=== PATIENT | female | born 1975 | race Caucasian/White ===

== ENCOUNTER 2016-10-09 13:16 | Inpatient (IN) | payer OTHER, MEDICAID ==
--- NOTE | 2016-10-09 13:42 | EDPHY ---
HPI/HX/ROS/PE/MDM Narrative: CHIEF COMPLAINT: Altered mental status HISTORY OF PRESENT ILLNESS: The patient is a 41 year old female, with history of Astroglioma brain tumor and cognitive disorder NOS who presents with decreased mental status. The patient has a lactose allergy. Yesterday she went to get ice cream with her family. She spat some of it up, but otherwise appeared at baseline. Last night, the patient began making a grunting noise. She slept normally throughout the night. This morning she was found to be diaphoretic. She continued to make the grunting noise and started coughing while eating food this morning. 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 The patient is usually nonverbal and able to follow commands. Today she became less responsive. No vomiting or diarrhea. No recent medication changes. REVIEW OF SYSTEMS: Unable to be obtained from the patient. PAST MEDICAL HISTORY: Astroglioma brain tumor, Cognitive disorder NOS, Depression, Generalized seizure disorder, Hypothyroid, Lactose intolerance, Legally blind, incontinence, PTSD, Yon in L. lower leg, two shunts. SOCIAL HISTORY: Resides at [facility]. Hydrology Teacher at bedside. VITAL SIGNS: Reviewed by me. Tachycardic and hypoxic. GENERAL: Chronically ill appearing, microcephaly. HEENT: Atraumatic. Eyes: No icterus, no injection. Pupils are equal and reactive. Mouth: Slightly dry. mucous membranes. No erythema or lesions. Neck: supple with no adenopathy. LUNGS: Wet crackles half way up bilaterally.. CARDIAC: Tachycardia and regular, no rubs, murmurs or gallops. ABDOMEN: Soft, nondistended. No appreciable tenderness. BACK: No CVA tenderness. EXTREMITIES: Trace edema. Lower extremities are cool to the touch. NEURO: Alert, does not follow simple commands, nonverbal. SKIN: Warm and dry, no rash. PSYCHIATRIC: No agitation. Portions of this note were transcribed by a medical photographer. I personally performed a history, physical exam, medical decision making, and confirmed accuracy of information the transcribed note. ED Course: The patient presents with decreased responsiveness. The patient has a history significant for Astroglioma brain tumor and cognitive disorder NOS. Today the patient stopped following simple commands. On exam she has wet sounding lungs. Patient is ill appearing. She has abnormal vitals, patient is tachycardic and hypoxic. IV was established, patient was started on IV fluids and received 100mg soluCORTEF IV as patient normally takes a daily dose of Hydrocort for an unclear reason. Plan for full sepsis workup. Labs, UA, and chest x-ray were ordered. The differential diagnosis for the patient's altered mental status includes but is not limited to sepsis, pneumonia, pulmonary embolism, or aspiration. X-ray of the chest was obtained. I viewed the images myself on the PACS system. Bibasilar pneumonia is seen. See the full radiology report in the imaging section. Severe sepsis protocol initiated. 3:05 p.m.: Patient has lactic acid of 2.4. WBC is elevated. Nursing staff asked to have a PICC line placed for better peripheral access. Plan for PICC line. I spoke to the hospitalist, Dr. Govea, who accepts the patient for admission. The patient received 30 cc/kilogram IV fluids and 1gm Invanz, as she is allergic to levofloxacin, penicillins, and vancomycin. MDM: Severe Sepsis/Septic Shock Care Note The patient presents to the ED with pneumonia identified as an acute infection. The patient did have evidence of end-organ dysfunction and met criteria for severe sepsis. This condition was identified by myself at 2:30 p.m.. The patients vital signs are 107/74, 99, 84% on room air, 16, 37 degree C. The patient has a venous lactic acid performed within 3 hours of the identification of severe sepsis which was found to be 2.4. The patient has blood cultures drawn and received ertapenem IV, per the severe sepsis treatment protocol. The patient had already received antibiotic within the past 24 hours. The initial lactate was elevated and rechecked within 6 hours of the identification time of severe sepsis and found to be: 0.8. After the history was obtained and physical exam performed, the following differential for the patient's altered mental status and respiratory distress was considered included but was not limited to hypoglycemia, electrolyte disturbances, sepsis, pneumonia, aspiration, cardiac causes, congestive heart failure. - Data Points Imaging Results: Imaging Impressions Chest X-Ray 10/09/16 13:44 Impression: Bilateral lower lobe atelectasis/infiltrate, new. PICC Line Insertion 10/09/16 15:10 Impression: Difficult placement of 6-Chinese triple-lumen peripherally inserted central catheter, now ready to use. (PQRS measures: Current medications were listed in the medical record, including all known prescriptions, [id number] medications, herbal medications, and nutritional supplements. Prophylactic Antibiotic: Unnecessary. VTE Prophylaxis: Unnecessary.) Laboratory Results: Laboratory Results 10/09/16 13:45 10/09/16 13:45 10/09/16 10/09/16 10/09/16 13:45 13:45 13:45 WBC 12.58 10^3/uL H 10^3/uL (3.80-9.50) RBC 5.56 10^6/uL H 10^6/uL (4.18-5.33) Hgb 16.9 g/dL H g/dL (12.6-16.3) Hct 52.4 % H % (38.0-47.0) MCV 94.2 fL fL (81.5-99.8) MCH 30.4 pg pg (27.9-34.1) MCHC 32.3 g/dL L g/dL (32.4-36.7) RDW 14.3 % % (11.5-15.2) Plt Count 236 10^3/uL 10^3/uL (150-400) MPV 10.0 fL fL (8.7-11.7) Neut % (Auto) 84.5 % H % (39.3-74.2) Lymph % (Auto) 6.7 % L % (15.0-45.0) [place] % (Auto) 7.4 % % (4.5-13.0) Eos % (Auto) 0.2 % L % (0.6-7.6) Baso % (Auto) 0.5 % % (0.3-1.7) Nucleat RBC Rel Count 0.0 % % (0.0-0.2) Absolute Neuts (auto) 10.64 10^3/uL H 10^3/uL (1.70-6.50) Absolute Lymphs (auto) 0.84 10^3/uL L 10^3/uL (1.00-3.00) Absolute Monos (auto) 0.93 10^3/uL H 10^3/uL (0.30-0.80) Absolute Eos (auto) 0.02 10^3/uL L 10^3/uL (0.03-0.40) Absolute Basos (auto) 0.06 10^3/uL 10^3/uL (0.02-0.10) Absolute Nucleated RBC 0.00 10^3/uL 10^3/uL (0-0.01) Immature Gran % 0.7 % % (0.0-1.1) Immature Gran # 0.09 10^3/uL 10^3/uL (0.00-0.10) PT 12.6 SEC SEC (12.0-15.0) INR 0.95 (0.83-1.16) APTT 24.8 SEC SEC (23.0-38.0) VBG Lactic Acid Sodium 144 mEq/L mEq/L (134-144) Potassium 4.5 mEq/L mEq/L (3.5-5.2) Chloride 105 mEq/L mEq/L (97-110) Carbon Dioxide 30 mEq/l mEq/l (22-31) Anion Gap 9 mEq/L mEq/L (8-16) BUN 18 mg/dL mg/dL (7-23) Creatinine 0.8 mg/dL mg/dL (0.6-1.0) Estimated GFR > 60 Glucose 99 mg/dL mg/dL (70-100) Calcium 9.9 mg/dL mg/dL (8.5-10.4) Total Bilirubin 0.9 mg/dL mg/dL (0.1-1.4) 10/09/16 13:45 WBC RBC Hgb Hct MCV MCH MCHC RDW Plt Count MPV Neut % (Auto) Lymph % (Auto) [place] % (Auto) Eos % (Auto) Baso % (Auto) Nucleat RBC Rel Count Absolute Neuts (auto) Absolute Lymphs (auto) Absolute Monos (auto) Absolute Eos (auto) Absolute Basos (auto) Absolute Nucleated RBC Immature Gran % Immature Gran # PT INR APTT VBG Lactic Acid 2.4 mmol/L H mmol/L (0.7-2.1) Sodium Potassium Chloride Carbon Dioxide Anion Gap BUN Creatinine Estimated GFR Glucose Calcium Total Bilirubin Medications Given: Discontinued Medications Hydrocortisone (Solucortef) 100 mg IVP EDNOW ONE Stop: 10/09/16 13:46 Last Admin: 10/09/16 14:06 Dose: 100 mg Sodium Chloride (Ns) 1,000 mls @ 0 mls/hr IV ONCE ONE PRN Reason: Wide Open Stop: 10/09/16 13:45 Last Admin: 10/09/16 14:08 Dose: 1,000 mls Ertapenem 1 gm/ Sodium (Chloride) 100 mls @ 200 mls/hr IV EDNOW ONE PRN Reason: Protocol Stop: 10/09/16 14:57 Last Admin: 10/09/16 15:11 Dose: 100 mls Sodium Chloride (Ns) 1,900 mls @ 3,800 mls/hr 30 ml/kg infuse over 30 min ( 1900 ml) IV EDNOW ONE Stop: 10/09/16 14:57 Last Admin: 10/09/16 15:00 Dose: 1,900 mls General Time Seen by Provider: 10/09/16 13:33 Initial Vital Signs: Initial Vital Signs Temperature (C) 37 C 10/09/16 13:18 Heart Rate 119 H 10/09/16 13:18 Respiratory Rate 24 H 10/09/16 13:18 Blood Pressure 121/88 H 10/09/16 13:18 O2 Sat (%) 91 L 10/09/16 13:18 O2 Delivery Mode Nasal Cannula O2 (L/minute) 2 Allergies/Adverse Reactions: codeine [Codeine] Allergy (Intermediate, Verified 10/09/16 13:17) levofloxacin [From Levaquin] Allergy (Verified 10/09/16 13:17) milk [Milk] Allergy (Verified 10/09/16 13:17) morphine Allergy (Verified 10/09/16 13:17) Penicillins Allergy (Verified 10/09/16 13:17) vancomycin Allergy (Verified 10/09/16 13:17) Home Medications: Medication Instructions Recorded Chlorhexidine Gluconate [Peridex] 15 ml PO BID@0900,2100 08/12/12 Clotrimazole 1% [Clotrimazole 1% 1 pratima TP DAILY 08/12/12 (RX)] Docusate Sodium [Colace 100 MG 100 mg PO BID 08/12/12 (OTC)] Hydrocortisone [Cortef] 20 mg PO BID 08/12/12 Levothyroxine [Synthroid 112 mcg 112 mcg PO DAILY06 08/12/12 (RX)] Propylene Glycol/Peg 400 [SYSTANE 1 drop EACHEYE 5XD 08/12/12 0.3-0.4% EYE DROPS] Cholecalciferol Vit D3 [Vitamin D3 2,000 units PO DAILY 10/09/16 (*)] Herbals/Supplements -Info Only 1 ea PO DAILY 10/09/16 Lacosamide [Vimpat 50 mg (*)] 300 mg PO DAILY 10/09/16 Mineral Oil/Petrolatum,White 1 pratima OP BID 10/09/16 [Systane Nighttime Eye Oint] [place]-3 Fatty Acids [Fish Oil 1000 2,000 mg PO DAILY 10/09/16 mg (*)] Polyethylene Glycol 3350 [Miralax 17 gm PO DAILY 10/09/16 17 gm (*)] Vitamin B Complex [B Complex] 1 each PO DAILY 10/09/16 Departure - Departure Disposition: [facility] Inpatient Acute Clinical Impression: Pneumonia Qualifiers: Pneumonia type: due to unspecified organism Laterality: bilateral Lung location : lower lobe of lung Qualified Code(s): J18.9 - Pneumonia, unspecified organism Sepsis Qualifiers: Sepsis type: sepsis due to unspecified organism Qualified Code(s): A41.9 - Sepsis, unspecified organism Condition: Serious Report Scribed for: Sue Payne Report Scribed by: Franchesca Potts Date of Report: 10/09/16 Time of Report: 13:49
[2016-10-09] MEDS ORDERED: NS 1,000 ML IV ONE ×2 (13:44→15:04)
[2016-10-09] MEDS ORDERED: HYDROCORTISONE 100 MG/2 ML VIAL IVP ONE (13:45)
[2016-10-09 13:57] LABS: % IMMATURE GRANULYOCYTES 0.7 % (0.0-1.1); ABSOLUTE IMMATURE GRANULOCYTES 0.09 10^3/uL (0.00-0.10); ADD DIFF? NO; ADD MORPH? NO; ADD SCAN? NO; ATYPICAL LYMPHOCYTE FLAG 20 (0-99); FRAGMENT RBC FLAG 0 (0-99); HEMATOCRIT 52.4 % (38.0-47.0); HEMOGLOBIN 16.9 g/dL (12.6-16.3); LEFT SHIFT FLG 0 (0-99); LIPEMIA HEMOLYSIS FLAG 80 (0-99); MEAN CELL HEMOGLOBIN 30.4 pg (27.9-34.1); MEAN CELL HEMOGLOBIN CONCENTR. 32.3 g/dL (32.4-36.7); MEAN CELL VOLUME 94.2 fL (81.5-99.8); PLATELET CLUMPS FLAG 40 (0-99); PLATELET COUNT 236 10^3/uL (150-400); RED BLOOD CELL COUNT 5.56 10^6/uL (4.18-5.33); RED CELL DISTRIBUTION WIDTH 14.3 % (11.5-15.2)
[2016-10-09 14:14] LABS: INR 0.95 (0.83-1.16); PROTIME(PATIENT) 12.6 SEC (12.0-15.0)
[2016-10-09 14:15] LABS: ANION GAP 9 mEq/L (8-16); APTT 24.8 SEC (23.0-38.0); BILIRUBIN,TOTAL 0.9 mg/dL (0.1-1.4); CALCIUM 9.9 mg/dL (8.5-10.4); CARBON DIOXIDE 30 mEq/l (22-31); CHLORIDE 105 mEq/L (97-110); CREATININE 0.8 mg/dL (0.6-1.0); GLOMERULAR FILTRATION RATE > 60; GLUCOSE 99 mg/dL (70-100); POTASSIUM 4.5 mEq/L (3.5-5.2); SODIUM 144 mEq/L (134-144)
[2016-10-09] MEDS ORDERED: NS 1,900 ML IV ONE (14:28)
[2016-10-09] MEDS ORDERED: ERTAPENEM 1 GM in NS 100 ML IV ONE (14:28)
[2016-10-09 14:53] LABS: LACGHOST ORDER
[2016-10-09] MEDS ORDERED: ONDANSETRON DISINTEGRATING 4 MG TAB PO PRN (15:04)
[2016-10-09] MEDS ORDERED: ONDANSETRON 4 MG/2 ML VIAL IVP PRN (15:04)
[2016-10-09] MEDS ORDERED: ALBUTEROL 3 ML DEYVIAL IH PRN (15:04)
[2016-10-09] MEDS ORDERED: ALTEPLASE 2 MG VIAL IVP PRN (15:10)
--- NOTE | 2016-10-09 16:51 | GHP ---
[f rep st] HISTORY AND PHYSICAL DATE OF ADMISSION: 10/09/2016 CHIEF COMPLAINT: Grunting and pallor. HISTORY OF PRESENT ILLNESS: A 41-year-old female with a history of astrocytoma who is cared for at [facility] [place] who was noted by her care providers today to be acting off her normal baseline. She h as a baseline cognitive disorder related to her astrocytoma. The patient noted that she was making unusual grunting noises today and was noted to be diaphoretic. Because of the combination of these 2 things, was brought to the emergency department for evaluation. In the emergency department, the patient is saying no to chest pain, abdominal pain, headache, myalgias, arthralgias, or nausea. Car e providers are noting that she had a normal night's sleep the evening preceding and began making un usual grunting noises and coughing while she was eating her food this morning. Care provider measur ed temperature in the home and noted that she was 99.8. She was still able to follow some commands but seemed off her nonverbal baseline. PAST MEDICAL HISTORY: 1. 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 2. Cognitive disorder NOS. 3. Adrenal insufficiency. 4. Generalized seizure disorder. 5. Hypothyroidism. 6. Depression. 7. Legal blindness. 8. Chronic incontinence. 9. Lactose intolerance. 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 She does not drink alcohol, smoke cigarettes, or use illicit drugs. FAMILY HISTORY: The patient has very limited involvement with her family. There is preceding histo ry of restraining orders against family members. REVIEW OF SYSTEMS: A 10-point review of systems is negative with the exception of that reported in the HPI. PHYSICAL EXAMINATION: VITAL SIGNS: Blood pressure is 108/76, heart rate 119, respiratory rate 24, saturating 91% on room air. GENERAL: This is a comorbidly young-appearing female who appears diaph oretic on my exam. HEENT: Notable for dry mucous membranes. Eye exam is negative for any icterus. CARDIAC: Patient is tachycardic but regular. PULMONARY: She has limited respiratory effort, is intermittently grunting during my examination as well. I hear rhonchi on anterior auscultation bila terally. No wheezing is appreciated. Her movement is limited. GASTROINTESTINAL: Positive bowel s ounds. Patient is obese and grunting to deep palpation in all 4 quadrants. MUSCULOSKELETAL: Notab le for 2+ symmetric lower extremity edema. SKIN: Negative for any rashes. NEUROLOGIC: The patien t is answering yes and no questions with "yeah" and "nah." PSYCHIATRIC: Appears depressed and with drawn. DATA: White count 12.58, hematocrit 52.4. Baselines are in the 40s. Platelet count of 236. Sodiu m 144, creatinine 0.8. Lactic acid 2.4. Chest x-ray, which I personally reviewed and interpreted, shows patchy consolidation in the bilateral lung bases with poor inspiration. ASSESSMENT AND PLAN: This is a 41-year-old female who presents with cough and diaphoresis. 1. Sepsis. The patient is presenting with leukocytosis, tachycardia, presumed source pulmonary. W ill receive aggressive fluid resuscitation in the emergency department. Blood cultures have been dr ragsdale. We will empirically treat with broad-spectrum antibiotics. Due to her allergies to common ant ibiotics, will choose ertapenem as our initial antibiotic of choice. Sending influenza. I doubt sh e will be able to produce a sputum sample in coordination with Respiratory Therapy. 2. Community-acquired pneumonia. Patient has bilateral infiltrates, grunting, cough, leukocytosis, all consistent. Will treat as above with empiric antibiotics as well as inhaled DuoNebs and albute rol as needed. Await microbiologic data for pathogen. Additionally have ordered Speech Therapy for an evaluation to rule out any aspiration. Patient did have a video swallow performed in 2012 that showed no aspiration at that time. 3. Acute leukocytosis. Patient likely has an elevation in her white count secondary to pneumonia. Will additionally send her urine for evaluation as she is unable to clearly give symptoms related t o urinary tract infection. 4. Underlying seizure disorder. Will continue her home medications without alteration. 5. Adrenal insufficiency. Patient is on chronic hydrocortisone. Will bolus dose her with steroids overnight in the setting of acute sepsis. Can transition her back to home dosing tomorrow if her v ital signs remain stable. 6. History of astrocytoma status post surgical excision and COMMUNITY HEALTH PLANNING DIRECTOR shunting. Patient receives 24-hour care at [facility] [place]. This can resume when she is stabilized and safe for transition back. Prophy laxis with Lovenox. Diet after Speech Therapy evaluates safety of swallowing. DISPOSITION: I expect greater than 2 midnights as patient is presenting septic, presumed secondary to pneumonia, requiring IV antibiotics, supportive care, and close monitoring. I have discussed the case with the emergency room physician. Patient will be triaged to the medical-surgical floor for care and monitoring. /[id number]/MODL
[2016-10-09] MEDS ORDERED: IPRATROPIUM/ALBUTEROL 3 ML DEYVIAL ONE (17:18)
[2016-10-09] MEDS: IPRATROPIUM/ALBUTEROL 3 ML DEYVIAL IH SCH ×2 (17:52→20:59)
[2016-10-09] MEDS: NS 1,000 ML IV SCH (20:28)
[2016-10-09] MEDS: methylPREDNISolone SOD SUCC 40 MG/ML VIAL IVP SCH (22:54)
[2016-10-10] MEDS: IPRATROPIUM/ALBUTEROL 3 ML DEYVIAL IH SCH ×4 (05:12→21:21)
[2016-10-10 05:21] LABS: % IMMATURE GRANULYOCYTES 0.5 % (0.0-1.1); ABSOLUTE IMMATURE GRANULOCYTES 0.04 10^3/uL (0.00-0.10); ADD DIFF? NO; ADD MORPH? NO; ADD SCAN? NO; ATYPICAL LYMPHOCYTE FLAG 10 (0-99); FRAGMENT RBC FLAG 0 (0-99); HEMATOCRIT 38.3 % (38.0-47.0); HEMOGLOBIN 12.3 g/dL (12.6-16.3); LEFT SHIFT FLG 0 (0-99); LIPEMIA HEMOLYSIS FLAG 80 (0-99); MEAN CELL HEMOGLOBIN 30.2 pg (27.9-34.1); MEAN CELL HEMOGLOBIN CONCENTR. 32.1 g/dL (32.4-36.7); MEAN CELL VOLUME 94.1 fL (81.5-99.8); MEAN PLATELET VOLUME 9.7 fL (8.7-11.7); PLATELET CLUMPS FLAG 20 (0-99); PLATELET COUNT 165 10^3/uL (150-400); RED BLOOD CELL COUNT 4.07 10^6/uL (4.18-5.33); RED CELL DISTRIBUTION WIDTH 14.2 % (11.5-15.2)
[2016-10-10] MEDS: methylPREDNISolone SOD SUCC 40 MG/ML VIAL IVP SCH (05:29)
[2016-10-10 05:30] LABS: ANION GAP 4 mEq/L (8-16); CALCIUM 7.7 mg/dL (8.5-10.4); CARBON DIOXIDE 23 mEq/l (22-31); CHLORIDE 117 mEq/L (97-110); CREATININE 0.4 mg/dL (0.6-1.0); GLOMERULAR FILTRATION RATE > 60; GLUCOSE 102 mg/dL (70-100); POTASSIUM 3.7 mEq/L (3.5-5.2); SODIUM 144 mEq/L (134-144)
[2016-10-10] MEDS: NS 1,000 ML IV SCH (06:30)
[2016-10-10] MEDS ORDERED: Herbals/Supplements -Info Only PO SCH (09:00)
[2016-10-10] MEDS ORDERED: HYDROCORTISONE 20 MG PO SCH (09:00)
[2016-10-10] MEDS ORDERED: DOCUSATE SODIUM 100 MG CAP PO SCH (09:00)
[2016-10-10] MEDS: LACOSAMIDE 50 MG TAB PO SCH (11:11)
[2016-10-10] MEDS: HYDROCORTISONE 10 MG TAB PO SCH ×2 (11:11→21:53)
[2016-10-10] MEDS: ENOXAPARIN 40 MG/0.4 ML SYR SC SCH (11:11)
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
[2016-10-10] MEDS: POLYETHYLENE GLYCOL 3350 17 GM PKT PO SCH (12:01)
[2016-10-10] MEDS: CHOLECALCIFEROL VIT D3 1,000 UNITS TAB PO SCH (12:04)
[2016-10-10] MEDS: VITAMIN B COMPLEX 1 EA CAP/TAB PO SCH (12:04)
[2016-10-10] MEDS: CHLORHEXIDINE GLUCONATE 15 ML UDL PO SCH ×2 (12:08→20:44)
[2016-10-10] MEDS: CLOTRIMAZOLE 1% 15 GM CRTUBE TP SCH (12:09)
[2016-10-10] MEDS: PROPYLENE GLYCOL EACHEYE SCH ×4 (12:09→21:53)
[2016-10-10] MEDS: OMEGA-3 FATTY ACIDS 1,000 MG CAP PO SCH (12:09)
[2016-10-10] MEDS: PEG EACHEYE SCH ×4 (12:09→21:53)
[2016-10-10] MEDS: SYSTANE NIGHTTIME EYE OP SCH ×2 (12:09→20:45)
[2016-10-10] MEDS: ERTAPENEM 1 GM in NS 100 ML IV SCH (13:05)
[2016-10-10 17:24] LABS: COLOR AMBER; LEUKOCYTE ESTERASE,URINE NEGATIVE (NEGATIVE); NITRITE,URINE NEGATIVE (NEGATIVE)
[2016-10-10 17:28] LABS: MUCUS 1+ /lpf (NONE-1+)
[2016-10-10] MEDS ORDERED: HYDROCORTISONE 10 MG TAB PO SCH (21:00)
[2016-10-11] MEDS: LEVOTHYROXINE 112 MCG TAB PO SCH (05:08)
[2016-10-11] MEDS: PROPYLENE GLYCOL EACHEYE SCH ×5 (05:08→21:05)
[2016-10-11] MEDS: PEG EACHEYE SCH ×5 (05:08→21:05)
[2016-10-11] MEDS: IPRATROPIUM/ALBUTEROL 3 ML DEYVIAL IH SCH ×4 (05:43→21:35)
[2016-10-11] MEDS: ENOXAPARIN 40 MG/0.4 ML SYR SC SCH (10:08)
[2016-10-11] MEDS: POLYETHYLENE GLYCOL 3350 17 GM PKT PO SCH (10:08)
[2016-10-11] MEDS: CHLORHEXIDINE GLUCONATE 15 ML UDL PO SCH ×2 (10:08→21:05)
[2016-10-11] MEDS: HYDROCORTISONE 10 MG TAB PO SCH ×2 (10:08→20:56)
[2016-10-11] MEDS: OMEGA-3 FATTY ACIDS 1,000 MG CAP PO SCH (10:09)
[2016-10-11] MEDS: CHOLECALCIFEROL VIT D3 1,000 UNITS TAB PO SCH (10:09)
[2016-10-11] MEDS: ACETAMINOPHEN 325 MG TAB PO PRN (10:18)
[2016-10-11] MEDS: VITAMIN B COMPLEX 1 EA CAP/TAB PO SCH (10:19)
[2016-10-11] MEDS: CLOTRIMAZOLE 1% 15 GM CRTUBE TP SCH (10:20)
[2016-10-11] MEDS: SYSTANE NIGHTTIME EYE OP SCH ×2 (10:40→21:11)
[2016-10-11] MEDS: ERTAPENEM 1 GM in NS 100 ML IV SCH (10:44)
[2016-10-11] MEDS: LACOSAMIDE 50 MG TAB PO SCH (10:44)
--- NOTE | 2016-10-11 12:18 | HOSPPROG ---
Hospitalist Progress Note Assessment/Plan: 41 yo F with hx of astrocytoma w/resultant cognitive disorder pw sepsis in setting of cap # sepsis: presenting with severe sepsis and elevated lactate, tachycardia, leukocytosis in setting of cap as next. Lactate cleared, hr trending down, wbc normalized. Patient mildly hypotensive but this is likely near her baseline. cultures with ngtd. # CAP: cxr personally reviewed and notable for bilateral opacities c/w infiltrate, aspiration vs cap. Continued on ertapenem for now. AIRCRAFT PNEUDRAULICS REPAIRER to evaluate. Follow cultures. # adrenal insufficiency: back on home dose of hydrocortisone, has had stress dose steroids initially, BP on the low end still but essentially likely baseline. Will continue to monitor on current meds. # sz d/o: continue op meds # h/o astrocytoma: s/p excision and REHAB SPECIALIST shunting, has resultant cognitive d/o as next # cognitive d/o: is dependent in all her needs at baseline, unclear if she is off her baseline currently # dispo: IP stay, will need > 48 hours for eval/mgmt of above Patient new to my care. Old records reviewed and summarized as above. Subjective: no significant overnight events, patient minimally responsive Objective: Vital Signs Temp Pulse Resp BP Pulse Ox 36.6 C 104 H 18 102/87 H 99 10/11/16 11:31 10/11/16 11:31 10/11/16 11:31 10/11/16 11:31 10/11/16 11:31 Laboratory Results 10/10/16 05:00 10/10/16 05:00 10/10/16 10/11/16 10/12/16 05:59 05:59 05:59 Intake Total 4200 200 Output Total 600 200 Balance 3600 0 PT 12.6 SEC (12.0-15.0) 10/09/16 13:45 INR 0.95 (0.83-1.16) 10/09/16 13:45 alert but minimally responsive anicteric op clear rrr coarse bs soft nt nd no cce warm dry well perfused moves all 4, scrunched up in bed ICD10 Worksheet Patient Problems: Problems Problem Status Onset Pneumonia Acute Sepsis Acute
[2016-10-11] MEDS: NS 1,000 ML IV SCH (15:37)
[2016-10-12] MEDS: NS 1,000 ML IV SCH (01:54)
[2016-10-12 05:18] LABS: % IMMATURE GRANULYOCYTES 0.9 % (0.0-1.1); ABSOLUTE IMMATURE GRANULOCYTES 0.06 10^3/uL (0.00-0.10); ADD DIFF? NO; ADD MORPH? NO; ADD SCAN? NO; ATYPICAL LYMPHOCYTE FLAG 20 (0-99); FRAGMENT RBC FLAG 0 (0-99); HEMATOCRIT 39.2 % (38.0-47.0); HEMOGLOBIN 12.7 g/dL (12.6-16.3); LEFT SHIFT FLG 0 (0-99); LIPEMIA HEMOLYSIS FLAG 80 (0-99); MEAN CELL HEMOGLOBIN 30.5 pg (27.9-34.1); MEAN CELL HEMOGLOBIN CONCENTR. 32.4 g/dL (32.4-36.7); MEAN PLATELET VOLUME 9.7 fL (8.7-11.7); PLATELET CLUMPS FLAG 0 (0-99); PLATELET COUNT 183 10^3/uL (150-400); RED BLOOD CELL COUNT 4.17 10^6/uL (4.18-5.33); RED CELL DISTRIBUTION WIDTH 14.4 % (11.5-15.2)
[2016-10-12 05:22] LABS: ANION GAP 2 mEq/L (8-16); CALCIUM 8.6 mg/dL (8.5-10.4); CARBON DIOXIDE 29 mEq/l (22-31); CHLORIDE 113 mEq/L (97-110); CREATININE 0.5 mg/dL (0.6-1.0); GLOMERULAR FILTRATION RATE > 60; GLUCOSE 83 mg/dL (70-100); POTASSIUM 4.2 mEq/L (3.5-5.2); SODIUM 144 mEq/L (134-144)
[2016-10-12] MEDS: IPRATROPIUM/ALBUTEROL 3 ML DEYVIAL IH SCH ×4 (05:35→20:10)
[2016-10-12] MEDS: PEG EACHEYE SCH ×5 (05:48→22:10)
[2016-10-12] MEDS: LEVOTHYROXINE 112 MCG TAB PO SCH (05:48)
[2016-10-12] MEDS: PROPYLENE GLYCOL EACHEYE SCH ×5 (05:48→22:10)
[2016-10-12] MEDS: ERTAPENEM 1 GM in NS 100 ML IV SCH (08:45)
[2016-10-12] MEDS: POLYETHYLENE GLYCOL 3350 17 GM PKT PO SCH (08:45)
[2016-10-12] MEDS: OMEGA-3 FATTY ACIDS 1,000 MG CAP PO SCH (08:46)
[2016-10-12] MEDS: HYDROCORTISONE 10 MG TAB PO SCH ×2 (08:46→22:13)
[2016-10-12] MEDS: ENOXAPARIN 40 MG/0.4 ML SYR SC SCH (08:46)
[2016-10-12] MEDS: CHOLECALCIFEROL VIT D3 1,000 UNITS TAB PO SCH (08:47)
[2016-10-12] MEDS: VITAMIN B COMPLEX 1 EA CAP/TAB PO SCH (08:47)
[2016-10-12] MEDS: CLOTRIMAZOLE 1% 15 GM CRTUBE TP SCH (08:48)
[2016-10-12] MEDS: LACOSAMIDE 50 MG TAB PO SCH (09:44)
[2016-10-12] MEDS: SYSTANE NIGHTTIME EYE OP SCH ×2 (09:44→22:10)
--- NOTE | 2016-10-12 10:40 | HOSPPROG ---
Hospitalist Progress Note Assessment/Plan: 41 yo F with hx of astrocytoma w/resultant cognitive disorder pw sepsis in setting of cap # sepsis: presenting with severe sepsis and elevated lactate, tachycardia, leukocytosis in setting of cap as next. Lactate cleared, hr trending down, wbc normalized. Patient mildly hypotensive but this is likely near her baseline. cultures with ngtd. # acute on chronic encephalopathy: patient at baseline is interactive and able to verbally communicate somewhat-on arrival only grunting, very somnolent, not interactive. Today she is voicing request "I want socks" and able to smile and interact more, suspect she is now close to baseline. She does have severe cognitive deficits at baseline that requires 24 hour care. # CAP: cxr personally reviewed and notable for bilateral opacities c/w infiltrate, aspiration vs cap. Ertapenem for now, will transition to azithro and cefuroxime after today's ertapenem (allergies to pcn/and fluoroquinolones) # adrenal insufficiency: back on home dose of hydrocortisone, has had stress dose steroids initially, BP on the low end still but essentially likely baseline. Will continue to monitor on current meds. 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 shunting, has resultant cognitive d/o as above # dispo: IP stay, will need > 48 hours for eval/mgmt of above Subjective: no significant overnight events, patient today is more alert and interactive, smiling, interacting with staff Objective: Vital Signs Temp Pulse Resp BP Pulse Ox 36.4 C 75 18 106/71 92 10/11/16 23:35 10/12/16 04:00 10/12/16 04:00 10/12/16 04:00 10/12/16 04:00 Laboratory Results 10/12/16 05:02 10/12/16 05:02 10/11/16 10/12/16 10/13/16 05:59 05:59 05:59 Intake Total 200 389 Output Total 200 Balance 0 389 PT 12.6 SEC (12.0-15.0) 10/09/16 13:45 INR 0.95 (0.83-1.16) 10/09/16 13:45 awake alert anicteric op clear rrr no mrg bilateral lower lobe rhonchi, L>R soft nt nd no cce warm dry well perfused smiling, moving all 4 spontaneously but curled up in a ball and diffusely weak, able to state " i want socks" ICD10 Worksheet Patient Problems: Problems Problem Status Onset Pneumonia Acute Sepsis Acute
[2016-10-12] MEDS: CHLORHEXIDINE GLUCONATE 15 ML UDL PO SCH ×2 (11:44→22:14)
[2016-10-12] MEDS ORDERED: CEFUROXIME AXETIL 250 MG TAB PO SCH (21:00)
[2016-10-12] MEDS: CEFUROXIME AXETIL 250 MG/5 ML BTL PO SCH (22:19)
[2016-10-13] MEDS: LEVOTHYROXINE 112 MCG TAB PO SCH (04:39)
[2016-10-13] MEDS: ACETAMINOPHEN 325 MG TAB PO PRN (04:39)
[2016-10-13] MEDS: PROPYLENE GLYCOL EACHEYE SCH ×5 (04:41→20:59)
[2016-10-13] MEDS: PEG EACHEYE SCH ×5 (04:41→20:59)
[2016-10-13] MEDS: IPRATROPIUM/ALBUTEROL 3 ML DEYVIAL IH SCH ×4 (05:15→21:11)
[2016-10-13] MEDS: CHOLECALCIFEROL VIT D3 1,000 UNITS TAB PO SCH (09:41)
[2016-10-13] MEDS: VITAMIN B COMPLEX 1 EA CAP/TAB PO SCH (09:41)
[2016-10-13] MEDS: HYDROCORTISONE 10 MG TAB PO SCH ×2 (09:42→20:31)
[2016-10-13] MEDS: AZITHROMYCIN 250 MG TAB PO SCH (09:42)
[2016-10-13] MEDS: LACOSAMIDE 50 MG TAB PO SCH (09:42)
[2016-10-13] MEDS: OMEGA-3 FATTY ACIDS 1,000 MG CAP PO SCH (09:43)
[2016-10-13] MEDS: CEFUROXIME AXETIL 250 MG/5 ML BTL PO SCH ×2 (09:43→20:37)
[2016-10-13] MEDS: CLOTRIMAZOLE 1% 15 GM CRTUBE TP SCH (09:44)
[2016-10-13] MEDS: CHLORHEXIDINE GLUCONATE 15 ML UDL PO SCH ×3 (09:45→20:49)
[2016-10-13] MEDS: ENOXAPARIN 40 MG/0.4 ML SYR SC SCH (09:45)
[2016-10-13] MEDS: SYSTANE NIGHTTIME EYE OP SCH ×2 (09:46→20:53)
[2016-10-13] MEDS: POLYETHYLENE GLYCOL 3350 17 GM PKT PO SCH (09:47)
--- NOTE | 2016-10-13 16:50 | HOSPPROG ---
Hospitalist Progress Note Assessment/Plan: 41 yo F with hx of astrocytoma w/resultant cognitive disorder pw sepsis in setting of cap # sepsis: presenting with severe sepsis and elevated lactate, tachycardia, leukocytosis in setting of cap as next. Resolving, wbc normal # acute on chronic encephalopathy: improved, back to baseline which is with significant cognitive dysfunction # CAP: cxr personally reviewed and notable for bilateral opacities c/w infiltrate, aspiration vs cap. Started on azithro and cefuroxime(allergies to pcn/and fluoroquinolones). Repeat cxr showing continued bilateral infiltrates. # adrenal insufficiency: back on home dose of hydrocortisone, has had stress dose steroids initially, BP on the low end still but essentially likely baseline. Will continue to monitor on current meds. # sz d/o: continue op meds # h/o astrocytoma: s/p excision and CREDIT CARD ASSOCIATE shunting, has resultant cognitive d/o as above # dispo: IP stay, will need > 48 hours for eval/mgmt of above Subjective: no significant overnight events, patient is awake and alert, eating with help of nursing Objective: Vital Signs Temp Pulse Resp BP Pulse Ox 37.2 C 80 18 96/57 L 95 10/13/16 15:49 10/13/16 15:49 10/13/16 15:49 10/13/16 15:49 10/13/16 15:49 Microbiology 10/10/16 17:11 Urine Culture - Final Urine,Catheterized Laboratory Results 10/12/16 05:02 10/12/16 05:02 10/12/16 10/13/16 10/14/16 05:59 05:59 05:59 Intake Total 389 Balance 389 PT 12.6 SEC (12.0-15.0) 10/09/16 13:45 INR 0.95 (0.83-1.16) 10/09/16 13:45 awake alert anicteric op clear rrr no mrg bilateral lower lobe rhonchi, L>R soft nt nd no cce warm dry well perfused smiling, moving all 4 spontaneously eating with help of nursing ICD10 Worksheet Patient Problems: Problems Problem Status Onset Pneumonia Acute Sepsis Acute
[2016-10-14] MEDS: LEVOTHYROXINE 112 MCG TAB PO SCH (05:26)
[2016-10-14] MEDS: PEG EACHEYE SCH ×4 (05:30→18:05)
[2016-10-14] MEDS: PROPYLENE GLYCOL EACHEYE SCH ×4 (05:30→18:05)
[2016-10-14] MEDS: NS 1,000 ML IV SCH (05:41)
[2016-10-14] MEDS: IPRATROPIUM/ALBUTEROL 3 ML DEYVIAL IH SCH ×3 (06:08→17:22)
--- NOTE | 2016-10-14 09:23 | PDDCSUM ---
Discharge Summary Discharge Summary: Dates of service 10/09-10/14/2016 Procedures/consultations: none Hospital course by problem: # sepsis: presenting with severe sepsis and elevated lactate, tachycardia, leukocytosis in setting of cap as next. Resolved # acute on chronic encephalopathy: improved, back to baseline which is with significant cognitive dysfunction # CAP: cxr personally reviewed and notable for bilateral opacities c/w infiltrate, aspiration vs cap. dc on azithro and cefuroxime(allergies to pcn/ and fluoroquinolones) to complete 10 day course of abx # acute hypoxic respiratory failure: with continued slightly low oxygen due to above as well as atelectasis, clinically improving quickly and suspect that she will not require supplemental o2 for long. # adrenal insufficiency: back on home dose of hydrocortisone, has had stress dose steroids initially, BP on the low end still but essentially likely baseline. Will continue to monitor on current meds. # sz d/o: continue op meds # h/o astrocytoma: s/p excision and DRUM FILLER shunting, has resultant cognitive d/o as above # dispo: dc [facility] Meds: see EHR F/u with PCP >35 minutes spent in discharge more than half in coordination of care
--- NOTE | 2016-10-14 09:23 | PDIAF ---
- Diagnosis Code Status: Full Code - Medication Management Discharge Medications: Medications to Continue on Transfer Chlorhexidine Gluconate [Peridex oral soln (*)] 15 ml PO BID@0900,2100 08/12/12 [Last Taken 10/09/16 10:00] Clotrimazole 1% 1 pratima TP DAILY 08/12/12 [Last Taken 10/09/16 10:00] Docusate Sodium [Colace 100 MG (*)] 100 mg PO BID 08/12/12 [Last Taken 10/09/16 10:00] Hydrocortisone [Cortef] 20 mg PO BID 08/12/12 [Last Taken 10/09/16 10:00] Levothyroxine [Synthroid 112 mcg (*)] 112 mcg PO DAILY06 08/12/12 [Last Taken 10:00] Propylene Glycol/Peg 400 [SYSTANE 0.3-0.4% EYE DROPS] 1 drop EACHEYE 5XD [Last Taken 10/09/16 10:00] Cholecalciferol Vit D3 [Vitamin D3 (*)] 2,000 units PO DAILY 10/09/16 [Last Taken 10/09/16 10:00] Herbals/Supplements -Info Only 1 ea PO DAILY 10/09/16 [Last Taken 10/09/16 10:00 ] Lacosamide [Vimpat 50 mg (*)] 300 mg PO DAILY 10/09/16 [Last Taken 10/09/16 10: 00] Mineral Oil/Petrolatum,White [Systane Nighttime Eye Oint] 1 pratima OP BID 10/09/16 [Last Taken 10/09/16 10:00] [place]-3 Fatty Acids [Fish Oil 1000 mg (*)] 2,000 mg PO DAILY 10/09/16 [Last Taken 10/09/16 10:00] Polyethylene Glycol 3350 [Miralax 17 gm (*)] 17 gm PO DAILY 10/09/16 [Last Taken 10/09/16 10:00] Vitamin B Complex [B Complex] 1 each PO DAILY 10/09/16 [Last Taken 10/09/16 10: 00] Acetaminophen [Tylenol 325mg (*)] 650 mg PO Q4HRS PRN #0 tab 10/14/16 [Last Taken Unknown] Albuterol [Proventil Neb] 3 ml IH Q2HRS PRN #0 deyvial 10/14/16 [Last Taken Unknown] Azithromycin [Zithromax] 500 mg PO DAILY 3 Days 10/14/16 [Last Taken Unknown] Cefuroxime Axetil [Ceftin Oral Liquid (*)] 250 mg PO BID 6 Days 10/14/16 [Last Taken Unknown] Discharge Medications: Refer to the Discharge Home Medication list for PRN reason. - Orders Services needed: Registered Nurse, Certified Golf Ball Trimmer, Physical Therapy, Occupational Therapy, Speech Language Pathologist Diet Texture: Dysphagia 1 - Pureed, Honey Thick Liquids, Meds Whole in Puree - Labs/Radiology BMP Date: 10/17/16 CBC Date: 10/17/16 Imaging Orders: Repeat chest Xray in 3 weeks - Follow Up Care Current Providers and Referrals: UNK,UNK [Other] - As per Instructions
[2016-10-14] MEDS: HYDROCORTISONE 10 MG TAB PO SCH (10:11)
[2016-10-14] MEDS: CHOLECALCIFEROL VIT D3 1,000 UNITS TAB PO SCH (10:11)
[2016-10-14] MEDS: AZITHROMYCIN 250 MG TAB PO SCH (10:12)
[2016-10-14] MEDS: LACOSAMIDE 50 MG TAB PO SCH (10:12)
[2016-10-14] MEDS: VITAMIN B COMPLEX 1 EA CAP/TAB PO SCH (10:12)
[2016-10-14] MEDS: CHLORHEXIDINE GLUCONATE 15 ML UDL PO SCH (10:12)
[2016-10-14] MEDS: SYSTANE NIGHTTIME EYE OP SCH (10:13)
[2016-10-14] MEDS: ENOXAPARIN 40 MG/0.4 ML SYR SC SCH (10:13)
[2016-10-14] MEDS: CEFUROXIME AXETIL 250 MG/5 ML BTL PO SCH (10:13)
[2016-10-14] MEDS: CLOTRIMAZOLE 1% 15 GM CRTUBE TP SCH (10:14)
[2016-10-14] MEDS: POLYETHYLENE GLYCOL 3350 17 GM PKT PO SCH (11:53)
[2016-10-14 12:41] VITALS: TEMP 97.2
[2016-10-14 16:28] VITALS: BP 89/49
[2016-10-14 17:40] VITALS: PULSE 70; RESP 18; O2SAT 93
== END 2016-10-14 18:50 | DRG 871 ==
LOC: F2W 17:05 → F3E 10-10 18:07
PROVIDERS: ADMIT Hospitalist; ATTEND Hospitalist
PROC: 02HV33Z Insertion of Infusion Device into Superior Vena Cava, Percutaneous Approach (ICD-10-PCS; principal; 2016-10-09)
DX: A41.9 Sepsis, unspecified organism (principal); R65.20 Severe sepsis without septic shock; J18.0 Bronchopneumonia, unspecified organism; G93.41 Metabolic encephalopathy; J96.01 Acute respiratory failure with hypoxia; R41.841 Cognitive communication deficit; Z85.841 Personal history of malignant neoplasm of brain; Z98.2 Presence of cerebrospinal fluid drainage device; G40.909 Epilepsy, unspecified, not intractable, without status epilepticus; E27.40 Unspecified adrenocortical insufficiency; E03.9 Hypothyroidism, unspecified; H54.8 Legal blindness, as defined in USA
CPT/HCPCS: 92526-GN; 92610-GN; 96374; C1751; C1769; G8996-GN-CJ; G8997-GN-CJ; J1335; J1650

== ENCOUNTER → 2016-10-22 | Outpatient (CLI) | payer OTHER, MEDICAID | LOC: FLAB 13:04 | PROVIDERS: ATTEND Registered Nurse | DX: Z13.83 Encounter for screening for respiratory disorder NEC (principal) ==

== ENCOUNTER → 2016-11-12 | Outpatient (CLI) | payer OTHER, MEDICAID | LOC: FIMAGING 12:41 | PROVIDERS: ATTEND Registered Nurse | DX: Z13.83 Encounter for screening for respiratory disorder NEC (principal) ==

== ENCOUNTER 2017-01-11 12:27 | Inpatient (IN) | payer OTHER, MEDICAID ==
[2017-01-11] MEDS ORDERED: NS 1,000 ML IV ONE (12:52)
[2017-01-11 13:07] LABS: % IMMATURE GRANULYOCYTES 0.6 % (0.0-1.1); ABSOLUTE IMMATURE GRANULOCYTES 0.08 10^3/uL (0.00-0.10); ADD DIFF? NO; ADD MORPH? NO; ADD SCAN? NO; ATYPICAL LYMPHOCYTE FLAG 0 (0-99); FRAGMENT RBC FLAG 0 (0-99); HEMATOCRIT 48.9 % (38.0-47.0); HEMOGLOBIN 16.1 g/dL (12.6-16.3); LEFT SHIFT FLG 0 (0-99); LIPEMIA HEMOLYSIS FLAG 80 (0-99); MEAN CELL HEMOGLOBIN CONCENTR. 32.9 g/dL (32.4-36.7); MEAN CELL VOLUME 91.1 fL (81.5-99.8); PLATELET CLUMPS FLAG 80 (0-99); PLATELET COUNT 256 10^3/uL (150-400); RED BLOOD CELL COUNT 5.37 10^6/uL (4.18-5.33); RED CELL DISTRIBUTION WIDTH 13.6 % (11.5-15.2)
[2017-01-11 13:16] LABS: ANION GAP 11 mEq/L (8-16); BILIRUBIN,TOTAL 0.6 mg/dL (0.1-1.4); CALCIUM 9.9 mg/dL (8.5-10.4); CARBON DIOXIDE 25 mEq/l (22-31); CHLORIDE 109 mEq/L (97-110); CREATININE 0.6 mg/dL (0.6-1.0); GLOMERULAR FILTRATION RATE > 60; GLUCOSE 99 mg/dL (70-100); POTASSIUM 4.2 mEq/L (3.5-5.2); SODIUM 145 mEq/L (134-144)
[2017-01-11] MEDS ORDERED: NS 1,900 ML IV ONE (13:18)
--- NOTE | 2017-01-11 13:18 | EDPHY ---
H & P Time Seen by Provider: 01/11/17 12:43 HPI/ROS: Chief complaint. Shortness of breath HPI. A 41-year-old female developmentally disabled here with difficulty breathing. She was diagnosed with bronchitis 10 days ago and has been treated with clarithromycin. However since that time she has had progressively worsening breathing with increasing cough as well as fever. She has had increasing lethargy and sleeping more and less active than normal. This morning she was apparently gasping for breath. There has been no vomiting or diarrhea. Patient does live in a detention. She is here with a health provider. Patient is nonverbal and cannot provide any further information. Review of systems and other history is obtained from the healthcare provider. ROS Constitutional. Fever Eyes. legally blind ENT. no sore throat, no nasal drainage Cardiovascular. no chest pain Respiratory. Cough and shortness of breath Abdominal. no abdominal pain, no nausea/vomiting, no diarrhea . no problems urinating MS. no calf pain/swelling, no neck/back pain, no joint pain Skin. no rash Lymph. no swollen glands Neuro. Does not walk normally Past Medical/Surgical History: Past medical history traumatic brain injury, brain tumor, seizure disorder, TOP LIFTER shunt, hypothyroid, PTSD, legally blind, previous pneumonia Social History: Single, nonsmoker, no alcohol Smoking Status: Unknown if ever smoked Physical Exam: General Appearance: Alert well-developed female nonverbal mild distress vital signs show temp 37.1degrees with heart rate 109. Initial blood pressure 93/76 Eyes: Pupils equal and round no pallor or injection. ENT, Mouth: Mucous membranes are moist. Respiratory: No retractions but inspiratory expiratory rhonchi and rales. Cardiovascular: Regular rate and rhythm. Gastrointestinal: Abdomen is soft and nontender, no masses, bowel sounds normal. Neurological: Awake and alert, sensory and motor exams grossly normal. Skin: Warm and dry, no rashes. Musculoskeletal: Neck is supple nontender. Extremities symmetrical, full range of motion. Psychiatric: Nonverbal Constitutional: Initial Vital Signs Temperature (C) 37.1 C 01/11/17 12:32 Heart Rate 109 H 01/11/17 12:32 Respiratory Rate 20 01/11/17 12:32 Blood Pressure 93/76 L 01/11/17 12:32 O2 Sat (%) 94 01/11/17 12:32 O2 Delivery Mode Nasal Cannula O2 (L/minute) 2 Allergies/Adverse Reactions: codeine [Codeine] Allergy (Intermediate, Verified 01/11/17 12:31) levofloxacin [From Levaquin] Allergy (Verified 01/11/17 12:31) milk [Milk] Allergy (Verified 01/11/17 12:31) morphine Allergy (Verified 01/11/17 12:31) Penicillins Allergy (Verified 01/11/17 12:31) vancomycin Allergy (Verified 01/11/17 12:31) Home Medications: Medication Instructions Recorded Chlorhexidine Gluconate [Peridex 15 ml PO BID@0900,2100 08/12/12 oral soln (*)] Clotrimazole 1% 1 pratima TP DAILY 08/12/12 Docusate Sodium [Colace 100 MG (*)] 100 mg PO BIDMEAL 08/12/12 Hydrocortisone [Cortef] 20 mg PO BIDMEAL 08/12/12 Levothyroxine [Synthroid 112 mcg 112 mcg PO DAILY06 08/12/12 (*)] Propylene Glycol/Peg 400 [SYSTANE 1 drop EACHEYE 5XD 08/12/12 0.3-0.4% EYE DROPS] Cholecalciferol Vit D3 [Vitamin D3 2,000 units PO DAILY 10/09/16 (*)] Herbals/Supplements -Info Only 1 ea PO DAILY 10/09/16 Lacosamide [Vimpat 50 mg (*)] 300 mg PO DAILY@17 10/09/16 Mineral Oil/Petrolatum,White 1 pratima OP BID 10/09/16 [Systane Nighttime Eye Oint] [place]-3 Fatty Acids [Fish Oil 1000 2,000 mg PO DAILY 10/09/16 mg (*)] Polyethylene Glycol 3350 [Miralax 17 gm PO DAILY 10/09/16 17 gm (*)] Vitamin B Complex [B Complex] 1 each PO DAILY 10/09/16 Medical Decision Making - Diagnostics Imaging Results: Imaging Impressions Chest X-Ray 01/11/17 12:52 Impression: Poor inspiratory effort. Question mild bronchitis. Chest x-ray poor inspiration cannot rule out pneumonia Procedures: Sepsis workup including Blood cultures. Serum lactate is elevated. Severe sepsis is declared now. Repeat lactate is ordered. IV fluids are ordered. IV antibiotics were ordered. ED Course/Re-evaluation: Re-evaluation 1:20 p.m.. Patient is stable. I discussed the findings with her health aide. We discussed treatment plan including recommendation for admission. Following cultures patient is given cefepime intravenously. I have consulted and discussed case with Dr. Scott, hospitalist, who agrees to the admission Differential Diagnosis: Clinically the patient has pneumonia. She has hypoxia and inspiratory expiratory rhonchi. She is developmentally disabled and unable to provide any further history or participate well for exam. As the patient is in a detention this would not be considered a community-acquired pneumonia but healthcare acquired pneumonia and will be treated appropriately with antibiotics - Data Points Laboratory Results: Laboratory Results 01/11/17 12:49 01/11/17 12:49 01/11/17 01/11/17 01/11/17 13:09 12:49 12:49 WBC RBC Hgb Hct MCV MCH MCHC RDW Plt Count MPV Neut % (Auto) Lymph % (Auto) [place] % (Auto) Eos % (Auto) Baso % (Auto) Nucleat RBC Rel Count Absolute Neuts (auto) Absolute Lymphs (auto) Absolute Monos (auto) Absolute Eos (auto) Absolute Basos (auto) Absolute Nucleated RBC Immature Gran % Immature Gran # PT 12.0 SEC SEC (12.0-15.0) INR 0.90 (0.83-1.16) APTT 21.8 SEC L SEC (23.0-38.0) VBG Lactic Acid 2.5 mmol/L H mmol/L (0.7-2.1) Sodium 145 mEq/L H mEq/L (134-144) Potassium 4.2 mEq/L mEq/L (3.5-5.2) Chloride 109 mEq/L mEq/L (97-110) Carbon Dioxide 25 mEq/l mEq/l (22-31) Anion Gap 11 mEq/L mEq/L (8-16) BUN 15 mg/dL mg/dL (7-23) Creatinine 0.6 mg/dL mg/dL (0.6-1.0) Estimated GFR > 60 Glucose 99 mg/dL mg/dL (70-100) Calcium 9.9 mg/dL mg/dL (8.5-10.4) Total Bilirubin 0.6 mg/dL mg/dL (0.1-1.4) 01/11/17 01/11/17 12:49 12:49 WBC 12.37 10^3/uL H 10^3/uL (3.80-9.50) RBC 5.37 10^6/uL H 10^6/uL (4.18-5.33) Hgb 16.1 g/dL g/dL (12.6-16.3) Hct 48.9 % H % (38.0-47.0) MCV 91.1 fL fL (81.5-99.8) MCH 30.0 pg pg (27.9-34.1) MCHC 32.9 g/dL g/dL (32.4-36.7) RDW 13.6 % % (11.5-15.2) Plt Count 256 10^3/uL 10^3/uL (150-400) MPV 10.0 fL fL (8.7-11.7) Neut % (Auto) 83.4 % H % (39.3-74.2) Lymph % (Auto) 8.1 % L % (15.0-45.0) [place] % (Auto) 6.5 % % (4.5-13.0) Eos % (Auto) 0.7 % % (0.6-7.6) Baso % (Auto) 0.7 % % (0.3-1.7) Nucleat RBC Rel Count 0.0 % % (0.0-0.2) Absolute Neuts (auto) 10.31 10^3/uL H 10^3/uL (1.70-6.50) Absolute Lymphs (auto) 1.00 10^3/uL 10^3/uL (1.00-3.00) Absolute Monos (auto) 0.80 10^3/uL 10^3/uL (0.30-0.80) Absolute Eos (auto) 0.09 10^3/uL 10^3/uL (0.03-0.40) Absolute Basos (auto) 0.09 10^3/uL 10^3/uL (0.02-0.10) Absolute Nucleated RBC 0.00 10^3/uL 10^3/uL (0-0.01) Immature Gran % 0.6 % % (0.0-1.1) Immature Gran # 0.08 10^3/uL 10^3/uL (0.00-0.10) PT INR APTT VBG Lactic Acid 2.6 mmol/L H mmol/L (0.7-2.1) Sodium Potassium Chloride Carbon Dioxide Anion Gap BUN Creatinine Estimated GFR Glucose Calcium Total Bilirubin Medications Given: Discontinued Medications Sodium Chloride (Ns) 1,000 mls @ 0 mls/hr IV ONCE ONE; Wide Open PRN Reason: Protocol Stop: 01/11/17 12:53 Last Admin: 01/11/17 13:56 Dose: 1,000 mls Azithromycin 500 mg/ Dextrose 255 mls @ 255 mls/hr IV EDNOW ONE PRN Reason: Protocol Stop: 01/11/17 14:18 Last Admin: 01/11/17 14:16 Dose: Not Given Ceftriaxone Sodium/Dextrose (Rocephin 1 Gm (Premix)) 50 mls @ 100 mls/hr IV EDNOW ONE PRN Reason: Protocol Stop: 01/11/17 13:47 Last Admin: 01/11/17 14:02 Dose: 50 mls Sodium Chloride (Ns) 1,900 mls @ 3,800 mls/hr 30 ml/kg infuse over 30 min ( 1900 ml) IV EDNOW ONE PRN Reason: Protocol Stop: 01/11/17 13:47 Last Admin: 01/11/17 14:41 Dose: 1,900 mls Cefepime HCl 2 gm/ Dextrose 100 mls @ 200 mls/hr IV EDNOW ONE PRN Reason: Protocol Stop: 01/11/17 14:27 Last Admin: 01/11/17 14:50 Dose: 100 mls Departure - Departure Disposition: [facility] Inpatient Acute Clinical Impression: Pneumonia Qualifiers: Pneumonia type: due to unspecified organism Laterality: bilateral Lung location : lower lobe of lung Qualified Code(s): J18.9 - Pneumonia, unspecified organism Sepsis Qualifiers: Sepsis type: sepsis due to unspecified organism Qualified Code(s): A41.9 - Sepsis, unspecified organism Condition: Fair
[2017-01-11] MEDS ORDERED: AZITHROMYCIN IV 500 MG in D5W 250 ML IV ONE (13:19)
[2017-01-11 13:37] LABS: INR 0.9 (0.83-1.16)
[2017-01-11 13:38] LABS: APTT 21.8 SEC (23.0-38.0)
[2017-01-11 13:56] LABS: LACGHOST ORDER
[2017-01-11] MEDS ORDERED: CEFEPIME HCL 2 GM in D5W 100 ML IV ONE (13:58)
[2017-01-11] MEDS ORDERED: ONDANSETRON 4 MG/2 ML VIAL IVP PRN (13:58)
[2017-01-11] MEDS ORDERED: ONDANSETRON DISINTEGRATING 4 MG TAB PO PRN (13:58)
[2017-01-11] MEDS ORDERED: ACETAMINOPHEN 325 MG TAB PO PRN (13:58)
[2017-01-11] MEDS ORDERED: CEFEPIME HCL 2 GM in D5W 100 ML IV SCH ×4 (14:00→22:00)
[2017-01-11] MEDS ORDERED: IPRATROPIUM/ALBUTEROL 3 ML DEYVIAL IH ONE (14:09)
--- NOTE | 2017-01-11 14:36 | GHP ---
[f rep st] HISTORY AND PHYSICAL DATE OF ADMISSION: 01/11/2017 CHIEF COMPLAINT: Pneumonia. HISTORY OF PRESENT ILLNESS: This is a 41-year-old female with a significant cognitive disorder who lives at [facility], who presents with respiratory symptoms. She was started on clindamycin 11 d ays ago for presumed bronchitis. She has not improved. Her history is mostly provided through her caregiver, as she is mostly nonverbal. She was admitted here in October for similar symptoms. Her ca regiver notes that she has not had any chills. No sweats. She has had no change in her urination. Her neck is supple. She has maybe been slightly weaker over the past few weeks as well. PAST MEDICAL/SURGICAL HISTORY: 1. Cognitive disorder. 2. Astrocytoma, status post resection which I believe may have caused the cognitive disorder. 3. Seizure disorder. 4. Hypothyroid. 5. Depression. 6. Blindness. 7. Incontinence. 8. PTSD. MEDICATIONS: Please see medication reconciliation. ALLERGIES: Codeine. Levaquin, milk, morphine, penicillin, vancomycin. SOCIAL HISTORY: She lives at [facility]. She can speak 1-2 word sentences. She is mostly cared for by a caregiver. FAMILY HISTORY: Limited involvement in her family. No clear history is available. REVIEW OF SYSTEMS: 10-point review of systems is conducted and is negative, except per HPI. PHYSICAL EXAM: VITAL SIGNS: Blood pressure is 93/76, heart rate 109, respiration rate 20, saturati ng 94% on room air, temperature is 37.1. GENERAL: The patient is a very pleasant female who is lyi ng on her side in bed with a stuffed rabbit. HEENT: Shows to be normocephalic, atraumatic. NECK: Supple, with no pain with movement. CARDIOVASCULAR: Exam shows regular rate and rhythm. No murmu rs, rubs, or gallops. PULMONARY: Exam shows her to have diffuse rhonchi bilaterally. ABDOMEN: So ft, nontender, nondistended. There are no masses or hepatosplenomegaly. SKIN: Full exam shows no rash or other areas of erythema. : No [place]. NEUROLOGIC: Exam shows her to be able to answer 1 word questions. This exam is limited. She is moving all her extremities. PSYCHIATRIC: Exam is u nobtainable. LABORATORY DATA: White count is 12.3, hemoglobin is 16.1, platelets are normal. INR is 0.9. Lacta te is 2.5. Sodium is 145, creatinine 0.6, otherwise basic metabolic panel is normal. DATA: 1. I discussed this with Dr. Honeycutt, as well reviewed her old chart. We will admit her to med/juan g. 2. Chest x-ray, which I personally viewed and interpreted, shows very poor respiratory effort. The re are slightly increased lung markings in the left base. IMPRESSION AND PLAN: This is a 41-year-old developmentally disabled female, who presents with likel y pneumonia, as well as sepsis. 1. Sepsis: I think that this is mostly due to pneumonia, as most of her symptoms are pulmonary in nature. History is quite limited. Chest x-ray is not terribly convincing, but it is a poor x-ray. She has been treated for pneumonia in the past. She does not have any pertinent micro in our syste m. She uses thickened liquids at baseline due to chronic aspiration. Given her history, as well as recent admission, the think for now we will treat her with cefepime, as well as azithromycin. Thes e can likely be tapered. I do not think we will get a good sputum sample from her. We will ask RT to perform pulmonary hygiene, including acapella valve, as well as incentive spirometer. We will pr ovide her nebulizers. 2. Adrenal insufficiency: She is on hydrocortisone chronically. I will give her 1 day of stress d ose steroids. Her blood pressure is mildly low, but this seems to be close to her baseline. 93/76. 3. Seizure disorder: Will continue her Vimpat. 4. Astrocytoma, status post resection, as well as cognitive disorder: Appreciate her caregivers as sistance. We will follow her closely on med/surg. I do not think she is going to need a sitter at this point. 5. Hypothyroid: Synthroid. 6. Venous thromboembolism risk: She is high risk given her relative immobility. I will give her L ovenox. 7. Code status: Full. She comes with no documentation from [facility] as too advanced directiv es. Her caregiver is not aware. Her previous admission she was full code, I will make her full cod e for now. /[id number]/MODL
[2017-01-11] MEDS: HYDROCORTISONE 100 MG/2 ML VIAL IVP SCH ×2 (17:03→21:08)
[2017-01-11] MEDS: NS 1,000 ML IV SCH (17:05)
[2017-01-11] MEDS: DOCUSATE SODIUM 100 MG CAP PO SCH (17:18)
[2017-01-11] MEDS ORDERED: NON-FORMULARY NEW DRUG (Propylene Glycol/Peg 400 [Systane 0.3-0.4% Eye Drops] 1 DROP) EACHEYE SCH (18:00)
[2017-01-11] MEDS: TEARS/DEXTRAN 70/HYPROMELLOSE 15 ML OPHT.BTL EACHEYE SCH ×2 (18:08→21:09)
[2017-01-11] MEDS: LACOSAMIDE 50 MG TAB PO SCH (18:10)
[2017-01-11] MEDS ORDERED: [UNRECOGNIZED DRUG - OTHER] OP SCH (21:00)
[2017-01-11] MEDS ORDERED: MINERAL OIL OP SCH (21:00)
[2017-01-11] MEDS ORDERED: PETROLATUM WHITE OP SCH (21:00)
[2017-01-11] MEDS: CEFEPIME HCL 1 GM in D5W 50 ML IV SCH (21:08)
[2017-01-11] MEDS: CHLORHEXIDINE GLUCONATE 15 ML UDL PO SCH (21:08)
[2017-01-11] MEDS: [UNRECOGNIZED DRUG - OTHER] OP SCH (21:18)
[2017-01-11] MEDS: MINERAL OIL OP SCH (21:18)
[2017-01-11] MEDS: PETROLATUM WHITE OP SCH (21:18)
[2017-01-12] MEDS: NS 1,000 ML IV SCH (04:02)
[2017-01-12 04:53] LABS: % IMMATURE GRANULYOCYTES 0.8 % (0.0-1.1); ABSOLUTE IMMATURE GRANULOCYTES 0.08 10^3/uL (0.00-0.10); ADD DIFF? NO; ADD MORPH? NO; ADD SCAN? NO; ATYPICAL LYMPHOCYTE FLAG 10 (0-99); FRAGMENT RBC FLAG 0 (0-99); HEMATOCRIT 44.4 % (38.0-47.0); HEMOGLOBIN 14.3 g/dL (12.6-16.3); LEFT SHIFT FLG 0 (0-99); LIPEMIA HEMOLYSIS FLAG 80 (0-99); MEAN CELL HEMOGLOBIN 29.8 pg (27.9-34.1); MEAN CELL HEMOGLOBIN CONCENTR. 32.2 g/dL (32.4-36.7); MEAN CELL VOLUME 92.5 fL (81.5-99.8); PLATELET CLUMPS FLAG 0 (0-99); PLATELET COUNT 229 10^3/uL (150-400); RED CELL DISTRIBUTION WIDTH 13.3 % (11.5-15.2)
[2017-01-12 05:04] LABS: ALANINE AMINOTRANSFERASE 22 IU/L (9-52); ALBUMIN 2.8 g/dL (3.5-5.0); ALKALINE PHOSPHATASE 77 IU/L (38-126); ANION GAP 9 mEq/L (8-16); ASPARTATE AMINOTRANSFERASE 13 IU/L (14-46); BILIRUBIN,TOTAL 0.5 mg/dL (0.1-1.4); CALCIUM 9.1 mg/dL (8.5-10.4); CARBON DIOXIDE 23 mEq/l (22-31); CHLORIDE 113 mEq/L (97-110); CREATININE 0.5 mg/dL (0.6-1.0); GLOMERULAR FILTRATION RATE > 60; GLUCOSE 114 mg/dL (70-100); SODIUM 145 mEq/L (134-144); TOTAL PROTEIN 5.2 g/dL (6.3-8.2)
[2017-01-12] MEDS: LEVOTHYROXINE 112 MCG TAB PO SCH (05:04)
[2017-01-12] MEDS: HYDROCORTISONE 100 MG/2 ML VIAL IVP SCH (05:04)
[2017-01-12] MEDS: CEFEPIME HCL 1 GM in D5W 50 ML IV SCH (05:04)
[2017-01-12] MEDS: TEARS/DEXTRAN 70/HYPROMELLOSE 15 ML OPHT.BTL EACHEYE SCH ×5 (05:05→22:46)
[2017-01-12] MEDS: DOCUSATE SODIUM 100 MG CAP PO SCH (08:00)
[2017-01-12] MEDS ORDERED: POLYETHYLENE GLYCOL 3350 17 GM PKT PO SCH (09:00)
--- NOTE | 2017-01-12 10:58 | HOSPPROG ---
Hospitalist Progress Note Assessment/Plan: # pneumonia/bronchitis - initially treated with cefepime, taper to rocephin today; failed outpatient abx - rocephin/azith - pulm hygeine - nebs - recheck CXR tomorrow as no clear infiltrate in initial CXR # cognitive disorder - lives at [facility], has caregivers # adrenal insufficiency - s/p stress dose steroids yesterday - back to home dose today # weakness - will likely need collateral from [facility] to assess whether she is at baseline # hypernatremia - small bolus of D5W today # seizure d/o - Vimpat # hypothyroid - synthroid # ppx - lovenox # dispo - may be ready for dc in 1-2 days Subjective: sitting in bed; answers yes or no - denies pain; per RN, having soft BMs Objective: Vital Signs Temp Pulse Resp BP Pulse Ox 35.7 C L 58 L 16 105/68 97 01/12/17 07:59 01/12/17 07:59 01/12/17 07:59 01/12/17 07:59 01/12/17 07:59 Laboratory Results 01/12/17 04:40 01/12/17 04:40 01/11/17 01/12/17 01/13/17 05:59 05:59 05:59 Intake Total 3236 400 Balance 3236 400 PT 12.0 SEC (12.0-15.0) 01/11/17 12:49 INR 0.90 (0.83-1.16) 01/11/17 12:49 - Physical Exam Constitutional: chronically ill appearing Cardiovascular: regular rate and rhythym, no murmur, rub, or gallop Respiratory: no respiratory distress, inspiratory crackles (L sided), rhonchi ( L sided), No expiratory wheeze Gastrointestinal: normoactive bowel sounds, soft, non-tender abdomen, no palpable masses ICD10 Worksheet Patient Problems: Problems Problem Status Onset Pneumonia Acute Sepsis Acute
[2017-01-12] MEDS ORDERED: D5W 1,000 ML IV SCH (11:00)
[2017-01-12] MEDS ORDERED: DOXYCYCLINE MISC ONE (11:00)
[2017-01-12] MEDS ORDERED: NS MISC ONE (11:00)
[2017-01-12] MEDS: CHLORHEXIDINE GLUCONATE 15 ML UDL PO SCH ×2 (11:27→22:45)
[2017-01-12] MEDS: ENOXAPARIN 40 MG/0.4 ML SYR SC SCH (11:27)
[2017-01-12] MEDS: CLOTRIMAZOLE 1% 15 GM CRTUBE TP SCH (11:28)
[2017-01-12] MEDS: MINERAL OIL OP SCH ×2 (11:30→22:46)
[2017-01-12] MEDS: PETROLATUM WHITE OP SCH ×2 (11:30→22:46)
[2017-01-12] MEDS: [UNRECOGNIZED DRUG - OTHER] OP SCH ×2 (11:30→22:46)
[2017-01-12] MEDS: VITAMIN B COMPLEX 1 EA CAP/TAB PO SCH (11:30)
[2017-01-12] MEDS: AZITHROMYCIN IV 500 MG in D5W 250 ML IV SCH (11:40)
[2017-01-12] MEDS: LACOSAMIDE 50 MG TAB PO SCH (18:18)
[2017-01-12] MEDS: HYDROCORTISONE 10 MG TAB PO SCH (18:18)
[2017-01-13 05:07] LABS: % IMMATURE GRANULYOCYTES 0.8 % (0.0-1.1); ABSOLUTE IMMATURE GRANULOCYTES 0.07 10^3/uL (0.00-0.10); ADD DIFF? NO; ADD MORPH? NO; ADD SCAN? NO; ATYPICAL LYMPHOCYTE FLAG 10 (0-99); FRAGMENT RBC FLAG 0 (0-99); HEMATOCRIT 46.6 % (38.0-47.0); HEMOGLOBIN 14.6 g/dL (12.6-16.3); LEFT SHIFT FLG 10 (0-99); LIPEMIA HEMOLYSIS FLAG 80 (0-99); MEAN CELL HEMOGLOBIN 30.7 pg (27.9-34.1); MEAN CELL HEMOGLOBIN CONCENTR. 31.3 g/dL (32.4-36.7); MEAN CELL VOLUME 97.9 fL (81.5-99.8); MEAN PLATELET VOLUME 10.1 fL (8.7-11.7); PLATELET CLUMPS FLAG 50 (0-99); PLATELET COUNT 148 10^3/uL (150-400); RED BLOOD CELL COUNT 4.76 10^6/uL (4.18-5.33); RED CELL DISTRIBUTION WIDTH 13.4 % (11.5-15.2)
[2017-01-13 05:32] LABS: ANION GAP 7 mEq/L (8-16); CALCIUM 9.1 mg/dL (8.5-10.4); CARBON DIOXIDE 24 mEq/l (22-31); CHLORIDE 112 mEq/L (97-110); CREATININE 0.6 mg/dL (0.6-1.0); GLOMERULAR FILTRATION RATE > 60; GLUCOSE 75 mg/dL (70-100); POTASSIUM 4.1 mEq/L (3.5-5.2); SODIUM 143 mEq/L (134-144)
[2017-01-13] MEDS: LEVOTHYROXINE 112 MCG TAB PO SCH (06:07)
[2017-01-13] MEDS: TEARS/DEXTRAN 70/HYPROMELLOSE 15 ML OPHT.BTL EACHEYE SCH ×5 (06:36→22:41)
[2017-01-13] MEDS: ENOXAPARIN 40 MG/0.4 ML SYR SC SCH (08:10)
[2017-01-13] MEDS: AZITHROMYCIN IV 500 MG in D5W 250 ML IV SCH (08:10)
[2017-01-13] MEDS: VITAMIN B COMPLEX 1 EA CAP/TAB PO SCH (08:10)
[2017-01-13] MEDS: HYDROCORTISONE 10 MG TAB PO SCH ×2 (08:10→16:59)
[2017-01-13] MEDS: CHLORHEXIDINE GLUCONATE 15 ML UDL PO SCH ×2 (08:10→22:40)
[2017-01-13] MEDS: MINERAL OIL OP SCH ×2 (08:11→19:19)
[2017-01-13] MEDS: [UNRECOGNIZED DRUG - OTHER] OP SCH ×2 (08:11→19:19)
[2017-01-13] MEDS: PETROLATUM WHITE OP SCH ×2 (08:11→19:19)
[2017-01-13] MEDS: CLOTRIMAZOLE 1% 15 GM CRTUBE TP SCH (08:11)
[2017-01-13] MEDS ORDERED: FUROSEMIDE 20 MG/2 ML VIAL IVP ONE (14:34)
--- NOTE | 2017-01-13 14:36 | HOSPPROG ---
Hospitalist Progress Note Assessment/Plan: 41y female with SOB. First encounter, chart reviewed. # pneumonia/bronchitis - initially treated with cefepime, taper to rocephin, will change to levaquin; failed outpatient abx - rocephin/azith to levaquin/azithro - pulm hygeine - nebs - recheck CXR, personally reviewed, edema -dose of IV lasix today #aspiration -chronic -possible acute - cont PO intake, no aggressive workup -on pudding thick liquids, highest precautions # cognitive disorder - lives at [facility], has caregivers # adrenal insufficiency - s/p stress dose steroids - back to home dose # weakness - will likely need collateral from [facility] to assess whether she is at baseline # hypernatremia - small bolus of D5W -resolved, unlikely getting enough liquid intake -aspiration issues # seizure d/o - Vimpat # hypothyroid - synthroid # ppx - lovenox # dispo - may be ready for dc in 1-2 days D/W CM, may need palliative with court appointed MDPOA possible address of COR status and aspiration treatment Subjective: No verbal interaction. Coughing. Follows commands. Objective: Vital Signs Temp Pulse Resp BP Pulse Ox 36.5 C 78 14 99/59 L 91 L 01/13/17 07:47 01/13/17 07:47 01/13/17 07:47 01/13/17 07:47 01/13/17 07:47 Laboratory Results 01/13/17 04:50 01/13/17 04:50 01/12/17 01/13/17 01/14/17 05:59 05:59 05:59 Intake Total 3236 400 Balance 3236 400 PT 12.0 SEC (12.0-15.0) 01/11/17 12:49 INR 0.90 (0.83-1.16) 01/11/17 12:49 - Physical Exam Constitutional: appears nourished, chronically ill appearing, obese Eyes: PERRL, anicteric sclera, EOMI Ears, Nose, Mouth, Throat: moist mucous membranes, ears appear normal, No oral thrush Cardiovascular: regular rate and rhythym, No JVD, No edema Respiratory: no respiratory distress, reduced air movement, expiratory wheeze Gastrointestinal: normoactive bowel sounds, No tenderness, No ascites Skin: warm, normal color, No erythema Musculoskeletal: no joint effusions, muscular tenderness, generalized weakness Neurologic: No AAOx3 Psychiatric: not anxious, poor insight, poor judgement, poor memory, No thought process linear ICD10 Worksheet Patient Problems: Problems Problem Status Onset Pneumonia Acute Sepsis Acute
[2017-01-13] MEDS: LACOSAMIDE 50 MG TAB PO SCH (16:55)
[2017-01-14] MEDS: TEARS/DEXTRAN 70/HYPROMELLOSE 15 ML OPHT.BTL EACHEYE SCH ×5 (05:24→21:21)
[2017-01-14] MEDS: LEVOTHYROXINE 112 MCG TAB PO SCH (05:24)
[2017-01-14] MEDS: PETROLATUM WHITE OP SCH ×2 (08:44→21:20)
[2017-01-14] MEDS: [UNRECOGNIZED DRUG - OTHER] OP SCH ×2 (08:44→21:20)
[2017-01-14] MEDS: MINERAL OIL OP SCH ×2 (08:44→21:20)
[2017-01-14] MEDS: AZITHROMYCIN IV 500 MG in D5W 250 ML IV SCH (08:59)
[2017-01-14] MEDS: HYDROCORTISONE 10 MG TAB PO SCH ×2 (08:59→18:38)
[2017-01-14] MEDS: VITAMIN B COMPLEX 1 EA CAP/TAB PO SCH (09:00)
[2017-01-14] MEDS: ENOXAPARIN 40 MG/0.4 ML SYR SC SCH (09:02)
[2017-01-14] MEDS: CLOTRIMAZOLE 1% 15 GM CRTUBE TP SCH (09:03)
[2017-01-14] MEDS: CHLORHEXIDINE GLUCONATE 15 ML UDL PO SCH ×2 (09:03→21:20)
--- NOTE | 2017-01-14 12:52 | HOSPPROG ---
Hospitalist Progress Note Assessment/Plan: 41y female with SOB. # pneumonia/bronchitis - initially treated with cefepime, taper to rocephin, failed outpatient abx - rocephin/azith to levaquin/azithro now to Invanz - pulm hygeine - nebs #aspiration -chronic - cont PO intake, no aggressive workup -on pudding thick liquids, highest precautions #Sepsis none #palliative care meeting -pt chronic aspirator -unclear of treatment plan # cognitive disorder - lives at [facility], has caregivers # adrenal insufficiency - s/p stress dose steroids - back to home dose # weakness - will likely need collateral from [facility] to assess whether she is at baseline # hypernatremia - small bolus of D5W -resolved, unlikely getting enough liquid intake -aspiration issues # seizure d/o - Vimpat # hypothyroid - synthroid # ppx - lovenox # dispo unclear palliative care consult ordered to sort out plan of care chronic aspiration D/W CM possible address of COR status and aspiration treatment Subjective: Alert. no verbal interaction. Objective: Vital Signs Temp Pulse Resp BP Pulse Ox 36.1 C 63 14 92/54 L 100 01/14/17 11:42 01/14/17 11:42 01/14/17 11:42 01/14/17 11:42 01/14/17 11:42 Laboratory Results 01/13/17 04:50 01/13/17 04:50 01/13/17 01/14/17 01/15/17 05:59 05:59 05:59 Intake Total 400 Balance 400 PT 12.0 SEC (12.0-15.0) 01/11/17 12:49 INR 0.90 (0.83-1.16) 01/11/17 12:49 - Physical Exam Constitutional: appears nourished, chronically ill appearing Eyes: PERRL, anicteric sclera Ears, Nose, Mouth, Throat: moist mucous membranes, hearing normal Cardiovascular: regular rate and rhythym, No edema Respiratory: no respiratory distress, reduced air movement Gastrointestinal: No tenderness, No ascites Skin: warm, normal color Musculoskeletal: no joint effusions, generalized weakness Neurologic: No AAOx3 Psychiatric: not anxious, poor insight, poor judgement, poor memory ICD10 Worksheet Patient Problems: Problems Problem Status Onset Pneumonia Acute Sepsis Acute
[2017-01-14] MEDS: ERTAPENEM 1 GM in NS 100 ML IV SCH (14:16)
--- NOTE | 2017-01-14 16:16 | PDPCPN ---
Palliative Care Progress Note Assessment/Plan: Referring provider: Nadia Yao Reason for consult: Complex medical decision making Symptom control HPI: Quita Krishnan is a 41 yo female with PMH cognitive disorder, astrocytoma s/p removal, seizures, depression, and PTSD admitted to the hospital from [facility] for SOB and resp distress. Septic on admission being treated for possible asp PNA. Was on antibiotics prior to admission with oral route for possible bronchitis. At baseline with dysphagia on DD1 with pudding liquids. Speech therapy has seen in the past with ? of chronic aspiration on the strictest diet. Palliative care consulted for complex medical decision making. Spoke with guardinatalie Dudley who is covering for her regular guardian Mariah over the phone. We spoke about the medical recommendations for focusing on quality of life with allowing for eating, and potential for not treating future asp PNA. Discussed option of aggressive medical care with being NPO, PEG tube, but this would not improve quality of life and would only prolong life, as well as not prevent all future occurrences of PNA. The covering guardian stated while she would lean towards comfort this conversation should be had with her regular guardian also involving the patient's father and [facility] care workers when Mariah returns from vacation 01/26. They asked us to fax our recommendations filled out on a MOST form so they can pursue future discussions about goals. For now the plan is to medically stabilize Quita with goal of returning back to [facility] and pursuing future goals of care discussions with Mariah and her father after 01/26. Assessment: Physical: - Pain: appears comfortable - tylenol PRN - Dyspnea: none - oxygen as needed - suction PRN - Dysphagia: -recommendations per speech - aspiration precautions Emotional/psychological: at baseline, mostly non verbal Advanced Care Planning: Is patient decisional?: No Code Status: Full MD POA: Guardian Mariah. Plan: Return to [facility] when medically stable. Did fax over MOST form with medical recommendations as requested. Subjective: sometimes states yes and no Objective: Social History: Lives at [facility]. Father is involved and visits. He is allowed medical information as requested. Medication list reviewed ROS: unable to obtain Functional assessment: PPS: 30% Functional status: dependent on ADLs, IADLs Vital Signs Temp Pulse Resp BP Pulse Ox 36.1 C 70 15 92/54 L 93 01/14/17 11:42 01/14/17 15:45 01/14/17 15:45 01/14/17 11:42 01/14/17 15:45 Laboratory Results 01/13/17 04:50 01/13/17 04:50 01/13/17 01/14/17 01/15/17 05:59 05:59 05:59 Intake Total 400 Balance 400 PT 12.0 SEC (12.0-15.0) 01/11/17 12:49 INR 0.90 (0.83-1.16) 01/11/17 12:49 Physical Exam - Physical Exam General Appearance: alert, no apparent distress Respiratory: No respiratory distress, No accessory muscle use Skin: normal color, warm/dry Extremities: No pedal edema Neuro/Psych: alert, disoriented to person, disoriented to place, disoriented to time ICD10 Worksheet Patient Problems: Problems Problem Status Onset Palliative care encounter Acute Pneumonia Acute Sepsis Acute - ICD10 Problem Qualifiers (1) Palliative care encounter
[2017-01-14] MEDS: LACOSAMIDE 50 MG TAB PO SCH (18:44)
[2017-01-15] MEDS: LEVOTHYROXINE 112 MCG TAB PO SCH (05:11)
[2017-01-15] MEDS: TEARS/DEXTRAN 70/HYPROMELLOSE 15 ML OPHT.BTL EACHEYE SCH ×5 (05:11→21:17)
[2017-01-15] MEDS: CHLORHEXIDINE GLUCONATE 15 ML UDL PO SCH ×2 (10:22→21:43)
[2017-01-15] MEDS: CLOTRIMAZOLE 1% 15 GM CRTUBE TP SCH (10:22)
[2017-01-15] MEDS: VITAMIN B COMPLEX 1 EA CAP/TAB PO SCH (10:22)
[2017-01-15] MEDS: ENOXAPARIN 40 MG/0.4 ML SYR SC SCH (10:23)
[2017-01-15] MEDS: ERTAPENEM 1 GM in NS 100 ML IV SCH ×2 (10:23→13:30)
[2017-01-15] MEDS: [UNRECOGNIZED DRUG - OTHER] OP SCH ×2 (10:24→19:20)
[2017-01-15] MEDS: PETROLATUM WHITE OP SCH ×2 (10:24→19:20)
[2017-01-15] MEDS: MINERAL OIL OP SCH ×2 (10:24→19:20)
[2017-01-15] MEDS: HYDROCORTISONE 10 MG TAB PO SCH ×2 (10:24→18:30)
--- NOTE | 2017-01-15 13:09 | HOSPPROG ---
Hospitalist Progress Note Assessment/Plan: 41y female with SOB. # pneumonia/bronchitis - initially treated with cefepime, taper to rocephin, failed outpatient abx - rocephin/azith to levaquin/azithro now to Invanz - pulm hygeine - nebs -will transition to augmentin at the time of dc #aspiration -chronic - cont PO intake, no aggressive workup -on pudding thick liquids, highest precautions #Sepsis none #palliative care meeting -pt chronic aspirator -unclear of treatment plan -MOST form completed # cognitive disorder - lives at [facility], has caregivers # adrenal insufficiency - s/p stress dose steroids - back to home dose # weakness - will likely need collateral from [facility] to assess whether she is at baseline # hypernatremia - -resolved, unlikely getting enough liquid intake -aspiration issues # seizure d/o - Vimpat # hypothyroid - synthroid # ppx - lovenox # dispo unclear await [facility] eval chronic aspiration D/W CM transition to PO abx DC home when [facility] agrees Subjective: asleep, arousable. No verbal interaction. Objective: Vital Signs Temp Pulse Resp BP Pulse Ox 36.5 C 83 16 107/49 L 91 L 01/15/17 07:42 01/15/17 11:55 01/15/17 04:00 01/15/17 11:55 01/15/17 11:55 Laboratory Results 01/13/17 04:50 01/13/17 04:50 01/14/17 01/15/17 01/16/17 05:59 05:59 05:59 Intake Total 100 Balance 100 PT 12.0 SEC (12.0-15.0) 01/11/17 12:49 INR 0.90 (0.83-1.16) 01/11/17 12:49 - Physical Exam Constitutional: chronically ill appearing, obese Eyes: PERRL, anicteric sclera Ears, Nose, Mouth, Throat: moist mucous membranes, ears appear normal Cardiovascular: edema, No JVD Respiratory: no respiratory distress, reduced air movement Gastrointestinal: No tenderness, No guarding Skin: warm, normal color Musculoskeletal: abnormal gait, generalized weakness, No normal joint ROM Neurologic: No AAOx3 Psychiatric: not anxious, poor insight, poor judgement, poor memory ICD10 Worksheet Patient Problems: Problems Problem Status Onset Pneumonia Acute Sepsis Acute Palliative care encounter Acute
[2017-01-15] MEDS: AZITHROMYCIN IV 500 MG in D5W 250 ML IV SCH (13:29)
[2017-01-15] MEDS: LACOSAMIDE 50 MG TAB PO SCH ×2 (18:19→18:31)
[2017-01-15] MEDS: CLINDAMYCIN 75 MG/5 ML PO SCH ×2 (18:29→21:18)
[2017-01-16] MEDS: LEVOTHYROXINE 112 MCG TAB PO SCH (05:40)
[2017-01-16] MEDS: TEARS/DEXTRAN 70/HYPROMELLOSE 15 ML OPHT.BTL EACHEYE SCH ×2 (05:40→09:07)
[2017-01-16] MEDS: HYDROCORTISONE 10 MG TAB PO SCH (08:41)
[2017-01-16] MEDS: CHLORHEXIDINE GLUCONATE 15 ML UDL PO SCH ×2 (08:42→09:18)
[2017-01-16] MEDS: CLINDAMYCIN 75 MG/5 ML PO SCH (08:44)
[2017-01-16] MEDS: ENOXAPARIN 40 MG/0.4 ML SYR SC SCH (08:45)
[2017-01-16] MEDS: CLOTRIMAZOLE 1% 15 GM CRTUBE TP SCH (08:45)
[2017-01-16] MEDS: VITAMIN B COMPLEX 1 EA CAP/TAB PO SCH (08:46)
[2017-01-16] MEDS: PETROLATUM WHITE OP SCH (09:17)
[2017-01-16] MEDS: MINERAL OIL OP SCH (09:17)
[2017-01-16] MEDS: [UNRECOGNIZED DRUG - OTHER] OP SCH (09:17)
--- NOTE | 2017-01-16 10:47 | PDIAF ---
- Diagnosis Diagnosis: PNA Code Status: Full Code - Medication Management Discharge Medications: Medications to Continue on Transfer Chlorhexidine Gluconate [Peridex oral soln (*)] 15 ml PO BID@0900,2100 08/12/12 [Last Taken 01/11/17 09:00] Clotrimazole 1% 1 pratima TP DAILY 08/12/12 [Last Taken 01/11/17] Docusate Sodium [Colace 100 MG (*)] 100 mg PO BIDMEAL 08/12/12 [Last Taken 01/11 09:00] Hydrocortisone [Cortef] 20 mg PO BIDMEAL 08/12/12 [Last Taken 01/11/17 09:00] Levothyroxine [Synthroid 112 mcg (*)] 112 mcg PO DAILY06 08/12/12 [Last Taken ] Propylene Glycol/Peg 400 [SYSTANE 0.3-0.4% EYE DROPS] 1 drop EACHEYE 5XD [Last Taken 01/11/17] Cholecalciferol Vit D3 [Vitamin D3 (*)] 2,000 units PO DAILY 10/09/16 [Last Taken 01/11/17] Herbals/Supplements -Info Only 1 ea PO DAILY 10/09/16 [Last Taken 10/09/16 10:00 ] Lacosamide [Vimpat 50 mg (*)] 300 mg PO DAILY@17 10/09/16 [Last Taken 01/10/17 17:00] Mineral Oil/Petrolatum,White [Systane Nighttime Eye Oint] 1 pratima OP BID 10/09/16 [Last Taken 01/11/17] [place]-3 Fatty Acids [Fish Oil 1000 mg (*)] 2,000 mg PO DAILY 10/09/16 [Last Taken 01/11/17] Polyethylene Glycol 3350 [Miralax 17 gm (*)] 17 gm PO DAILY 10/09/16 [Last Taken 01/11/17] Vitamin B Complex [B Complex] 1 each PO DAILY 10/09/16 [Last Taken 01/11/17] Acetaminophen [Tylenol 325mg (*)] 650 mg PO Q4HRS PRN #0 tab 01/16/17 [Last Taken Unknown] Clindamycin [Cleocin Oral Liquid] 450 mg PO TID #1 bottle 01/16/17 [Last Taken Unknown] Discharge Medications: Refer to the Discharge Home Medication list for PRN reason. PICC Care - Routine: N/A - Orders Services needed: Home Care, Registered Nurse, Speech Language Pathologist Home Care Face to Face: I certify that this patient was under my care and that I had the required [id number] encounter meeting the encounter requirements on the discharge day. My findings support the fact that the patient is homebound as defined in CMS Chapter 7 Medicare Benefits Manual 30.1.1, The condition of the patient is such that there exists a normal inability to leave home and consequently, leaving home would require a considerable and taxing effort. Diet Texture: Dysphagia 1 - Pureed, Honey Thick Liquids - Follow Up Care Current Providers and Referrals: NONE *PRIMARY CARE P,. [Primary Care Provider] - As per Instructions
[2017-01-16 12:42] VITALS: BP 90/66; PULSE 97; RESP 16; TEMP 98.2; O2SAT 91
--- NOTE | 2017-01-17 02:36 | GDS ---
[f rep st] DISCHARGE SUMMARY DISCHARGE DIAGNOSES: 1. Pneumonia. 2. Chronic aspiration. 3. Cognitive disorder. 4. Renal insufficiency. 5. Hypernatremia. 6. Seizure disorder. 7. Hypothyroidism. CONSULTATIONS: Palliative Care. PHYSICAL EXAM: GENERAL: The patient is alert. VITAL SIGNS: Afebrile at 36.8, pulse is 97, respir atory rate 16, blood pressure is 90/66, she is saturating 91% on room air. I have seen and evaluated the patient on the day of discharge. HOSPITAL COURSE: The patient is a 41-year-old female, brought to the emergency room with complaints of shortness of breath. She was evaluated and diagnosed with: 1. Pneumonia. During this hospitalization, she received IV antibiotic therapy. After further eval uation, it is likely that there is a component of aspiration pneumonia as the patient has chronic as piration. She will be discharged with oral clindamycin, given her underlying allergies. She will c ontinue this for a total of 5 more days. 2. Chronic aspiration. The patient is on highest precautions available. It is not recommended yolie t she receive a PEG tube, given her overall health. This has been reviewed with her court-appointed MD EDSON. A palliative care conference was initiated, a MOLST form has been filled out and recommend ed. This will be further followed up by her MD JEANA. It was recommended that the patient continue o ral intake for comfort, refrain from returning to the hospital, and continue her swallowing precauti ons as indicated. 3. Cognitive disorder. She resides at [facility] and is at her baseline. 4. Adrenal insufficiency. During this hospitalization, she received stress dose steroids. She is back to her baseline dose. 5. Hypernatremia. This is in the setting of hypovolemia and chronic aspiration. DISPOSITION: The patient will be discharged, to return to [facility] where she resides. There a re no pending studies. Followup will be with her primary care physician, as well as initiation of M OLST form in the outpatient setting. Home health care has been ordered at the time of disposition. DISCHARGE MEDICATIONS: Please refer to EMR form. The patient has been provided a prescription for clindamycin. I spent greater than 35 minutes in the care, coordination, and management of the patient's discharge . /[id number]/MODL
== END 2017-01-16 15:20 | disposition home health service (06) | DRG 178 ==
LOC: F3E 15:14
PROVIDERS: ADMIT Student in an Organized Health Care Education/Training Program; ATTEND Family Medicine
DX: J69.0 Pneumonitis due to inhalation of food and vomit (principal); E87.0 Hyperosmolality and hypernatremia; N18.9 Chronic kidney disease, unspecified; E03.9 Hypothyroidism, unspecified; R41.841 Cognitive communication deficit; Z85.841 Personal history of malignant neoplasm of brain; Z98.2 Presence of cerebrospinal fluid drainage device; G40.909 Epilepsy, unspecified, not intractable, without status epilepticus; R39.81 Functional urinary incontinence; E27.40 Unspecified adrenocortical insufficiency; H54.8 Legal blindness, as defined in USA
CPT/HCPCS: 92526-GN; 92610-GN; G8996-GN-CJ; G8996-GN-CK; G8997-GN-CJ; G8998-GN-CJ; J0456; J0692; J0696; J1335; J1650; J1940

== ENCOUNTER 2017-03-14 10:50 | Inpatient (IN) | payer OTHER, MEDICAID ==
--- NOTE | 2017-03-14 11:24 | EDPHY ---
H & P Time Seen by Provider: 03/14/17 11:10 HPI/ROS: Chief complaint. Decreased mental status, hypoxia HPI. 41-year-old female with multiple medical problems has decreased responsiveness this morning and also found to have a pulse oximeter of 84% saturation on room air. She has been seen in our department in October and January for pneumonia and sepsis. She lives at [facility]. Caregiver notes no cough or fever but decreased responsiveness put. They put her on oxygen at home with improvement of mental status. Baseline the patient speaks in 1 or 2 word sentences. No vomiting or diarrhea. ROS Constitutional. Decreased responsiveness Eyes. no problems with vision ENT. no sore throat, no nasal drainage Cardiovascular. no chest pain Respiratory. No obvious shortness of breath or cough but oxygen saturation 84% Abdominal. no abdominal pain, no nausea/vomiting, no diarrhea . no problems urinating MS. no calf pain/swelling, no neck/back pain, no joint pain Skin. no rash Lymph. no swollen glands Neuro. Does not walk. 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 O2 saturation on 3 L 99% Eyes: Pupils equal and round no pallor or injection. ENT, Mouth: Mucous membranes are moist. Respiratory: No retractions. Diffuse rhonchi Cardiovascular: Regular rate and rhythm. Gastrointestinal: Abdomen is soft and nontender, no masses, bowel sounds normal. Neurological: Awake and alert, sensory and motor exams grossly normal. Skin: Warm and dry, no rashes. Musculoskeletal: Neck is supple nontender. Extremities symmetrical, full range of motion. Right leg has erythema and swelling below the knee Psychiatric: Patient is at neuro and mental baseline Constitutional: Initial Vital Signs Temperature (C) 37.0 C 03/14/17 11:01 Heart Rate 128 H 03/14/17 11:01 Respiratory Rate 18 03/14/17 11:01 Blood Pressure 84/68 L 03/14/17 11:01 O2 Sat (%) 99 03/14/17 11:01 O2 Delivery Mode Nasal Cannula O2 (L/minute) 2 Allergies/Adverse Reactions: codeine [Codeine] Allergy (Intermediate, Verified 01/11/17 12:31) levofloxacin [From Levaquin] Allergy (Verified 01/11/17 12:31) milk [Milk] Allergy (Verified 01/11/17 12:31) morphine Allergy (Verified 01/11/17 12:31) Penicillins Allergy (Verified 01/11/17 12:31) vancomycin Allergy (Verified 01/11/17 12:31) Home Medications: Medication Instructions Recorded Chlorhexidine Gluconate [Peridex 15 ml PO BID@0900,2100 08/12/12 oral soln (*)] Clotrimazole 1% 1 pratima TP DAILY 08/12/12 Docusate Sodium [Colace 100 MG (*)] 100 mg PO BIDMEAL 08/12/12 Hydrocortisone [Cortef] 20 mg PO BIDMEAL 08/12/12 Levothyroxine [Synthroid 112 mcg 112 mcg PO DAILY06 08/12/12 (*)] Propylene Glycol/Peg 400 [SYSTANE 1 drop EACHEYE 5XD 08/12/12 0.3-0.4% EYE DROPS] Cholecalciferol Vit D3 [Vitamin D3 2,000 units PO DAILY 10/09/16 (*)] Herbals/Supplements -Info Only 1 ea PO DAILY 10/09/16 Lacosamide [Vimpat 50 mg (*)] 300 mg PO DAILY@17 10/09/16 Mineral Oil/Petrolatum,White 1 pratima OP BID 10/09/16 [Systane Nighttime Eye Oint] [place]-3 Fatty Acids [Fish Oil 1000 2,000 mg PO DAILY 10/09/16 mg (*)] Polyethylene Glycol 3350 [Miralax 17 gm PO DAILY 10/09/16 17 gm (*)] Vitamin B Complex [B Complex] 1 each PO DAILY 10/09/16 Acetaminophen [Tylenol 325mg (*)] 650 mg PO Q4HRS PRN #0 tab 01/16/17 Clindamycin [Cleocin Oral Liquid] 450 mg PO TID #1 bottle 01/16/17 Medical Decision Making - Diagnostics Imaging Results: Imaging Impressions Chest X-Ray 03/14/17 11:29 Impression: 1. Possible right lower lobe pneumonia. 2. Consider chest two views when the patient's medical condition permits. Procedures: IV normal saline, monitor, oxygen Sepsis workup ED Course/Re-evaluation: serial evaluations patient is stable. Back to baseline neuro status. IV cefepime and clindamycin for concern of hospital-acquired infection and possible recurrent aspiration. Current blood pressure is 149/99. Heart rate 126 I discussed findings with her caregiver including treatment plan and recommendation for Admission. He expresses understanding and agreement I consulted and discussed the case with Dr. Stuart, hospitalist, who agrees to the admission Differential Diagnosis: I suspect that this is recurrent aspiration pneumonia. Lactate is elevated indicating severe sepsis. Right lower extremity is swollen I considered DVT. Patient is being treated for a hospital-acquired infection as well as aspiration pneumonia Critical Care Time: Critical care time exclusive procedures 40 minutes - Data Points Laboratory Results: Laboratory Results 03/14/17 11:37 03/14/17 11:37 03/14/17 03/14/17 03/14/17 11:37 11:37 11:37 WBC 12.55 10^3/uL H 10^3/uL (3.80-9.50) RBC 5.60 10^6/uL H 10^6/uL (4.18-5.33) Hgb 16.4 g/dL H g/dL (12.6-16.3) Hct 50.9 % H % (38.0-47.0) MCV 90.9 fL fL (81.5-99.8) MCH 29.3 pg pg (27.9-34.1) MCHC 32.2 g/dL L g/dL (32.4-36.7) RDW 15.1 % % (11.5-15.2) Plt Count 266 10^3/uL 10^3/uL (150-400) MPV 10.3 fL fL (8.7-11.7) Neut % (Auto) 76.0 % H % (39.3-74.2) Lymph % (Auto) 11.9 % L % (15.0-45.0) [place] % (Auto) 8.8 % % (4.5-13.0) Eos % (Auto) 1.3 % % (0.6-7.6) Baso % (Auto) 1.0 % % (0.3-1.7) Nucleat RBC Rel Count 0.0 % % (0.0-0.2) Absolute Neuts (auto) 9.56 10^3/uL H 10^3/uL (1.70-6.50) Absolute Lymphs (auto) 1.49 10^3/uL 10^3/uL (1.00-3.00) Absolute Monos (auto) 1.10 10^3/uL H 10^3/uL (0.30-0.80) Absolute Eos (auto) 0.16 10^3/uL 10^3/uL (0.03-0.40) Absolute Basos (auto) 0.12 10^3/uL H 10^3/uL (0.02-0.10) Absolute Nucleated RBC 0.00 10^3/uL 10^3/uL (0-0.01) Immature Gran % 1.0 % % (0.0-1.1) Immature Gran # 0.12 10^3/uL H 10^3/uL (0.00-0.10) PT 13.4 SEC SEC (12.0-15.0) INR 1.03 (0.83-1.16) APTT 26.8 SEC SEC (23.0-38.0) VBG Lactic Acid Sodium 143 mEq/L mEq/L (134-144) Potassium 4.5 mEq/L mEq/L (3.5-5.2) Chloride 103 mEq/L mEq/L (97-110) Carbon Dioxide 26 mEq/l mEq/l (22-31) Anion Gap 14 mEq/L mEq/L (8-16) BUN 17 mg/dL mg/dL (7-23) Creatinine 0.8 mg/dL mg/dL (0.6-1.0) Estimated GFR > 60 Glucose 121 mg/dL H mg/dL (70-100) Calcium 9.7 mg/dL mg/dL (8.5-10.4) Total Bilirubin 1.3 mg/dL mg/dL (0.1-1.4) 03/14/17 11:37 WBC RBC Hgb Hct MCV MCH MCHC RDW Plt Count MPV Neut % (Auto) Lymph % (Auto) [place] % (Auto) Eos % (Auto) Baso % (Auto) Nucleat RBC Rel Count Absolute Neuts (auto) Absolute Lymphs (auto) Absolute Monos (auto) Absolute Eos (auto) Absolute Basos (auto) Absolute Nucleated RBC Immature Gran % Immature Gran # PT INR APTT VBG Lactic Acid 2.6 mmol/L H mmol/L (0.7-2.1) Sodium Potassium Chloride Carbon Dioxide Anion Gap BUN Creatinine Estimated GFR Glucose Calcium Total Bilirubin Medications Given: Discontinued Medications Sodium Chloride (Ns) 2,000 mls @ 4,000 mls/hr 30 ml/kg infuse over 30 min ( 2000 ml) IV EDNOW ONE PRN Reason: Protocol Stop: 03/14/17 11:54 Last Admin: 03/14/17 11:52 Dose: 2,000 mls Departure - Departure Disposition: [facility] Inpatient Acute Clinical Impression: Pneumonia Qualifiers: Pneumonia type: due to unspecified organism Laterality: right Lung location: lower lobe of lung Qualified Code(s): J18.1 - Lobar pneumonia, unspecified organism Condition: Fair Referrals: Vernell Yeh SENIOR UX DEVELOPER [Primary Care Provider] - As per Instructions
[2017-03-14] MEDS ORDERED: NS 2,000 ML IV ONE (11:25)
[2017-03-14 11:52] LABS: ABSOLUTE IMMATURE GRANULOCYTES 0.12 10^3/uL (0.00-0.10); ADD DIFF? NO; ADD MORPH? NO; ADD SCAN? NO; ATYPICAL LYMPHOCYTE FLAG 10 (0-99); FRAGMENT RBC FLAG 0 (0-99); HEMATOCRIT 50.9 % (38.0-47.0); HEMOGLOBIN 16.4 g/dL (12.6-16.3); LEFT SHIFT FLG 0 (0-99); LIPEMIA HEMOLYSIS FLAG 80 (0-99); MEAN CELL HEMOGLOBIN 29.3 pg (27.9-34.1); MEAN CELL HEMOGLOBIN CONCENTR. 32.2 g/dL (32.4-36.7); MEAN CELL VOLUME 90.9 fL (81.5-99.8); MEAN PLATELET VOLUME 10.3 fL (8.7-11.7); PLATELET CLUMPS FLAG 20 (0-99); PLATELET COUNT 266 10^3/uL (150-400); RED CELL DISTRIBUTION WIDTH 15.1 % (11.5-15.2)
[2017-03-14 12:00] LABS: INR 1.03 (0.83-1.16); PROTIME(PATIENT) 13.4 SEC (12.0-15.0)
[2017-03-14] MEDS ORDERED: CLINDAMYCIN 600 MG/DEXTROSE 50 ML IV ONE (12:00)
[2017-03-14 12:01] LABS: APTT 26.8 SEC (23.0-38.0)
[2017-03-14] MEDS ORDERED: CEFEPIME HCL 2 GM in D5W 100 ML IV ONE (12:02)
[2017-03-14 12:10] LABS: ANION GAP 14 mEq/L (8-16); BILIRUBIN,TOTAL 1.3 mg/dL (0.1-1.4); CALCIUM 9.7 mg/dL (8.5-10.4); CARBON DIOXIDE 26 mEq/l (22-31); CHLORIDE 103 mEq/L (97-110); CREATININE 0.8 mg/dL (0.6-1.0); GLOMERULAR FILTRATION RATE > 60; GLUCOSE 121 mg/dL (70-100); POTASSIUM 4.5 mEq/L (3.5-5.2); SODIUM 143 mEq/L (134-144)
[2017-03-14 12:47] LABS: LACGHOST ORDER
[2017-03-14 13:37] LABS: COLOR YELLOW; LEUKOCYTE ESTERASE,URINE NEGATIVE (NEGATIVE); NITRITE,URINE NEGATIVE (NEGATIVE)
[2017-03-14] MEDS ORDERED: ONDANSETRON 4 MG/2 ML VIAL IVP PRN (13:40)
[2017-03-14] MEDS ORDERED: ACETAMINOPHEN 325 MG TAB PO PRN (13:40)
[2017-03-14] MEDS ORDERED: ONDANSETRON DISINTEGRATING 4 MG TAB PO PRN (13:40)
[2017-03-14 13:47] LABS: MUCUS 2+ /lpf (NONE-1+)
[2017-03-14 14:00] LABS: LACGHOST ORDER
[2017-03-14] MEDS: NS 1,000 ML IV SCH ×2 (14:20→19:10)
[2017-03-14] MEDS: HYDROCORTISONE 100 MG/2 ML VIAL IVP SCH ×3 (14:20→22:12)
[2017-03-14] MEDS: DOCUSATE SODIUM 100 MG CAP PO SCH (14:27)
[2017-03-14] MEDS: BALM TP SCH ×2 (14:27→19:47)
--- NOTE | 2017-03-14 15:19 | GHP ---
[f rep st] HISTORY AND PHYSICAL DATE OF ADMISSION: 03/14/2017 CHIEF COMPLAINT: Altered mental status. HISTORY OF PRESENT ILLNESS: This is a 41-year-old female with a history of astrocytoma status post r esection with MUSIC MINISTRIES DIRECTOR shunting and severe cognitive disorder. She presents with being obtunded today when she usually is able to interact in some ways. She was also found to be hypoxic. She has had multip le episodes of aspiration pneumonia in the past. REVIEW OF SYSTEMS: Unable to be obtained due to patient's altered mental status. PAST MEDICAL HISTORY: 1. Astrocytoma status post resection and MUSIC MINISTRIES DIRECTOR stenting. 2. Severe cognitive dysfunction. 3. Adrenal insufficiency. 4. Seizure disorder. 5. Hypothyroidism. 6. Depression. 7. Blindness. SOCIAL HISTORY: Patient resides in [facility]. She has a court-appointed guardian. PHYSICAL EXAM: VITAL SIGNS: Afebrile, blood pressure is 137/87, heart rate 122, oxygen saturation 9 5% on 3 L. GENERAL: Patient is chronically ill appearing, in no apparent distress. HEENT: [place] sclerae. Dry mucous membranes. NECK: Supple. LUNGS: Poor effort. Fairly clear bilaterally. CARDIOVASCULAR: Tachycardic. No murmurs, rubs, or gallops. ABDOMEN: Positive bowel sounds. Soft, nontender, nondistended. No hepatosplenomegaly. EXTREMITIES: No clubbing, cyanosis, or edema. SK IN: Without rash. Warm, dry, and intact. NEURO: Not very responsive. LABORATORY DATA: White count 12, hemoglobin 16. Sodium 143, creatinine is 0.8. Lactate is 2.6 and went up to 3.2. Chest x-ray shows right lower lobe pneumonia. ASSESSMENT: This is a 41-year-old female, presented with aspiration pneumonia. 1. Aspiration pneumonia. We will treat with IV Invanz. 2. Acute hypoxic respiratory failure. Continue oxygen. 3. Severe sepsis. Lactate has actually gone up a little bit, but I think that she has some underlyi ng adrenal insufficiency. We will treat with hydrocortisone and give a little bit more fluid and rep eat lactate in a few hours. 4. Cognitive dysfunction at baseline. 5. Adrenal insufficiency. We will give IV hydrocortisone. 6. Hypothyroidism. /[id number]/MODL
[2017-03-14] MEDS: CLOTRIMAZOLE 1% 15 GM CRTUBE TP SCH (19:46)
[2017-03-14] MEDS: CHLORHEXIDINE GLUCONATE 15 ML UDL PO SCH (19:46)
[2017-03-14] MEDS: [UNRECOGNIZED DRUG - OTHER] OP SCH (19:47)
[2017-03-14] MEDS: PETROLATUM WHITE OP SCH (19:47)
[2017-03-14] MEDS: MINERAL OIL OP SCH (19:47)
[2017-03-14] MEDS ORDERED: LACOSAMIDE 200 MG PO SCH (21:00)
[2017-03-14] MEDS ORDERED: NON-FORMULARY NEW DRUG (Lacosamide [Vimpat] 100 MG) PO SCH (21:00)
[2017-03-15 04:39] LABS: % IMMATURE GRANULYOCYTES 0.6 % (0.0-1.1); ABSOLUTE IMMATURE GRANULOCYTES 0.07 10^3/uL (0.00-0.10); ADD DIFF? NO; ADD MORPH? NO; ADD SCAN? NO; ATYPICAL LYMPHOCYTE FLAG 10 (0-99); FRAGMENT RBC FLAG 0 (0-99); HEMATOCRIT 41.3 % (38.0-47.0); HEMOGLOBIN 13.2 g/dL (12.6-16.3); LEFT SHIFT FLG 0 (0-99); LIPEMIA HEMOLYSIS FLAG 80 (0-99); MEAN CELL HEMOGLOBIN 29.3 pg (27.9-34.1); MEAN CELL VOLUME 91.6 fL (81.5-99.8); MEAN PLATELET VOLUME 10.2 fL (8.7-11.7); PLATELET CLUMPS FLAG 30 (0-99); PLATELET COUNT 206 10^3/uL (150-400); RED BLOOD CELL COUNT 4.51 10^6/uL (4.18-5.33); RED CELL DISTRIBUTION WIDTH 14.8 % (11.5-15.2)
[2017-03-15 04:52] LABS: ALANINE AMINOTRANSFERASE 33 IU/L (9-52); ALBUMIN 2.9 g/dL (3.5-5.0); ALKALINE PHOSPHATASE 84 IU/L (38-126); ANION GAP 11 mEq/L (8-16); ASPARTATE AMINOTRANSFERASE 18 IU/L (14-46); BILIRUBIN,TOTAL 0.6 mg/dL (0.1-1.4); CALCIUM 8.7 mg/dL (8.5-10.4); CARBON DIOXIDE 22 mEq/l (22-31); CHLORIDE 112 mEq/L (97-110); CREATININE 0.6 mg/dL (0.6-1.0); GLOMERULAR FILTRATION RATE > 60; GLUCOSE 111 mg/dL (70-100); POTASSIUM 3.6 mEq/L (3.5-5.2); SODIUM 145 mEq/L (134-144); TOTAL PROTEIN 5.5 g/dL (6.3-8.2)
[2017-03-15] MEDS: HYDROCORTISONE 100 MG/2 ML VIAL IVP SCH ×3 (06:11→21:32)
[2017-03-15] MEDS: LEVOTHYROXINE 112 MCG TAB PO SCH (06:12)
[2017-03-15] MEDS ORDERED: CRANBERRY FRUIT EXTRACT PO SCH (09:00)
[2017-03-15] MEDS: BALM TP SCH ×3 (09:59→21:34)
[2017-03-15] MEDS: DOCUSATE SODIUM 100 MG CAP PO SCH ×2 (10:02→14:10)
[2017-03-15] MEDS: CHLORHEXIDINE GLUCONATE 15 ML UDL PO SCH ×2 (10:02→21:34)
[2017-03-15] MEDS: MINERAL OIL OP SCH ×2 (10:03→21:35)
[2017-03-15] MEDS: PETROLATUM WHITE OP SCH ×2 (10:03→21:35)
[2017-03-15] MEDS: [UNRECOGNIZED DRUG - OTHER] OP SCH (10:03)
[2017-03-15] MEDS: ERTAPENEM 1 GM in NS 100 ML IV SCH (10:11)
[2017-03-15] MEDS: ENOXAPARIN 40 MG/0.4 ML SYR SC SCH (10:12)
--- NOTE | 2017-03-15 11:17 | HOSPPROG ---
Hospitalist Progress Note Assessment/Plan: * aspiration pneumonia * Continue Invanz * severe cognitive dysfunction after astrocytoma surgery * Getting closer to baseline * known aspirator * Will get speech to see prior to starting back medications * severe sepsis * Resolved * adrenal insufficiency * Reduce hydrocortisone a little bit today * Could probably start oral tomorrow * history of seizure disorder * DVT prophylaxis * social -apparently met with palliative care last admission. There was some discussion in terms of transitioning to palliative but nothing was decided Subjective: More awake this morning. Closer to baseline Objective: Vital Signs Temp Pulse Resp BP Pulse Ox 36.5 C 106 H 18 111/69 91 L 03/15/17 07:45 03/15/17 07:45 03/15/17 07:45 03/15/17 07:45 03/15/17 07:45 Laboratory Results 03/15/17 04:10 03/15/17 04:10 03/14/17 03/15/17 03/16/17 05:59 05:59 05:59 Intake Total 1720 Output Total 850 Balance 870 PT 13.4 SEC (12.0-15.0) 03/14/17 11:37 INR 1.03 (0.83-1.16) 03/14/17 11:37 - Physical Exam Constitutional: no apparent distress, appears nourished, not in pain Eyes: anicteric sclera, EOMI Cardiovascular: regular rate and rhythym Respiratory: no respiratory distress, no rales or rhonchi, clear to auscultation Gastrointestinal: normoactive bowel sounds, soft, non-tender abdomen, no palpable masses Skin: warm Neurologic: No AAOx3 ICD10 Worksheet Patient Problems: Problems Problem Status Onset Pneumonia Acute Palliative care encounter Acute Sepsis Acute
--- NOTE | 2017-03-15 17:08 | ASMTCMCOM ---
CM Note CM Note Notes: Patient lives in an [facility] [facility]. Has RN Services through [facility]. Her regular RN M-F can be reached at [phone]. [facility] #[phone]. Call to get fax# for [facility] to sent MD Orders onb discharge. Paient to have a swallow eval today. Date Signed: 03/15/2017 02:47 PM Electronically Signed By:Emma Pineda
[2017-03-15] MEDS: LACOSAMIDE 50 MG TAB PO SCH (21:17)
[2017-03-15] MEDS: CLOTRIMAZOLE 1% 15 GM CRTUBE TP SCH (21:34)
[2017-03-16 04:56] LABS: % IMMATURE GRANULYOCYTES 0.6 % (0.0-1.1); ABSOLUTE IMMATURE GRANULOCYTES 0.06 10^3/uL (0.00-0.10); ADD DIFF? NO; ADD MORPH? NO; ADD SCAN? NO; ATYPICAL LYMPHOCYTE FLAG 10 (0-99); FRAGMENT RBC FLAG 0 (0-99); HEMATOCRIT 39.9 % (38.0-47.0); HEMOGLOBIN 12.7 g/dL (12.6-16.3); LEFT SHIFT FLG 0 (0-99); LIPEMIA HEMOLYSIS FLAG 80 (0-99); MEAN CELL HEMOGLOBIN 29.4 pg (27.9-34.1); MEAN CELL HEMOGLOBIN CONCENTR. 31.8 g/dL (32.4-36.7); MEAN CELL VOLUME 92.4 fL (81.5-99.8); MEAN PLATELET VOLUME 10.2 fL (8.7-11.7); PLATELET CLUMPS FLAG 10 (0-99); PLATELET COUNT 228 10^3/uL (150-400); RED BLOOD CELL COUNT 4.32 10^6/uL (4.18-5.33); RED CELL DISTRIBUTION WIDTH 14.7 % (11.5-15.2)
[2017-03-16] MEDS ORDERED: NS 1,000 ML IV SCH (05:00)
[2017-03-16 05:08] LABS: ANION GAP 8 mEq/L (8-16); CALCIUM 9.3 mg/dL (8.5-10.4); CARBON DIOXIDE 25 mEq/l (22-31); CHLORIDE 112 mEq/L (97-110); CREATININE 0.6 mg/dL (0.6-1.0); GLOMERULAR FILTRATION RATE > 60; GLUCOSE 93 mg/dL (70-100); POTASSIUM 3.7 mEq/L (3.5-5.2); SODIUM 145 mEq/L (134-144)
[2017-03-16] MEDS: HYDROCORTISONE 100 MG/2 ML VIAL IVP SCH ×3 (05:28→22:53)
[2017-03-16] MEDS: LEVOTHYROXINE 112 MCG TAB PO SCH (05:29)
--- NOTE | 2017-03-16 08:33 | HOSPPROG ---
Hospitalist Progress Note Assessment/Plan: 41-year-old female with a mental age of approximately 2 and a guardian who makes decisions for her. She has persistent aspiration of the question now as to whether to place a PEG tube. Her baseline mental status and function RT to near to her current state. Patient is new to me today - aspiration pneumonia * Continue Invanz -severe cognitive dysfunction after astrocytoma surgery * Getting closer to baseline -known aspirator * ordering video swallowing study for tomorrow -severe sepsis * Resolved -adrenal insufficiency * Reduce hydrocortisone a little bit today * Could probably start oral tomorrow -history of seizure disorder -DVT prophylaxis -social -apparently met with palliative care last admission. There was some discussion in terms of transitioning to palliative but nothing was decided. I am ordering another palliative care consult regarding the decision whether to place a PEG tube or not. she silently aspirates, though has int he past been able to feed herself Subjective: no complaints yet no meaningful interaction. She does not appear in distress Objective: Vital Signs Temp Pulse Resp BP Pulse Ox 36.6 C 93 12 101/71 97 03/16/17 04:00 03/16/17 04:00 03/16/17 04:00 03/16/17 04:00 03/16/17 04:00 Laboratory Results 03/16/17 04:43 03/16/17 04:43 03/15/17 03/16/17 03/17/17 05:59 05:59 05:59 Intake Total 1720 Output Total 850 200 Balance 870 -200 PT 13.4 SEC (12.0-15.0) 03/14/17 11:37 INR 1.03 (0.83-1.16) 03/14/17 11:37 - Time Spent With Patient Time Spent with Patient: greater than 35 minutes Time Spent with Patient: Greater than 35 minutes spent on this patients care, greater than 50% of time spent counseling, educating, and coordinating care regarding the above mentioned plan. - Pending Discharge Pending Discharge Within 24 Hours: No Pending Discharge Within 48 Hours: No - Physical Exam Constitutional: no apparent distress, chronically ill appearing Eyes: PERRL, anicteric sclera Ears, Nose, Mouth, Throat: moist mucous membranes Cardiovascular: regular rate and rhythym, no murmur, rub, or gallop Respiratory: no respiratory distress, no rales or rhonchi, clear to auscultation Gastrointestinal: normoactive bowel sounds, soft, non-tender abdomen, no palpable masses Genitourinary: no bladder fullness Skin: warm Musculoskeletal: other ( Right leg has edema and slight warmth greater than the left. The edema extends all the way to the knee where there is clear changes of chronic osteoarthritis and deformity which may cause venous congestion. An ultrasound of the leg has been normal.) Neurologic: CN II-XII Intact, other ( flexor contractions at the knees and wrists.) ICD10 Worksheet Patient Problems: Problems Problem Status Onset Pneumonia Acute Sepsis Acute Palliative care encounter Acute
[2017-03-16] MEDS: DOCUSATE SODIUM 100 MG CAP PO SCH ×2 (09:21→19:25)
[2017-03-16] MEDS: CHLORHEXIDINE GLUCONATE 15 ML UDL PO SCH ×2 (09:21→21:04)
[2017-03-16] MEDS: CRANBERRY FRUIT EXTRACT PO SCH (09:22)
[2017-03-16] MEDS: ENOXAPARIN 40 MG/0.4 ML SYR SC SCH (09:23)
[2017-03-16] MEDS: MINERAL OIL OP SCH ×2 (09:26→21:03)
[2017-03-16] MEDS: PETROLATUM WHITE OP SCH ×2 (09:26→21:03)
[2017-03-16] MEDS: BALM TP SCH ×3 (09:26→21:05)
[2017-03-16] MEDS: ERTAPENEM 1 GM in NS 100 ML IV SCH (09:31)
--- NOTE | 2017-03-16 15:40 | ASMTCMCOM ---
CM Note CM Note Notes: 03/16/2017 CM Note: Met w/Calire from Palliative. Plan for Palliative meeting this week to include father Regan [phone], brother Blaine [phone], Dorina Farmer ([phone]) RN for [employer] who works w/pt in shelter and either Luther Ramirez (retail warehouse supervisor of [employer] [facility]) or Varsha Maddox (banking assistant retail warehouse supervisor of [facility]), they can be reached at [phone]. Video swallow study planned for tomorrow around noon. Case Management d/c poc: pt to d/c to [facility] when medically stable. Case Management available if needs change. 03/15/2017 CM Note: Patient lives in an [facility] shelter. Has RN Services through [employer]. Her regular RN M-F can be reached at [phone]. The Detention #[phone]. Call to get fax# for Detention to sent MD Orders onb discharge. Paient to have a swallow eval today. Date Signed: 03/16/2017 03:40 PM Electronically Signed By:Gretchen Karimi
[2017-03-16] MEDS: D5W 1/2 NS 1,000 ML IV SCH (16:45)
[2017-03-16] MEDS: LACOSAMIDE 50 MG TAB PO SCH (21:04)
[2017-03-16] MEDS: CLOTRIMAZOLE 1% 15 GM CRTUBE TP SCH (21:06)
[2017-03-17 04:45] LABS: % IMMATURE GRANULYOCYTES 0.5 % (0.0-1.1); ABSOLUTE IMMATURE GRANULOCYTES 0.03 10^3/uL (0.00-0.10); ADD DIFF? NO; ADD MORPH? NO; ADD SCAN? NO; ATYPICAL LYMPHOCYTE FLAG 0 (0-99); FRAGMENT RBC FLAG 0 (0-99); HEMATOCRIT 34.8 % (38.0-47.0); HEMOGLOBIN 11.1 g/dL (12.6-16.3); LEFT SHIFT FLG 0 (0-99); LIPEMIA HEMOLYSIS FLAG 80 (0-99); MEAN CELL HEMOGLOBIN 29.6 pg (27.9-34.1); MEAN CELL HEMOGLOBIN CONCENTR. 31.9 g/dL (32.4-36.7); MEAN CELL VOLUME 92.8 fL (81.5-99.8); MEAN PLATELET VOLUME 10.4 fL (8.7-11.7); PLATELET CLUMPS FLAG 0 (0-99); PLATELET COUNT 202 10^3/uL (150-400); RED BLOOD CELL COUNT 3.75 10^6/uL (4.18-5.33); RED CELL DISTRIBUTION WIDTH 14.5 % (11.5-15.2)
[2017-03-17 05:18] LABS: ANION GAP 5 mEq/L (8-16); CALCIUM 8.8 mg/dL (8.5-10.4); CARBON DIOXIDE 23 mEq/l (22-31); CHLORIDE 115 mEq/L (97-110); CREATININE 0.5 mg/dL (0.6-1.0); GLOMERULAR FILTRATION RATE > 60; GLUCOSE 129 mg/dL (70-100); POTASSIUM 4.1 mEq/L (3.5-5.2); SODIUM 143 mEq/L (134-144)
[2017-03-17] MEDS: LEVOTHYROXINE 112 MCG TAB PO SCH (06:37)
[2017-03-17] MEDS: HYDROCORTISONE 100 MG/2 ML VIAL IVP SCH ×3 (06:43→22:39)
[2017-03-17] MEDS: D5W 1/2 NS 1,000 ML IV SCH ×2 (07:40→18:33)
[2017-03-17] MEDS: DOCUSATE SODIUM 100 MG CAP PO SCH ×2 (08:16→18:35)
[2017-03-17] MEDS: CHLORHEXIDINE GLUCONATE 15 ML UDL PO SCH ×2 (08:17→22:43)
[2017-03-17] MEDS: CRANBERRY FRUIT EXTRACT PO SCH (08:17)
[2017-03-17] MEDS: BALM TP SCH ×3 (08:17→22:45)
[2017-03-17] MEDS: MINERAL OIL OP SCH ×2 (08:18→22:46)
[2017-03-17] MEDS: PETROLATUM WHITE OP SCH ×2 (08:18→22:46)
[2017-03-17] MEDS: ENOXAPARIN 40 MG/0.4 ML SYR SC SCH (09:17)
[2017-03-17] MEDS: ERTAPENEM 1 GM in NS 100 ML IV SCH (09:17)
--- NOTE | 2017-03-17 18:17 | HOSPPROG ---
Hospitalist Progress Note Assessment/Plan: 41-year-old female with a mental age of approximately 2 and a guardian who makes decisions for her. She has persistent aspiration of the question now as to whether to place a PEG tube. patient more alert. -Altered Mental status, < new issue: Will obtain CT scan to r/o hydrocephalous. ? if Vimpat is too sedating ? 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 No gross aspiration. * Dysphaia I diet with thickened liquids. -severe sepsis * Resolved -adrenal insufficiency * Reduce hydrocortisone a little bit today * Could probably start oral tomorrow -history of seizure disorder -DVT prophylaxis -social -palliative consult delayed. -consult neurology re CT results and seizure Discussed with brother for 35 minutes Subjective: alert Objective: Vital Signs Temp Pulse Resp BP Pulse Ox 36.6 C 49 L 16 99/58 L 100 03/17/17 16:00 03/17/17 16:00 03/17/17 16:00 03/17/17 16:00 03/17/17 16:00 Microbiology 03/14/17 13:01 Urine Culture - Final Urine,Catheterized Laboratory Results 03/17/17 04:29 03/17/17 04:29 03/16/17 03/17/17 03/18/17 05:59 05:59 05:59 Intake Total 2678 Output Total 200 400 Balance -200 2278 PT 13.4 SEC (12.0-15.0) 03/14/17 11:37 INR 1.03 (0.83-1.16) 03/14/17 11:37 - Time Spent With Patient Time Spent with Patient: greater than 35 minutes Time Spent with Patient: Greater than 35 minutes spent on this patients care, greater than 50% of time spent counseling, educating, and coordinating care regarding the above mentioned plan. - Pending Discharge Pending Discharge Within 24 Hours: No Pending Discharge Within 48 Hours: No - Physical Exam Constitutional: no apparent distress Eyes: PERRL, anicteric sclera Respiratory: no respiratory distress, no rales or rhonchi, clear to auscultation Gastrointestinal: normoactive bowel sounds, soft, non-tender abdomen, no palpable masses Genitourinary: no bladder fullness Skin: warm ICD10 Worksheet Patient Problems: Problems Problem Status Onset Pneumonia Acute Sepsis Acute Palliative care encounter Acute
[2017-03-17] MEDS: LACOSAMIDE 50 MG TAB PO SCH (22:42)
[2017-03-17] MEDS: CLOTRIMAZOLE 1% 15 GM CRTUBE TP SCH (22:45)
[2017-03-18] MEDS: HYDROCORTISONE 100 MG/2 ML VIAL IVP SCH ×3 (05:25→20:25)
[2017-03-18] MEDS: LEVOTHYROXINE 112 MCG TAB PO SCH (05:26)
[2017-03-18 05:27] LABS: % IMMATURE GRANULYOCYTES 0.6 % (0.0-1.1); ABSOLUTE IMMATURE GRANULOCYTES 0.04 10^3/uL (0.00-0.10); ADD DIFF? NO; ADD MORPH? NO; ADD SCAN? NO; ATYPICAL LYMPHOCYTE FLAG 10 (0-99); FRAGMENT RBC FLAG 0 (0-99); HEMATOCRIT 39.7 % (38.0-47.0); HEMOGLOBIN 12.6 g/dL (12.6-16.3); LEFT SHIFT FLG 0 (0-99); LIPEMIA HEMOLYSIS FLAG 80 (0-99); MEAN CELL HEMOGLOBIN 29.4 pg (27.9-34.1); MEAN CELL HEMOGLOBIN CONCENTR. 31.7 g/dL (32.4-36.7); MEAN CELL VOLUME 92.5 fL (81.5-99.8); MEAN PLATELET VOLUME 10.5 fL (8.7-11.7); PLATELET CLUMPS FLAG 0 (0-99); PLATELET COUNT 192 10^3/uL (150-400); RED BLOOD CELL COUNT 4.29 10^6/uL (4.18-5.33); RED CELL DISTRIBUTION WIDTH 14.5 % (11.5-15.2)
[2017-03-18 05:37] LABS: ANION GAP 7 mEq/L (8-16); CALCIUM 8.6 mg/dL (8.5-10.4); CARBON DIOXIDE 28 mEq/l (22-31); CHLORIDE 111 mEq/L (97-110); CREATININE 0.5 mg/dL (0.6-1.0); GLOMERULAR FILTRATION RATE > 60; GLUCOSE 103 mg/dL (70-100); POTASSIUM 3.9 mEq/L (3.5-5.2); SODIUM 146 mEq/L (134-144)
[2017-03-18] MEDS: CHLORHEXIDINE GLUCONATE 15 ML UDL PO SCH ×2 (08:44→20:25)
[2017-03-18] MEDS: DOCUSATE SODIUM 100 MG CAP PO SCH ×2 (08:44→19:53)
[2017-03-18] MEDS: ERTAPENEM 1 GM in NS 100 ML IV SCH (08:44)
[2017-03-18] MEDS: BALM TP SCH ×3 (08:45→20:27)
[2017-03-18] MEDS: ENOXAPARIN 40 MG/0.4 ML SYR SC SCH (08:47)
[2017-03-18] MEDS: D5W 1/2 NS 1,000 ML IV SCH ×2 (08:47→17:13)
[2017-03-18] MEDS: CRANBERRY FRUIT EXTRACT PO SCH (08:47)
[2017-03-18] MEDS: PETROLATUM WHITE OP SCH ×2 (08:48→20:27)
[2017-03-18] MEDS: MINERAL OIL OP SCH ×2 (08:48→20:27)
--- NOTE | 2017-03-18 16:14 | ASMTCMCOM ---
CM Note CM Note Notes: Pt had palliative care conference today (please see their note). From that came a plan for pt to return to [facility] and follow up w/[facility] about 1 week after dc ([facility] will need to arrange this). Pt's guardian Kimberly was here for conference and is aware of plan. She will be out of town for a few days but will f/u next week at [facility]. SHAMAR w/f. Date Signed: 03/18/2017 04:14 PM Electronically Signed By:Toya Suh RN
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
--- NOTE | 2017-03-18 18:54 | WOCRNPDOC ---
WODENICE Advanced Assessment Note - Skin Integrity Problem, Advanced Assess Right Ischial Tuberosity Pressure Injury Dressing Type: Open to Air Exudate Amount: None Integumentary Issue Intervention: Dressing Applied (Cavilon skin prep and Allevyn ), Dressing Initialed & Dated Yarelis Wound Tissue: Ecchymotic, Erythema, Non-blanching, Intact Yarelis Wound Swelling: None Site Odor: None Site Measurement - Head-to-Toe Length X Width X Depth (cm): 0.5 x 2 x 0 Pressure Injury Stage: Deep Tissue Injury (DTI) Pressure Injury Present on Admit: No Skin Integrity Problem Comment: Small bruise-like spot noted. Cleansed with NS and gauze, protected with Cavilon skin prep and Allevyn dressing. q2h turns in process, patient resting on Accumax surface, has an orthotic seat cushion on wheel chair. With ZION Ambrocio, assisted to resting on left side. Report to ZION Maddox. Left Ear Pressure Injury Dressing Type: Open to Air Exudate Amount: None Integumentary Issue Intervention: Dressing Applied (bilateral oxygen tubing foam ear protectors) Yarelis Wound Tissue: Erythema, Non-blanching, Intact Yarelis Wound Swelling: None Wound Bed Color: [place] Site Measurement - Head-to-Toe Length X Width X Depth (cm): 0.5 migdalia x 0 Pressure Injury Stage: Stage 1, Service Associate Related Pressure Injury Pressure Injury Present on Admit: No (unknown) Skin Integrity Problem Comment: Small area of non-blanching erythema assessed behind left ear, under oxygen tubing. Off-loaded using foam ear protectors. Report to ZION Maddox.
[2017-03-18] MEDS: LACOSAMIDE 50 MG TAB PO SCH (20:25)
[2017-03-18] MEDS: CLOTRIMAZOLE 1% 15 GM CRTUBE TP SCH (20:28)
[2017-03-19 05:20] LABS: % IMMATURE GRANULYOCYTES 0.7 % (0.0-1.1); ABSOLUTE IMMATURE GRANULOCYTES 0.05 10^3/uL (0.00-0.10); ADD DIFF? NO; ADD MORPH? NO; ADD SCAN? NO; ATYPICAL LYMPHOCYTE FLAG 0 (0-99); FRAGMENT RBC FLAG 0 (0-99); HEMATOCRIT 38.2 % (38.0-47.0); HEMOGLOBIN 12.5 g/dL (12.6-16.3); LEFT SHIFT FLG 0 (0-99); LIPEMIA HEMOLYSIS FLAG 80 (0-99); MEAN CELL HEMOGLOBIN 29.9 pg (27.9-34.1); MEAN CELL HEMOGLOBIN CONCENTR. 32.7 g/dL (32.4-36.7); MEAN CELL VOLUME 91.4 fL (81.5-99.8); MEAN PLATELET VOLUME 10.3 fL (8.7-11.7); PLATELET CLUMPS FLAG 0 (0-99); PLATELET COUNT 223 10^3/uL (150-400); RED BLOOD CELL COUNT 4.18 10^6/uL (4.18-5.33); RED CELL DISTRIBUTION WIDTH 14.4 % (11.5-15.2)
[2017-03-19 05:30] LABS: ANION GAP 10 mEq/L (8-16); CALCIUM 8.8 mg/dL (8.5-10.4); CARBON DIOXIDE 27 mEq/l (22-31); CHLORIDE 109 mEq/L (97-110); CREATININE 0.5 mg/dL (0.6-1.0); GLOMERULAR FILTRATION RATE > 60; GLUCOSE 92 mg/dL (70-100); POTASSIUM 3.7 mEq/L (3.5-5.2); SODIUM 146 mEq/L (134-144)
[2017-03-19] MEDS: HYDROCORTISONE 100 MG/2 ML VIAL IVP SCH (06:20)
[2017-03-19] MEDS: LEVOTHYROXINE 112 MCG TAB PO SCH (06:20)
[2017-03-19] MEDS: ENOXAPARIN 40 MG/0.4 ML SYR SC SCH (08:28)
[2017-03-19] MEDS: ERTAPENEM 1 GM in NS 100 ML IV SCH ×2 (08:28→16:44)
[2017-03-19] MEDS: CHLORHEXIDINE GLUCONATE 15 ML UDL PO SCH ×2 (08:28→20:38)
[2017-03-19] MEDS: DOCUSATE SODIUM 100 MG CAP PO SCH ×2 (08:28→16:23)
[2017-03-19] MEDS: CRANBERRY FRUIT EXTRACT PO SCH (10:34)
[2017-03-19] MEDS: BALM TP SCH ×3 (10:34→20:40)
[2017-03-19] MEDS: MINERAL OIL OP SCH ×2 (10:35→20:40)
[2017-03-19] MEDS: PETROLATUM WHITE OP SCH ×2 (10:35→20:40)
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
[2017-03-19] MEDS ORDERED: LACOSAMIDE 50 MG TAB PO SCH (13:21)
[2017-03-19] MEDS: CLINDAMYCIN 150 MG CAP PO SCH ×2 (17:02→20:39)
[2017-03-19] MEDS: FAMOTIDINE 20 MG TAB PO SCH (18:13)
[2017-03-19] MEDS: CLOTRIMAZOLE 1% 15 GM CRTUBE TP SCH (20:40)
[2017-03-19] MEDS: DEXAMETHASONE 4 MG/ML VIAL IVP SCH (20:41)
[2017-03-20] MEDS: LEVOTHYROXINE 112 MCG TAB PO SCH (05:29)
[2017-03-20] MEDS ORDERED: COSYNTROPIN 0.25 MG/2 ML SYRINGE IVP ONE (06:00)
--- NOTE | 2017-03-20 09:19 | HOSPPROG ---
Hospitalist Progress Note Assessment/Plan: 41 y/o F with mental age 2 (has guardian) p/w encephalopathy #Acute encephalopathy: CT stable from 2013 #Aspiration PNA: completed 5 days of abx #possible armida's: could not perform joey stim bc not IV access. Will change to dex so test can be done outpatient #Aspiration: swallow showed aspiration, Subjective: no acute events Objective: Vital Signs Temp Pulse Resp BP Pulse Ox 36.6 C 87 18 106/52 L 92 03/20/17 04:00 03/20/17 04:00 03/20/17 04:00 03/20/17 04:00 03/20/17 04:00 Microbiology 03/14/17 12:29 Blood Culture - Final Blood Laboratory Results 03/19/17 04:14 03/19/17 04:14 03/19/17 03/20/17 03/21/17 05:59 05:59 05:59 Intake Total 1760 1650 Balance 1760 1650 PT 13.4 SEC (12.0-15.0) 03/14/17 11:37 INR 1.03 (0.83-1.16) 03/14/17 11:37 - Physical Exam Constitutional: no apparent distress, chronically ill appearing Eyes: PERRL Ears, Nose, Mouth, Throat: moist mucous membranes Cardiovascular: regular rate and rhythym Respiratory: no respiratory distress, rhonchi Gastrointestinal: other (no grimace with palpation ) Genitourinary: no bladder fullness Skin: warm Musculoskeletal: full muscle strength, other (contractures of hands,) Psychiatric: other (follows commands) ICD10 Worksheet Patient Problems: Problems Problem Status Onset Pneumonia Acute Palliative care encounter Acute Sepsis Acute
[2017-03-20] MEDS: CLINDAMYCIN 150 MG CAP PO SCH (10:36)
[2017-03-20] MEDS: BALM TP SCH (10:36)
[2017-03-20] MEDS: ENOXAPARIN 40 MG/0.4 ML SYR SC SCH (10:36)
[2017-03-20] MEDS: DEXAMETHASONE 4 MG/ML VIAL IVP SCH ×2 (10:36→10:49)
[2017-03-20] MEDS: CHLORHEXIDINE GLUCONATE 15 ML UDL PO SCH ×2 (10:36→10:53)
[2017-03-20] MEDS: FAMOTIDINE 20 MG TAB PO SCH (10:36)
[2017-03-20] MEDS: MINERAL OIL OP SCH (10:37)
[2017-03-20] MEDS: DOCUSATE SODIUM 100 MG CAP PO SCH (10:37)
[2017-03-20] MEDS: PETROLATUM WHITE OP SCH (10:37)
[2017-03-20] MEDS: CRANBERRY FRUIT EXTRACT PO SCH (10:37)
[2017-03-20 14:06] VITALS: BP 128/76; PULSE 94; RESP 19; TEMP 97
--- NOTE | 2017-03-20 14:37 | PDHOMEO2F ---
Home Oxygen Face to Face Home Orders: I certify that a physician or a nurse practitioner or physician's dental laboratory assistant has had a [id number] encounter with this patient on the date of this order due to the diagnosis listed, which relates to the primary reason the patient requires home oxygen. Alternative treatments have been tried, or considered, and deemed ineffective. It is anticipated that supplemental oxygen will result in improvement with treatment. Home oxygen qualifying diagnosis: Aspiration PNA Home oxygen secondary diagnosis: hypoxia SpO2 on room air (%): 84 Frequency of home oxygen needed: continuous Home oxygen liters per minute: 2 Home oxygen delivery device: nasal cannula Concentrator: No E-tanks for mobility and back up: Yes If ordering portable O2, is the patient mobile in the home?: Yes I certify that, based on these findings, the home oxygen is medically necessary for this patient for the following length of time. Length of time home oxygen needed: 3 months
[2017-03-20 14:46] VITALS: O2SAT 84
--- NOTE | 2017-03-20 15:04 | ASMTCMCOM ---
CM Note CM Note Notes: 03/20/2017 Case Management Discharge Note Pt to d/c to [facility]. Luther ([phone]), securities vault supervisor of [facility], to quill picking machine operator and transport in w/c van. Spoke w/Elida DONOVAN from [employer] ([phone]), faxed d/c paperwork to [phone], Dorina plans to meet pt at [facility]. O2 to be arranged by respiratory therapy. Per Elida, pt has used [facility] in the past. RT aware. [facility] to start services at [facility]. Faxed order to [facility] this morning. Date Signed: 03/20/2017 03:03 PM Electronically Signed By:Gretchen Karimi RN
--- NOTE | 2017-03-20 15:20 | PDPCPN ---
Palliative Care Progress Note Assessment/Plan: HPI: Quita Krishnan is a 41 yo female with long standing hx of TBI, astrocytoma, and recurrent aspiration PNA admitted to the hospital for hypoxia found to have RLL PNA treated with antibiotics. Recent hospitalization 6 weeks ago with aspiration PNA. Because of hx of chronic aspiration speech consulted and with VFSS with no evidence of aspiration on honey thick liquids. Palliative care consulted for complex medical decision making. Quita seen this Am with father Regan present. Awake and appears comfortable, able to smile to some questions. Regan stated again he does not want Quita to suffer. He also wants to make sure she will continue to get good oral care back at [facility] to prevent aspiration as much as they can. Discussed will have palliative care continue to follow. Assessment: Physical: - Pain: appears comfortable - tylenol PRN - weakness: - turn and reposition -dysphagia - speech as needed - dysphagia I diet with aspiration precautions - No PEG tube - oral care every 2 hours while awake Emotional/psychological: At baseline cognitive status: continue normal routines Advanced Care Planning: Is patient decisional?: No Code Status:DNR/DNI- filled out state guardian will need to have her lasting room supervisor sign but agrees to plan. MD SANDHU: State Guardian Mariah Plan: Return to [facility] with HHC and [facility]. Subjective: smiles at times Objective: Vital Signs Temp Pulse Resp BP Pulse Ox 36.1 C 94 19 128/76 H 84 L 03/20/17 12:00 03/20/17 12:00 03/20/17 12:00 03/20/17 12:00 03/20/17 14:46 Microbiology 03/14/17 12:29 Blood Culture - Final Blood Laboratory Results 03/19/17 04:14 03/19/17 04:14 03/19/17 03/20/17 03/21/17 05:59 05:59 05:59 Intake Total 1760 1650 Balance 1760 1650 PT 13.4 SEC (12.0-15.0) 03/14/17 11:37 INR 1.03 (0.83-1.16) 03/14/17 11:37 Physical Exam - Physical Exam General Appearance: alert, no apparent distress Respiratory: No respiratory distress, No accessory muscle use Skin: normal color, warm/dry Extremities: pedal edema Neuro/Psych: alert, disoriented to person, disoriented to place, disoriented to time ICD10 Worksheet Patient Problems: Problems Problem Status Onset Pneumonia Acute Palliative care encounter Acute Sepsis Acute
--- NOTE | 2017-03-20 15:25 | GDS ---
[f rep st] DISCHARGE SUMMARY DISCHARGE DIAGNOSES: 1. Acute encephalopathy, aspiration pneumonia. 2. Severe cognitive dysfunction. 3. Aspiration. 4. Seizure disorder. 5. Severe sepsis. HISTORY OF PRESENT ILLNESS: A 41-year-old female with history of cognitive impairment, level of a 2-year-old, history of astrocytoma, status post resection with DREDGING INSPECTOR shunt, who presented being obtunded, when she is usually able to interact in some ways. She was also found to be hypoxic. She has been hospitalized for aspiration pneumonia in the past. HOSPITAL COURSE BY PROBLEM: 1. Severe sepsis, secondary to aspiration pneumonia. This has resolved. 2. Aspiration pneumonia, was treated with IV Invanz, loss access and then was transitioned to clindamycin. She completed a total of 5 days. 3. Acute hypoxic respiratory failure secondary to pneumonia. Continue oxygen at discharge. 4. Cognitive dysfunction: Mental status is a 2-year-old. With me today, she was interacting, would follow simple commands like close her eyes, handgrip. 5. Adrenal insufficiency: unclear if the patient is truly insufficient. My prior partner was investigating and was attempting to do a stem test here, however, this was not done due to the loss of IV access. I will transition patient to p.o. dexamethasone, instead of hydrocortisone, so this could be attempted as an outpatient. 6. Hypothyroidism, stable. DISPOSITION: Patient is stable to return back to [facility]. NEW MEDICATIONS: Dexamethasone 1.5 mg. /[id number]/MODL MTDD
--- NOTE | 2017-03-20 17:51 | ASDISCHSUM ---
Discharge Information Plan Status:[facility] Medically Cleared to Leave: Discharge Date:03/20/2017 05:00 PM CM D/C Disposition: ADT D/C Disposition:Home, Routine, Self-Care Projected Discharge Date:03/20/2017 11:00 AM Transportation at D/C:Wheelchair Van Discharge Delay Reason: Follow-Up Date:03/20/2017 11:00 AM Discharge Slot: Final Diagnosis: Placement Information Referral Type:Palliative Care Referral ID:[id number] Provider Name:[facility] ([facility]) Address 1:[address] [place] Address 2: City:[place] Selection Factors: State:[place] Patient Contact Information Contact Name:VARINDER Relationship:Legal guardian Address:[address] [place] [address] [address] Work Phone: [facility] Phone: [facility]/Zip Code:[place] [address] Email: Financial Information Financial Class: Primary Plan Desc:MEDICARE INPATIENT Primary Plan Number:[id number] Secondary Plan Desc:MEDICA[place] Secondary Plan Number:[id number] Assessment Information [facility] CM Progress Note CM Note CM Note Notes: Patient lives in an [employer] fdc. Has RN Services through [place]. Her regular RN M-F can be reached at [phone]. The [facility] #[phone]. Call to get fax# for [facility] to sent MD Orders onb discharge. Vincenzo to have a swallow eval today. Date Signed: 03/15/2017 02:47 PM Electronically Signed By:Emma Pineda LCSW [facility] CM Progress Note CM Note CM Note Notes: 03/16/2017 CM Note: Met w/Claire from Palliative. Plan for Palliative meeting this week to include father Regan [phone], brother Blaine [phone], Dorina Arriagaynh ([phone]) RN for [employer] who works w/pt in fdc and either Luther Ramirez (ground crew supervisor of [employer] fdc) or Varsha Maddox (casino assistant manager ground crew supervisor of [employer] [facility]), they can be reached at [phone]. Video swallow study planned for tomorrow around noon. Case Management d/c poc: pt to d/c to [employer] [facility] when medically stable. Case Management available if needs change. 03/15/2017 CM Note: Patient lives in an [employer] fdc. Has RN Services through [employer]. Her regular RN M-F can be reached at [phone]. The [facility] #[phone]. Call to get fax# for [facility] to sent MD Orders onb discharge. Paifrances to have a swallow eval today. Date Signed: 03/16/2017 03:40 PM Electronically Signed By:Gretchen Karimi RN [facility] CM Progress Note CM Note CM Note Notes: Palliative care meeting will be tomorrow, 03/18 at 2 PM per Claire palliative PROTECTION SPECIALIST. Date Signed: 03/17/2017 01:51 PM Electronically Signed By:Toya Suh RN [facility] CM Progress Note CM Note CM Note Notes: Pt had palliative care conference today (please see their note). From that came a plan for pt to return to [facility] and follow up w/[facility] palliative care about 1 week after dc ([facility] will need to arrange this). Pt's guardian Kimberly was here for conference and is aware of plan. She will be out of town for a few days but will f/u next week at [facility]. CM w/f. Date Signed: 03/18/2017 04:14 PM Electronically Signed By:Toya Suh RN [facility] Progress Note CM Note CM Note Notes: 03/20/2017 Case Management Discharge Note Pt to d/c to [facility]. Luther ([phone]), ground crew supervisor of [facility], to meat pickler and transport in w/c van. Spoke w/Elida DONOVAN from [employer] ([phone]), faxed d/c paperwork to [phone] plans to meet pt at [facility]. O2 to be arranged by respiratory therapy. Per Elida, pt has used [facility] in the past. RT aware. [facility] to start services at [facility]. Faxed order to [facility] this morning. Date Signed: 03/20/2017 03:03 PM Electronically Signed By:Gretchen Karimi RN Intervention Information Intervention Type:*IM-Signed Date of Service:03/19/2017 10:15 AM Patient Type:Inpatient Staff Member:Tere Benitez Hours: Discipline: Severity: Comment:
== END 2017-03-20 17:00 | disposition home or self-care (01) | DRG 871 ==
LOC: F2W 13:11
PROVIDERS: ADMIT Internal Medicine; ATTEND Internal Medicine
DX: A41.9 Sepsis, unspecified organism (principal); R65.20 Severe sepsis without septic shock; J69.0 Pneumonitis due to inhalation of food and vomit; J96.01 Acute respiratory failure with hypoxia; E27.40 Unspecified adrenocortical insufficiency; S06.9X9S Unspecified intracranial injury with loss of consciousness of unspecified duration, sequela; R41.89 Other symptoms and signs involving cognitive functions and awareness; R13.10 Dysphagia, unspecified; E03.9 Hypothyroidism, unspecified; G40.909 Epilepsy, unspecified, not intractable, without status epilepticus; H54.8 Legal blindness, as defined in USA; Z98.2 Presence of cerebrospinal fluid drainage device; Z85.841 Personal history of malignant neoplasm of brain; Z87.820 Personal history of traumatic brain injury; Z51.5 Encounter for palliative care; Z66 Do not resuscitate
CPT/HCPCS: 92526-GN; 92610-GN; 92611-GN; 96365; G8996-GN-CL; G8997-GN-CL; G8998-GN-CL; J0692; J0834; J1100; J1335; J1650

== ENCOUNTER → 2017-03-27 | Outpatient (CLI) | payer OTHER, MEDICAID | LOC: FIMAGING 14:43 | PROVIDERS: ATTEND Registered Nurse | DX: M25.571 Pain in right ankle and joints of right foot (principal); M79.89 Other specified soft tissue disorders; M79.661 Pain in right lower leg; R60.9 Edema, unspecified ==

== ENCOUNTER → 2017-03-27 | Outpatient (CLI) | payer OTHER, MEDICAID | LOC: FIMAGING 15:28 | PROVIDERS: ATTEND Registered Nurse | DX: M25.571 Pain in right ankle and joints of right foot (principal); M79.89 Other specified soft tissue disorders ==

== ENCOUNTER → 2017-04-07 | Outpatient (CLI) | payer OTHER, MEDICAID | LOC: FIMAGING 14:38 | PROVIDERS: ATTEND Registered Nurse | DX: S82.131A Displaced fracture of medial condyle of right tibia, initial encounter for closed fracture (principal) ==

== ENCOUNTER 2017-07-22 16:30 | Emergency (ER) | payer OTHER, MEDICAID ==
[2017-07-22 16:39] VITALS: TEMP 97.5
[2017-07-22] MEDS ORDERED: NS 1,000 ML IV ONE (17:12)
[2017-07-22] MEDS ORDERED: LACOSAMIDE 200 MG in NS 50 ML IV ONE (17:15)
--- NOTE | 2017-07-22 17:20 | EDPHY ---
H & P Stated Complaint: seizure Time Seen by Provider: 07/22/17 16:56 HPI/ROS: CHIEF COMPLAINT: Seizures HISTORY OF PRESENT ILLNESS: The patient is a 42-year-old female with a history of brain tumor with seizure disorder, hydrocephalus with a shunt as well as traumatic brain injuries and blindness. She had been on Vimpat 200 mg a day and her seizures had been successfully controlled for the last several years. Family had been complaining recently that she seemed overly sedated and lethargic however and so 6 days ago her Vimpat was decreased to 100 mg a day. Today caregiver states that she had a partial seizure consisting of twitching in her face and a clicking noise. This is typical of her seizures. It lasted for about 45 sec but then she had 3 more within the next 4 hr. They state that overall she has been more tired today but otherwise is not acting differently. No recent fevers. No trauma. No vomiting or diarrhea. No complaints of pain. REVIEW OF SYSTEMS: Constitutional: denies: chills, fever, recent illness, recent injury EENTM: See HPI Respiratory: denies: cough, shortness of breath Cardiac: denies: chest pain, irregular heart rate, lightheadedness, palpitations Gastrointestinal/Abdominal: denies: abdominal pain, diarrhea, nausea, vomiting, blood streaked stools Genitourinary: denies: dysuria, frequency, hematuria, pain Musculoskeletal: denies: joint pain, muscle pain Skin: denies: lesions, rash, jaundice, bruising Neurological: See HPI Hematologic/Lymphatic: denies: blood clots, easy bleeding, easy bruising Immunologic/allergic: denies: HIV/AIDS, transplant EXAM: GENERAL: Curled in bed asleep HEAD: Atraumatic, postsurgical changes. EYES: Pupils equal round and reactive to light, conjunctiva are normal. ENT: TMs normal, nares patent, oropharynx clear without exudates. Moist mucous membranes. NECK: Normal range of motion, supple without lymphadenopathy or JVD. LUNGS: Breath sounds clear to auscultation bilaterally and equal. No wheezes rales or rhonchi. HEART: Regular rate and rhythm without murmurs, rubs or gallops. ABDOMEN: Soft, nontender, normoactive bowel sounds. No guarding, no rebound. No masses appreciated. BACK: No CVA tenderness, no spinal tenderness, step-offs or deformities EXTREMITIES: Baseline range of motion NEUROLOGICAL: Curled in bed, moving all extremities minimally. At her baseline according to care staff the sleeping but arousable. PSYCH: Minimally interactive SKIN: Warm, dry, normal turgor, no visible rashes or lesions. Source: RN/MD Exam Limitations: Clinical condition - Personal History LMP (Females 10-55): Unknown Tetanus Vaccine Date: 01/2008 - Medical/Surgical History Hx Asthma: No Hx Chronic Respiratory Disease: No Hx Diabetes: No Hx Cardiac Disease: No Hx Renal Disease: No Hx Cirrhosis: No Hx Alcoholism: No Hx HIV/AIDS: No Hx Splenectomy or Spleen Trauma: No Other PMH: TBI, BRAIN TUMOR,SEIZURE, SHUNT X 2, HYPOTHYROID, LACTOSE INTOL, PTSD , LEGALLY BLIND, FENG LEFT LEG, INCONTINENT, ASPIRATION PNEUMONIA, gen seizure disorder - Family History Significant Family History: No pertinent family hx - Social History Smoking Status: Unknown if ever smoked Alcohol Use: None Constitutional: Initial Vital Signs Temperature (C) 36.4 C 07/22/17 16:35 Heart Rate 93 07/22/17 16:35 Respiratory Rate 16 07/22/17 16:35 Blood Pressure 116/94 H 07/22/17 16:35 O2 Sat (%) 100 07/22/17 16:35 O2 Delivery Mode Nasal Cannula O2 (L/minute) 3 Allergies/Adverse Reactions: codeine [Codeine] Allergy (Intermediate, Verified 07/23/17 11:37) levofloxacin [From Levaquin] Allergy (Verified 07/23/17 11:37) milk [Milk] Allergy (Verified 07/23/17 11:37) morphine Allergy (Verified 07/23/17 11:37) Penicillins Allergy (Verified 07/23/17 11:37) vancomycin Allergy (Verified 07/23/17 11:37) Home Medications: Medication Instructions Recorded Chlorhexidine Gluconate [Peridex 15 ml PO BID@0900,2100 08/12/12 oral soln (*)] Levothyroxine [Synthroid 112 mcg 112 mcg PO DAILY06 08/12/12 (*)] Propylene Glycol/Peg 400 [SYSTANE 1 drop EACHEYE 5XD 08/12/12 0.3-0.4% EYE DROPS] Bag [place] Ointment 1 pratima TP TID 03/14/17 Clotrimazole 1% 1 pratima TP HS 03/14/17 Cranberry Fruit Extract [Cran-Max] 1,000 mg PO DAILY 03/14/17 Sodium Fluoride [Prevident 5000] 1 pratima DT TID 03/14/17 Dexamethasone 1.5 mg PO DAILY #30 tablet 03/20/17 Famotidine [Pepcid 20 MG (*)] 20 mg PO BID #60 tab 03/20/17 Lacosamide [Vimpat 50 mg (*)] 100 mg PO DAILY 07/23/17 Magnesium Oxide [Magnesium Oxide 400 mg PO DAILY 07/23/17 400 mg (*)] Sodium Cl Nasal Gel [[place] Saline 1 pratima EACHNARE BID 07/23/17 Nasal Gel] Medical Decision Making - Diagnostics Imaging: Discussed imaging studies w/ sales architect Radiologist ED Course/Re-evaluation: 5:50 p.m. the patient has had another partial seizure in the emergency department. We are awaiting her medication from the pharmacy. CT and lab work thus far look reassuring. She is hemoconcentrated but being treated with IV fluids. 7:30 p.m. the patient has not seized since receiving the Vimpat infusion. We will continue to observe. 9:00 p.m. the patient is doing well. She is at her baseline. Family and care staff are ready to take her home. They are asking for a new prescription for her increased dose of Vimpat. Differential Diagnosis: Partial list of the Differential diagnosis considered include but were not limited to; seizure disorder, epilepsy, hydrocephalus and although unlikely based on the history and physical exam, I also considered infection, hemorrhage , CVA, electrolyte abnormality. - Data Points Laboratory Results: Laboratory Results 07/22/17 17:00 07/22/17 17:00 Medications Given: Discontinued Medications Sodium Chloride (Ns) 1,000 mls @ 0 mls/hr IV ONCE ONE; Wide Open PRN Reason: Protocol Stop: 07/22/17 17:13 Last Admin: 07/22/17 17:52 Dose: 1,000 mls Lacosamide 200 mg/ Sodium (Chloride) 70 mls @ 280 mls/hr IV EDNOW ONE Stop: 07/22/17 17:29 Last Admin: 07/22/17 17:59 Dose: 70 mls Departure - Departure Disposition: Home, Routine, Self-Care Clinical Impression: Seizure disorder Condition: Fair Instructions: Epilepsy (ED) Referrals: NONE *PRIMARY CARE P,. [Primary Care Provider] - As per Instructions Salas Garcia MD [Medical Doctor] - As per Instructions
[2017-07-22 17:26] LABS: PLATELET COUNT 235 10^3/uL (150-400)
[2017-07-22 20:41] VITALS: RESP 18
[2017-07-22 21:50] VITALS: BP 110/78; PULSE 90; O2SAT 100
== END 2017-07-22 21:48 | disposition home or self-care (01) ==
LOC: EDUNIT#
DX: G40.909 Epilepsy, unspecified, not intractable, without status epilepticus (principal); E86.9 Volume depletion, unspecified
CPT/HCPCS: 96365

== ENCOUNTER 2017-07-23 11:25 | Inpatient (IN) | payer OTHER, MEDICAID ==
--- NOTE | 2017-07-23 13:10 | EDPHY ---
H & P Time Seen by Provider: 07/23/17 13:06 HPI/ROS: CHIEF COMPLAINT: Seizure HISTORY OF PRESENT ILLNESS: The patient is a 42 y/o female with a history of brain tumor with seizure disorder, hydrocephalus with a shunt as well as traumatic brain injuries and blindness. She had been successfully managing her seizures for over a year while on Vimpat, however around 4 weeks ago they decreased it to 100mg daily. Yesterday she presented to the ED after her family noticed the patient had been overly drowsy and lethargic, as well as had an increase in seizures. A head CT was preformed, which was unchanged from prior CT's. She was also administered IV Vimpat yesterday. Today she continued to have seizures, her caregiver reports the patient had 6-7 seizures while in the waiting room. Prior to my examination she had a 40 second seizure with right eye gaze and hand movement, which she did not have in her prior seizures within the last 24 hours. She continues to be overly lethargic and drowsy. She has not eaten today per her neurologist, Dr. Garcia. She is normally able to partially verbalize, smile, and make eye contact; but these have been decreased since her symptoms began. Denies fever, cough, recent trauma, pain, vomiting or other pertinent symptoms. Prior medical records reviewed including ED visit with Dr. Carreno on 07/23/16. REVIEW OF SYSTEMS: Aside from elements discussed in the HPI, a comprehensive 10-point review of systems was reviewed and is negative. Past Medical/Surgical History: TBI, brain tumor, seizure, shunt x 2, hypothyroid, legally blind, incontinent, aspiration pneumonia Social History: Family and caregiver at bedside, lives in [place] Smoking Status: Never smoked Physical Exam: General Appearance: drowsy, nonverbal, head slumped to one side Eyes: Pupils equal and round, no conjunctival pallor ENT, Mouth: Mucous membranes dry Neck: Normal inspection Respiratory: Lungs are clear to auscultation anteriorly Cardiovascular: Regular rate and rhythm Gastrointestinal: Abdomen is soft, no apparent tenderness Neurological: obtunded, withdraws to painful stimuli, nonverbal Skin: Warm and dry Extremities: bilateral pedal edema, contractures Psychiatric: unable to determine Constitutional: Initial Vital Signs Temperature (C) 36.9 C 07/23/17 11:30 Heart Rate 81 07/23/17 11:30 Respiratory Rate 18 07/23/17 11:30 Blood Pressure 111/71 07/23/17 11:30 O2 Sat (%) 97 07/23/17 11:30 O2 Delivery Mode Room Air Allergies/Adverse Reactions: codeine [Codeine] Allergy (Intermediate, Verified 07/23/17 11:37) levofloxacin [From Levaquin] Allergy (Verified 07/23/17 11:37) milk [Milk] Allergy (Verified 07/23/17 11:37) morphine Allergy (Verified 07/23/17 11:37) Penicillins Allergy (Verified 07/23/17 11:37) vancomycin Allergy (Verified 07/23/17 11:37) Home Medications: Medication Instructions Recorded Chlorhexidine Gluconate [Peridex 15 ml PO BID@0900,2100 08/12/12 oral soln (*)] Levothyroxine [Synthroid 112 mcg 112 mcg PO DAILY06 08/12/12 (*)] Propylene Glycol/Peg 400 [SYSTANE 1 drop EACHEYE 5XD 08/12/12 0.3-0.4% EYE DROPS] Bag [place] Ointment 1 pratima TP TID 03/14/17 Clotrimazole 1% 1 pratima TP HS 03/14/17 Cranberry Fruit Extract [Cran-Max] 1,000 mg PO DAILY 03/14/17 Sodium Fluoride [Prevident 5000] 1 pratima DT TID 03/14/17 Dexamethasone 1.5 mg PO DAILY #30 tablet 03/20/17 Famotidine [Pepcid 20 MG (*)] 20 mg PO BID #60 tab 03/20/17 Lacosamide [Vimpat 50 mg (*)] 100 mg PO DAILY 07/23/17 Magnesium Oxide [Magnesium Oxide 400 mg PO DAILY 07/23/17 400 mg (*)] Sodium Cl Nasal Gel [[place] Saline 1 pratima EACHNARE BID 07/23/17 Nasal Gel] Medical Decision Making - Diagnostics Imaging Results: Imaging Impressions PICC Line Insertion 07/23/17 13:28 Impression: 4-Tajik double-lumen peripherally inserted central catheter is ready to use. - - - - - - - - - - - - - - - - - - - - - - - - - - - - - - - - - - - - - - - - - (Cross-cutting measures: Current medications were listed in the medical record , including all known prescriptions, [id number]-iqryrrs medications, herbal medications, and nutritional supplements. The patient does not smoke. ) ED Course/Re-evaluation: The patient is a 42 y/o female with a history of brain tumor with seizure disorder, hydrocephalus with a shunt as well as traumatic brain injuries and blindness. The patient is presenting with an increase in seizures and lethargy, after a recent reduction in Vimpat dosage. She was seen in this ED yesterday for sz's. She had a head CT preformed and received IV Vimpat. On exam she is drowsy, nonverbal, and has her head slumped to one side. She does withdraw to painful stimuli. 1320: Upon examination patient has another partial seizure that lasted over 1 minute. Consisted of right arm clonic activity and right gaze preference. 1324: Consulted with Dr. Garcia, neurologist, regarding the patient's symptoms. Patient will be admitted, Dr. Garcia will follow this patient during her stay. 1gm IV Keppra administered via peripheral line in RLE. Patient will also have a PICC line placed d/t poor IV access. 1331: Reassessed patient and discussed plan for admission with the patient's family and caregiver; they are comfortable with this plan. 1336: Consulted with hospitalist service, Dr. Scott accepts admission of this patient. 1430: PICC line has been placed. No seizures while in radiology or during the remainder of her ED stay. IV NS 1 liter ordered for dehydration. Differential Diagnosis: Differential diagnosis includes though it is not limited to status epilepticus, hypoglycemia, intracranial hemorrhage, CVA, benzodiazepine withdrawal, alcohol withdrawal, epilepsy. - Data Points Laboratory Results: Laboratory Results 07/23/17 13:40 07/23/17 13:40 07/23/17 07/23/17 13:40 13:40 WBC REJ RBC TNP Hgb TNP Hct TNP MCV TNP MCH TNP MCHC TNP RDW TNP Plt Count TNP MPV TNP Neut % (Auto) TNP Lymph % (Auto) TNP Stafford % (Auto) TNP Eos % (Auto) TNP Baso % (Auto) TNP Nucleat RBC Rel Count TNP Absolute Neuts (auto) TNP Absolute Lymphs (auto) TNP Absolute Monos (auto) TNP Absolute Eos (auto) TNP Absolute Basos (auto) TNP Absolute Nucleated RBC TNP Immature Gran % TNP Immature Gran # TNP Sodium 144 mEq/L mEq/L (135-145) Potassium 4.4 mEq/L mEq/L (3.5-5.2) Chloride 106 mEq/L mEq/L (97-110) Carbon Dioxide 28 mEq/l mEq/l (22-31) Anion Gap 10 mEq/L mEq/L (8-16) BUN 20 mg/dL mg/dL (7-23) Creatinine 0.6 mg/dL mg/dL (0.6-1.0) Estimated GFR > 60 Glucose 68 mg/dL L mg/dL (70-100) Calcium 9.7 mg/dL mg/dL (8.5-10.4) Medications Given: Carboxymethylcellulose (Refresh Plus Drops 0.5%) 1 pratima EACHEYE 5XD GULSHAN Stop: 01/19/18 17:59 Last Admin: 07/23/17 18:34 Dose: 1 pratima Chlorhexidine Gluconate (Peridex) 15 ml PO BID@0900,2100 GULSHAN Stop: 01/19/18 20:59 Last Admin: 07/23/17 20:01 Dose: 15 ml Clotrimazole (Lotrimin 1%) 1 pratima TP HS GULSHAN Stop: 08/22/17 20:59 Last Admin: 07/23/17 20:02 Dose: 1 pratima Dexamethasone (Decadron Injection) 1.5 mg IVP DAILY GULSHAN Stop: 01/19/18 16:59 Last Admin: 07/23/17 16:54 Dose: 1.5 mg Dextrose/Sodium Chloride (D5w 1/2 Ns) 1,000 mls @ 75 mls/hr IV CONT GULSHAN Stop: 01/19/18 16:29 Last Admin: 18 16:59 Dose: 1,000 mls Famotidine/Sodium Chloride (Pepcid 20 Mg (Premix)) 50 mls @ 200 mls/hr IV Q12HRS GULSHAN Stop: 01/19/18 20:59 Last Admin: 07/23/17 20:01 Dose: 50 mls Lacosamide 200 mg/ Sodium (Chloride) 70 mls @ 280 mls/hr IV DAILY GULSHAN Stop: 01/19/18 17:06 Last Admin: 07/23/17 17:40 Dose: 70 mls Sodium Chloride ([place] Saline Nasal Gel) 1 pratima TP BID GULSHAN Stop: 01/19/18 20:59 Last Admin: 07/23/17 20:01 Dose: 1 pratima Discontinued Medications Levetiracetam 1,000 mg/ Sodium (Chloride) 110 mls @ 440 mls/hr IV EDNOW ONE Stop: 07/23/17 13:41 Last Admin: 07/23/17 13:55 Dose: 110 mls Sodium Chloride (Ns) 1,000 mls @ 0 mls/hr IV ONCE ONE; Wide Open PRN Reason: Protocol Stop: 07/23/17 14:34 Last Admin: 07/23/17 14:57 Dose: 1,000 mls Departure - Departure Disposition: [facility] Inpatient Acute Clinical Impression: Seizure disorder, Seizure Condition: Fair Report Scribed for: Comfort William Report Scribed by: Andree Leger Date of Report: 07/23/17 Time of Report: 13:10 Physician Review and Approval Statement: 07/23/17 13:10 Portions of this note were transcribed by a medical billing associate. I personally performed a history, physical exam, medical decision making, and confirmed accuracy of information the transcribed note.
[2017-07-23] MEDS ORDERED: ALTEPLASE 2 MG VIAL IVP PRN (13:27)
[2017-07-23] MEDS ORDERED: levETIRAcetam 1,000 MG in NS 100 ML IV ONE (13:27)
[2017-07-23] MEDS ORDERED: NS 1,000 ML IV ONE (14:33)
[2017-07-23] MEDS ORDERED: ACETAMINOPHEN 325 MG TAB PO PRN (16:21)
[2017-07-23] MEDS ORDERED: DEXAMETHASONE 4 MG/ML VIAL IVP ONE (16:26)
[2017-07-23 16:53] LABS: PLATELET COUNT 179 10^3/uL (150-400)
[2017-07-23] MEDS: DEXAMETHASONE 4 MG/ML VIAL IVP SCH (16:54)
[2017-07-23] MEDS: D5W 1/2 NS 1,000 ML IV SCH (16:59)
--- NOTE | 2017-07-23 17:02 | GHP ---
[f rep st] HISTORY AND PHYSICAL DATE OF ADMISSION: 07/23/2017 CHIEF COMPLAINT: Seizure. HISTORY OF PRESENT ILLNESS: This is a 42-year-old female with a history of a seizure disorder, TBI, cognitive deficit, who was seen in the emergency department the day before. She had her Vimpat decre ased from, I believe 400 mg daily down to 100 mg daily. She had a seizure described as twitching in her face and clicking noise which is typical of her seizures that lasted for about 45 seconds. She w as then seen in the ED, given 200 mg of Vimpat IV. She was discharged back to [facility] where cristina lived. She re-presented today after having multiple seizures. She had an additional seizure in [facility] emergency department. She is thus admitted to the hospital. When I am seeing her, she is complete ly nonverbal. All information is gleaned from the chart. PAST MEDICAL/SURGICAL HISTORY: 1. 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 2. Severe cognitive dysfunction. 3. Renal insufficiency. 4. Seizure disorder. 5. Hypothyroidism. 6. Depression. 7. Blindness. MEDICATIONS: Please see medication reconciliation. ALLERGIES: Codeine, levofloxacin, milk, morphine, penicillin and vancomycin. SOCIAL HISTORY: She lives at [facility]. She has a court-appointed guardian. FAMILY HISTORY: Reviewed and noncontributory. REVIEW OF SYSTEMS: Is unable to be obtained due to patient's mental status. PHYSICAL EXAM: VITAL SIGNS: Blood pressure 88/47, heart rate 62, respiration rate is 10, saturating 100% on 1 L. Temperature is 36.9. GENERAL: Ms. Krishnan is a female lying in bed, nonverbal, barel y responsive. HEENT: Shows her to be normocephalic atraumatic. CARDIOVASCULAR: Shows regular rate and rhythm. She has a split S2 on inspiration. PULMONARY: Shows her to be in no respiratory distr ess. She has lungs clear bilaterally. ABDOMEN: Soft. She is not grimacing when I press on it. SKI N: Shows no rash. : Shows no Starks. NEUROLOGIC: Shows her to be nonverbal. She withdraws to p ain. She is moving all extremities. Her pupils are approximately 4 mm and mildly reactive to light. She has diminished patellar reflexes in her right leg, normal in the left leg. PSYCHIATRIC: Unobt ainable. LABS: CBC was rejected. Basic metabolic panel is relatively unremarkable aside from a slightly low sugar of 68. DATA: 1. I reviewed her chart. 2. I talked with Dr. William. We will admit to step-down unit. 3. I reviewed her head CT from 07/22/2017 that showed nothing acute. She does have marked ventricul omegaly but this is unchanged. IMPRESSION AND PLAN: 1. Seizures: She has a known underlying disorder. Had been titrated off Vimpat. Unclear why she h ad a seizure today after receiving IV Vimpat, though she may have not received additional Vimpat at [facility]. Regardless, today we will put her on IV Keppra and Vimpat IV. Neurology has been cons ulted for tomorrow. I am attempting to clarify her exact dose of Vimpat, as records at this point ar e slightly misleading. 2. Adrenal insufficiency: Decadron. 3. Hypothyroid: Synthroid when she can take p.o. 4. Severe cognitive dysfunction: She lives at [facility], she will be discharged likely back the . 5. Astrocytoma status post resection with ventriculoperitoneal shunt and marked ventriculomegaly: T his all seems stable. 6. Blindness. CODE STATUS: She is do not resuscitate. VENOUS THROMBOEMBOLISM RISK: Is moderate to high. We will put SCDs on her. /[id number]/MODL
--- NOTE | 2017-07-23 17:37 | GCON ---
[f rep st] CONSULTATION NEUROLOGIC CONSULTATION REFERRING PHYSICIAN: Mustapha Scott MD HISTORY: The patient is a 42-year-old woman who has been a long-time patient of mine in the Neurolog [facility] Clinic, who is here in the hospital for a flurry of seizures and a prolonged postictal state. 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 When I saw her in March of last year, she had not had any seizures for about 4 years and had only 1 generalized convulsion. Most of her seizures are complex partial variants. She can sometime s have little staring spells and fluttering of her eyelids and relative staring blankly. This situat ion has been relatively stable and she has had stable hydrocephalus, so we have done repeated imaging of the brain with CT scan. On that particular visit, we repeated a head CT and did not see any evid ence of worsening hydrocephalus. We were a little concerned about oral intake, but they did not want to put in a gastric tube. Her feeding has subsequently improved a bit. I then saw her later in the office in May of 2017. She was on 300 mg of Vimpat at that time. She seemed a little more wit hdrawn than usual at that point. Her usual baseline is one of being fairly alert with some fluctuati on and able to communicate with me. She can state my name. She can follow commands most of the time and is capable of some very basic conversation and even can make jokes. She can speak German and S panish. She had a pneumonia in March that required hospitalization and was on 2 L of oxygen cont inuously since then. After that visit, we got clarification that she had been taking 200 mg of Vimpa t. Since she was doing well, we kept her on that dose and family has felt that she seems to be doing better on a lower dosage. There has been concern raised about whether she even needed the medicatio n. She was seen in the office on July 09. Eating was variable and seemed to be a little bit bet ter. They decided that they were very interested in seeing if she could do better on a lower dosage, so we tried 100 mg of Vimpat. She then was doing well until yesterday when she had a flurry of seiz ures, came to the emergency room and got some additional Vimpat at 200 mg IV. She then went home, bu t today had another seizure and there was concern at her decreased level of alertness and concern yolie t she would be at risk for aspiration, so we advised that she come to the emergency room for evaluati on, which she did. Since going to the emergency department, she has remained decreased in her respon siveness and we have given her a loading dose of Keppra to try to protect against ongoing seizures. Right now, she is lethargic and unable to provide any history for me. No caregivers are currently he re. Her past medical history is notable for hypothyroidism and being legally blind. She has been spendin g variable times over the years in family home or chcf settings. No smoking or alcohol. Aller gy to Tegretol has been noted in the past. 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 There have been times when she has been admitted to the hospital for fail ure to thrive, such as in 2009. She was also in the hospital in January. At that time, she had come in with pneumonia. Additional allergies have been documented to include codeine, Levaquin, milk, penic illin, and vancomycin. She has been living at [facility] more recently and receives excellent car e there. Her father is back involved in her life and care but does not directly provide care. PHYSICAL EXAMINATION: VITAL SIGNS: The current vital signs, blood pressure of 88/47, pulse of 62, r espirations 10, and temperature is 36.9. GENERAL: She is thin and appears a little underweight. NE UROLOGIC: She does not have a major change from her baseline appearance, but she is more lethargic t willis normal. She certainly has fluctuated for many years, but for about the past 8-10 years that I pina ve known her, she would typically interact with slurred speech, have trouble initiating conversation, but usually can speak my name or laugh and follow commands, I was about to state she was when I saw her a few weeks ago, although perhaps a little less interactive. Currently, pupils are 3 mm and reactive. She has some roving conjugate eye movements. She is not following commands, but sh e is holding her arm up when I lift it on the left and less consistent on the right. She has some sp astic changes in the legs, more on the left than the right and has bilateral Babinski signs, which is her baseline. She is grimacing to brow pressure but certainly well below her normal level of intera ction. LABORATORY STUDIES: Today, show unremarkable CBC. Chemistry is basically normal. The urinalysis wa s not obtained yet. We did not repeat imaging today, but she had a head CT yesterday when she was in the emergency depart ment. This showed the marked ventriculomegaly and no significant changes compared to previous scans. There is the change of subthalamic mass from old residual tumor resection. IMPRESSION: The total unit time of 70 minutes. The patient is significantly ill below her baseline and probably postictal from poor sleep, recurrent seizures, but no evidence of acute infection such a s meningitis or shunt failure issues. This has happened repeatedly and the recent lowering of Vimpat dosing no doubt contributed to her increased flurry of seizures, so we will no longer be able to low er that dosage. I will have her go back to taking 200 mg daily and we will monitor her progress. We will obtain an EEG if she remains lethargic to look for any subclinical seizures, but most of the ti me with a little hydration and nutrition and further support, she will return back toward her becky evans. /[id number]/MODL
[2017-07-23] MEDS: LACOSAMIDE 200 MG in NS 50 ML IV SCH (17:40)
[2017-07-23] MEDS ORDERED: NON-FORMULARY NEW DRUG (Propylene Glycol/Peg 400 [Systane 0.3-0.4% Eye Drops] 1 DROP) EACHEYE SCH (18:00)
[2017-07-23] MEDS: CARBOXYMETHYLCELLULOSE 0.5% 0.4 ML DROPERETTE EACHEYE SCH ×2 (18:34→23:20)
[2017-07-23] MEDS: FAMOTIDINE 20 MG/NACL 50 ML IV SCH (20:01)
[2017-07-23] MEDS: CHLORHEXIDINE GLUCONATE 15 ML UDL PO SCH (20:01)
[2017-07-23] MEDS: SODIUM CL NASAL GEL 14.1 GM TUBE TP SCH (20:01)
[2017-07-23] MEDS: CLOTRIMAZOLE 1% 15 GM CRTUBE TP SCH (20:02)
[2017-07-23] MEDS ORDERED: levETIRAcetam 500 MG in NS 100 ML IV SCH (21:00)
[2017-07-23] MEDS ORDERED: SODIUM FLUORIDE DT SCH (22:00)
[2017-07-24] MEDS: D5W 1/2 NS 1,000 ML IV SCH ×2 (06:11→20:51)
[2017-07-24] MEDS: CARBOXYMETHYLCELLULOSE 0.5% 0.4 ML DROPERETTE EACHEYE SCH ×5 (06:11→22:00)
[2017-07-24] MEDS: LACOSAMIDE 200 MG in NS 50 ML IV SCH (07:51)
[2017-07-24] MEDS: CHLORHEXIDINE GLUCONATE 15 ML UDL PO SCH ×2 (08:31→22:05)
[2017-07-24] MEDS: DEXAMETHASONE 4 MG/ML VIAL IVP SCH (08:31)
[2017-07-24] MEDS: FAMOTIDINE 20 MG/NACL 50 ML IV SCH ×2 (08:32→20:52)
[2017-07-24] MEDS: SODIUM CL NASAL GEL 14.1 GM TUBE TP SCH ×2 (08:32→20:59)
--- NOTE | 2017-07-24 08:46 | NEUROPROG ---
Assessment: total unit time of 15 minutes. Patient has stopped having seizures, so we will continue to give 200mg of Vimpat daily. Not eating or able to take oral yet. Once she is sustained in her alertness back to baseline and eating then she can be discharged but not ready yet. Subjective: Quita is starting to wake up a little but just go IV Vimpat and became sedated again. Nurse said that she said hi this morning and yes to wanting to watch TV. No recurrent seizures Objective: Vital Signs Temp Pulse Resp BP Pulse Ox 35.8 C L 64 17 95/65 L 100 07/24/17 04:00 07/24/17 06:00 07/24/17 06:00 07/24/17 06:00 07/24/17 06:00 Laboratory Results 07/23/17 16:30 07/23/17 07/24/17 07/25/17 05:59 05:59 05:59 Intake Total 2287.5 Output Total 1 Balance 2286.5 Lethargic and non verbal currently with no new changes Allergies/Adverse Reactions: codeine [Codeine] Allergy (Intermediate, Verified 07/23/17 11:37) levofloxacin [From Levaquin] Allergy (Verified 07/23/17 11:37) milk [Milk] Allergy (Verified 07/23/17 11:37) morphine Allergy (Verified 07/23/17 11:37) Penicillins Allergy (Verified 07/23/17 11:37) vancomycin Allergy (Verified 07/23/17 11:37)
--- NOTE | 2017-07-24 13:47 | HOSPPROG ---
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
--- NOTE | 2017-07-24 16:43 | ASMTCASEMG ---
Living Arrangements What is your living Answers: With Other (Not Family) arrangement? Who do you live with? Type Of Residence What kind of residence do Answers: Halfway you live in? Type of Residence Facility Name Notes: [facility] Discharge Plan Comments Coordination Status Comments Notes: Patient is a 42yo disabled female who lives at [facility]. Patient has a hx of seizure disorder, TBI, Cognitive deficit. Patient has had multiple seizures and was admitted inpatient . Patient is blind. D/C will likely be back to [facility]. Director Of Residential Services has been ordered. D/C needs TBD. CM will follow. Date Signed: 07/24/2017 04:41 PM Electronically Signed By:Summer Darling LCSW
--- NOTE | 2017-07-24 17:18 | PDMN ---
Medical Necessity Medical necessity: C/M review: est. > 2 MN for eval and TX of seizures, acute on chronic encephalopathy, AI, requiring planned transfer from SDU to med/surg , ongoing IV Decadron, IV Lacosamide, IV Pepcid, IV fluids, acute inpt ST, comorbid history of astrocytoma S/P resection, ventriculomegaly, WEIGHT TRAINER shunt per 07/24/2017 Hospitalist progress note.
[2017-07-24] MEDS: CLOTRIMAZOLE 1% 15 GM CRTUBE TP SCH (20:59)
[2017-07-24] MEDS ORDERED: LACOSAMIDE 100 MG in NS 50 ML IV SCH (21:00)
[2017-07-25] MEDS: CARBOXYMETHYLCELLULOSE 0.5% 0.4 ML DROPERETTE EACHEYE SCH ×4 (04:14→20:55)
[2017-07-25] MEDS: CHLORHEXIDINE GLUCONATE 15 ML UDL PO SCH ×2 (10:53→21:00)
[2017-07-25] MEDS: FAMOTIDINE 20 MG/NACL 50 ML IV SCH (10:53)
[2017-07-25] MEDS: D5W 1/2 NS 1,000 ML IV SCH (10:55)
[2017-07-25] MEDS: SODIUM CL NASAL GEL 14.1 GM TUBE TP SCH ×2 (10:55→21:00)
[2017-07-25] MEDS: DEXAMETHASONE 4 MG/ML VIAL IVP SCH (10:55)
--- NOTE | 2017-07-25 16:23 | HOSPPROG ---
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 # AI - decadron IV for now # DNR Subjective: eating, communicating yes/no today Objective: Vital Signs Temp Pulse Resp BP Pulse Ox 36.4 C 56 L 16 95/73 L 100 07/25/17 08:00 07/25/17 08:00 07/25/17 04:00 07/25/17 08:00 07/25/17 04:00 07/24/17 07/25/17 07/26/17 05:59 05:59 05:59 Intake Total 822 Output Total 1850 Balance -1028 - Physical Exam Constitutional: not in pain, chronically ill appearing Eyes: anicteric sclera Ears, Nose, Mouth, Throat: hearing normal Cardiovascular: No edema Respiratory: no respiratory distress Gastrointestinal: No distension Genitourinary: No ellington in urethra Skin: warm Neurologic: AAOx3 Psychiatric: not anxious ICD10 Worksheet Patient Problems: Problems Problem Status Onset Pneumonia Acute Sepsis Acute Palliative care encounter Acute Seizure disorder Acute Seizure Acute
[2017-07-25] MEDS: FAMOTIDINE 20 MG TAB PO SCH (20:55)
[2017-07-25] MEDS: LACOSAMIDE 50 MG TAB PO SCH (20:55)
[2017-07-25] MEDS: CLOTRIMAZOLE 1% 15 GM CRTUBE TP SCH (21:00)
[2017-07-25] MEDS ORDERED: BALM TP SCH (22:00)
[2017-07-26] MEDS: LEVOTHYROXINE 112 MCG TAB PO SCH (05:51)
[2017-07-26] MEDS: CARBOXYMETHYLCELLULOSE 0.5% 0.4 ML DROPERETTE EACHEYE SCH ×4 (08:42→21:38)
[2017-07-26] MEDS ORDERED: CRANBERRY FRUIT EXTRACT PO SCH (09:00)
[2017-07-26] MEDS: DEXAMETHASONE 1.5 MG TAB PO SCH (09:24)
[2017-07-26] MEDS: FAMOTIDINE 20 MG TAB PO SCH ×2 (09:24→21:38)
[2017-07-26] MEDS: MAGNESIUM OXIDE 400 MG TAB PO SCH (09:24)
[2017-07-26] MEDS: CHLORHEXIDINE GLUCONATE 15 ML UDL PO SCH ×2 (09:24→21:38)
[2017-07-26] MEDS: LACOSAMIDE 50 MG TAB PO SCH ×2 (09:24→21:37)
[2017-07-26] MEDS: CRANBERRY FRUIT EXTRACT PO SCH (09:25)
[2017-07-26] MEDS: SODIUM CL NASAL GEL 14.1 GM TUBE TP SCH ×2 (09:25→21:00)
--- NOTE | 2017-07-26 09:37 | NEUROPROG ---
Assessment: total unit time of 15 minutes. No recurrent seizures. Back to oral Vimpat 100mg BID. Probably safe for discharge back to care of [facility] today if this level of alertness continues. Will sign off. Call for any questions. Subjective: Pt is not expressing any complaints this am Objective: Vital Signs Temp Pulse Resp BP Pulse Ox 35.4 C L 69 16 87/46 L 98 07/26/17 08:19 07/25/17 20:21 07/25/17 20:21 07/26/17 08:19 07/26/17 08:19 07/25/17 07/26/17 07/27/17 05:59 05:59 05:59 Intake Total 822 1831 Output Total 1850 900 Balance -1028 931 Awake and alert and seems to be at baseline now with some speech and limited conversation and strong tendency to lean to the left. Allergies/Adverse Reactions: codeine [Codeine] Allergy (Intermediate, Verified 07/23/17 11:37) levofloxacin [From Levaquin] Allergy (Verified 07/23/17 11:37) milk [Milk] Allergy (Verified 07/23/17 11:37) morphine Allergy (Verified 07/23/17 11:37) Penicillins Allergy (Verified 07/23/17 11:37) vancomycin Allergy (Verified 07/23/17 11:37)
--- NOTE | 2017-07-26 16:11 | HOSPPROG ---
Hospitalist Progress Note Assessment/Plan: # seizures - d/t decreasing Vimpat - cont vimpat 100 PO BID # acute on chronic encephalopathy - not quite at baseline - cognitive delay at baseline - [facility] to eval tomorrow - can likely be discharged after this if they can manage her # hx astrocytoma s/p resection, ventriculomegaly, EGG CANDLER shunt # AI - decadron IV for now # DNR Subjective: still somewhat conversant Objective: Vital Signs Temp Pulse Resp BP Pulse Ox 35.4 C L 57 L 22 H 112/91 H 100 07/26/17 08:19 07/26/17 10:07 07/26/17 10:07 07/26/17 10:07 07/26/17 10:07 07/25/17 07/26/17 07/27/17 05:59 05:59 05:59 Intake Total 822 1831 Output Total 1850 900 Balance -1028 931 - Physical Exam Constitutional: no apparent distress, appears nourished Eyes: anicteric sclera Ears, Nose, Mouth, Throat: hearing normal Cardiovascular: No edema Respiratory: no respiratory distress Gastrointestinal: No distension Genitourinary: No ellington in urethra Skin: warm Neurologic: other (not oriented) ICD10 Worksheet Patient Problems: Problems Problem Status Onset Pneumonia Acute Sepsis Acute Palliative care encounter Acute Seizure disorder Acute Seizure Acute
[2017-07-26] MEDS: CLOTRIMAZOLE 1% 15 GM CRTUBE TP SCH (21:00)
[2017-07-27 04:08] VITALS: BP 160/100; PULSE 78; RESP 18; TEMP 98.6; O2SAT 98
[2017-07-27] MEDS: CARBOXYMETHYLCELLULOSE 0.5% 0.4 ML DROPERETTE EACHEYE SCH ×3 (04:10→13:44)
[2017-07-27] MEDS: LEVOTHYROXINE 112 MCG TAB PO SCH (05:31)
[2017-07-27] MEDS: MAGNESIUM OXIDE 400 MG TAB PO SCH (08:18)
[2017-07-27] MEDS: LACOSAMIDE 50 MG TAB PO SCH (08:18)
[2017-07-27] MEDS: DEXAMETHASONE 1.5 MG TAB PO SCH (08:19)
[2017-07-27] MEDS: FAMOTIDINE 20 MG TAB PO SCH (08:19)
[2017-07-27] MEDS: SODIUM CL NASAL GEL 14.1 GM TUBE TP SCH (08:20)
[2017-07-27] MEDS: CRANBERRY FRUIT EXTRACT PO SCH (08:20)
[2017-07-27] MEDS: CHLORHEXIDINE GLUCONATE 15 ML UDL PO SCH (09:30)
--- NOTE | 2017-07-27 13:18 | PDIAF ---
- Diagnosis Code Status: Do Not Resuscitate - Medication Management Discharge Medications: Medications to Continue on Transfer Chlorhexidine Gluconate [Peridex oral soln (*)] 15 ml PO BID@0900,2100 08/12/12 [Last Taken 07/22/17 09:00] Levothyroxine [Synthroid 112 mcg (*)] 112 mcg PO DAILY06 08/12/12 [Last Taken ] Propylene Glycol/Peg 400 [SYSTANE 0.3-0.4% EYE DROPS] 1 drop EACHEYE 5XD [Last Taken 07/22/17] Bag [place] Ointment 1 pratima TP TID 03/14/17 [Last Taken 07/22/17] Clotrimazole 1% 1 pratima TP HS 03/14/17 [Last Taken 07/22/17] Cranberry Fruit Extract [Cran-Max] 1,000 mg PO DAILY 03/14/17 [Last Taken ] Sodium Fluoride [Prevident 5000] 1 pratima DT TID 03/14/17 [Last Taken 07/22/17] Dexamethasone 1.5 mg PO DAILY #30 tablet 03/20/17 [Last Taken 07/22/17] Famotidine [Pepcid 20 MG (*)] 20 mg PO BID #60 tab 03/20/17 [Last Taken 09:00] Lacosamide [Vimpat 50 mg (*)] 100 mg PO DAILY 07/23/17 [Last Taken 07/22/17] Magnesium Oxide [Magnesium Oxide 400 mg (*)] 400 mg PO DAILY 07/23/17 [Last Taken 07/22/17] Sodium Cl Nasal Gel [[place] Saline Nasal Gel] 1 pratima [place] BID 07/23/17 [Last Taken 07/22/17 09:00] Lacosamide [Vimpat 50 mg (*)] 100 mg PO BID 30 Days tab 07/27/17 [Last Taken Unknown] Discharge Medications: Refer to the Discharge Home Medication list for PRN reason. - Orders Diet Recommendation: no restrictions on diet Diet Texture: Dysphagia 1 - Pureed, Honey Thick Liquids, Meds Crushed in Puree - Follow Up Care Current Providers and Referrals: NONE *PRIMARY CARE P,. [Primary Care Provider] - As per Instructions
--- NOTE | 2017-07-27 13:57 | GDS ---
[f rep st] DISCHARGE SUMMARY IN-HOSPITAL CONSULTANTS: Dr. Salas Garcia, Neurology. DISCHARGE DIAGNOSIS: Seizure. HISTORY OF PRESENT ILLNESS: The patient is a 42-year-old female, with a past medical history of seizure disorder, traumatic brain injury, and cognitive deficit, who was brought to the [facility] Emergency Room after having a seizure. She had been attempting a wean of her antiseizure medication , Vimpat. Dr. Garcia was consulted on her case; he is her usual neurologist. Recommendation was made to increase the Vimpat to 100 mg twice a day. She has not had any recurrent seizures with this dosing, and she is being assessed today to return back to her place of residence at [facility]. Her caretakers at [facility] came to assess her today and were comfortable with the discharge today. HOSPITAL COURSE BY PROBLEM: 1. Seizure disorder. Improved. Continue with Vimpat 100 mg twice a day. 2. History of astrocytoma. Patient is status post resection and ANIMAL ATTENDANTS AND TRAINERS shunting. 3. Adrenal insufficiency. Patient is on dexamethasone 1.5 mg daily. 4. Hypothyroidism. She was continued on levothyroxine 112 mcg daily. Exam on day of discharge: Vitals stable Heart - regular, no murmurs Lungs - clear, normal effort Abd - non-distended - no ellington Extr - no edema or rash NOTABLE STUDIES: White blood cell count 7, hemoglobin 14, platelets 179. Sodium is 144, potassium 4.4, chloride 106, bicarb 28, BUN 20, creatinine of 0.6 , glucose of 68. DISCHARGE MEDICATIONS: 1. Vimpat 100 mg twice a day. 2. Levothyroxine 112 mcg daily. 3. Systane eye drops. 4. Chlorhexidine 15 mL p.o. b.i.d. 5. Clotrimazole 1% application nightly. 6. Sodium fluoride 1 application 3 times a day. 7. Bag balm ointment 3 times a day. 8. Cranberry fruit extract 1000 mg daily. 9. Dexamethasone 1.5 mg daily. 10. Pepcid 20 mg twice a day. 11. [place] saline nasal gel. 12. Magnesium oxide 400 mg daily. DISCHARGE INSTRUCTIONS: I have recommended a followup visit with her primary provider in 1-2 weeks' time, as well as with Dr. Garcia in 1 months' time. 35 minutes time dedicated to discharge efforts today. Copy requested to: [facility] /[id number]/MODL MTDD
--- NOTE | 2017-07-27 14:50 | ASDISCHSUM ---
Discharge Information Plan Status:Long Term Medically Cleared to Leave:07/26/2017 Discharge Date:07/26/2017 CM D/C Disposition: ADT D/C Disposition:[facility] Facility Projected Discharge Date:07/27/2017 02:00 PM Transportation at D/C:Wheelchair Van Discharge Delay Reason: Follow-Up Date:07/27/2017 02:00 PM Discharge Slot: Final Diagnosis:Sz Placement Information Patient Contact Information Contact Name:VARINDER Relationship:Legal guardian Address:[address] Work Phone: City:[facility] Phone: State/Zip Code:[place] [address] Email: Financial Information Financial Class: Primary Plan Desc:MEDICARE INPATIENT Primary Plan Number:[id number] Secondary Plan Desc:MED[place] Secondary Plan Number:[id number] Assessment Information LACE LACE Acuity / Level of Care Answers: Was the patient admitted to hospital via the emergency department? Yes: Comorbidities - select Answers: Mild liver or renal all that apply disease Emergency dept visits in Answers: 3 last 6 months Score: 8 Date Signed: 07/23/2017 02:46 PM Electronically Signed By:Darlene Tyler RN [facility] Initial CM Assessment Living Arrangements What is your living Answers: With Other (Not Family) arrangement? Who do you live with? Type Of Residence What kind of residence do Answers: Long Term you live in? Type of Residence Facility Name Notes: [facility] Discharge Plan Comments Coordination Status Comments Notes: Patient is a 42yo disabled female who lives at [facility]. Patient has a hx of seizure disorder, TBI, Cognitive deficit. Patient has had multiple seizures and was admitted inpatient . Patient is blind. D/C will likely be back to [facility]. Cyber Security has been ordered. D/C needs TBD. CM will follow. Date Signed: 07/24/2017 04:41 PM Electronically Signed By:Summer Darling LCSW Case Management Discharge Plan Note Case Management Discharge Discharge Order Complete? Answers: Yes Followup Appointment 07/27/2017 02:00 PM Patient to Obtain Answers: Other Notes: [facility] Transportation Arranged Answers: Other Notes: [facility] Transport will Pick (Date 07/27/2017 02:00 PM & Time) Faxed Final Orders Answers: Yes Notes: By Fax not [employer] Discharge Comments Notes: Patient has been discharged. She is back to her baseline. Eating and communicating. [facility] sent a order entry representative to check on her and felt she was ready to return to their care. [facility] to send a W/C van for transport. Faxed patient orders, meds to [facility] #[phone]. Date Signed: 07/27/2017 02:49 PM Electronically Signed By:Emma Pineda LCSW Intervention Information Intervention Type:*Incorrect Registration Date of Service:07/24/2017 10:47 AM Patient Type:Inpatient Staff Member:ZION Coto Susan Hours: Discipline: Severity: Comment:
--- NOTE | 2017-07-30 08:34 | PQFORM ---
PHYSICIAN QUERY FORM Needs Your Response This query form is being sent to you to assure this patient record is coded properly. Please respond to the question below: ECOMMERCE ANALYST QUESTION: Dr Lentzam Encephalopathy was documented in the progress notes however no mention was made on the Discharge Summary. Did this patient have encephalopathy? _x_ Yes ___ No ___ Other DX (Please specify ) ___ Unable to determine Thank You Jane Powell INSTRUCTIONS FOR RESPONSE: Answer question by clicking on the "Edit Document" button. Move cursor to area below the stars. When complete, hit "Save." Click on the "Sign" button, then click "Sign" again. Type in your PIN and hit "Enter." MTDD
== END 2017-07-27 13:45 | DRG 100 ==
LOC: EEVIPCON 14:06 → INTOOBSV 14:06 → F2N 15:19 → OBSVTOIN 07-24 16:14
PROVIDERS: ADMIT Student in an Organized Health Care Education/Training Program; ATTEND Student in an Organized Health Care Education/Training Program
DX: G40.209 Localization-related (focal) (partial) symptomatic epilepsy and epileptic syndromes with complex partial seizures, not intractable, without status epilepticus (principal); G93.40 Encephalopathy, unspecified; H54.8 Legal blindness, as defined in USA; E03.9 Hypothyroidism, unspecified; E27.40 Unspecified adrenocortical insufficiency; G91.9 Hydrocephalus, unspecified; Z87.820 Personal history of traumatic brain injury; Z85.841 Personal history of malignant neoplasm of brain; Z98.2 Presence of cerebrospinal fluid drainage device; Z87.01 Personal history of pneumonia (recurrent); Z66 Do not resuscitate
CPT/HCPCS: 92526-GN; 92610-GN; 96365; C1751; G0378; G8996-GN-CJ; G8996-GN-CL; G8997-GN-CJ; G8998-GN-CJ; J1100; J1953

== ENCOUNTER 2017-08-01 18:00 | Emergency (ER) | payer OTHER, MEDICAID ==
[2017-08-01] MEDS ORDERED: ACETAMINOPHEN 325 MG TAB PO ONE (19:04)
--- NOTE | 2017-08-01 19:14 | EDPHY ---
H & P Time Seen by Provider: 08/01/17 18:20 HPI/ROS: Chief complaint. Blood found on diaper HPI. 42-year-old female developmentally disabled female in a group living situation and there was a small amount of bright red blood found on her depends diaper today. Patient apparently does have intermittent menstrual periods. She has no urinary symptoms that have been noticed by the healthcare provider. There has been no blood in the stool. There apparently is no concern for sexual assault. Patient is nonverbal. There has been no fever, vomiting, diarrhea. ROS Constitutional. no fever/chills, no weakness Eyes. no problems with vision ENT. no sore throat, no nasal drainage Cardiovascular. no chest pain Respiratory. no shortness of breath, no cough Abdominal. no abdominal pain, no nausea/vomiting, no diarrhea; blood in depends diaper . no problems urinating MS. no calf pain/swelling, no neck/back pain, no joint pain Skin. no rash Lymph. no swollen glands Neuro. 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 ENT, Mouth: Mucous membranes are moist. Respiratory: There are no retractions, lungs are clear to auscultation. Cardiovascular: Regular rate and rhythm. Gastrointestinal: Abdomen is soft and nontender, no masses, bowel sounds normal. Neurological: Awake and alert, sensory and motor exams grossly normal. Skin: Warm and dry, no rashes. Musculoskeletal: Neck is supple nontender. Extremities symmetrical, full range of motion. Psychiatric: Patient is oriented X 3, there is no agitation. Constitutional: Initial Vital Signs Temperature (C) 36.7 C 08/01/17 18:04 Heart Rate 69 08/01/17 18:04 Respiratory Rate 18 08/01/17 18:04 Blood Pressure 94/71 L 08/01/17 18:04 O2 Sat (%) 93 08/01/17 18:04 O2 Delivery Mode Room Air O2 (L/minute) 2 Allergies/Adverse Reactions: codeine [Codeine] Allergy (Intermediate, Verified 08/01/17 18:03) levofloxacin [From Levaquin] Allergy (Verified 08/01/17 18:03) milk [Milk] Allergy (Verified 08/01/17 18:03) morphine Allergy (Verified 08/01/17 18:03) Penicillins Allergy (Verified 08/01/17 18:03) vancomycin Allergy (Verified 08/01/17 18:03) Home Medications: Medication Instructions Recorded Chlorhexidine Gluconate [Peridex 15 ml PO BID@0900,2100 08/12/12 oral soln (*)] Levothyroxine [Synthroid 112 mcg 112 mcg PO DAILY06 08/12/12 (*)] Propylene Glycol/Peg 400 [SYSTANE 1 drop EACHEYE 5XD 08/12/12 0.3-0.4% EYE DROPS] Bag [place] Ointment 1 pratima TP TID 03/14/17 Clotrimazole 1% 1 pratima TP HS 03/14/17 Cranberry Fruit Extract [Cran-Max] 1,000 mg PO DAILY 03/14/17 Sodium Fluoride [Prevident 5000] 1 pratima DT TID 03/14/17 Dexamethasone 1.5 mg PO DAILY #30 tablet 03/20/17 Famotidine [Pepcid 20 MG (*)] 20 mg PO BID #60 tab 03/20/17 Magnesium Oxide [Magnesium Oxide 400 mg PO DAILY 07/23/17 400 mg (*)] Sodium Cl Nasal Gel [[place] Saline 1 pratima EACHNARE BID 07/23/17 Nasal Gel] Lacosamide [Vimpat 50 mg (*)] 100 mg PO BID 30 Days tab 07/27/17 Medical Decision Making Procedures: With 2 nurses I examined the patient's perineum. There is no bleeding at this point in time. No obvious blood from the urethra. No blood from the vagina. No blood from rectum. There is no evidence of injury. No evidence for bleeding currently. I discussed the case with the patient's caregiver. They are comfortable taking the patient back to the skilled nursing and will have the patient re-evaluated on Thursday when the skilled nursing nurse comes in. The care provider agrees to return the patient to the emergency department for further bleeding change in behavior or fever. ED Course/Re-evaluation: Apparent blood in depends diaper prior to arrival. A fresh diaper had been applied when the patient arrived. Subsequently there is no evidence of bleeding either in the diaper or by exam. I suspect that this may be menstrual blood Departure - Departure Disposition: Home, Routine, Self-Care Clinical Impression: Vaginal bleeding Condition: Good Instructions: Dysfunctional Uterine Bleeding (ED) Additional Instructions: Return for further bleeding. Recheck by the home health nurse on Thursday Referrals: Vernell Yeh, PROSPECTING OBSERVER [Primary Care Provider] - As per Instructions
[2017-08-01 20:34] VITALS: RESP 20
[2017-08-01 20:36] VITALS: BP 98/63; PULSE 70; TEMP 98.6; O2SAT 94
== END 2017-08-01 20:40 | disposition home or self-care (01) ==
DX: N93.9 Abnormal uterine and vaginal bleeding, unspecified (principal)

== ENCOUNTER 2017-08-26 17:15 | Emergency (ER) | payer OTHER, MEDICAID ==
[2017-08-26 17:28] VITALS: BP 110/99; RESP 18; TEMP 97.5
--- NOTE | 2017-08-26 18:20 | EDPHY ---
H & P Time Seen by Provider: 08/26/17 18:20 HPI/ROS: Chief complaint. Possible pneumonia HPI. Patient is a 42-year-old developmentally disabled female who has been less interactive and responsive for the past 48 hr. Apparently someone at the residential noticed that the patient had a wet cough and they are concerned about pneumonia. She has had previous pneumonia and similar lethargy with previous pneumonias. No fever however. No vomiting or diarrhea. Decreased p.o. Intake. Unknown urinary symptoms. ROS Constitutional. no fever/chills, no weakness Eyes. no problems with vision ENT. no sore throat, no nasal drainage Cardiovascular. no chest pain Respiratory. no shortness of breath, no cough Abdominal. no abdominal pain, no nausea/vomiting, no diarrhea . no problems urinating MS. no calf pain/swelling, no neck/back pain, no joint pain Skin. no rash Lymph. no swollen glands Neuro. Less active than usual Past Medical/Surgical History: Past medical history is significant for traumatic brain injury, brain tumor, seizure disorder, shunt, hypothyroid, PTSD, legally blind, aspiration pneumonia , seizure disorder Social History: Single, nonsmoker, no alcohol Smoking Status: Never smoked Physical Exam: General Appearance: Nonverbal female does not open eyes to verbal stimuli. Afebrile. Heart rate 107 Eyes: Pupils equal and round no pallor or injection. ENT, Mouth: Mucous membranes are moist. Respiratory: There are no retractions, lungs are clear to auscultation. Cardiovascular: Regular rate and rhythm. Gastrointestinal: Abdomen is soft and nontender, no masses, bowel sounds normal. Neurological: More lethargic than usual Skin: Warm and dry, no rashes. Musculoskeletal: Neck is supple nontender. Extremities symmetrical, full range of motion. Psychiatric: Patient is nonverbal. Constitutional: Initial Vital Signs Temperature (C) 36.4 C 08/26/17 17:25 Heart Rate 107 H 08/26/17 17:25 Respiratory Rate 18 08/26/17 17:25 Blood Pressure 110/99 H 08/26/17 17:25 O2 Sat (%) 95 08/26/17 17:25 O2 Delivery Mode Nasal Cannula O2 (L/minute) 2 Allergies/Adverse Reactions: codeine [Codeine] Allergy (Intermediate, Verified 08/26/17 17:24) levofloxacin [From Levaquin] Allergy (Verified 08/26/17 17:24) milk [Milk] Allergy (Verified 08/26/17 17:24) morphine Allergy (Verified 08/26/17 17:24) Penicillins Allergy (Verified 08/26/17 17:24) vancomycin Allergy (Verified 08/26/17 17:24) Home Medications: Medication Instructions Recorded Chlorhexidine Gluconate [Peridex 15 ml PO BID@0900,2100 08/12/12 oral soln (*)] Levothyroxine [Synthroid 112 mcg 112 mcg PO DAILY06 08/12/12 (*)] Propylene Glycol/Peg 400 [SYSTANE 1 drop EACHEYE 5XD 08/12/12 0.3-0.4% EYE DROPS] Bag [place] Ointment 1 pratima TP TID 03/14/17 Clotrimazole 1% 1 pratima TP HS 03/14/17 Cranberry Fruit Extract [Cran-Max] 1,000 mg PO DAILY 03/14/17 Sodium Fluoride [Prevident 5000] 1 pratima DT TID 03/14/17 Dexamethasone 1.5 mg PO DAILY #30 tablet 03/20/17 Famotidine [Pepcid 20 MG (*)] 20 mg PO BID #60 tab 03/20/17 Magnesium Oxide [Magnesium Oxide 400 mg PO DAILY 07/23/17 400 mg (*)] Sodium Cl Nasal Gel [[place] Saline 1 pratima EACHNARE BID 07/23/17 Nasal Gel] Lacosamide [Vimpat 50 mg (*)] 100 mg PO BID 30 Days tab 07/27/17 Cephalexin [Keflex (*)] 500 mg PO TID #21 cap 08/26/17 Medical Decision Making - Diagnostics Imaging Results: Imaging Impressions Chest X-Ray 08/26/17 18:27 Impression: Hypoventilatory features with perihilar bronchitis, but no focal infiltrate identified. Head CT 08/26/17 18:52 Impression: 1. Severe diffuse atrophy and ventriculomegaly. 2. Stable ventriculomegaly with bilateral frontoventricular shunts. 3. Stable partially calcified subthalamic glioma. Findings and recommendations discussed with Emergency Department physician, Grover Honeycutt at 1934 hour, 08/26/2017. Final report concurs with initial preliminary interpretation. Chest x-ray interpreted by me shows no obvious pneumonia. Poor inspiration Head CT shows dilated ventricles that are similar to previous head CTs. Patient has bilateral STOVE FITTER shunts . They appear to be patent. There is no evidence intracranial bleeding Procedures: IV normal saline ED Course/Re-evaluation: I consulted discussed the case with Dr. Juventino Lagunas, neurosurgery, who feels that the STOVE FITTER shunts appear to be working. Re-evaluation 7:50 p.m. Patient is awake and alert and interacting fairly normally per her health aide who is here with her It does appear that patient's blood is somewhat hemoconcentrated. She is given a L of saline in addition to the 500 cc normal saline that she had already received 915 patient is back to normal interaction per her caregiver Patient has a urinary tract infection. She is treated with Rocephin IV. Urine is sent for culture and sensitivity Caregiver and I discussed imaging and lab results. We discussed treatment plan including criteria for return importance of follow-up and further evaluation. She expresses understanding and agreement Differential Diagnosis: Altered mental status with some lethargy. We considered pneumonia, sepsis, urinary tract infection, obstructed STOVE FITTER shunt. No evidence for sepsis. Patient does have a UTI - Data Points Laboratory Results: Laboratory Results 08/26/17 19:00 08/26/17 19:00 08/26/17 08/26/17 08/26/17 20:50 19:00 19:00 WBC RBC Hgb Hct MCV MCH MCHC RDW Plt Count MPV Neut % (Auto) Lymph % (Auto) [place] % (Auto) Eos % (Auto) Baso % (Auto) Nucleat RBC Rel Count Absolute Neuts (auto) Absolute Lymphs (auto) Absolute Monos (auto) Absolute Eos (auto) Absolute Basos (auto) Absolute Nucleated RBC Immature Gran % Immature Gran # PT 11.6 SEC L SEC (12.0-15.0) INR 0.83 (0.83-1.16) APTT 24.1 SEC SEC (23.0-38.0) VBG Lactic Acid Sodium Potassium Chloride Carbon Dioxide Anion Gap BUN Creatinine Estimated GFR Glucose Calcium Total Bilirubin Urine Color YELLOW Urine Appearance HAZY Urine pH 5.0 (5.0-7.5) Ur Specific [place] 1.019 (1.002-1.030) Urine Protein NEGATIVE (NEGATIVE) Urine Ketones NEGATIVE (NEGATIVE) Urine Blood 1+ H (NEGATIVE) Urine Nitrate POSITIVE H (NEGATIVE) Urine Bilirubin NEGATIVE (NEGATIVE) Urine Urobilinogen NEGATIVE EU EU (0.2-1.0) Ur Leukocyte Esterase 2+ H (NEGATIVE) Urine RBC 1-3 /hpf /hpf (0-3) Urine WBC 50-182 /hpf H /hpf (0-3) Ur Epithelial Cells NONE SEEN /lpf /lpf (NONE-1+) Urine Bacteria 3+ /hpf H /hpf (NONE SEEN) Urine Mucus 4+ /lpf H /lpf (NONE-1+) Urine Glucose NEGATIVE (NEGATIVE) Nasal Influenza A PCR NEGATIVE FOR FLU A (NEGATIVE) Nasal Influenza B PCR NEGATIVE FOR FLU B (NEGATIVE) 08/26/17 08/26/17 08/26/17 19:00 19:00 19:00 WBC 6.76 10^3/uL 10^3/uL (3.80-9.50) RBC 6.02 10^6/uL H 10^6/uL (4.18-5.33) Hgb 18.6 g/dL H g/dL (12.6-16.3) Hct 56.1 % H % (38.0-47.0) MCV 93.2 fL fL (81.5-99.8) MCH 30.9 pg pg (27.9-34.1) MCHC 33.2 g/dL g/dL (32.4-36.7) RDW 16.9 % H % (11.5-15.2) Plt Count 210 10^3/uL 10^3/uL (150-400) MPV 10.3 fL fL (8.7-11.7) Neut % (Auto) 80.2 % H % (39.3-74.2) Lymph % (Auto) 8.0 % L % (15.0-45.0) [place] % (Auto) 8.7 % % (4.5-13.0) Eos % (Auto) 0.6 % % (0.6-7.6) Baso % (Auto) 0.6 % % (0.3-1.7) Nucleat RBC Rel Count 0.0 % % (0.0-0.2) Absolute Neuts (auto) 5.42 10^3/uL 10^3/uL (1.70-6.50) Absolute Lymphs (auto) 0.54 10^3/uL L 10^3/uL (1.00-3.00) Absolute Monos (auto) 0.59 10^3/uL 10^3/uL (0.30-0.80) Absolute Eos (auto) 0.04 10^3/uL 10^3/uL (0.03-0.40) Absolute Basos (auto) 0.04 10^3/uL 10^3/uL (0.02-0.10) Absolute Nucleated RBC 0.00 10^3/uL 10^3/uL (0-0.01) Immature Gran % 1.9 % H % (0.0-1.1) Immature Gran # 0.13 10^3/uL H 10^3/uL (0.00-0.10) PT INR APTT VBG Lactic Acid 1.5 mmol/L mmol/L (0.7-2.1) Sodium 143 mEq/L mEq/L (135-145) Potassium 3.9 mEq/L mEq/L (3.5-5.2) Chloride 101 mEq/L mEq/L (97-110) Carbon Dioxide 31 mEq/l mEq/l (22-31) Anion Gap 11 mEq/L mEq/L (8-16) BUN 20 mg/dL mg/dL (7-23) Creatinine 0.7 mg/dL mg/dL (0.6-1.0) Estimated GFR > 60 Glucose 72 mg/dL mg/dL (70-100) Calcium 10.2 mg/dL mg/dL (8.5-10.4) Total Bilirubin 0.5 mg/dL mg/dL (0.1-1.4) Urine Color Urine Appearance Urine pH Ur Specific [place] Urine Protein Urine Ketones Urine Blood Urine Nitrate Urine Bilirubin Urine Urobilinogen Ur Leukocyte Esterase Urine RBC Urine WBC Ur Epithelial Cells Urine Bacteria Urine Mucus Urine Glucose Nasal Influenza A PCR Nasal Influenza B PCR Medications Given: Discontinued Medications Sodium Chloride (Ns) 500 mls @ 1,000 mls/hr IV EDNOW ONE PRN Reason: Protocol Stop: 08/26/17 18:56 Last Admin: 08/26/17 20:00 Dose: 500 mls Sodium Chloride (Ns) 1,000 mls @ 0 mls/hr IV EDNOW ONE; Wide Open PRN Reason: Protocol Stop: 08/26/17 19:45 Last Admin: 08/26/17 20:04 Dose: 1,000 mls Departure - Departure Disposition: Home, Routine, Self-Care Clinical Impression: Urinary tract infection Qualifiers: Urinary tract infection type: site unspecified Hematuria presence: without hematuria Qualified Code(s): N39.0 - Urinary tract infection, site not specified Condition: Good Instructions: Urinary Tract Infection in Women (ED) Additional Instructions: Encourage fluids to stay hydrated. Cephalexin 1 pill 3 times daily. Return for worsening symptoms including worsening lethargy, fever, vomiting. Recheck in 2 days without fail. Referrals: MARCEL NINA [Other] - 1-2 days without fail Prescriptions: Cephalexin [Keflex (*)] 500 mg PO TID #21 cap
[2017-08-26] MEDS ORDERED: NS 500 ML IV ONE (18:27)
[2017-08-26 19:11] LABS: PLATELET COUNT 210 10^3/uL (150-400)
[2017-08-26 19:31] LABS: INR 0.83 (0.83-1.16); PROTIME(PATIENT) 11.6 SEC (12.0-15.0)
[2017-08-26] MEDS ORDERED: NS 1,000 ML IV ONE (19:44)
[2017-08-26] MEDS ORDERED: cefTRIAXone 1 GM in STERILE WATER INJ 10 ML IV ONE (21:48)
[2017-08-26 23:10] VITALS: PULSE 74; O2SAT 95
== END 2017-08-26 23:26 | disposition home or self-care (01) ==
PROC: 0T9B70Z Drainage of Bladder with Drainage Device, Via Natural or Artificial Opening (ICD-10-PCS; principal; 2017-08-26)
DX: N39.0 Urinary tract infection, site not specified (principal); B96.20 Unspecified Escherichia coli [E. coli] as the cause of diseases classified elsewhere; E86.9 Volume depletion, unspecified
CPT/HCPCS: 51702; 70450; 71045; 96361; 96374; 99285; J0696

== ENCOUNTER 2017-08-29 14:00 | Inpatient (IN) | payer OTHER, MEDICAID ==
--- NOTE | 2017-08-29 14:43 | EDPHY ---
H & P Stated Complaint: increased hypoxia and decreased mental alertness. being treated for uti Time Seen by Provider: 08/29/17 14:17 HPI/ROS: CHIEF COMPLAINT: Lethargy, decreased appetite HISTORY OF PRESENT ILLNESS: The patient presents to the ED with lethargy and decreased appetite. The patient was diagnosed with a urinary tract infection in the emergency department several days ago. She has been on Keflex since that time. The patient is brought in by her caregiver. She has been having slightly increased oxygen requirements at home. They have given her Keflex as prescribed. She did receive IV ceftriaxone during her initial ED evaluation. The patient does have a history of multiple medical problems including seizure disorder traumatic brain injury and chronic cognitive changes. She has a history of a prior astrocytoma and blindness. REVIEW OF SYSTEMS: A comprehensive 10 point review of systems is otherwise negative aside from elements mentioned in the history of present illness. Source: Patient - Personal History LMP (Females 10-55): Post Menopausal Current Tetanus/Diphtheria Vaccine: Yes Current Tetanus Diphtheria and Acellular Pertussis (TDAP): Yes Tetanus Vaccine Date: 01/2008 - Medical/Surgical History Hx Asthma: No Hx Chronic Respiratory Disease: No Hx Diabetes: No Hx Cardiac Disease: No Hx Renal Disease: No Hx Cirrhosis: No Hx Alcoholism: No Hx HIV/AIDS: No Hx Splenectomy or Spleen Trauma: No Other PMH: TBI, BRAIN TUMOR,SEIZURE, SHUNT X 2, HYPOTHYROID, LACTOSE INTOL, PTSD , LEGALLY BLIND, FENG LEFT LEG, INCONTINENT, ASPIRATION PNEUMONIA, gen seizure disorder - Social History Smoking Status: Never smoked - Physical Exam Exam: General Appearance: Deconditioned, nonverbal, withdrawals to painful stimuli, wheelchair-bound Eyes: Pupils equal and round no pallor or injection ENT, Mouth: Dry mucous membranes Respiratory: There are no retractions, lungs are clear to auscultation Cardiovascular: Regular rate and rhythm Gastrointestinal: Abdomen is soft and nontender, no masses, bowel sounds normal Neurological: 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 Skin: Warm and dry, no rashes Musculoskeletal: Neck is supple nontender Extremities: symmetrical, full range of motion Constitutional: Initial Vital Signs Temperature (C) 36.5 C 08/29/17 14:09 Heart Rate 106 H 08/29/17 14:09 Respiratory Rate 18 08/29/17 14:09 Blood Pressure 133/88 H 02/24/18 14:09 O2 Sat (%) 96 08/29/17 14:09 O2 Delivery Mode Room Air Allergies/Adverse Reactions: codeine [Codeine] Allergy (Intermediate, Verified 08/26/17 17:24) levofloxacin [From Levaquin] Allergy (Verified 08/26/17 17:24) milk [Milk] Allergy (Verified 08/26/17 17:24) morphine Allergy (Verified 08/26/17 17:24) Penicillins Allergy (Verified 08/26/17 17:24) vancomycin Allergy (Verified 08/26/17 17:24) Home Medications: Medication Instructions Recorded Chlorhexidine Gluconate [Peridex 15 ml PO BID@0900,2100 08/12/12 oral soln (*)] Levothyroxine [Synthroid 112 mcg 112 mcg PO DAILY06 08/12/12 (*)] Propylene Glycol/Peg 400 [SYSTANE 1 drop EACHEYE 5XD 08/12/12 0.3-0.4% EYE DROPS] Bag [place] Ointment 1 pratima TP TID 03/14/17 Clotrimazole 1% 1 pratima TP HS 03/14/17 Cranberry Fruit Extract [Cran-Max] 1,000 mg PO DAILY 03/14/17 Sodium Fluoride [Prevident 5000] 1 pratima DT TID 03/14/17 Dexamethasone 1.5 mg PO DAILY #30 tablet 03/20/17 Famotidine [Pepcid 20 MG (*)] 20 mg PO BID #60 tab 03/20/17 Magnesium Oxide [Magnesium Oxide 400 mg PO DAILY 07/23/17 400 mg (*)] Sodium Cl Nasal Gel [[place] Saline 1 pratima EACHNARE BID 07/23/17 Nasal Gel] Lacosamide [Vimpat 50 mg (*)] 100 mg PO BID 30 Days tab 07/27/17 Cephalexin [Keflex (*)] 500 mg PO TID #21 cap 08/26/17 Medical Decision Making ED Course/Re-evaluation: I reviewed the patient's past medical records including her workup from several days ago. Several people have attempted to obtain IV access without success. I have ordered a PICC line. Clinically the patient has dehydrated. She has no evidence of septic physiology at this point time. I do feel she should be admitted to the hospital for IV fluid rehydration, IV antibiotic therapy and supportive care. Consultation was made with Dr. Govea from the hospitalist service who will admit the patient. Departure - Departure Disposition: [facility] Inpatient Acute Clinical Impression: Seizure disorder, Seizure Urinary tract infection Qualifiers: Urinary tract infection type: acute cystitis Hematuria presence: without hematuria Qualified Code(s): N30.00 - Acute cystitis without hematuria Condition: Good Referrals: Vernell Yeh, INFORMATION SECURITY [Primary Care Provider] - As per Instructions
[2017-08-29] MEDS ORDERED: ALTEPLASE 2 MG VIAL IVP PRN (15:25)
[2017-08-29] MEDS ORDERED: METOPROLOL TARTRATE 5 MG/5 ML INJ IVP ONE (15:28)
[2017-08-29] MEDS ORDERED: ONDANSETRON DISINTEGRATING 4 MG TAB PO PRN (15:48)
[2017-08-29] MEDS ORDERED: ONDANSETRON 4 MG/2 ML VIAL IVP PRN (15:48)
[2017-08-29] MEDS ORDERED: NS 1,000 ML IV ONE (15:48)
[2017-08-29] MEDS ORDERED: ACETAMINOPHEN 325 MG TAB PO PRN (15:48)
--- NOTE | 2017-08-29 18:50 | GHP ---
[f rep st] HISTORY AND PHYSICAL DATE OF ADMISSION: 08/29/2017 CHIEF COMPLAINT: Fatigue. 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 Patient was evaluated in the emergency department several days ago, noted to be tired at that time with abnormal urine. Was given 1 dose of IV antibiotics and started on oral antibiotics. Returned home and has had extremely diminished oral intake of both solids and liquids, very diminishe d energy time of alertness and interaction with her care provider team. For that reason, the patient was brought back to the emergency department for evaluation. In the ED, patient is reporting abdomi nal pain on palpation, denying shortness of breath, denying chest pain. Her level of interaction bas ed on description of her care provider is far below what her baseline typically is. Care provider de nies any measured fevers in the outpatient setting. Does endorse that she has had a cough in the pas t several days that has been increased from what her baseline is and it sounds particularly wet with sputum production. PAST MEDICAL HISTORY: 1. Astrocytoma status post resection and CREDIT CHARGE AUTHORIZER shunting. 2. Seizure disorder. 3. Hypothyroidism. 4. Depression. 5. Blindness. 6. Severe cognitive dysfunction. SOCIAL HISTORY: Patient lives at [facility]. Has a full-time care provider. FAMILY HISTORY: Reviewed and noncontributory. REVIEW OF SYSTEMS: A 10-point review of systems is negative with the exception of that reported in t he History of Present Illness. PHYSICAL EXAMINATION: VITAL SIGNS: Blood pressure 137/73, heart rate 106, respiratory rate 18, satu rating 96% on 2 L. GENERAL: This is a chronically ill-appearing patient responding limitedly to konstantin bal stimulation. HEENT: Notable for dry mucous membranes. Eye exam is negative for any icterus. C ARDIAC: Regular rate and rhythm. PULMONARY: Wheezes on the left side during expiration. GASTROINT ESTINAL: Positive bowel sounds. Abdomen is soft and patient is reporting tenderness on deep palpati on. MUSCULOSKELETAL: Notable for trace symmetric lower extremity edema. SKIN: Reddening of the do rsum of her bilateral feet. No decubitus skin breakdown is noted on exam. NEUROLOGIC: Somnolent. PSYCHIATRIC: Difficult to engage or arouse. DATA: Noncontrast CT of the head, which I personally reviewed and interpreted, shows atrophy. No fi ndings consistent with intracranial hemorrhage. Chest x-ray, which I personally reviewed and interpreted, shows no acute infiltrate. LABORATORY: White count 6.7. Hemoglobin 18.6, which is up from recently 14. Platelet count of 210. Creatinine 0.7. Urinalysis shows 50-182 white blood cells. Nasal influenza swabs are negative. ASSESSMENT AND PLAN: This is a 42-year-old female presenting with lethargy. 1. Pyelonephritis. The patient had urinalysis and urine culture performed on August 26 that, in f act, showed pansensitive E coli. Possible patient simply needs better antibiotic coverage. Will brittaney at with IV ceftriaxone and recheck labs tomorrow morning. 2. Lethargy, suspect related to acute infection. Will hydrate the patient as she appears quite hemo concentrated on exam and follow after initiation of IV antibiotics. 3. Hypothyroidism. Will continue her home medications without change. TSH last checked was in 2016 . Will add a TSH to her admission labs. 4. Seizure disorder. Will certainly continue patient's home medications without alteration. 5. Cognitive deficits: Patient will need high-level supportive care on the medical floor while we a ctively treat pyelonephritis. 6. Prophylaxis with Lovenox. DIET: Regular if she can tolerate. DISPOSITION: Expecting greater than 2 midnights as patient is presenting with lethargy thought secon yael to acute infection. She will require supportive care with IV fluids and IV antibiotics. I have discussed the case with the emergency room physician. Patient will be triaged to the medical- surgical floor for care. /[id number]/MODL
--- NOTE | 2017-08-29 19:06 | PDMN ---
Medical Necessity Medical necessity: C/M review: est. 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
[2017-08-29] MEDS: NS 1,000 ML IV SCH (19:52)
[2017-08-29] MEDS: LACOSAMIDE 50 MG TAB PO SCH (22:51)
[2017-08-29] MEDS: FAMOTIDINE 20 MG TAB PO SCH (22:51)
[2017-08-29] MEDS: CLOTRIMAZOLE 1% 15 GM CRTUBE TP SCH (22:54)
[2017-08-29] MEDS: CHLORHEXIDINE GLUCONATE 15 ML UDL PO SCH ×2 (22:54→23:03)
[2017-08-29] MEDS: SODIUM CL NASAL GEL 14.1 GM TUBE TP SCH (22:55)
[2017-08-29] MEDS: TEARS/DEXTRAN 70/HYPROMELLOSE 15 ML OPHT.BTL EACHEYE SCH (22:56)
[2017-08-29] MEDS: SODIUM FLUORIDE DT SCH (22:56)
[2017-08-30] MEDS: NS 1,000 ML IV SCH ×4 (00:59→23:51)
[2017-08-30 05:01] LABS: PLATELET COUNT 120 10^3/uL (150-400)
[2017-08-30] MEDS ORDERED: LEVOTHYROXINE 112 MCG TAB PO SCH ×2 (06:00→11:33)
[2017-08-30] MEDS ORDERED: HYDROmorphONE/DILAUDID 1 MG/ML INJ IVP PRN (06:21)
[2017-08-30] MEDS ORDERED: HYDROmorphone HCL/NS 0.5 MG/ML SYR IVP PRN (06:28)
[2017-08-30] MEDS: TEARS/DEXTRAN 70/HYPROMELLOSE 15 ML OPHT.BTL EACHEYE SCH ×5 (06:52→22:34)
[2017-08-30] MEDS ORDERED: NS 500 ML IV ONE (08:46)
[2017-08-30] MEDS ORDERED: DEXAMETHASONE 1.5 MG TAB PO SCH (09:00)
[2017-08-30] MEDS: ENOXAPARIN 40 MG/0.4 ML SYR SC SCH (09:00)
[2017-08-30] MEDS ORDERED: Herbals/Supplements -Info Only PO SCH (09:00)
[2017-08-30] MEDS ORDERED: cefTRIAXone 1 GM in STERILE WATER INJ 10 ML IV SCH (09:00)
--- NOTE | 2017-08-30 09:07 | ASMTCMCOM ---
CM Note CM Note Notes: 42 yr old female admitted for lethargy, poor intake, pyelonephritis. 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 She has a hx of cog dysfunction, blindness, hypothyroid, depression. Patient is disabled, lives in a penitentiary w/caregivers and has a guardian. She is DNR status. CM anticipates that patient will return to her penitentiary, may need HC to follow. Date Signed: 08/30/2017 09:06 AM Electronically Signed By:Emma Pineda LCSW
[2017-08-30] MEDS: MAGNESIUM OXIDE 400 MG TAB PO SCH (10:51)
[2017-08-30] MEDS: LACOSAMIDE 50 MG TAB PO SCH ×2 (10:51→22:33)
[2017-08-30] MEDS: SODIUM CL NASAL GEL 14.1 GM TUBE TP SCH ×2 (10:51→22:34)
[2017-08-30] MEDS: CHLORHEXIDINE GLUCONATE 15 ML UDL PO SCH ×2 (10:52→22:33)
[2017-08-30] MEDS: FAMOTIDINE 20 MG TAB PO SCH ×2 (10:52→22:33)
[2017-08-30] MEDS: SODIUM FLUORIDE DT SCH ×3 (10:55→22:36)
[2017-08-30] MEDS: CRANBERRY FRUIT EXTRACT PO SCH (10:55)
--- NOTE | 2017-08-30 11:29 | HOSPPROG ---
Hospitalist Progress Note Assessment/Plan: called to bedside as BP is in the 70's. I ordered a fluid bolus prior to arrival mentation is better BP is still in the 70's systolic, was high as 120's earlier afebrile no increased O2 needs NPO for possible aspiration better #Hypotension with question of Sepsis vs fluid depletion #Pyelonephritis #Encephalopathy, resolving #Dysphagia, reported #Hypothyroidism, on thyroid replacement, TSH is low #Chronic Steroids #Sz disorder #Hx of Astrocytoma Plan: -Given her Hypotension, I cannot r/o sepsis. She has already received quite a bit of IVF. I will determine her clinical response to the fluid bolus. She has good urine output. Will check PC and lactic acid. PICC line in place -Cont Rocephin for now -If further decompensates, may need pressors -No e/o of end organ damage -Mentation is clearing which would indicate improving infection and hydration... -Decrease Levothyroxine -Increase home steroid given hypotension and acute infection -Repeat bed side swallow as her mentation has improved -cont home meds if able to swallow, if not will get formal Speech eval -follow cultures -SCD total critial care time managing this patient with acute infection, hypotension , and possible sepsis is 42 minutes Subjective: mentation is improving. no cough. Objective: Vital Signs Temp Pulse Resp BP Pulse Ox 36.8 C 69 17 97/58 L 99 08/30/17 07:46 08/30/17 10:26 08/30/17 10:26 08/30/17 10:26 08/30/17 10:26 Laboratory Results 08/30/17 04:35 08/30/17 04:35 - Physical Exam Constitutional: no apparent distress Eyes: PERRL, EOMI Ears, Nose, Mouth, Throat: hearing normal, dry mucous membranes Cardiovascular: regular rate and rhythym Respiratory: reduced air movement Gastrointestinal: normoactive bowel sounds Skin: warm Musculoskeletal: generalized weakness Psychiatric: interacting appropriately, encephalopathic Lymph, Heme, Immunologic: No petechiae ICD10 Worksheet Patient Problems: Problems Problem Status Onset Seizure Acute Seizure disorder Acute Urinary tract infection Acute Palliative care encounter Acute Pneumonia Acute Sepsis Acute
[2017-08-30] MEDS: DEXAMETHASONE 4 MG/ML VIAL IVP SCH ×3 (13:41→22:33)
[2017-08-30] MEDS: LEVOTHYROXINE 100 MCG TAB PO SCH (15:16)
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
[2017-08-30] MEDS: CLOTRIMAZOLE 1% 15 GM CRTUBE TP SCH (22:34)
[2017-08-31] MEDS: DEXAMETHASONE 4 MG/ML VIAL IVP SCH (05:51)
[2017-08-31] MEDS: LEVOTHYROXINE 100 MCG TAB PO SCH (05:51)
[2017-08-31] MEDS: TEARS/DEXTRAN 70/HYPROMELLOSE 15 ML OPHT.BTL EACHEYE SCH ×5 (05:52→21:34)
[2017-08-31 06:15] LABS: PLATELET COUNT 140 10^3/uL (150-400)
[2017-08-31] MEDS: NS 1,000 ML IV SCH (08:27)
[2017-08-31] MEDS: LACOSAMIDE 50 MG TAB PO SCH ×2 (08:30→21:23)
[2017-08-31] MEDS: CHLORHEXIDINE GLUCONATE 15 ML UDL PO SCH ×2 (08:33→21:22)
[2017-08-31] MEDS: MAGNESIUM OXIDE 400 MG TAB PO SCH (08:34)
[2017-08-31] MEDS: ENOXAPARIN 40 MG/0.4 ML SYR SC SCH (08:34)
[2017-08-31] MEDS: FAMOTIDINE 20 MG TAB PO SCH ×2 (08:34→21:23)
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
[2017-08-31] MEDS: CRANBERRY FRUIT EXTRACT PO SCH (09:24)
[2017-08-31] MEDS: SODIUM FLUORIDE DT SCH ×3 (09:25→21:35)
[2017-08-31] MEDS: SODIUM CL NASAL GEL 14.1 GM TUBE TP SCH ×2 (09:25→21:34)
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
[2017-08-31] MEDS: CLOTRIMAZOLE 1% 15 GM CRTUBE TP SCH (21:33)
[2017-09-01] MEDS: LEVOTHYROXINE 100 MCG TAB PO SCH (05:19)
[2017-09-01] MEDS: TEARS/DEXTRAN 70/HYPROMELLOSE 15 ML OPHT.BTL EACHEYE SCH ×5 (05:19→21:41)
[2017-09-01] MEDS ORDERED: D5W 1,000 ML IV SCH (09:00)
[2017-09-01] MEDS ORDERED: DEXAMETHASONE 1.5 MG TAB PO SCH ×3 (09:00→15:10)
[2017-09-01] MEDS: ENOXAPARIN 40 MG/0.4 ML SYR SC SCH (09:07)
[2017-09-01] MEDS: CHLORHEXIDINE GLUCONATE 15 ML UDL PO SCH ×2 (09:08→21:38)
[2017-09-01] MEDS: LACOSAMIDE 50 MG TAB PO SCH ×2 (09:08→21:38)
[2017-09-01] MEDS: CEFDINIR 300 MG CAP PO SCH ×2 (09:08→21:38)
[2017-09-01] MEDS: CRANBERRY FRUIT EXTRACT PO SCH (09:10)
[2017-09-01] MEDS: MAGNESIUM OXIDE 400 MG TAB PO SCH (09:10)
[2017-09-01] MEDS: FAMOTIDINE 20 MG TAB PO SCH ×2 (09:10→21:39)
[2017-09-01] MEDS: SODIUM FLUORIDE DT SCH ×3 (09:11→21:42)
[2017-09-01] MEDS: SODIUM CL NASAL GEL 14.1 GM TUBE TP SCH ×2 (09:11→21:39)
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
--- NOTE | 2017-09-01 14:31 | ASMTCMCOM ---
CM Note CM Note Notes: Chart reviewed. Discussed patient status with [facility] medicine. Likely medically ready for dc back to skilled nursing Call placed to Mariah Levy with [facility] of [facility] per instructions to assess safety of discharge messgae left with my number to return call. CM to follow. Date Signed: 09/01/2017 02:30 PM Electronically Signed By:Barbie Brown RN
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
[2017-09-01] MEDS ORDERED: D5W NS 1,000 ML IV SCH (15:15)
[2017-09-01] MEDS: CLOTRIMAZOLE 1% 15 GM CRTUBE TP SCH (21:40)
[2017-09-02] MEDS: LEVOTHYROXINE 100 MCG TAB PO SCH (05:15)
[2017-09-02] MEDS: TEARS/DEXTRAN 70/HYPROMELLOSE 15 ML OPHT.BTL EACHEYE SCH ×2 (06:33→10:13)
[2017-09-02 08:56] VITALS: BP 114/69; PULSE 56; RESP 11; TEMP 96.9; O2SAT 97
[2017-09-02] MEDS ORDERED: DEXAMETHASONE 1.5 MG TAB PO SCH (09:00)
[2017-09-02] MEDS: MAGNESIUM OXIDE 400 MG TAB PO SCH (10:11)
[2017-09-02] MEDS: CEFDINIR 300 MG CAP PO SCH (10:11)
[2017-09-02] MEDS: FAMOTIDINE 20 MG TAB PO SCH (10:11)
[2017-09-02] MEDS: LACOSAMIDE 50 MG TAB PO SCH (10:11)
[2017-09-02] MEDS: CRANBERRY FRUIT EXTRACT PO SCH (10:12)
[2017-09-02] MEDS: CHLORHEXIDINE GLUCONATE 15 ML UDL PO SCH (10:12)
[2017-09-02] MEDS: SODIUM FLUORIDE DT SCH (10:13)
[2017-09-02] MEDS: SODIUM CL NASAL GEL 14.1 GM TUBE TP SCH (10:13)
[2017-09-02] MEDS: ENOXAPARIN 40 MG/0.4 ML SYR SC SCH (10:21)
--- NOTE | 2017-09-02 11:12 | ASMTCMCOM ---
CM Note CM Note Notes: Pt ready for DC today. Spoke with mgr Varsha at pt's [facility]. ([phone]) They can provide transport at 2PM today. They asked that the motor pool driver be given hard copy of DC orders and prescriptions. Also left msg with pt's guardian, Kimberly Levy to inform her of DC. Date Signed: 09/02/2017 11:12 AM Electronically Signed By:Jailene Burris LCSW
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
--- NOTE | 2017-09-07 11:08 | PQFORM ---
PHYSICIAN QUERY FORM Needs Your Response This query form is being sent to you to assure this patient record is coded properly. Please respond to the question below: TECHNICIAN HELPER INSTRUMENT QUESTION: Dr. Torres, Per the ED record, this patient was admitted for decreased mental alertness. The H&P dated 08/29/17 documents lethargy, suspect related to acute infection. The progress note dated 08/30/17 states encephalopathy, resolving. The discharge summary dated 09/02/17 also states lethargy, suspect related to acute infection. Since each of these conditions are coded differently, can it be further clarified whether the patient has: Decreased mental alertness Lethargy suspect related to acute infection ___x Encephalopathy Other Clinically Undetermined Many thanks, ZENA Ray [facility]/Coding Department W: [phone] INSTRUCTIONS FOR RESPONSE: Answer question by clicking on the "Edit Document" button. Move cursor to area below the stars. When complete, hit "Save." Click on the "Sign" button, then click "Sign" again. Type in your PIN and hit "Enter." MTDD
== END 2017-09-02 14:59 | disposition home or self-care (01) | DRG 690 ==
LOC: F1N 17:48
PROVIDERS: ADMIT Hospitalist; ATTEND Internal Medicine
PROC: 02HV33Z Insertion of Infusion Device into Superior Vena Cava, Percutaneous Approach (ICD-10-PCS; principal; 2017-08-29)
DX: N10 Acute pyelonephritis (principal); B96.29 Other Escherichia coli [E. coli] as the cause of diseases classified elsewhere; E86.0 Dehydration; E87.0 Hyperosmolality and hypernatremia; R53.83 Other fatigue; S06.9X9S Unspecified intracranial injury with loss of consciousness of unspecified duration, sequela; R41.89 Other symptoms and signs involving cognitive functions and awareness; G40.909 Epilepsy, unspecified, not intractable, without status epilepticus; R13.10 Dysphagia, unspecified; Z85.841 Personal history of malignant neoplasm of brain; H54.8 Legal blindness, as defined in USA; Z98.2 Presence of cerebrospinal fluid drainage device; T14.8XXD Other injury of unspecified body region, subsequent encounter; X58.XXXD Exposure to other specified factors, subsequent encounter; E03.9 Hypothyroidism, unspecified; E27.40 Unspecified adrenocortical insufficiency
CPT/HCPCS: 96374; 97162-GP; C1751; G8978-GP-CM; G8980-GP-CM; J0696; J1100; J1170; J1650

== ENCOUNTER 2017-10-31 14:34 | Emergency (ER) | payer OTHER, MEDICAID ==
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
[2017-10-31 16:37] LABS: PLATELET COUNT 258 10^3/uL (150-400)
[2017-10-31 16:45] LABS: INR 0.91 (0.83-1.16); PROTIME(PATIENT) 12.5 SEC (12.0-15.0)
[2017-10-31] MEDS ORDERED: IOPAMIDOL (ISOVUE-370) 150 ML BTL IV ONE (17:02)
[2017-10-31 21:14] VITALS: BP 110/59
== END 2017-10-31 21:00 | disposition home or self-care (01) ==
DX: L98.8 Other specified disorders of the skin and subcutaneous tissue (principal); I10 Essential (primary) hypertension
CPT/HCPCS: 73630; 75635; 99285; Q9967

== ENCOUNTER 2017-11-07 19:47 | Inpatient (IN) | payer OTHER, MEDICAID ==
--- NOTE | 2017-11-07 20:38 | EDPHY ---
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 Patient has a history of aspiration pneumonia. The care provider states that she did cough earlier this evening. No visible or recent episodes of vomiting. Patient is on oxygen every day. No recent fevers or chills. No vomiting. REVIEW OF SYSTEMS: My complete review of systems is negative except as mentioned in the HPI. Past Medical/Surgical History: Includes astrocytoma, pyelonephritis, lethargy, seizure disorder, hypoglycemia, hyponatremia, hypothyroidism, depression, hypertension, adrenal insufficiency, dysphagia Past surgical history: Includes astrocytoma resection and FINANCIAL ADVOCATE shunt Smoking Status: Never smoked Physical Exam: 36.4, 07/09/2053, 111, 22, 89%. On oxygen 95% GENERAL: Wheelchair-bound. No acute distress. Her care provider is a at the bedside. HEENT: Eyes normal to inspection, no signs of dehydration. RESPIRATORY: Clear to auscultation bilaterally, no rales, rhonchi or wheezing. CVS: Tachycardia with Regular rate and rhythm, no rubs, murmurs, or gallops. ABDOMEN: Soft, nontender, nondistended, no organomegaly. BACK: Normal to inspection. SKIN: Normal color, no rash, warm, dry. No pallor. EXTREMITIES: No pedal edema, no calf tenderness, no joint swelling. Contracted NEURO/PSYCH: Eyes open. Per care provider more withdrawn the normal Constitutional: Initial Vital Signs Temperature (C) 36.4 C 11/07/17 20:05 Heart Rate 111 H 11/07/17 20:05 Respiratory Rate 22 H 11/07/17 20:05 Blood Pressure 104/54 L 11/07/17 20:05 O2 Sat (%) 89 L 11/07/17 20:05 O2 Delivery Mode Nasal Cannula O2 (L/minute) 4 Allergies/Adverse Reactions: codeine [Codeine] Allergy (Intermediate, Verified 11/07/17 20:05) levofloxacin [From Levaquin] Allergy (Verified 11/07/17 20:05) milk [Milk] Allergy (Verified 11/07/17 20:05) morphine Allergy (Verified 11/07/17 20:05) Penicillins Allergy (Verified 11/07/17 20:05) vancomycin Allergy (Verified 11/07/17 20:05) Home Medications: Medication Instructions Recorded Chlorhexidine Gluconate [Peridex 15 ml PO BID@0900,2100 08/12/12 oral soln (*)] Levothyroxine [Synthroid 112 mcg 112 mcg PO DAILY06 08/12/12 (*)] Propylene Glycol/Peg 400 [SYSTANE 1 drop EACHEYE 5XD 08/12/12 0.3-0.4% EYE DROPS] Clotrimazole 1% 1 pratima TP HS 03/14/17 Cranberry Fruit Extract [Cran-Max] 1,000 mg PO DAILY 03/14/17 Sodium Fluoride [Prevident 5000] 1 pratima DT TID 03/14/17 Dexamethasone 1.5 mg PO DAILY #30 tablet 03/20/17 Famotidine [Pepcid 20 MG (*)] 20 mg PO BID #60 tab 03/20/17 Magnesium Oxide [Magnesium Oxide 400 mg PO DAILY 07/23/17 400 mg (*)] Sodium Cl Nasal Gel [[place] Saline 1 pratima EACHNARE BID 07/23/17 Nasal Gel] Lacosamide [Vimpat 50 mg (*)] 100 mg PO BID 30 Days tab 07/27/17 Herbals/Supplements -Info Only 1 ea PO DAILY 08/29/17 Cefdinir [Omnicef (*)] 300 mg PO BID #5 cap 09/01/17 Medical Decision Making - Diagnostics EKG Interpretation: Sinus tachycardia 124. Normal axis. Normal intervals. No ST or T-wave abnormalities. ED Course/Re-evaluation: In the emergency department I met the patient on arrival. Laboratory studies, EKG and chest x-ray were ordered. Chest x-ray: Please refer the dictated report. Patient has chiladiates. Patient has left-sided infiltrate. Poor inspiration. I reviewed these images with Dr. Parsons. Patient's white count is elevated 15,000. Chemistry panel is pending. Lactic acid is elevated 2.4. Severe sepsis was declared. Patient was given normal saline 30 milliliters/ kilogram IV. I discussed the case with the hospitalist service. Dr. Torres recommended cefepime. This was ordered. Discussed the plan with the patient's care provider. I answered all her questions. Differential Diagnosis: My differential includes but is not limited to pneumonia, aspiration pneumonia, bronchitis, empyema, electrolyte abnormality, sugar abnormality, pulmonary embolus, ACS, acute [place], CHF, bacteremia, sepsis - Data Points Laboratory Results: Laboratory Results 11/07/17 20:37 11/07/17 20:25 11/07/17 11/07/17 11/07/17 20:37 20:25 20:25 WBC 15.56 10^3/uL H 10^3/uL (3.80-9.50) RBC 5.37 10^6/uL H 10^6/uL (4.18-5.33) Hgb 16.5 g/dL H g/dL (12.6-16.3) Hct 52.0 % H % (38.0-47.0) MCV 96.8 fL fL (81.5-99.8) MCH 30.7 pg pg (27.9-34.1) MCHC 31.7 g/dL L g/dL (32.4-36.7) RDW 14.6 % % (11.5-15.2) Plt Count 268 10^3/uL 10^3/uL (150-400) MPV 10.3 fL fL (8.7-11.7) Neut % (Auto) 80.7 % H % (39.3-74.2) Lymph % (Auto) 12.3 % L % (15.0-45.0) [place] % (Auto) 5.4 % % (4.5-13.0) Eos % (Auto) 0.4 % L % (0.6-7.6) Baso % (Auto) 0.3 % % (0.3-1.7) Nucleat RBC Rel Count 0.0 % % (0.0-0.2) Absolute Neuts (auto) 12.55 10^3/uL H 10^3/uL (1.70-6.50) Absolute Lymphs (auto) 1.92 10^3/uL 10^3/uL (1.00-3.00) Absolute Monos (auto) 0.84 10^3/uL H 10^3/uL (0.30-0.80) Absolute Eos (auto) 0.06 10^3/uL 10^3/uL (0.03-0.40) Absolute Basos (auto) 0.05 10^3/uL 10^3/uL (0.02-0.10) Absolute Nucleated RBC 0.00 10^3/uL 10^3/uL (0-0.01) Immature Gran % 0.9 % % (0.0-1.1) Immature Gran # 0.14 10^3/uL H 10^3/uL (0.00-0.10) VBG Lactic Acid 2.4 mmol/L H mmol/L (0.7-2.1) Sodium 143 mEq/L mEq/L (135-145) Potassium 4.4 mEq/L mEq/L (3.5-5.2) Chloride 110 mEq/L mEq/L (97-110) Carbon Dioxide 20 mEq/l L mEq/l (22-31) Anion Gap 13 mEq/L mEq/L (8-16) BUN 24 mg/dL H mg/dL (7-23) Creatinine 0.6 mg/dL mg/dL (0.6-1.0) Estimated GFR > 60 Glucose 198 mg/dL H mg/dL (70-100) Calcium 9.3 mg/dL mg/dL (8.5-10.4) Troponin I < 0.012 ng/mL ng/mL (0.000-0.034) NT-Pro-B Natriuret Pep 102 pg/mL pg/mL (0-125) Medications Given: Discontinued Medications Sodium Chloride (Ns) 1,000 mls @ 0 mls/hr IV ONCE ONE PRN Reason: Wide Open Stop: 11/07/17 20:52 Last Admin: 11/07/17 20:57 Dose: 1,000 mls Cefepime HCl 2 gm/ Sterile (Water) 12.5 mls @ 150 mls/hr IV EDNOW ONE PRN Reason: Protocol Stop: 11/07/17 21:25 Last Admin: 11/07/17 21:47 Dose: 12.5 mls Departure - Departure Disposition: [facility] Inpatient Acute Clinical Impression: Pneumonia Qualifiers: Pneumonia type: due to unspecified organism Laterality: left Lung location: lower lobe of lung Qualified Code(s): J18.1 - Lobar pneumonia, unspecified organism Condition: Good
[2017-11-07 20:44] LABS: PLATELET COUNT 268 10^3/uL (150-400)
[2017-11-07] MEDS ORDERED: NS 1,000 ML IV ONE (20:51)
--- NOTE | 2017-11-07 21:05 | CPEKG ---
Heart Rate: 124 RR Interval: 484 P-R Interval: 152 QRSD Interval: 78 QT Interval: 320 QTC Interval: 460 P [place]: 37 QRS [place]: -12 T Wave [place]: 56 EKG Severity - OTHERWISE NORMAL ECG - EKG Impression: SINUS TACHYCARDIA EKG Impression: LOW VOLTAGE IN FRONTAL LEADS Electronically Signed By: Marquita Rae 07-Nov-2017 22:36:04
[2017-11-07] MEDS ORDERED: NS 1,500 ML IV ONE (21:08)
[2017-11-07] MEDS ORDERED: ONDANSETRON 4 MG/2 ML VIAL IVP PRN (21:21)
[2017-11-07] MEDS ORDERED: ACETAMINOPHEN 325 MG TAB PO PRN (21:21)
[2017-11-07] MEDS ORDERED: CEFEPIME HCL 2 GM in STERILE WATER INJ 12.5 ML IV ONE (21:21)
[2017-11-07] MEDS ORDERED: ONDANSETRON DISINTEGRATING 4 MG TAB PO PRN (21:21)
[2017-11-07] MEDS ORDERED: MAGNESIUM HYDROXIDE 30 ML UDCUP PO PRN (21:59)
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
[2017-11-07] MEDS: HYDROCORTISONE 100 MG/2 ML VIAL IVP SCH (23:11)
[2017-11-07] MEDS: CLINDAMYCIN 600 MG/DEXTROSE 50 ML IV SCH (23:12)
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
[2017-11-08] MEDS: NS 1,000 ML IV SCH ×2 (04:59→14:52)
[2017-11-08] MEDS: CLINDAMYCIN 600 MG/DEXTROSE 50 ML IV SCH ×3 (05:50→22:11)
[2017-11-08] MEDS: ENOXAPARIN 40 MG/0.4 ML SYR SC SCH (08:25)
[2017-11-08] MEDS: HYDROCORTISONE 100 MG/2 ML VIAL IVP SCH ×2 (08:25→21:27)
[2017-11-08] MEDS: CRANBERRY FRUIT EXTRACT PO SCH (08:49)
[2017-11-08] MEDS: Propylene Glycol/Peg 400 [Systane 0.3-0.4% Eye Drops] 1 DROP EACHEYE SCH ×5 (08:50→22:16)
[2017-11-08] MEDS: SODIUM FLUORIDE DT SCH ×3 (08:50→22:16)
[2017-11-08] MEDS ORDERED: VIT D PO SCH (09:00)
[2017-11-08] MEDS ORDERED: CALCIUM CARB PO SCH (09:00)
[2017-11-08] MEDS ORDERED: Herbals/Supplements -Info Only PO SCH (09:00)
[2017-11-08] MEDS: CHOLECALCIFEROL VIT D3 1,000 UNITS TAB PO SCH (09:27)
[2017-11-08] MEDS: CALCIUM CARB W/VIT D 500 MG TAB PO SCH ×2 (09:27→21:27)
[2017-11-08] MEDS: MAGNESIUM OXIDE 400 MG TAB PO SCH (09:27)
[2017-11-08] MEDS: FAMOTIDINE 20 MG TAB PO SCH ×2 (09:28→21:20)
[2017-11-08] MEDS: LACOSAMIDE 50 MG TAB PO SCH ×2 (09:28→21:20)
[2017-11-08] MEDS: DEXAMETHASONE 1.5 MG TAB PO SCH (09:28)
[2017-11-08] MEDS: SODIUM CL NASAL GEL 14.1 GM TUBE TP SCH ×2 (09:33→21:29)
[2017-11-08] MEDS ORDERED: LACTULOSE 20 GM/30 ML UDCUP PO PRN (10:29)
[2017-11-08] MEDS ORDERED: POLYETHYLENE GLYCOL 3350 17 GM PKT PO PRN (10:29)
[2017-11-08] MEDS ORDERED: BISACODYL 10 MG SUPP PR PRN (10:29)
[2017-11-08] MEDS ORDERED: MAGNESIUM HYDROXIDE 30 ML UDCUP PO PRN (10:29)
[2017-11-08] MEDS: CHLORHEXIDINE GLUCONATE 15 ML UDL PO SCH ×2 (10:36→21:19)
--- NOTE | 2017-11-08 15:07 | HOSPPROG ---
Hospitalist Progress Note Assessment/Plan: 42y female with fever and lethargy. First encounter, chart reviewed. #Sepsis -resolved #Aspiration PNA -cont abx, clinda #Lactic acidois -fluids #Dehydration -IVF #HTN stable #Hypothyroidism home meds #Severe cognitive dysfunction -less then baseline #Adrenal insufficiency -steroid bolus #Dysphagia -speech therapy #Compression fractures -no intervention #Right foot echymoses -follow #Dispo -unclear, cont supportive care -lives at [facility] with a child care associate teacher -needs 24 help with all ADLS Subjective: No verbal interaction. Objective: Vital Signs Temp Pulse Resp BP Pulse Ox 36.5 C 86 16 105/70 94 11/08/17 11:37 11/08/17 11:37 11/08/17 11:37 11/08/17 11:37 11/08/17 11:37 Laboratory Results 11/08/17 05:16 11/08/17 05:16 11/07/17 11/08/17 11/09/17 05:59 05:59 05:59 Intake Total 2500 Balance 2500 - Physical Exam Constitutional: chronically ill appearing, unkempt, cachectic Eyes: PERRL, anicteric sclera, EOMI Ears, Nose, Mouth, Throat: moist mucous membranes, hearing normal, ears appear normal Cardiovascular: edema, No JVD, No tachycardia Respiratory: no respiratory distress, reduced air movement, rhonchi Gastrointestinal: No tenderness, No ascites, No guarding Skin: warm, normal color, erythema Musculoskeletal: no joint effusions, generalized weakness, No normal joint ROM Neurologic: No AAOx3 Psychiatric: not anxious, encephalopathic, No interacting appropriately ICD10 Worksheet Patient Problems: Problems Problem Status Onset Pneumonia Acute Sepsis Acute Palliative care encounter Acute Seizure disorder Acute Seizure Acute Urinary tract infection Acute
[2017-11-08] MEDS: D5W 1/2 NS 1,000 ML IV SCH ×2 (15:46→23:08)
--- NOTE | 2017-11-08 17:36 | ASMTCMCOM ---
CM Note CM Note Notes: Pt admitted with sepsis r/t aspiration pneumonia. Hx severe cognitive dysfunction; normally resides at [facility] requiring care with all ADLs except she feeds herself. ST recommending pt not feed herself; pt eats too quickly increasing risk of aspiration. Pt currently on IV abx. Anticipate dc back to [facility] when medically stable. CM will follow. Dc plan-[facility] Date Signed: 11/08/2017 05:35 PM Electronically Signed By:Shayla Hayward RN
[2017-11-08] MEDS: SENNOSIDES/DOCUSATE SODIUM TAB PO SCH (21:19)
[2017-11-09] MEDS: LEVOTHYROXINE 112 MCG TAB PO SCH (05:55)
[2017-11-09] MEDS: CLINDAMYCIN 600 MG/DEXTROSE 50 ML IV SCH ×3 (05:59→23:17)
[2017-11-09] MEDS: ENOXAPARIN 40 MG/0.4 ML SYR SC SCH (09:06)
[2017-11-09] MEDS: HYDROCORTISONE 100 MG/2 ML VIAL IVP SCH (09:07)
[2017-11-09] MEDS: MAGNESIUM OXIDE 400 MG TAB PO SCH (09:12)
[2017-11-09] MEDS: SENNOSIDES/DOCUSATE SODIUM TAB PO SCH ×2 (09:12→23:15)
[2017-11-09] MEDS: CHOLECALCIFEROL VIT D3 1,000 UNITS TAB PO SCH (09:12)
[2017-11-09] MEDS: CRANBERRY FRUIT EXTRACT PO SCH (09:12)
[2017-11-09] MEDS: CALCIUM CARB W/VIT D 500 MG TAB PO SCH ×2 (09:12→23:14)
[2017-11-09] MEDS: FAMOTIDINE 20 MG TAB PO SCH ×2 (09:12→23:14)
[2017-11-09] MEDS: LACOSAMIDE 50 MG TAB PO SCH ×2 (09:12→23:14)
[2017-11-09] MEDS: Propylene Glycol/Peg 400 [Systane 0.3-0.4% Eye Drops] 1 DROP EACHEYE SCH ×4 (09:13→23:18)
[2017-11-09] MEDS: SODIUM CL NASAL GEL 14.1 GM TUBE TP SCH ×2 (09:13→23:17)
[2017-11-09] MEDS: SODIUM FLUORIDE DT SCH ×3 (09:13→23:18)
[2017-11-09] MEDS: CHLORHEXIDINE GLUCONATE 15 ML UDL PO SCH ×2 (09:30→23:14)
[2017-11-09] MEDS: DEXAMETHASONE 1.5 MG TAB PO SCH (10:35)
--- NOTE | 2017-11-09 12:13 | HOSPPROG ---
Hospitalist Progress Note Assessment/Plan: Quita is a 42-year-old female with a history of astrocytoma status post resection and GAMBRELER shunting. She was brought in by her caregiver from [facility] due to increased lethargy, mild cough and grunting. The patient normally answers yes or no to simple question. Her house mate was recently treated for the influenza B. Today is my 1st encounter with the patient. Chart reviewed. #Sepsis with elevated lactate, tachycardia and leukocytosis -resolved #Aspiration PNA -on clindamycin, the patient has a PCN allergy -respiratory panel shows no organism #Lactic acidosis -improved with fluids #Dehydration -IVF #HTN stable #Hypothyroidism home meds #Severe cognitive dysfunction - #Adrenal insufficiency -steroid bolus -will decrease to daily starting today and then dc #Dysphagia -speech therapy #Compression fractures -this was an incidental finding on a CTA in October of 2017 #Right foot ecchymoses and left ankle ecchymosis -follow #plan: discharge pending, patient is very drowsy, awakens when I talk with her. Cut back on IV steroids, decrease IV fluids since she is now eating (needs to be fed) Subjective: Quita is nonverbal, looks at me when I say her name. Objective: Vital Signs Temp Pulse Resp BP Pulse Ox 36.7 C 76 13 106/65 92 11/09/17 11:54 11/09/17 11:54 11/09/17 11:54 11/09/17 11:54 11/09/17 11:54 Laboratory Results 11/08/17 05:16 11/08/17 05:16 11/08/17 11/09/17 11/10/17 05:59 05:59 05:59 Intake Total 2600 1979 Balance 2600 1979 - Physical Exam Constitutional: no apparent distress, chronically ill appearing Ears, Nose, Mouth, Throat: hearing normal Cardiovascular: regular rate and rhythym Respiratory: no respiratory distress, reduced air movement Gastrointestinal: normoactive bowel sounds Skin: warm, No normal color (pale) Musculoskeletal: other (bedridded) Neurologic: other (awakens when her name is said) ICD10 Worksheet Patient Problems: Problems Problem Status Onset Pneumonia Acute Palliative care encounter Acute Seizure Acute Seizure disorder Acute Sepsis Acute Urinary tract infection Acute
--- NOTE | 2017-11-09 14:51 | ASMTCMCOM ---
CM Note CM Note Notes: Telephone call to Skye Copeland ([phone]), provided updates and faxed clinicals to [phone]. This CM reported the recommendation is pt not feed herself and staff said this is not new, pt does not feed herself. CM to follow. Date Signed: 11/09/2017 02:50 PM Electronically Signed By:KIMANI Velez
[2017-11-10 04:34] LABS: PLATELET COUNT 208 10^3/uL (150-400)
[2017-11-10] MEDS: LEVOTHYROXINE 112 MCG TAB PO SCH (05:48)
[2017-11-10] MEDS: CLINDAMYCIN 600 MG/DEXTROSE 50 ML IV SCH (05:59)
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
[2017-11-10] MEDS: MAGNESIUM OXIDE 400 MG TAB PO SCH (08:59)
[2017-11-10] MEDS: ENOXAPARIN 40 MG/0.4 ML SYR SC SCH (09:00)
[2017-11-10] MEDS ORDERED: HYDROCORTISONE 100 MG/2 ML VIAL IVP SCH (09:00)
[2017-11-10] MEDS: CHOLECALCIFEROL VIT D3 1,000 UNITS TAB PO SCH (09:00)
[2017-11-10] MEDS: CALCIUM CARB W/VIT D 500 MG TAB PO SCH ×2 (09:01→21:59)
[2017-11-10] MEDS: SENNOSIDES/DOCUSATE SODIUM TAB PO SCH ×2 (09:01→21:50)
[2017-11-10] MEDS: FAMOTIDINE 20 MG TAB PO SCH ×2 (09:01→22:00)
[2017-11-10] MEDS: CHLORHEXIDINE GLUCONATE 15 ML UDL PO SCH ×2 (09:03→21:59)
[2017-11-10] MEDS: SODIUM CL NASAL GEL 14.1 GM TUBE TP SCH ×2 (09:04→22:49)
[2017-11-10] MEDS: CRANBERRY FRUIT EXTRACT PO SCH (09:05)
[2017-11-10] MEDS: SODIUM FLUORIDE DT SCH ×3 (09:05→22:55)
[2017-11-10] MEDS: Propylene Glycol/Peg 400 [Systane 0.3-0.4% Eye Drops] 1 DROP EACHEYE SCH ×4 (09:25→21:50)
[2017-11-10] MEDS ORDERED: DIPHENHYDRAMINE CREAM TP PRN (09:34)
--- NOTE | 2017-11-10 09:36 | PDIAF ---
- Diagnosis Diagnosis: aspiration pna, dehydration,adrenal insufficiency Code Status: Do Not Resuscitate - Medication Management Discharge Medications: Medications to Continue on Transfer Chlorhexidine Gluconate [Peridex oral soln (*)] 15 ml PO BID@0900,2100 08/12/12 [Last Taken 11/07/17] Levothyroxine [Synthroid 112 mcg (*)] 112 mcg PO DAILY06 08/12/12 [Last Taken ] Propylene Glycol/Peg 400 [SYSTANE 0.3-0.4% EYE DROPS] 1 drop EACHEYE 5XD [Last Taken 11/07/17] Cranberry Fruit Extract [Cran-Max] 1,000 mg PO DAILY 03/14/17 [Last Taken ] Sodium Fluoride [Prevident 5000] 1 pratima DT TID 03/14/17 [Last Taken 11/07/17] Dexamethasone 1.5 mg PO DAILY #30 tablet 03/20/17 [Last Taken 11/07/17] Famotidine [Pepcid 20 MG (*)] 20 mg PO BID #60 tab 03/20/17 [Last Taken 11/07/17 ] Magnesium Oxide [Magnesium Oxide 400 mg (*)] 400 mg PO DAILY 07/23/17 [Last Taken 11/07/17] Sodium Cl Nasal Gel [[place] Saline Nasal Gel] 1 pratima EACHNARE BID 07/23/17 [Last Taken 11/07/17] Lacosamide [Vimpat 50 mg (*)] 100 mg PO BID 30 Days tab 07/27/17 [Last Taken ] Herbals/Supplements -Info Only 1 ea PO DAILY 08/29/17 [Last Taken 11/07/17] Calcium Carb W/Vit D 500/200 (*) 1 tab PO BID 11/07/17 [Last Taken 11/07/17 1800 ] Cholecalciferol Vit D3 [Vitamin D3 (*)] 1,000 units PO DAILY 11/07/17 [Last Taken 11/07/17] Acetaminophen [Tylenol 325mg (*)] 650 mg PO Q4HRS PRN tab 11/10/17 [Last Taken Unknown] Clindamycin HCl [Clindamycin] 300 mg PO TID #12 mg 11/10/17 [Last Taken Unknown] Discharge Medications: Refer to the Discharge Home Medication list for PRN reason. - Orders Services needed: Physical Therapy, Occupational Therapy Isolation Type: None Diet Recommendation: no restrictions on diet Diet Texture: Dysphagia 1 - Pureed, Honey Thick Liquids, Meds Crushed in Puree Additional Instructions: higher risk clostridium difficile with use of clindamycin/be aware of increase diarrhea script was sent to [facility] here in the hospital; they will warner you the medication to the patient's room repeat chest xray in 6 weeks HOB up with all meals - Follow Up Care Current Providers and Referrals: Vernell Yeh, BUILDING OPERATOR [Primary Care Provider] - As per Instructions
[2017-11-10] MEDS: DEXAMETHASONE 1.5 MG TAB PO SCH (10:28)
[2017-11-10] MEDS: LACOSAMIDE 50 MG TAB PO SCH ×3 (10:30→22:55)
--- NOTE | 2017-11-10 11:35 | GDS ---
[f rep st] DISCHARGE SUMMARY DISCHARGE DIAGNOSES: 1. Sepsis with elevated lactate, tachycardia and leukocytosis. 2. Aspiration pneumonia. 3. Lactic acidosis. 4. Acute metabolic on chronic encephalopathy. 5. Dehydration. 6. Hypertension. 7. Hypothyroidism. 8. Severe cognitive dysfunction. 9. Adrenal insufficiency. 10. Dysphagia. 11. Compression fractures, incidental finding on imaging. 12. Right foot ecchymosis and left ankle ecchymosis. 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 She is brought in by her primary caregiver from [facility] due to increasing lethargic lethargy, mild cough and grunting. The patient normally answers yes or no to simple questions. Of note, her housemate was recently treated for influenza A. She had a respiratory panel performed here that showed no organism. It was noted that she had an aspiration pn eumonia. She was treated with clindamycin because she has a penicillin allergy. She is back on room air and much improved. HOSPITAL COURSE BY PROBLEM: 1. Sepsis with elevated lactate, tachycardia, leukocytosis, resolved. 2. Aspiration pneumonia. She is on room air. We will continue clindamycin so she gets a full treat ment. 3. Lactic acidosis, resolved. 4. Acute metabolic on chronic encephalopathy. Today, she is very interactive and answering yes or n o and smiling. 5. Dehydration, resolved. 6. Hypertension, stable. 7. Hypothyroidism. Home medications. 8. Severe cognitive dysfunction. She appears to be at her baseline. 9. Adrenal insufficiency. She was given a steroid bolus. 10. Dysphagia. Speech therapy wrote out recommendations. 11. Compression fractures. Incidental finding. 12. Right foot ecchymosis and left ankle ecchymosis. Have this followed. DISCHARGE CONDITION: Stable. Blood pressure is 109/69, heart rate of 100, O2 sats on room air 92%, temperature is 36.4 Celsius. MEDICATIONS AT DISCHARGE: Please see the EMR. DISCHARGE INSTRUCTIONS: 1. To continue the antibiotics and monitor for any signs or symptoms of Clostridium difficile. 2. To continue dysphagia 1 pureed diet. 3. Head of bed up with all meals. 4. To get a repeat chest x-ray in 6 weeks to be sure she has resolution of her pneumonia. Greater than 30 minutes discharging and coordinating the patient's care. /[id number]/MODL
[2017-11-10] MEDS: HYDROCORTISONE 0.5% CREAM TP SCH ×2 (14:25→22:49)
[2017-11-10] MEDS: CLINDAMYCIN 150 MG CAP PO SCH ×2 (14:29→22:49)
[2017-11-11] MEDS: Propylene Glycol/Peg 400 [Systane 0.3-0.4% Eye Drops] 1 DROP EACHEYE SCH ×2 (04:51→10:20)
[2017-11-11] MEDS: LEVOTHYROXINE 112 MCG TAB PO SCH (05:00)
[2017-11-11] MEDS: CLINDAMYCIN 150 MG CAP PO SCH (05:00)
[2017-11-11 08:10] VITALS: BP 125/76
[2017-11-11] MEDS: CALCIUM CARB W/VIT D 500 MG TAB PO SCH (08:11)
[2017-11-11] MEDS: CHOLECALCIFEROL VIT D3 1,000 UNITS TAB PO SCH (08:11)
[2017-11-11] MEDS: FAMOTIDINE 20 MG TAB PO SCH (08:11)
[2017-11-11] MEDS: CHLORHEXIDINE GLUCONATE 15 ML UDL PO SCH (08:11)
[2017-11-11] MEDS: ENOXAPARIN 40 MG/0.4 ML SYR SC SCH (08:11)
[2017-11-11] MEDS: CRANBERRY FRUIT EXTRACT PO SCH (08:11)
[2017-11-11] MEDS: SENNOSIDES/DOCUSATE SODIUM TAB PO SCH (08:11)
[2017-11-11] MEDS: MAGNESIUM OXIDE 400 MG TAB PO SCH (08:19)
[2017-11-11] MEDS: LACOSAMIDE 50 MG TAB PO SCH (08:38)
--- NOTE | 2017-11-11 08:42 | HOSPPROG ---
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 She was brought in by her caregiver from [facility] due to increased lethargy, mild cough and grunting. The patient normally answers yes or no to simple question. Her house mate was recently treated for the influenza B. #Sepsis with elevated lactate, tachycardia and leukocytosis -resolved #Aspiration PNA -on clindamycin, the patient has a PCN allergy -respiratory panel shows no organism #Lactic acidosis -improved with fluids #Acute metabolic on chronic encephalopathy -smiling, answering 'yes' and 'no', eating well -patient has underlying severe cognitive dysfunction #Dehydration -IVF #HTN stable #Hypothyroidism home meds # concern for rash on bilateral forearm areas -improved #Severe cognitive dysfunction -appears at baseline #Adrenal insufficiency -steroid bolus -will decrease to daily starting today and then dc #Dysphagia -speech therapy #Compression fractures -this was an incidental finding on a CTA in October of 2017 #Right foot ecchymoses and left ankle ecchymosis -follow #plan: [facility] to [facility] Subjective: Quita is smiling and happpy Objective: Vital Signs Temp Pulse Resp BP Pulse Ox 36.5 C 109 H 18 125/76 H 95 11/11/17 08:08 11/11/17 08:08 11/11/17 08:08 11/11/17 08:08 11/11/17 08:08 Laboratory Results 11/10/17 04:02 11/10/17 04:02 11/10/17 11/11/17 11/12/17 05:59 05:59 05:59 Intake Total 174 Balance 174 - Physical Exam Constitutional: no apparent distress, appears nourished, not in pain Ears, Nose, Mouth, Throat: hearing normal Cardiovascular: regular rate and rhythym Respiratory: no respiratory distress Skin: warm Neurologic: other (alert) Psychiatric: interacting appropriately ICD10 Worksheet Patient Problems: Problems Problem Status Onset Pneumonia Acute Palliative care encounter Acute Seizure Acute Seizure disorder Acute Sepsis Acute Urinary tract infection Acute
--- NOTE | 2017-11-11 08:43 | PDIAF ---
- Diagnosis Diagnosis: aspiration pna, dehydration,adrenal insufficiency Code Status: Do Not Resuscitate - Medication Management Discharge Medications: Medications to Continue on Transfer Chlorhexidine Gluconate [Peridex oral soln (*)] 15 ml PO BID@0900,2100 08/12/12 [Last Taken 11/07/17] Levothyroxine [Synthroid 112 mcg (*)] 112 mcg PO DAILY06 08/12/12 [Last Taken ] Propylene Glycol/Peg 400 [SYSTANE 0.3-0.4% EYE DROPS] 1 drop EACHEYE 5XD [Last Taken 11/07/17] Cranberry Fruit Extract [Cran-Max] 1,000 mg PO DAILY 03/14/17 [Last Taken ] Sodium Fluoride [Prevident 5000] 1 pratima DT TID 03/14/17 [Last Taken 11/07/17] Dexamethasone 1.5 mg PO DAILY #30 tablet 03/20/17 [Last Taken 11/07/17] Famotidine [Pepcid 20 MG (*)] 20 mg PO BID #60 tab 03/20/17 [Last Taken 11/07/17 ] Magnesium Oxide [Magnesium Oxide 400 mg (*)] 400 mg PO DAILY 07/23/17 [Last Taken 11/07/17] Sodium Cl Nasal Gel [[place] Saline Nasal Gel] 1 pratima EACHNARE BID 07/23/17 [Last Taken 11/07/17] Lacosamide [Vimpat 50 mg (*)] 100 mg PO BID 30 Days tab 07/27/17 [Last Taken ] Herbals/Supplements -Info Only 1 ea PO DAILY 08/29/17 [Last Taken 11/07/17] Calcium Carb W/Vit D 500/200 (*) 1 tab PO BID 11/07/17 [Last Taken 11/07/17 1800 ] Cholecalciferol Vit D3 [Vitamin D3 (*)] 1,000 units PO DAILY 11/07/17 [Last Taken 11/07/17] Acetaminophen [Tylenol 325mg (*)] 650 mg PO Q4HRS PRN tab 11/10/17 [Last Taken Unknown] Clindamycin HCl [Clindamycin] 300 mg PO TID #12 mg 11/10/17 [Last Taken Unknown] Hydrocortisone 0.5% [Hydrocortisone 0.5% cream (*)] 1 pratima TP BID cream [Last Taken Unknown] Discharge Medications: Refer to the Discharge Home Medication list for PRN reason. - Orders Services needed: Physical Therapy, Occupational Therapy Isolation Type: None Diet Recommendation: no restrictions on diet Diet Texture: Dysphagia 1 - Pureed, Honey Thick Liquids, Meds Crushed in Puree Additional Instructions: higher risk clostridium difficile with use of clindamycin/be aware of increase diarrhea script was sent to [facility] here in the hospital; they will bring you the medication to the patient's room repeat chest xray in 6 weeks HOB up with all meals trial of topical over the counter steroid cream for bilateral arm rash - Follow Up Care Current Providers and Referrals: Vernell Yeh, CLOTH DESIZING RANGE OPERATOR CHIEF [Primary Care Provider] - As per Instructions
[2017-11-11] MEDS ORDERED: DEXAMETHASONE 0.5 MG TAB PO SCH (09:00)
[2017-11-11] MEDS: SODIUM FLUORIDE DT SCH (10:20)
[2017-11-11] MEDS: HYDROCORTISONE 0.5% CREAM TP SCH (10:23)
[2017-11-11] MEDS: SODIUM CL NASAL GEL 14.1 GM TUBE TP SCH (10:23)
--- NOTE | 2017-11-11 11:49 | PDIAF ---
- Diagnosis Diagnosis: aspiration pna, dehydration,adrenal insufficiency Code Status: Do Not Resuscitate - Medication Management Discharge Medications: Medications to Continue on Transfer Chlorhexidine Gluconate [Peridex oral soln (*)] 15 ml PO BID@0900,2100 08/12/12 [Last Taken 11/07/17] Levothyroxine [Synthroid 112 mcg (*)] 112 mcg PO DAILY06 08/12/12 [Last Taken ] Propylene Glycol/Peg 400 [SYSTANE 0.3-0.4% EYE DROPS] 1 drop EACHEYE 5XD [Last Taken 11/07/17] Cranberry Fruit Extract [Cran-Max] 1,000 mg PO DAILY 03/14/17 [Last Taken ] Sodium Fluoride [Prevident 5000] 1 pratima DT TID 03/14/17 [Last Taken 11/07/17] Dexamethasone 1.5 mg PO DAILY #30 tablet 03/20/17 [Last Taken 11/07/17] Famotidine [Pepcid 20 MG (*)] 20 mg PO BID #60 tab 03/20/17 [Last Taken 11/07/17 ] Magnesium Oxide [Magnesium Oxide 400 mg (*)] 400 mg PO DAILY 07/23/17 [Last Taken 11/07/17] Sodium Cl Nasal Gel [[place] Saline Nasal Gel] 1 pratima EACHNARE BID 07/23/17 [Last Taken 11/07/17] Lacosamide [Vimpat 50 mg (*)] 100 mg PO BID 30 Days tab 07/27/17 [Last Taken ] Herbals/Supplements -Info Only 1 ea PO DAILY 08/29/17 [Last Taken 11/07/17] Calcium Carb W/Vit D 500/200 (*) 1 tab PO BID 11/07/17 [Last Taken 11/07/17 1800 ] Cholecalciferol Vit D3 [Vitamin D3 (*)] 1,000 units PO DAILY 11/07/17 [Last Taken 11/07/17] Acetaminophen [Tylenol 325mg (*)] 650 mg PO Q4HRS PRN tab 11/10/17 [Last Taken Unknown] Clindamycin HCl [Clindamycin] 300 mg PO TID #12 mg 11/10/17 [Last Taken Unknown] Hydrocortisone 0.5% [Hydrocortisone 0.5% cream (*)] 1 pratima TP BID cream [Last Taken Unknown] Discharge Medications: Refer to the Discharge Home Medication list for PRN reason. - Orders Services needed: Speech Language Pathologist Isolation Type: None Diet Recommendation: no restrictions on diet Diet Texture: Dysphagia 1 - Pureed, Honey Thick Liquids, Meds Crushed in Puree Additional Instructions: higher risk clostridium difficile with use of clindamycin/be aware of increase diarrhea script was sent to [facility] here in the hospital; they will bring you the medication to the patient's room repeat chest xray in 6 weeks HOB up with all meals trial of topical over the counter steroid cream for bilateral arm rash - Follow Up Care Current Providers and Referrals: Vernell Yeh, MEDICAL IMAGING TECH [Primary Care Provider] - As per Instructions
--- NOTE | 2017-11-11 13:07 | ASMTCMCOM ---
CM Note CM Note Notes: Pt will dc home today to [facility]. Spoke w/ROWENA Davies at [facility] and faxed orders/meds to her, also sent hard copy with care provider who is bringing pt home. Pt will have speech hc services which [facility] said theysue set up. Discussed w/[facility]. Date Signed: 11/11/2017 01:06 PM Electronically Signed By:Toya Suh RN
--- NOTE | 2017-11-11 13:08 | ASDISCHSUM ---
Discharge Information Plan Status:Home with Home Health Medically Cleared to Leave: Discharge Date: D/C Disposition:Home Health Service [facility] D/C Disposition: Projected Discharge Date: Transportation at D/C: Discharge Delay Reason: Follow-Up Date: Discharge Slot: Final Diagnosis: Placement Information Patient Contact Information Contact Name:ROZISONMANGLYovanny Relationship:Legal guardian Address:[address] [place], [place] [address] [address] Work Phone: Phil:ELIZABETH Gianfranco Phone: State/Zip Code:[place] [address] Email: Financial Information Financial Class:Medicare Primary Plan Desc:MEDICARE INPATIENT Primary Plan Number:[id number] Secondary Plan Desc:[place] Secondary Plan Number:[id number] Assessment Information [facility] CM Progress Note CM Note CM Note Notes: Pt admitted with sepsis r/t aspiration pneumonia. Hx severe cognitive dysfunction; normally resides at [facility] requiring care with all ADLs except she feeds herself. ST recommending pt not feed herself; pt eats too quickly increasing risk of aspiration. Pt currently on IV abx. Anticipate dc back to [facility] when medically stable. CM will follow. Dc plan-[facility] Date Signed: 11/08/2017 05:35 PM Electronically Signed By:Shayla Hayward RN [facility] L[facility] Length of stay for Answers: 4-6 days current admission Acuity / Level of Answers: Yes Care: Did the patient have an inpatient admission? Comorbidities - select Answers: Other Notes: severe cognitive all that apply dysfunction # of Emergency department Answers: 5-8 visits in the last 6 months Social determinants Answers: Mental health diagnosis (anxiety, depression, pers onality disorders, etc.) Score: 15 Date Signed: 11/11/2017 01:07 PM Electronically Signed By:Toya Suh RN [facility] Progress Note CM Note CM Note Notes: Telephone call to [facility] ([phone]), provided updates and faxed clinicals to [phone]. This CM reported the recommendation is pt not feed herself and staff said this is not new, pt does not feed herself. CM to follow. Date Signed: 11/09/2017 02:50 PM Electronically Signed By:KIMANI Velez Case Management Discharge Plan Note Case Management Discharge Discharge Order Complete? Answers: Yes Patient to Obtain Answers: Other Notes: [facility] Medications Transportation Arranged Answers: Other Notes: [facility] Transport will Pick (Date 11/10/2017 11:00 AM & Time) Faxed Final Orders Answers: Yes Discharge Comments Notes: Patient discharged back to her home, [place]. I spoke with Eligio who will arrange transport. Orders faxed to [facility], Date Signed: 11/10/2017 09:57 AM Electronically Signed By:Josephine Cross RN [facility] CM Progress Note CM Note CM Note Notes: Pt will dc home today to [facility]. Spoke w/ROWENA Davies at [facility] and faxed orders/meds to her, also sent hard copy with care provider who is bringing pt home. Pt will have speech hc services which [facility] said miguel a set up. Discussed w/[facility]. Date Signed: 11/11/2017 01:06 PM Electronically Signed By:Toya Suh RN Intervention Information
== END 2017-11-11 13:10 | disposition home health service (06) | DRG 871 ==
LOC: F3N 22:30 → F1N 11-09 14:59
PROVIDERS: ADMIT Internal Medicine; ATTEND Internal Medicine
DX: A41.9 Sepsis, unspecified organism (principal); J69.0 Pneumonitis due to inhalation of food and vomit; G93.41 Metabolic encephalopathy; E87.2 Acidosis; E86.0 Dehydration; G31.84 Mild cognitive impairment of uncertain or unknown etiology; R13.10 Dysphagia, unspecified; E27.40 Unspecified adrenocortical insufficiency; E03.9 Hypothyroidism, unspecified; R56.9 Unspecified convulsions; I10 Essential (primary) hypertension; Z99.81 Dependence on supplemental oxygen; Z99.3 Dependence on wheelchair; Z98.2 Presence of cerebrospinal fluid drainage device; Z85.841 Personal history of malignant neoplasm of brain
CPT/HCPCS: 92610-GN; G8996-GN-CJ; G8997-GN-CJ; G8998-GN-CJ; J0692; J1650; J1720

== ENCOUNTER 2018-04-17 15:01 | Emergency (ER) | payer OTHER, MEDICAID ==
--- NOTE | 2018-04-17 15:39 | EDPHY ---
H & P Stated Complaint: care connector - pt has decreased appetite/pina/blood in diaper/ strong urine odor Time Seen by Provider: 04/17/18 15:20 HPI/ROS: CHIEF COMPLAINT: Grunting Limitations: Able to answer some yes no questioning, unable to provide much clinical history HISTORY OF PRESENT ILLNESS: 42-year-old female with prior brain tumor and TBI presents with grunting behavior. Onset of grunting yesterday, which usually signifies an infection. This morning her caregivers found blood in her diaper. Upon direct yes/no questioning, the patient tells me that she has dysuria and feels like she has a urinary tract infection. No fever or vomiting. No cough. REVIEW OF SYSTEMS: Unable to obtain - Personal History Tetanus Vaccine Date: 01/2008 - Medical/Surgical History Hx Asthma: No Hx Chronic Respiratory Disease: No Hx Diabetes: No Hx Cardiac Disease: No Hx Renal Disease: No Hx Cirrhosis: No Hx Alcoholism: No Hx HIV/AIDS: No Hx Splenectomy or Spleen Trauma: No Other PMH: TBI, BRAIN TUMOR,SEIZURE, SHUNT X 2, HYPOTHYROID, LACTOSE INTOL, PTSD , LEGALLY BLIND, YON LEFT LEG, INCONTINENT, ASPIRATION PNEUMONIA, gen seizure disorder, adrenal insufficiency, depression, dysphagia - Social History Smoking Status: Never smoked Additional Social History: Lives in a [facility], wheelchair-bound, here with caregiver - Physical Exam Exam: General Appearance: Alert, nontoxic-appearing Eyes: Pupils equal and round, no conjunctival pallor ENT, Mouth: Mucous membranes moist Neck: Normal inspection Respiratory: Lungs are clear to auscultation anteriorly Cardiovascular: Regular rate and rhythm Gastrointestinal: Abdomen is soft and nontender Neurological: Alert, contractures present, in wheelchair Skin: Warm and dry Extremities: Contractures, no erythema Psychiatric: Mood and affect normal Constitutional: Initial Vital Signs Temperature (C) 36.5 C 04/17/18 15:14 Heart Rate 98 04/17/18 15:14 Respiratory Rate 16 04/17/18 15:14 Blood Pressure 98/63 L 04/17/18 15:14 O2 Sat (%) 94 04/17/18 15:14 O2 Delivery Mode Room Air Allergies/Adverse Reactions: codeine [Codeine] Allergy (Intermediate, Verified 04/17/18 15:20) levofloxacin [From Levaquin] Allergy (Verified 04/17/18 15:20) milk [Milk] Allergy (Verified 04/17/18 15:20) morphine Allergy (Verified 04/17/18 15:20) Penicillins Allergy (Verified 04/17/18 15:20) vancomycin Allergy (Verified 04/17/18 15:20) Home Medications: Medication Instructions Recorded Chlorhexidine Gluconate [Peridex 15 ml PO BID@0900,2100 08/12/12 oral soln (*)] Levothyroxine [Synthroid 112 mcg 112 mcg PO DAILY06 08/12/12 (*)] Propylene Glycol/Peg 400 [SYSTANE 1 drop EACHEYE 5XD 08/12/12 0.3-0.4% EYE DROPS] Cranberry Fruit Extract [Cran-Max] 1,000 mg PO DAILY 03/14/17 Sodium Fluoride [Prevident 5000] 1 pratima DT TID 03/14/17 Dexamethasone 1.5 mg PO DAILY #30 tablet 03/20/17 Famotidine [Pepcid 20 MG (*)] 20 mg PO BID #60 tab 03/20/17 Magnesium Oxide [Magnesium Oxide 400 mg PO DAILY 07/23/17 400 mg (*)] Sodium Cl Nasal Gel [[place] Saline 1 pratima EACHNARE BID 07/23/17 Nasal Gel] Lacosamide [Vimpat 50 mg (*)] 100 mg PO BID 30 Days tab 07/27/17 Herbals/Supplements -Info Only 1 ea PO DAILY 08/29/17 Calcium Carb W/Vit D 500/200 (*) 1 tab PO BID 11/07/17 Cholecalciferol Vit D3 [Vitamin D3 1,000 units PO DAILY 11/07/17 (*)] Acetaminophen [Tylenol 325mg (*)] 650 mg PO Q4HRS PRN tab 11/10/17 Clindamycin HCl [Clindamycin] 300 mg PO TID #12 mg 11/10/17 Hydrocortisone 0.5% 1 pratima TP BID cream 11/11/17 [Hydrocortisone 0.5% cream (*)] Cephalexin [Keflex] 500 mg PO TID 10 Days cap 01/22/18 Cephalexin [Keflex (*)] 500 mg PO BID #10 cap 04/17/18 Medical Decision Making ED Course/Re-evaluation: Cath urinalysis reveals a urinary tract infection. Keflex 500 mg orally given and a prescription was written. The patient has tolerated Keflex well in the past. The urine culture was sent. Differential Diagnosis: Differential diagnosis includes does not limited to pyelonephritis, kidney stone , vaginal bleeding, rectal bleeding. - Data Points Microbiology Results: MICROBIOLOGY 04/17/18 16:00 Urine,Clean Catch Urine Culture - Preliminary Gram Neg Yon Nonlactose Ferm. Medications Given: Discontinued Medications Cephalexin HCl (Keflex) 500 mg PO EDNOW ONE PRN Reason: Protocol Stop: 04/17/18 17:13 Last Admin: 04/17/18 17:22 Dose: 500 mg Departure - Departure Disposition: Home, Routine, Self-Care Clinical Impression: Urinary tract infection Qualifiers: Urinary tract infection type: acute cystitis Hematuria presence: with hematuria Qualified Code(s): N30.01 - Acute cystitis with hematuria Condition: Good Instructions: Urinary Tract Infection in Women (ED) Referrals: Vernell Yeh, TIME STUDY OBSERVER [Primary Care Provider] - As per Instructions Prescriptions: Cephalexin [Keflex (*)] 500 mg PO BID #10 cap
[2018-04-17 17:08] VITALS: BP 102/83
[2018-04-17] MEDS ORDERED: CEPHALEXIN 500 MG CAP PO ONE (17:12)
== END 2018-04-17 17:32 | disposition home or self-care (01) ==
DX: N30.01 Acute cystitis with hematuria (principal); Z85.841 Personal history of malignant neoplasm of brain; Z98.2 Presence of cerebrospinal fluid drainage device

== ENCOUNTER 2018-07-16 09:15 | Inpatient (IN) | payer OTHER, MEDICAID ==
[2018-07-16] MEDS ORDERED: NS 1,000 ML IV ONE ×3 (10:45→14:08)
[2018-07-16 11:01] LABS: PLATELET COUNT 186 10^3/uL (150-400)
[2018-07-16 12:58] LABS: INR 1.02 (0.83-1.16); PROTIME(PATIENT) 13.6 SEC (12.0-15.0)
[2018-07-16] MEDS ORDERED: NS 1,400 ML IV ONE (13:55)
[2018-07-16] MEDS ORDERED: ALTEPLASE 2 MG VIAL IVP PRN (15:44)
[2018-07-16] MEDS ORDERED: ACETAMINOPHEN 650 MG SUPP PR PRN (15:58)
[2018-07-16] MEDS ORDERED: HYDROmorphONE/DILAUDID 1 MG/ML INJ IVP PRN (15:58)
[2018-07-16] MEDS ORDERED: ONDANSETRON 4 MG/2 ML VIAL IVP PRN (15:58)
[2018-07-16] MEDS ORDERED: NOREPINEPHRINE BITARTRATE 4 MG in NS 500 ML IV SCH (16:00)
--- NOTE | 2018-07-16 16:11 | EDPHY ---
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 She has bilateral ventricular to atrial shunt in place. She has a history of seizure disorder, severe cognitive dysfunction, blindness, dysphagia, hypothyroidism, and adrenal insufficiency. She lives at [facility] and is accompanied today by her caregiver. Her caregiver is concerned because she has had increasing lethargy and responsiveness. The patient verbalizes minimally ( "yes" and "no") and has not been responding verbally to her caregiver at all for the last day or two. No change in urinary output. No cough or apparent shortness of breath. Oral intake has been decreased. No fever. REVIEW OF SYSTEMS: A ten system review of systems was performed and is negative with the exception of the items mentioned in the HPI. Review of systems obtained from caregiver, as patient unable to provide. Past medical/surgical history: 1. Astrocytoma resection (also GBM?) 2. ventriculoatrial shunt. 3. Seizure disorder 4. Cognitive dysfunction 5. Blindness next 6. Dysphagia 7. Hypothyroidism 8. Adrenal insufficiency 9. Depression 10. Osteopenia 11. Pyelonephritis in August 2017 and recurrent urinary tract infection 12. Surgery left leg Social history: She lives at [facility]. No tobacco or alcohol use. General Appearance: Awake. Vital signs reviewed. Afebrile, heart rate 130 at triage with repeat heart rate of 118. Respiratory rate 24 triage with repeat respiratory rate of 14. Initial blood pressure 83/68 with repeat blood pressure of 114/70. Oxygen saturation 95%. Eyes: Pupils equal and round, no conjunctival injection, no discharge. Anicteric. ENT, Mouth: Mucous membranes are dry, no oropharyngeal erythema or edema. Neck: No lymphadenopathy, supple. Respiratory: Lungs are clear to auscultation; no wheezes, rales, or rhonchi. Cardiovascular: Tachycardic; no murmur, rub, or gallop. Gastrointestinal: Abdomen is soft and nontender, no masses or organomegaly, bowel sounds normal. Skin: Warm and dry, no rashes on exposed skin, normal color. Back: No CVAT. Extremities: No lower extremity edema, no calf tenderness or swelling. Neurological: Awake. Moving upper extremities spontaneously. She did answer "no" when asked if abdominal palpation was painful--no other verbalization. Psychiatric: No agitation. - Personal History Current Tetanus/Diphtheria Vaccine: Unsure Current Tetanus Diphtheria and Acellular Pertussis (TDAP): Unsure Tetanus Vaccine Date: 01/2008 - Medical/Surgical History Hx Asthma: No Hx Chronic Respiratory Disease: No Hx Diabetes: No Hx Cardiac Disease: No Hx Renal Disease: No Hx Cirrhosis: No Hx Alcoholism: No Hx HIV/AIDS: No Hx Splenectomy or Spleen Trauma: No Other PMH: TBI, BRAIN TUMOR,SEIZURE, SHUNT X 2, HYPOTHYROID, LACTOSE INTOL, PTSD , LEGALLY BLIND, FENG LEFT LEG, INCONTINENT, ASPIRATION PNEUMONIA, gen seizure disorder, adrenal insufficiency, depression, dysphagia - Social History Smoking Status: Never smoked Constitutional: Initial Vital Signs Temperature (C) 36.3 C 07/16/18 09:45 Heart Rate 130 H 07/16/18 09:45 Respiratory Rate 24 H 07/16/18 09:45 Blood Pressure 83/68 L 07/16/18 09:45 O2 Sat (%) 95 07/16/18 09:45 O2 Delivery Mode Room Air Allergies/Adverse Reactions: codeine [Codeine] Allergy (Intermediate, Verified 07/16/18 09:44) levofloxacin [From Levaquin] Allergy (Verified 07/16/18 09:44) milk [Milk] Allergy (Verified 07/16/18 09:44) morphine Allergy (Verified 07/16/18 09:44) Penicillins Allergy (Verified 07/16/18 09:44) vancomycin Allergy (Verified 07/16/18 09:44) Home Medications: Medication Instructions Recorded Chlorhexidine Gluconate [Peridex 15 ml PO TID 08/12/12 oral soln (*)] Levothyroxine [Synthroid 112 mcg 112 mcg PO DAILY06 08/12/12 (*)] Propylene Glycol/Peg 400 [SYSTANE 1 drop EACHEYE 5XD 08/12/12 0.3-0.4% EYE DROPS] Fluoride (Sodium) [Prevident 5000] 1 pratima DT TID 03/14/17 Dexamethasone 1.5 mg PO DAILY #30 tablet 03/20/17 Famotidine [Pepcid 20 MG (*)] 20 mg PO BID #60 tab 03/20/17 Magnesium Oxide [Magnesium Oxide 400 mg PO DAILY 07/23/17 400 mg (*)] Sodium Cl Nasal Gel [York Saline 1 pratima EACHNARE HS 07/23/17 Nasal Gel] Lacosamide [Vimpat 50 mg (*)] 100 mg PO BID 30 Days tab 07/27/17 Herbals/Supplements -Info Only 1 ea PO DAILY 08/29/17 Cholecalciferol Vit D3 [Vitamin D3 1,000 units PO DAILY 11/07/17 (*)] Calcium Carbonate [Oyster Shell 500 mg PO BID 07/16/18 Calcium 500 mg (*)] Medical Decision Making - Diagnostics Imaging Results: Imaging Impressions Chest X-Ray 07/16/18 10:28 Impression: 1. Mild chronic bronchitis. 2. Right internal jugular line in the right atrium. ED Course/Re-evaluation: 43-year-old female with history of urinary tract infection and 1 episode of pyelonephritis requiring hospitalization who presents with increased lethargy, decreased oral intake, tachycardia. She is afebrile. Abdomen is benign on exam. Catheterized urine indicates a urinary tract infection. She does not have flank pain or fever. She has multiple drug allergies. In the past she has successfully taking Keflex and she was given a dose of ceftriaxone 1 g IV in the emergency department for treatment of urinary tract infection. On evaluation of her presenting vital Signs I note that she was not only tachycardic and tachypneic but also hypotensive with a blood pressure of 83/68 on arrival. This in combination with urinary tract infection is suggestive of sepsis. Severe sepsis was declared at 2:00 p.m.. Note that there was a delay between her arrival in the department and her evaluation by medical staff. She was given 2 L of IV fluids (her sepsis bolus would of been 1400 mL). Blood cultures were drawn. Her urine has been cultured. Initial lactate was 2.2 with a repeat lactate in the normal range. I think that her sepsis is secondary to urinary tract infection. I reviewed her chest x-ray. It is a suboptimal film but there is no obvious infiltrate. I do not suspect pneumonia. I note the tubing from her ventricular shunt extending through the right neck in into the right atrium. I reviewed previous films with the radiologist and positioning of the tubing is unchanged over time. She has ventricular shunts in both the right and left ventricles that are joined together. Based upon my conversation with her caregiver I do not think that she has a significant decrease in level of alertness at the time of my evaluation. She is responding to my questions with occasional brief verbalization. She will need a stress dose of hydrocortisone given that she has adrenal insufficiency. Differential Diagnosis: Altered mental status including but not limited to shunt failure, hypoglycemia, infectious process, electrolyte abnormality, head injury and intoxicants. - Data Points Laboratory Results: Laboratory Results 07/16/18 10:43 07/16/18 10:43 07/16/18 07/16/18 07/16/18 11:20 11:20 10:43 WBC RBC Hgb Hct MCV MCH MCHC RDW Plt Count MPV Neut % (Auto) Lymph % (Auto) [place] % (Auto) Eos % (Auto) Baso % (Auto) Nucleat RBC Rel Count Absolute Neuts (auto) Absolute Lymphs (auto) Absolute Monos (auto) Absolute Eos (auto) Absolute Basos (auto) Absolute Nucleated RBC Immature Gran % Seg Neutrophils % Band Neutrophils % Lymphocytes % Monocytes % Eosinophils % Basophils % Metamyelocytes % Myelocytes % Promyelocytes % Blast Cells % Immature Gran # Absolute Seg Neuts Absolute Band Neuts Absolute Lymphocytes Absolute Monocytes Absolute Eosinophils Absolute Basophils Absolute Metamyelocyte Absolute Myelocytes Absolute Promyelocytes Absolute Plasma Cells Nucleated RBCs RBC/WBC/PLT Morphology Absolute Blast Cells Plasma Cells % Platelet Estimate PT 13.6 SEC SEC (12.0-15.0) INR 1.02 (0.83-1.16) APTT 27.2 SEC SEC (23.0-38.0) Sodium Potassium Chloride Carbon Dioxide Anion Gap BUN Creatinine Estimated GFR Glucose Calcium Total Bilirubin 0.7 mg/dL mg/dL (0.1-1.4) Urine Color RED Urine Appearance MODERATELY TURBID Urine pH 8.0 H (5.0-7.5) Ur Specific [place] 1.011 (1.002-1.030) Urine Protein 2+ H (NEGATIVE) Urine Ketones NEGATIVE (NEGATIVE) Urine Blood 3+ H (NEGATIVE) Urine Nitrate NEGATIVE (NEGATIVE) Urine Bilirubin NEGATIVE (NEGATIVE) Urine Urobilinogen NEGATIVE EU EU (0.2-1.0) Ur Leukocyte Esterase 3+ H (NEGATIVE) Urine RBC 50-182 /hpf H /hpf (0-3) Urine WBC 50-182 /hpf H /hpf (0-3) Ur Epithelial Cells NONE SEEN /lpf /lpf (NONE-1+) Urine Bacteria 3+ /hpf H /hpf (NONE SEEN) Urine Mucus TRACE /lpf /lpf (NONE-1+) Urine Glucose NEGATIVE (NEGATIVE) 07/16/18 07/16/18 10:43 10:43 WBC 14.45 10^3/uL H 10^3/uL (3.80-9.50) RBC 5.29 10^6/uL 10^6/uL (4.18-5.33) Hgb 16.4 g/dL H g/dL (12.6-16.3) Hct 50.6 % H % (38.0-47.0) MCV 95.7 fL fL (81.5-99.8) MCH 31.0 pg pg (27.9-34.1) MCHC 32.4 g/dL g/dL (32.4-36.7) RDW 15.9 % H % (11.5-15.2) Plt Count 186 10^3/uL 10^3/uL (150-400) MPV 9.6 fL fL (8.7-11.7) Neut % (Auto) Not Reported Lymph % (Auto) Not Reported [place] % (Auto) Not Reported Eos % (Auto) Not Reported Baso % (Auto) Not Reported Nucleat RBC Rel Count Not Reported Absolute Neuts (auto) Not Reported Absolute Lymphs (auto) Not Reported Absolute Monos (auto) Not Reported Absolute Eos (auto) Not Reported Absolute Basos (auto) Not Reported Absolute Nucleated RBC Not Reported Immature Gran % Not Reported Seg Neutrophils % 78.0 % % Band Neutrophils % 15.0 % % Lymphocytes % 5.0 % % Monocytes % 0.0 % % Eosinophils % 1.0 % % Basophils % 0.0 % % Metamyelocytes % 1.0 % % Myelocytes % 0.0 % % Promyelocytes % 0.0 % % Blast Cells % 0.0 % % Immature Gran # Not Reported Absolute Seg Neuts 11.27 10^3/uL H 10^3/uL (1.70-6.50) Absolute Band Neuts 2.17 10^3/uL H 10^3/uL (0.00-0.70) Absolute Lymphocytes 0.72 10^3/uL L 10^3/uL (1.00-3.00) Absolute Monocytes 0.00 10^3/uL L 10^3/uL (0.30-0.80) Absolute Eosinophils 0.14 10^3/uL 10^3/uL (0.03-0.40) Absolute Basophils 0.00 10^3/uL L 10^3/uL (0.02-0.10) Absolute Metamyelocyte 0.14 10^3/mL H 10^3/mL (0.00-0.00) Absolute Myelocytes 0.00 10^3/mL 10^3/mL (0.00-0.00) Absolute Promyelocytes 0.00 10^3/uL 10^3/uL (0.00-0.00) Absolute Plasma Cells 0.00 10^3/uL 10^3/uL (0.00-0.00) Nucleated RBCs 1.0 /100 WBC H /100 WBC (0-0) RBC/WBC/PLT Morphology NORMAL (NORMAL) Absolute Blast Cells 0.00 10^3/uL 10^3/uL (0.00-0.00) Plasma Cells % 0.0 % % Platelet Estimate ADEQUATE (ADEQ) PT INR APTT Sodium 140 mEq/L mEq/L (135-145) Potassium 4.7 mEq/L mEq/L (3.5-5.2) Chloride 111 mEq/L H mEq/L (97-110) Carbon Dioxide 27 mEq/l mEq/l (22-31) Anion Gap 2 mEq/L L mEq/L (6-14) BUN 33 mg/dL H mg/dL (7-23) Creatinine 0.6 mg/dL mg/dL (0.6-1.0) Estimated GFR > 60 Glucose 84 mg/dL mg/dL (70-100) Calcium 9.6 mg/dL mg/dL (8.5-10.4) Total Bilirubin Urine Color Urine Appearance Urine pH Ur Specific [place] Urine Protein Urine Ketones Urine Blood Urine Nitrate Urine Bilirubin Urine Urobilinogen Ur Leukocyte Esterase Urine RBC Urine WBC Ur Epithelial Cells Urine Bacteria Urine Mucus Urine Glucose Medications Given: Discontinued Medications Sodium Chloride (Ns) 1,000 mls @ 0 mls/hr IV EDNOW ONE; Wide Open PRN Reason: Protocol Stop: 07/16/18 10:46 Last Admin: 07/16/18 10:46 Dose: 1,000 mls Sodium Chloride (Ns) 1,000 mls @ 0 mls/hr IV EDNOW ONE; Wide Open PRN Reason: Protocol Stop: 07/16/18 12:05 Last Admin: 07/16/18 12:20 Dose: 1,000 mls Ceftriaxone Sodium/Dextrose (Rocephin 1 Gm (Premix)) 50 mls @ 100 mls/hr IV EDNOW ONE PRN Reason: Protocol Stop: 07/16/18 12:52 Last Admin: 07/16/18 12:29 Dose: 50 mls Sodium Chloride (Ns) 1,400 mls @ 2,800 mls/hr 30 ml/kg infuse over 30 min ( 1400 ml) IV EDNOW ONE PRN Reason: Protocol Stop: 07/16/18 14:24 Last Admin: 07/16/18 14:06 Dose: Not Given Sodium Chloride (Ns) 1,000 mls @ 0 mls/hr IV EDNOW ONE; Wide Open PRN Reason: Protocol Stop: 07/16/18 14:09 Last Admin: 07/16/18 14:25 Dose: 1,000 mls Departure - Departure Disposition: [facility] Inpatient Acute Clinical Impression: Urinary tract infection Qualifiers: Urinary tract infection type: acute cystitis Hematuria presence: with hematuria Qualified Code(s): N30.01 - Acute cystitis with hematuria Sepsis Qualifiers: Sepsis type: sepsis due to unspecified organism Qualified Code(s): A41.9 - Sepsis, unspecified organism Condition: Fair
[2018-07-16] MEDS: NS 1,000 ML IV SCH (16:58)
--- NOTE | 2018-07-16 17:26 | GHP ---
DATE OF ADMISSION: 07/16/2018 CHIEF COMPLAINT: Altered mental status. Increased risk for worsening respirations. 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 At baseline however she is able to communicate her needs. She had a change in mentation over the last 24 hours. She was noted by staff [place] to be grunting all night long, increased respiratory rate and respiratory distress. Increase d pulse up to 115. She is lethargic, she can no longer express her basic needs. She has a new progr essive petechial rash on her right arm that has progressed over the last few hours. Further history is currently unavailable as the patient cannot communicate at this time. PAST MEDICAL HISTORY: 1. Astroglioma status post ADMINISTRATOR [employer]ELF[employer] shunt. 2. Seizure disorder. 3. Hypertension. 4. Legally blind. 5. Cognitive dysfunction. 6. Adrenal insufficiency. MEDICATIONS: Please see computerized record for full detailed list. ALLERGIES: To penicillin, vancomycin and Levaquin. SOCIAL HISTORY: She has a court-appointed guardian. She also has a father and a brother who do visi t her, although they are not her legal guardians. She lives at [facility] where she has full-time caregiving. Documentation from [facility] is that she is a DNR but no further specification rega rding level of aggression for care. REVIEW OF SYSTEMS: Unobtainable due to patient's mental status. FAMILY HISTORY: Unobtainable due to same. PHYSICAL EXAMINATION: GENERAL: This is a thin female, rolled in a ball, unresponsive, grunting, jonathan athing fast, looking very sick. VITAL SIGNS: Temp is 36.7, pulse 112, blood pressure 102/58, althoug h followup blood pressure is back down to 87/59, saturating 93% on room air. EYES: Normal conjunctiv ae, pupils react to light. ENT: Normal ears and nose. Unable to assess hearing. Oropharynx is mois t. NECK: Trachea midline. No thyromegaly. CHEST: Increased respiratory effort. LUNGS: Bilateral rhonchi. CARDIOVASCULAR: Tachycardic, no murmur, no lower extremity edema. ABDOMEN: Soft, nontender . No hepatosplenomegaly. SKIN: Right arm shows a very severe petechial rash, localized only to the right arm. She otherwise has a diffuse erythema. MUSCULOSKELETAL: No cyanosis or clubbing. Unable to assess strength or sensation or cranial nerves but grossly intact. PSYCH: Assessment: She is confu sed, she is unresponsive, she looks uncomfortable, she is grunting. LABS: White count 14.45, 15% bands, hematocrit 50.6, platelets 186. Sodium 140, potassium 4.7, chlo ride 111, bicarb 27, BUN 33, creatinine 0.6, glucose 84, total bilirubin 0.7. Urinalysis shows 50 to 182 white blood cells, 3+ bacteria. Chest x-ray is negative. ASSESSMENT/PLAN: 1. Septic shock. Blood pressure has fallen again after initial IV fluid bolus in the emergency room . I will transfer to step-down unit for closer monitoring. We will place a PICC line as she may nee d pressors. The petechial rash on her right upper extremity is extremely concerning for a serious un derlying septic illness. I consulted Dr. Chen. He came to see her at bedside. He thinks this is likely urosepsis but does recommend a lumbar puncture. We will start on IV meropenem. Will follow se rial lactates. 2. Astroglioma status post ADMINISTRATOR [employer]ELF[employer] shunt. I spoke with neurosurgery. There was a question whether we co uld do a lumbar puncture through the shunt, they are preferring Radiology do the lumbar puncture, the y will see her in consultation. 3. Metabolic encephalopathy. Per caregiver, she is not at baseline and severely altered mentally fr om her normal pleasant interactive state. This is clearly due to her sepsis. 4. Seizure disorder. We will hold her Vimpat and if we are concerned for seizures we could do IV Ke ppra. 5. Adrenal insufficiency. She will need stress dosed steroids. I will prescribe IV hydrocortisone. 6. Acute respiratory failure. She is dropping her sats, initially room air on presentation but now is requiring 5 L due to worsening respiratory status. Respiratory rate 24, she is in obvious respira tory distress at this time. CODE STATUS: DNR, although there is no specification regarding level of aggression up to that point. I attempted to call her court appointed guardian, but it is after hours and there was no 1 answerin g the phone. ADMISSION STATUS: Will admit to inpatient. She is critically ill. Will need greater than 48 hours. DVT PROPHYLAXIS: She is high risk. Will place on subcu Lovenox. CRITICAL CARE TIME SPENT: 1.5 hours. /[id number]/MODL
[2018-07-16] MEDS ORDERED: LIDOCAINE 1% 300 MG/30 ML SDV ONE (17:28)
--- NOTE | 2018-07-16 17:37 | PDMN ---
Medical Necessity Medical necessity: Pt meets INPT criteria per MD as of 07/16/18 and MCG M-160 Sepsis, without Focal Infection (est. 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
[2018-07-16] MEDS: CHLORHEXIDINE GLUCONATE 15 ML UDL PO SCH ×2 (17:39→21:31)
--- NOTE | 2018-07-16 17:50 | GCON ---
INPATIENT INFECTIOUS DISEASE CONSULTATION. REFERRING PHYSICIAN: Yue Narvaez MD REASON FOR REFERRAL: Severe sepsis/septic shock. HISTORY OF PRESENT ILLNESS: Patient is a 43-year-old female who normally lives in the [facility]. She has underlying developmental delay and history of craniotomies for I believe brain cancer as a child. She has indwelling ventriculoperitoneal shunts. Her baseline mental status is communica tive. She talks but not on an adult level. For the last couple of days, she has been lethargic. Billy evans developed a petechial rash on her upper extremities, right significantly greater than left. She wa s febrile at the long-term earlier today. The patient has not had any significant change in her uri nary output, although her primary caregiver, who is by her bedside, said that she typically does not indicate such when she has urinary tract infection. She had no obvious respiratory symptoms such as cough or shortness of breath. No fevers subjectively per the caregivers. The patient was started on ceftriaxone and got a dose of this in the unit. She has allergies to penicillin, vancomycin and Levaquin. PAST MEDICAL HISTORY: 1. History of astrocytoma resection. 2. Ventriculoatrial shunt. 3. History of a seizure disorder. 4. Baseline cognitive dysfunction. 5. Visual deficits. 6. Dysphagia. 7. Hypothyroidism. 8. Adrenal insufficiency. 9. Depression. 10. Osteopenia. 11. History of pyelonephritis and urinary tract infections last year. PAST SURGICAL HISTORY: 1. Status post shunt placement. 2. Surgery on left leg, nonspecific. ANTIBIOTICS: Ceftriaxone. ALLERGIES: The patient has reported allergies to penicillin, Levaquin, and vancomycin. Her primary caregiver is unable to say what her reactions are. SOCIAL HISTORY: Patient lives at [facility]. No tobacco or alcohol use. FAMILY HISTORY: Noncontributory. REVIEW OF SYSTEMS: Other than that detailed above in the history of present illness per the primary caregiver, review of systems are negative. PHYSICAL EXAMINATION: VITAL SIGNS: Temperature max 37 degrees, temperature current 36.8, heart rate is 116, respiratory rate is 18, blood pressure is 87/59. GENERAL: The patient is a well-formed, und erdeveloped, middle-aged female in no acute distress. She is moderately toxic in appearance. She is not alert nor oriented. HEENT: Normocephalic. The patient does have a scarred signs of shunt plac ements and craniotomies evident. No scleral icterus. No oral lesion. EYES: Lids and conjunctivae ar e within normal limits. Pupils are equal and round bilaterally. NECK: Appears supple. Unclear meningismus. LUNGS: Clear to auscultation bilaterally with good effo rt. HEART: Tachycardic but regular, no murmur heard. ABDOMEN: Soft, nontender, no masses. SKIN: Warm and dry to the touch. The patient has a very marked petechial rash on her right upper extremity. T here are scattered petechial lesions over her shoulders and upper chest as well as her upper left arm , but right upper extremity is significantly involved. Nothing on the lower extremity or trunk. MUS CULOSKELETAL: No muscle tenderness is noted. No joint line effusion or arthritis seen. NEURO: Unabl e to assess secondary to the patient's lack of alertness. LABORATORY DATA: Patient has a CBC dated 07/16/2018, shows white blood cell of 14.5, hemoglobin 16.4 , hematocrit 50.6, and a platelet count of 186. Differential is left-shifted with 15% band forms. S devaughn chemistries on 07/16/2018 show sodium 140, potassium 4.7, chloride of 111, bicarb 27, BUN of 33, creatinine 0.6. Urinalysis on 07/16/2018, shows 50-182 red cells, as well as white cells. MICROBIOLOGIC DATA: Patient has urine cultures from April when she last had a urinary tract infect ion, that had a Proteus mirabilis species that was resistant only to nitrofurantoin and tetracycline. Blood cultures from 07/16/2018 are pending. Urine culture from 07/16/2018 is pending. RADIOLOGIC DATA: Patient has a chest x-ray dated 07/16/2018, which is read as mild chronic bronchiti s and a right ventricular shunt terminating in the right atrium. ASSESSMENT: Severe sepsis/septic shock in patient who is trending down with blood pressures even aft er the initial resuscitation bolus in the ER. The patient is in the process of being transferred to the intensive care unit. Ceftriaxone is reasonable coverage for simple urinary tract infections. Gi justin the change to severe sepsis/septic shock, I would feel more comfortable with the meropenem covera ge. I think that the petechial rash is probably tied into the septic events, although she is not thr ombocytopenic and her coagulation factors are normal. However, I am not necessarily sure that this i s indicative of pathogens such as meningococcus. I would change her antibiotic coverage from ceftria xone to meropenem 1 g IV q.8 hours. We will follow her blood and urine cultures and adjust appropria tely. PLAN: 1. Antibiotic change as above. 2. Transition to ICU for supportive care. 3. Follow up on blood cultures and urine culture. /[id number]/MODL
[2018-07-16] MEDS: HYDROCORTISONE 100 MG/2 ML VIAL IVP SCH ×2 (19:44→23:54)
[2018-07-16] MEDS: MEROPENEM 1 GM in NS 100 ML IV SCH ×2 (20:59→23:58)
[2018-07-16] MEDS: CARBOXYMETHYLCELLULOSE 1% 0.4 ML DROPERETTE EACHEYE SCH ×2 (21:00→21:31)
[2018-07-16] MEDS: SODIUM CL NASAL GEL 14.1 GM TUBE TP SCH (21:54)
[2018-07-17] MEDS: NS 1,000 ML IV SCH ×3 (01:27→19:58)
[2018-07-17 04:16] LABS: PLATELET COUNT 154 10^3/uL (150-400)
[2018-07-17] MEDS: CARBOXYMETHYLCELLULOSE 1% 0.4 ML DROPERETTE EACHEYE SCH ×4 (05:24→18:09)
[2018-07-17] MEDS: HYDROCORTISONE 100 MG/2 ML VIAL IVP SCH ×3 (05:24→21:34)
[2018-07-17] MEDS ORDERED: HALOPERIDOL LACT 5 MG/ML INJ IVP PRN (06:07)
[2018-07-17] MEDS: MEROPENEM 1 GM in NS 100 ML IV SCH (08:02)
--- NOTE | 2018-07-17 09:48 | ASMTCMCOM ---
CM Note CM Note Notes: Patient admitted w sepsis, likely urinary source. She has a hx of an astroglioma s/p WARE FINISHER shunt as a child. She is legally blind. Patient lives at [facility] where she is fully cared for. Has electric wheelchair. Her legal guardian is Mariah Worrell [phone]; her primary caregiver at [facility] is Varsha [phone]; her brother Lasha [phone] and father Regan [phone] are also involved and supportive. I imagine that she will transfer back to [facility] with all services in place when she is medically stable. Case Management will follow. Date Signed: 07/17/2018 09:48 AM Electronically Signed By:Josephine Cross RN
--- NOTE | 2018-07-17 11:14 | PCMIDPN ---
Assessment/Plan: 1. Proteus sepsis from urinary source: Patient had Proteus mirabilis documented from a urine culture back in April. This could be the same organism. Will change meropenem to ceftriaxone 1 g IV daily, as she has tolerated this on previous admissions. Repeat blood cultures are not necessary. Given that Proteus has a propensity to form struvite stones, do feel it is prudent to obtain a renal ultrasound as stones could be persistent nidus of infection. She did not have an antecedent indwelling Starks catheter. 2. Purpura on upper extremities, chest and lower extremities: No evidence of a coagulopathy and platelets are normal. From gram-negative lynne sepsis. Not purpura fulminans. This will improve with time. 3. Bilateral BIG 6 DEALER shunts: No evidence of shunt infection presently. Over 25 mins spent with this patient today. Subjective: Chart reviewed, patient examined. She is only on 2 mics of Levophed, and improving. Blood culture growing Proteus, and urine with a non lactose furniture builder, almost certainly Proteus as well. Objective: Meropenem 1 g IV q.8 hours antibiotics day 2 (received 1 g of ceftriaxone in the emergency room yesterday) Afebrile Stress dose steroids Vital Signs Temp Pulse Resp BP Pulse Ox 36 C 83 17 104/74 97 07/17/18 09:00 07/17/18 09:00 07/17/18 09:00 07/17/18 09:00 07/17/18 09:00 Microbiology 07/16/18 18:46 Gram Stain - Final Cerebral Spinal Fluid Laboratory Results 07/17/18 03:45 07/17/18 03:45 07/16/18 07/17/18 07/18/18 05:59 05:59 05:59 Intake Total 1368 Output Total 800 Balance 568 Urine culture July 16 greater than 100,000 colonies non lactose furniture builder Blood culture July 16/ bottles gram-negative lynne identified as Proteus species July 16 CSF no white blood cells, protein 123 Gram stain negative culture pending April 2018 urine culture with Proteus mirabilis ceftriaxone JUDY less than 1 - Physical Exam General Appearance: other (Eyes are open, response to simple commands like"open your mouth.") EENT: pharynx normal, No thrush Respiratory: lungs clear Cardiac/Chest: regular rate, rhythm Extremities: other (PICC line right upper extremity) Abdomen: non-tender, soft Skin: other (Scattered purpuric rash, not raised, chest, right upper extremity, a few on her left upper extremity, and some on her right lower extremity.) Neuro/Psych: other ICD10 Worksheet Patient Problems: Problems Problem Status Onset Sepsis Acute Urinary tract infection Acute Palliative care encounter Acute Pneumonia Acute Seizure Acute Seizure disorder Acute
[2018-07-17] MEDS: ENOXAPARIN 40 MG/0.4 ML SYR SC SCH (11:15)
[2018-07-17] MEDS: CHLORHEXIDINE GLUCONATE 15 ML UDL PO SCH ×3 (11:15→21:34)
--- NOTE | 2018-07-17 13:55 | GCON ---
NEUROSURGICAL CONSULTATION. CHIEF COMPLAINT: Altered mental status. HISTORY OF PRESENT ILLNESS: Ms. 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 She has severe general cognitive dysfunction and normally resides in a [facility]. Over the last 24 hours, the staff had noted that she had been less able to take care of herself. She was admitted with sepsis with a suspicion of urosepsis. Internal Medicine had requested a neurosurgical consultation to determine if we could tap her ventriculoperit mckinney shunt or if a lumbar puncture would be better for CSF sampling. It was requested that [facility] do the CSF sampling. This morning, Ms. Krishnan seems to be doing better since being started on antibiotics. She is not having any new nausea, vomiting, or weakness. PAST MEDICAL HISTORY: 1. Astroglioma. 2. Ventriculoperitoneal shunt placement. 3. Seizure disorder. 4. Hypertension. 5. Legally blind. 6. Cognitive dysfunction. 7. Adrenal insufficiency. MEDICATIONS: Prior to admission are calcium, vitamin D, Decadron, Pepcid, Prevident, herbal suppleme nts, Vimpat, Synthroid, magnesium oxide, Peridex, propylene glycol. ALLERGIES: Codeine, Levaquin, milk, morphine, penicillin, and vancomycin. FAMILY HISTORY: Patient has no family history of meningitis. SOCIAL HISTORY: Patient resides in a ch[facility]. No history of smoking, drinking, or drug use. REVIEW OF SYSTEMS: Negative. PHYSICAL EXAM: GENERAL: Patient is a 43-year-old female lying in bed, in no apparent distress. EXT REMITIES: [place], warm, and dry. NEUROLOGICAL: Patient is awake and does have her eyes open. She is interacting with her caregivers. She does move all extremities x4 and sometimes to command. Deep t endon reflexes are 1/4 throughout. Her LOCKS TENDER shunt valve pumps and fills adequately. DIAGNOSTIC STUDIES: A head CT without contrast from [facility] on 07/16/2018 shows d iffuse cerebral atrophy. Ventricular catheters are in good position. There is no evidence of an acu te hemorrhage. LABORATORY DATA: White blood cell count from 07/17/2018 is 13.94, hemoglobin is 12.9, platelets are 154. CSF sample from 07/16/2018: Tube #4 has 0 white blood cells, 0 red blood cells, a glucose of 5 6, and a protein of 123. IMPRESSION: This is a 43-year-old female admitted with likely urosepsis and Proteus bacteremia. She is neurologically stable and improved with IV antibiotics. She has no evidence of a cerebral spinal fluid infection or meningitis. PLAN: All the above discussed in detail with the patient. This patient was seen and examined with Rima Lagunas present. At this point in time, the patient does have a Proteus bacteremia and likely urose psis as the source of her infection. She is on appropriate IV antibiotics. Her CSF sample is not wolfe ggestive of meningitis and her LOCKS TENDER shunt seems to be working functionally. At this point in time, the re is no acute neurosurgical issues, so we will sign off. Please call with any neurological changes. /[id number]/MODL
--- NOTE | 2018-07-17 17:14 | HOSPPROG ---
Hospitalist Progress Note Assessment/Plan: * Septic shock due to Proteus UTI -IV norepi - weaning -IV Ceftriaxone per ID * Purpura rash due to sepsis * Astroglioma s/p MARKETING AND OUTREACH COORDINATOR shunt -shunt okay per neurosurgery * Seizure disorder -restart Vimpat * Adrenal insufficiency -stress dose steroids - wean IV hydrocortisone * Metabolic encephalopathy -improved * Acute respiratory failure due to sepsis -improved * Kidney stone - likely related to Proteus in urine -no intervention per ID Subjective: much more alert, passed swallow Objective: Vital Signs Temp Pulse Resp BP Pulse Ox 36.3 C 75 14 96/62 L 97 07/17/18 15:40 07/17/18 15:40 07/17/18 15:40 07/17/18 15:40 07/17/18 15:40 Microbiology 07/16/18 18:46 Gram Stain - Final Cerebral Spinal Fluid Laboratory Results 07/17/18 03:45 07/17/18 03:45 07/16/18 07/17/18 07/18/18 05:59 05:59 05:59 Intake Total 1368 Output Total 800 Balance 568 PT 13.6 SEC (12.0-15.0) 07/16/18 10:43 INR 1.02 (0.83-1.16) 07/16/18 10:43 abd US - positive for stone d/w Dr. sales regarding ICU course - Physical Exam Constitutional: no apparent distress, appears nourished, not in pain Cardiovascular: regular rate and rhythym, no murmur, rub, or gallop Respiratory: no respiratory distress, no rales or rhonchi, clear to auscultation Gastrointestinal: normoactive bowel sounds, soft, non-tender abdomen, no palpable masses Skin: no rashes or abrasions, no fluctuance, no induration Neurologic: No AAOx3 Psychiatric: encephalopathic, poor insight, poor judgement, poor memory, No interacting appropriately, No agitated ICD10 Worksheet Patient Problems: Problems Problem Status Onset Pneumonia Acute Sepsis Acute Palliative care encounter Acute Seizure disorder Acute Seizure Acute Urinary tract infection Acute
[2018-07-17] MEDS: LEVOTHYROXINE 112 MCG TAB PO SCH (18:09)
--- NOTE | 2018-07-17 18:47 | GCON ---
PULMONARY CRITICAL CARE CONSULTATION DATE OF CONSULTATION: 07/17/2018 REASON FOR CONSULTATION: Severe sepsis. HISTORY: The patient is a 43-year-old developmentally disabled woman. She had an astroglioma as a y oung child requiring MAP MAKER shunting. This left her with severe cognitive dysfunction. She lives at a [facility] home. She was noted to have alteration in her mental status with some respiratory distress and tachycardia. She became less verbal. She was brought to the emergency department and found to be hy potensive and tachycardic. White blood cell count was elevated with a left shift. Lactate was mildl y elevated at 2.2. Urinalysis was positive for bacteria and white blood cells, consistent with a uri nary tract infection. Blood cultures are growing proteus. She was admitted to the intensive care un it for further treatment. She has been started on antibiotics. Infectious Disease has seen the [facility] ent. PAST MEDICAL HISTORY: Remarkable for the previous astroglioma and MAP MAKER shunt, associated seizure disor buster. She is legally blind. There is a history of hypertension and adrenal insufficiency. HOME MEDICATIONS: Include calcium, levothyroxine, Decadron 1.5 mg per day, Peridex for oral care, ma gnesium oxide, lacosamide and famotidine, as well as herbal preparations and supplements. DRUG ALLERGIES: Levaquin, vancomycin, penicillin, morphine, codeine and milk products. SOCIAL HISTORY: As outlined above. [facility] and gets care there. She is a sharif of the [facility]. Her biologic mother previously . Her father is alive and still involved more distantly in her care. She has a brother, who is also involved. She is do not resuscitate per advanced direct nicolette. FAMILY HISTORY: Noncontributory. REVIEW OF SYSTEMS: Unobtainable. PHYSICAL EXAMINATION: GENERAL: Reveals a small woman lying relatively comfortably in bed with obvio us chronic physical and neurologic abnormalities. VITAL SIGNS: Blood pressure is 105/70, heart rate 75 with sinus rhythm on the monitor. She is afebrile. Oxygen is in place at 1 L. Respiratory rate is 16. CVP by PICC line is 3. HEENT: Unremarkable for lymphadenopathy or thyromegaly. There is n o jugular venous distention. Mucous membranes are moist. Nasal cannula oxygen is in place. CHEST: Clear anteriorly. Breath sounds at the bases are diminished. There are no obvious abnormal sounds; however, she will not take deep breaths. HEART: Regular in rate and rhythm with a soft systolic mu rmur. No gallops. ABDOMEN: Soft, nontender. Bowel sounds are present. There is no PEG tube. A F oley catheter is in place. Input greater than output by about 2.5 L. EXTREMITIES: Remarkable for m itts in place on both upper extremities to keep her from pulling at lines and tubing. There is trace lower extremity edema with chronic muscle wasting. She does move all extremities. DATABASE: Chest x-ray on admission showed hypoventilatory changes. There were no obvious infiltrate s. A ventricular shunt is in place terminating in the area of the right atrium. There are no obviou s infiltrates. Abdominal ultrasound performed this morning shows a small, nonobstructing right renal stone. 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 LABORATORIES: White blood cell count is 14,000, hematocrit 41, platelets are normal. PT and PTT are normal. Followup lactate is 1.4. Sodium is 147, potassium 4.0, CO2 of 22, BUN 20 with a creatinine of 0.5, glucose is 105. LFTs are normal with the exception of a mildly elevated ALT at 57. Albumin is 2.1. Urinalysis shows bacteria and pyuria. Lumbar puncture was negative. ASSESSMENT: 1. Urosepsis: The patient does have sepsis secondary to a urinary tract infection. Blood cultures are positive for proteus. She is being treated with ceftriaxone. Sensitivities are pending. She is doing well. She has received significant fluid for resuscitation associated with sepsis. She has r equired norepinephrine. This is being weaned as blood pressure allows. Central venous pressure is l ow. Further intravenous fluids, both crystalloid and colloid, are indicated. 2. History of chronic hydrocephalus and ventriculoperitoneal shunting, abnormal mental status: This is associated with a seizure disorder. 3. Small renal stone, nonobstructive: This can be associated with the proteus organism per Infectio us Disease. 4. History of multiple drug allergies: As outlined above. 5. History of adrenal insufficiency: She is on chronic steroids. Stress steroid coverage is indica ivanna. 6. Metabolic: No significant issues identified. 7. Prophylaxis: Deep venous thrombosis prophylaxis with enoxaparin has been initiated. Pepcid will be given intravenously for now. 8. Volume depletion on admission: This is evidenced by hemoconcentration and elevated BUN. She is on honey-thickened liquids as an outpatient. Strategies to improve outpatient hydration will be disc ussed. 9. Nutrition: She does eat. Repeat bedside swallow evaluation will be needed to ensure swallowing safety. Reevaluation regarding thin liquids with a barium swallow may be needed. PLAN/RECOMMENDATIONS: The patient will be kept in the intensive care unit. Supportive care will be maintained. Antibiotics will be continued. Intravenous fluids will be continued. Albumin will be g iven as well. CVP will be monitored with a target CVP of approximately 5. Speech Therapy evaluation will be requested. Stress steroid coverage will be given. Pepcid will be started intravenously for now. Laboratory will be followed. Further plans and recommendations will be made based on her progress over the next 12-24 hours. /[id number]/MODL
[2018-07-17] MEDS ORDERED: FAMOTIDINE 20 MG/NACL 50 ML IV SCH (21:00)
[2018-07-17] MEDS: LACOSAMIDE 50 MG TAB PO SCH (21:34)
[2018-07-17] MEDS: FAMOTIDINE 20 MG TAB PO SCH (21:34)
[2018-07-18] MEDS: SODIUM CL NASAL GEL 14.1 GM TUBE TP SCH ×2 (01:33→21:35)
[2018-07-18] MEDS: CARBOXYMETHYLCELLULOSE 1% 0.4 ML DROPERETTE EACHEYE SCH ×6 (01:45→21:37)
[2018-07-18] MEDS: FLUORIDE DT SCH ×4 (01:46→21:35)
[2018-07-18] MEDS: NS 1,000 ML IV SCH (04:23)
[2018-07-18 05:48] LABS: PLATELET COUNT 99 10^3/uL (150-400)
[2018-07-18] MEDS: HYDROCORTISONE 100 MG/2 ML VIAL IVP SCH ×3 (05:57→21:36)
[2018-07-18] MEDS: LEVOTHYROXINE 112 MCG TAB PO SCH (05:57)
[2018-07-18] MEDS ORDERED: PROTOCOL POTASSIUM 1 DOSE MISC PRN (08:45)
[2018-07-18] MEDS ORDERED: PROTOCOL K PHOSPHATE 1 DOSE IV PRN (08:46)
[2018-07-18] MEDS ORDERED: POTASSIUM CL 10 MEQ TAB PO ONE ×2 (09:35→17:54)
[2018-07-18] MEDS: CHLORHEXIDINE GLUCONATE 15 ML UDL PO SCH ×3 (09:39→21:35)
[2018-07-18] MEDS: MAGNESIUM OXIDE 400 MG TAB PO SCH (09:39)
[2018-07-18] MEDS: LACOSAMIDE 50 MG TAB PO SCH ×2 (09:39→21:34)
[2018-07-18] MEDS: FAMOTIDINE 20 MG TAB PO SCH ×2 (09:39→21:35)
[2018-07-18] MEDS: ENOXAPARIN 40 MG/0.4 ML SYR SC SCH (09:39)
[2018-07-18] MEDS: 1/2 NS 1,000 ML IV SCH ×2 (09:50→19:26)
--- NOTE | 2018-07-18 11:20 | PDINTPN ---
Acid Tender Progress Note Assessment/Plan: Assessment: Urosepsis. Proteus in urine and blood. On ceftriaxone. Sepsis. Resolved. Blood pressure is have normalized. Off norepinephrine since yesterday. History of brain tumor, hydrocephalus, shunt, developmentally delayed/AMS. Lives at [facility]. Improving obtundation associated with severe infection. Metabolic: Hypernatremia, hypokalemia, hypophosphatemia. IV fluids changed to half normal saline. On replacement protocols. Adrenal insufficiency: On chronic Decadron. On stress steroid coverage here with hydrocortisone. Can decrease. Prophylaxis: On enoxaparin and Pepcid. Plan: Continue supportive care in the intensive care unit on step-down status. Continue hypotonic IV fluids. Follow sodium, potassium later today. Continue antibiotics. Decrease hydrocortisone. All the above discussed with hospitalist, nursing, the ICU multi disciplinary team. Subjective: Mental status improved. Able to chew and swallow soft foods. Starting to answer some questions minimally. No obvious pain. Objective: Vital Signs Temp Pulse Resp BP Pulse Ox 36.4 C 71 16 99/56 L 94 07/18/18 10:00 07/18/18 10:00 07/18/18 10:00 07/18/18 10:00 07/18/18 10:00 Microbiology 07/16/18 18:46 Gram Stain - Final Cerebral Spinal Fluid Laboratory Results 07/18/18 05:15 07/18/18 05:15 07/17/18 07/18/18 07/19/18 05:59 05:59 05:59 Intake Total 1368 3363 660 Output Total 800 1550 Balance 568 1813 660 PT 13.6 SEC (12.0-15.0) 07/16/18 10:43 INR 1.02 (0.83-1.16) 07/16/18 10:43 Laboratory Tests 07/18/18 05:15 Phosphorus 1.5 L Magnesium 2.7 H Total Bilirubin 0.2 AST 25 ALT 50 Albumin 2.0 L Microbiology 07/16/18 10:43 Blood Blood Panel (PCR) - Final Proteus Species 07/16/18 11:20 Urine,Catheterized Urine Culture - Preliminary Proteus Mirabilis 07/16/18 10:43 Blood Blood Culture - Preliminary 07/16/18 10:43 Blood Gram Neg Yon Nonlactose Ferm. Physical Exam - Physical Exam General Appearance: no apparent distress, thin, other (Being fed, able to chew and swallow without cough.), No unresponsive EENT: PERRL/EOMI, other (On room air) Neck: normal inspection (No obvious JVD) Respiratory: lungs clear (Anteriorly), decreased breath sounds (At bases), No rales, No rhonchi Cardiac/Chest: bradycardia (Sinus) Abdomen: normal bowel sounds, non-tender, soft Pelvic Exam: other (Starks catheter in place. 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 Unclear as to her exact baseline. She apparently is more responsive, possibly even plays the piano.), No no motor/sensory deficits (Chronic deficits) ICD10 Worksheet Patient Problems: Problems Problem Status Onset Pneumonia Acute Sepsis Acute Palliative care encounter Acute Seizure disorder Acute Seizure Acute Urinary tract infection Acute
[2018-07-18] MEDS ORDERED: K PHOS 15 MMOL in D5W 250 ML IV ONE (12:00)
--- NOTE | 2018-07-18 13:24 | PCMIDPN ---
Assessment/Plan: Assessment/Plan: * Septic shock due to Proteus bacteremia/UTI: Clinically improved with pressors being discontinued. Continue ceftriaxone based on previous Proteus susceptibility. Susceptibility currently pending on current isolates. * Rash: Purpuric/petechial rash primarily affecting upper extremities and trunk likely associated with sepsis. Anticipate resolution as sepsis is treated. 07/18/18 13:21 Subjective: Patient weaned off pressors. Wakes up for feeding by staff. Objective: Vital Signs Temp Pulse Resp BP Pulse Ox 36.6 C 75 14 95/51 L 98 07/18/18 12:00 07/18/18 12:00 07/18/18 12:00 07/18/18 12:00 07/18/18 12:00 Microbiology 07/16/18 18:46 Gram Stain - Final Cerebral Spinal Fluid Laboratory Results 07/18/18 05:15 07/18/18 05:15 07/17/18 07/18/18 07/19/18 05:59 05:59 05:59 Intake Total 1368 3363 1260 Output Total 800 1550 Balance 568 1813 1260 Ceftriaxone # 2, antibiotics # 3 Blood and urine culture with growth of Proteus CSF culture no growth to date Renal ultrasound with nonobstructing 5 mm stone on right - Physical Exam General Appearance: no apparent distress, non-toxic EENT: No scleral icterus Respiratory: lungs clear, No respiratory distress Cardiac/Chest: regular rate, rhythm Abdomen: non-tender, No distended Skin: rash (Purpuric/petechial rash over upper extremities and trunk) - Line/s RUE PICC Lines: other (Significant surrounding ecchymosis), No drainage ICD10 Worksheet Patient Problems: Problems Problem Status Onset Sepsis Acute Urinary tract infection Acute Palliative care encounter Acute Pneumonia Acute Seizure Acute Seizure disorder Acute
--- NOTE | 2018-07-18 16:24 | HOSPPROG ---
Hospitalist Progress Note Assessment/Plan: * Septic shock due to Proteus UTI -IV norepi - weaned off -IV Ceftriaxone per ID * Purpura rash due to sepsis * Astroglioma s/p HEALTH SERVICES RN shunt -shunt okay per neurosurgery * Seizure disorder -Vimpat * Adrenal insufficiency -stress dose steroids -wean IV hydrocortisone then back to PO dose * Metabolic encephalopathy -improved * Acute respiratory failure due to sepsis -improved * Kidney stone - likely related to Proteus in urine -no intervention per ID * Hypernatremia -1/2 NS - may need D5W if not improving -encourage PO fluid * Low potassium, low phos -replete Subjective: BP stable. non-verbal Objective: Vital Signs Temp Pulse Resp BP Pulse Ox 36.8 C 67 16 92/44 L 96 07/18/18 15:47 07/18/18 15:47 07/18/18 15:47 07/18/18 15:47 07/18/18 15:47 Microbiology 07/16/18 18:46 Gram Stain - Final Cerebral Spinal Fluid Laboratory Results 07/18/18 05:15 07/18/18 05:15 07/17/18 07/18/18 07/19/18 05:59 05:59 05:59 Intake Total 1368 3363 1260 Output Total 800 1550 Balance 568 1813 1260 PT 13.6 SEC (12.0-15.0) 07/16/18 10:43 INR 1.02 (0.83-1.16) 07/16/18 10:43 - Physical Exam Constitutional: no apparent distress, appears nourished, not in pain, other ( lying on bed, comfortable, non-verbal) Cardiovascular: regular rate and rhythym, no murmur, rub, or gallop Respiratory: no respiratory distress, no rales or rhonchi, clear to auscultation Gastrointestinal: normoactive bowel sounds, soft, non-tender abdomen, no palpable masses Skin: warm, no fluctuance, no induration, rash (maturing purpura) Neurologic: No AAOx3 Psychiatric: encephalopathic, poor insight, poor judgement, poor memory, No interacting appropriately ICD10 Worksheet Patient Problems: Problems Problem Status Onset Pneumonia Acute Sepsis Acute Palliative care encounter Acute Seizure disorder Acute Seizure Acute Urinary tract infection Acute
[2018-07-19] MEDS: HYDROCORTISONE 100 MG/2 ML VIAL IVP SCH ×3 (05:10→22:06)
[2018-07-19] MEDS: LEVOTHYROXINE 112 MCG TAB PO SCH (05:10)
[2018-07-19] MEDS: CARBOXYMETHYLCELLULOSE 1% 0.4 ML DROPERETTE EACHEYE SCH ×5 (05:10→22:12)
[2018-07-19 05:22] LABS: PLATELET COUNT 101 10^3/uL (150-400)
[2018-07-19] MEDS: 1/2 NS 1,000 ML IV SCH (07:12)
[2018-07-19] MEDS ORDERED: POTASSIUM CL 10 MEQ TAB PO ONE (08:00)
[2018-07-19] MEDS: CHLORHEXIDINE GLUCONATE 15 ML UDL PO SCH ×3 (08:14→22:10)
[2018-07-19] MEDS: MAGNESIUM OXIDE 400 MG TAB PO SCH (08:15)
[2018-07-19] MEDS: ENOXAPARIN 40 MG/0.4 ML SYR SC SCH (08:15)
[2018-07-19] MEDS: FAMOTIDINE 20 MG TAB PO SCH ×2 (08:15→22:08)
[2018-07-19] MEDS: LACOSAMIDE 50 MG TAB PO SCH ×2 (08:15→22:21)
--- NOTE | 2018-07-19 10:30 | PCMIDPN ---
Assessment/Plan: Assessment: Proteus bacteremia secondary to urinary source. Patient is making a good recovery. She no longer requires pressors. She continues on ceftriaxone for coverage of the Proteus. Today we will change her initial triple lumen PICC line to a single-lumen PICC. She will also have her urinary catheter removed. Plan for 2 week course of treatment with IV ceftriaxone. Will explore possibilities of her receiving IV antibiotics as an outpatient. Plan: 1. Continue IV ceftriaxone. 2. Remove triple-lumen PICC line. 3. Replace with single-lumen PICC line. 4. Remove urinary catheter. 07/19/18 10:28 Subjective: Patient is sitting in up in a chair in her ICU room. She no longer requires pressors. She is at baseline communication. Objective: Ceftriaxone # 3 Vital Signs Temp Pulse Resp BP Pulse Ox 36.8 C 51 L 12 95/58 L 98 07/19/18 07:57 07/19/18 07:57 07/19/18 07:57 07/19/18 07:57 07/19/18 07:57 Microbiology 07/16/18 18:46 Gram Stain - Final Cerebral Spinal Fluid Laboratory Results 07/19/18 05:05 07/19/18 05:05 07/18/18 07/19/18 07/20/18 05:59 05:59 05:59 Intake Total 3363 3679 360 Output Total 1550 800 Balance 1813 2879 360 - Physical Exam General Appearance: WD/WN, alert, no apparent distress, non-toxic Respiratory: lungs clear, normal breath sounds, No respiratory distress Cardiac/Chest: regular rate, rhythm, No tachycardia Skin: normal color, warm/dry, No rash Neuro/Psych: alert ICD10 Worksheet Patient Problems: Problems Problem Status Onset Sepsis Acute Urinary tract infection Acute Palliative care encounter Acute Pneumonia Acute Seizure Acute Seizure disorder Acute
[2018-07-19] MEDS: FLUORIDE DT SCH ×3 (11:04→21:59)
--- NOTE | 2018-07-19 11:52 | HOSPPROG ---
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 She has improved and is off pressors currently. # septic shock due to Proteus UTI. Followed by Infectious Disease. Currently off pressors and much improved over the last 24 hr * Ceftriaxone per ID * Changed triple-lumen pack to single lumen PICC in anticipation of 2 week course of ceftriaxone IV # purpura rash due to sepsis # Astroglioma status post ROLL OVER LOADER shunt, okay per Neurosurgery # history of seizures, on Vimpat # adrenal insufficiency currently on stress dose steroids will wean IV hydrocortisone and transition to her baseline p.o. Dose Of dexamethasone 1.5 mg daily * Currently on hydrocortisone 50 mg three times daily IV * Blood pressure 1 more day before weaning down. Blood pressure still borderline, this may be her baseline. # metabolic encephalopathy, improved # acute respiratory failure due to sepsis, improved # kidney stone, likely related to Proteus in urine. Infectious Disease does not recommend intervention at this time. # hyponatremia, improving will continue to monitor for 1 more day and then wean off IV fluids as able # low potassium, low phosphorus, replete as needed. # DVT prophylaxis, on enoxaparin Subjective: Patient new to me and chart reviewed. Sitting in a wheelchair alert but not particularly communicative. Looks comfortable Objective: Vital Signs Temp Pulse Resp BP Pulse Ox 36.8 C 51 L 12 95/58 L 98 07/19/18 07:57 07/19/18 07:57 07/19/18 07:57 07/19/18 07:57 07/19/18 07:57 Microbiology 07/16/18 18:46 Gram Stain - Final Cerebral Spinal Fluid Laboratory Results 07/19/18 05:05 07/19/18 05:05 07/18/18 07/19/18 07/20/18 05:59 05:59 05:59 Intake Total 3363 3679 360 Output Total 1550 800 150 Balance 1813 2879 210 PT 13.6 SEC (12.0-15.0) 07/16/18 10:43 INR 1.02 (0.83-1.16) 07/16/18 10:43 - Physical Exam Constitutional: chronically ill appearing Eyes: PERRL, No icteric sclera Ears, Nose, Mouth, Throat: moist mucous membranes Cardiovascular: regular rate and rhythym Respiratory: no respiratory distress, clear to auscultation Gastrointestinal: soft, non-tender abdomen Genitourinary: ellington in urethra Skin: normal color Musculoskeletal: generalized weakness Neurologic: No AAOx3 Psychiatric: other (Cognitive dysfunction, pleasant) ICD10 Worksheet Patient Problems: Problems Problem Status Onset Pneumonia Acute Sepsis Acute Palliative care encounter Acute Seizure disorder Acute Seizure Acute Urinary tract infection Acute
[2018-07-19] MEDS ORDERED: K PHOS 15 MMOL in D5W 250 ML IV ONE (12:00)
--- NOTE | 2018-07-19 14:47 | ASMTCMCOM ---
CM Note CM Note Notes: CM spoke to ZION Cheney regarding d/c POC. Noni reports that pt currently has a triple lumen picc and providers would like to switch her to a single lumen picc. Pts guardian would need to provide consent. CM spoke to Varsha (P#: [phone], Cell P#: [phone]), [facility] job site supervisor. Varsha provided CM w/ phone number and cell for pts guardian. The guardian's name is Mariah (P#: [phone] Cell P#: [phone]). SHAMAR left Mariah a phone number and requested a call back. Date Signed: 07/19/2018 02:47 PM Electronically Signed By:DEE Lewis
[2018-07-19] MEDS: SODIUM CL NASAL GEL 14.1 GM TUBE TP SCH (22:09)
[2018-07-20] MEDS: CARBOXYMETHYLCELLULOSE 1% 0.4 ML DROPERETTE EACHEYE SCH ×5 (05:49→21:45)
[2018-07-20] MEDS: HYDROCORTISONE 100 MG/2 ML VIAL IVP SCH ×3 (05:49→21:44)
[2018-07-20] MEDS: LEVOTHYROXINE 112 MCG TAB PO SCH ×2 (05:50→06:04)
[2018-07-20] MEDS: CHLORHEXIDINE GLUCONATE 15 ML UDL PO SCH ×3 (09:00→21:51)
[2018-07-20] MEDS: ENOXAPARIN 40 MG/0.4 ML SYR SC SCH (10:23)
[2018-07-20] MEDS: POTASSIUM Cl (KCl) 100 ML IV SCH ×3 (10:23→13:51)
[2018-07-20] MEDS: FLUORIDE DT SCH ×3 (10:37→21:51)
[2018-07-20] MEDS: LACOSAMIDE 50 MG TAB PO SCH ×2 (11:00→21:46)
--- NOTE | 2018-07-20 11:02 | HOSPPROG ---
Hospitalist Progress Note Assessment/Plan: 43-year-old with a history of astroglioma status post AERONAUTICS COMMISSION DIRECTOR shunt as a child which has left her with severe cognitive dysfunction is admitted with altered mental status and found to have Proteus urinary tract infection complicated by septic shock. She has improved and is off pressors currently. Reviewed her care w Dr Peck who saw her yesterday. # septic shock due to Proteus UTI. * had been on pressors * Ceftriaxone per ID * Changed triple-lumen pack to single lumen PICC in anticipation of 2 week course of ceftriaxone IV # purpura rash due to sepsis # Astroglioma status post AERONAUTICS COMMISSION DIRECTOR shunt, okay per Neurosurgery # history of seizures, on Vimpat # adrenal insufficiency currently on stress dose steroids will wean IV hydrocortisone and transition to her baseline p.o. Dose Of dexamethasone 1.5 mg daily * Currently on hydrocortisone 25 mg three times daily IV (was on 50 mg tid) * Blood pressure 1 more day before weaning down to oral medication # metabolic encephalopathy, improved # acute respiratory failure due to sepsis * resolved on room air # kidney stone, likely related to Proteus in urine. Infectious Disease does not recommend intervention at this time. # hyponatremia * resolved * dc iv fluids # low potassium, low phosphorus, low calcium (added oral replacement) replete as needed. # DVT prophylaxis, on enoxaparin #plan: decrease hydrocortisone, check ionized calcium level in a.m., added oral liquid calcium (she has difficulty w chewing) Subjective: Quita is smiling, happy. Objective: Vital Signs Temp Pulse Resp BP Pulse Ox 36.3 C 48 L 13 118/51 L 94 07/20/18 07:54 07/20/18 07:54 07/20/18 07:54 07/20/18 07:54 07/20/18 07:54 Microbiology 07/16/18 18:46 Gram Stain - Final Cerebral Spinal Fluid CSF Culture - Final Laboratory Results 07/19/18 05:05 07/20/18 05:50 07/19/18 07/20/18 07/21/18 05:59 05:59 05:59 Intake Total 3679 1186 Output Total 800 550 Balance 2879 636 PT 13.6 SEC (12.0-15.0) 07/16/18 10:43 INR 1.02 (0.83-1.16) 07/16/18 10:43 - Physical Exam Constitutional: chronically ill appearing Eyes: PERRL Ears, Nose, Mouth, Throat: hearing normal Cardiovascular: regular rate and rhythym, bradycardia Respiratory: no respiratory distress Skin: warm, rash (purpura rash scattered upper back, chest area) Neurologic: other (alert and smiling, doesn't talk much) Psychiatric: interacting appropriately ICD10 Worksheet Patient Problems: Problems Problem Status Onset Sepsis Acute Urinary tract infection Acute Palliative care encounter Acute Pneumonia Acute Seizure Acute Seizure disorder Acute
[2018-07-20] MEDS: K PHOS 10 MMOL in D5W 250 ML IV ONE ×2 (12:15→15:04)
[2018-07-20] MEDS: FAMOTIDINE 20 MG TAB PO SCH ×2 (15:00→21:46)
[2018-07-20] MEDS: MAGNESIUM OXIDE 400 MG TAB PO SCH (15:01)
--- NOTE | 2018-07-20 15:09 | ASMTCMCOM ---
CM Note CM Note Notes: CM left a msg for pts guardian Mariah and CM left a msg for Varsha at [facility]. CM sent referrals to [facility] and [facility]. Pt will require 2 weeks of iv rocephin. CM to follow. Plan: TBD Date Signed: 07/20/2018 03:08 PM Electronically Signed By:DEE Lewis
--- NOTE | 2018-07-20 17:05 | PCMIDPN ---
Assessment/Plan: # Septic shock due to Proteus UTI. improved, off pressors, nl WBC. Mentation reportedly back to baseline --ceftriaxone for total 10 days, stop date 07/25/18 --call ID for additional questions # Multiple abx allergies listed, did not re-address today meds ceftriaxone 1gm IV daily #4 Subjective: no specific events noted. Reviewed chart Objective: Vital Signs Temp Pulse Resp BP Pulse Ox 36.3 C 49 L 14 108/82 H 98 07/20/18 15:43 07/20/18 15:43 07/20/18 15:43 07/20/18 15:43 07/20/18 15:43 Microbiology 07/16/18 18:46 Gram Stain - Final Cerebral Spinal Fluid CSF Culture - Final Laboratory Results 07/19/18 05:05 07/20/18 05:50 07/19/18 07/20/18 07/21/18 05:59 05:59 05:59 Intake Total 3679 1186 Output Total 800 550 Balance 2879 636 - Physical Exam General Appearance: alert, no apparent distress, other (obvious multiple prior surgeries evidenced by multiple well healed scalp scars) Cardiac/Chest: regular rate, rhythm Extremities: No pedal edema Abdomen: non-tender, soft Skin: No rash Neuro/Psych: alert, other (multiple contractures) - Line/s RUE PICC Lines: No drainage, No erythema - Time Spent With Patient Time Spent with Patient: greater than 25 minutes Time Spent with Patient: Greater than 25 minutes spent on this patients care, greater than 50% of time spent counseling, educating, and coordinating care regarding the above mentioned plan. ICD10 Worksheet Patient Problems: Problems Problem Status Onset Sepsis Acute Urinary tract infection Acute Palliative care encounter Acute Pneumonia Acute Seizure Acute Seizure disorder Acute
[2018-07-20] MEDS: CALCIUM CARB PO SCH (21:37)
[2018-07-20] MEDS: SODIUM CL NASAL GEL 14.1 GM TUBE TP SCH (21:52)
[2018-07-21] MEDS: CHLORHEXIDINE GLUCONATE 15 ML UDL PO SCH ×4 (05:18→21:28)
[2018-07-21] MEDS: CARBOXYMETHYLCELLULOSE 1% 0.4 ML DROPERETTE EACHEYE SCH ×5 (06:15→21:26)
[2018-07-21] MEDS: LEVOTHYROXINE 112 MCG TAB PO SCH (06:16)
[2018-07-21] MEDS: HYDROCORTISONE 100 MG/2 ML VIAL IVP SCH ×3 (06:16→21:26)
[2018-07-21] MEDS: FLUORIDE DT SCH ×3 (08:22→21:38)
[2018-07-21] MEDS: ENOXAPARIN 40 MG/0.4 ML SYR SC SCH (08:31)
[2018-07-21] MEDS: POTASSIUM Cl (KCl) 50 ML IV SCH ×3 (09:14→11:12)
[2018-07-21] MEDS: FAMOTIDINE 20 MG TAB PO SCH ×2 (10:30→20:34)
[2018-07-21] MEDS: CALCIUM CARB PO SCH ×2 (10:30→20:34)
[2018-07-21] MEDS: MAGNESIUM OXIDE 400 MG TAB PO SCH (10:30)
[2018-07-21] MEDS: LACOSAMIDE 50 MG TAB PO SCH ×2 (10:30→20:34)
[2018-07-21] MEDS ORDERED: K PHOS 10 MMOL in D5W 250 ML IV ONE (12:00)
--- NOTE | 2018-07-21 12:10 | ASMTCMCOM ---
CM Note CM Note Notes: Spoke w/pt's father, he wanted to know why pt couldn't stay here while she gets her IV abx. SHAMAR explained that typically when pts are medically stable and only need IV abx they do it at home or as outpt but in her case, [facility] cannot do IV medications and pt is not candidate for outpt. Father expresses understanding but is not the guardian for decisions. Mendez from [facility] came and cannot take pt, her needs exceed their staffing availability. SHAMAR sent a referral to [facility]. DC Plan: SNF Date Signed: 07/21/2018 12:09 PM Electronically Signed By:Merline Lewis RN
[2018-07-21] MEDS ORDERED: PROTOCOL CALCIUM 1 DOSE IV PRN (13:51)
--- NOTE | 2018-07-21 13:51 | HOSPPROG ---
Hospitalist Progress Note Assessment/Plan: 43-year-old with a history of astroglioma status post GLOVE CLEANER shunt as a child which has left her with severe cognitive dysfunction is admitted with altered mental status and found to have Proteus urinary tract infection complicated by septic shock. She has improved and is off pressors currently. First encounter, chart reviewed. # septic shock due to Proteus UTI. * had been on pressors, resolved * Ceftriaxone per ID * Changed triple-lumen to single lumen PICC in anticipation of 2 week course of ceftriaxone IV # purpura rash due to sepsis # Astroglioma status post GLOVE CLEANER shunt, okay per Neurosurgery # history of seizures, on Vimpat # adrenal insufficiency currently on stress dose steroids will wean IV hydrocortisone and transition to her baseline p.o. Dose of dexamethasone 1.5 mg daily * Currently on hydrocortisone 25 mg three times daily IV (was on 50 mg tid) * Blood pressure 1 more day before weaning down to oral medication # metabolic encephalopathy, improved # acute respiratory failure due to sepsis * resolved on room air # kidney stone, likely related to Proteus in urine. Infectious Disease does not recommend intervention at this time. # hyponatremia * resolved * dc iv fluids # low potassium, low phosphorus, low calcium protocol replete as needed. # DVT prophylaxis, on enoxaparin #plan: cont supportive care IV abx SNF rehab plan for DC D/W CM Subjective: Non verbal. No interaction. Objective: Vital Signs Temp Pulse Resp BP Pulse Ox 36.4 C 41 L 14 121/78 H 95 07/21/18 08:00 07/21/18 08:00 07/21/18 08:00 07/21/18 08:00 07/21/18 08:00 Laboratory Results 07/19/18 05:05 07/21/18 06:30 07/20/18 07/21/18 07/22/18 05:59 05:59 05:59 Intake Total 1186 1710 Output Total 550 1950 Balance 636 -240 PT 13.6 SEC (12.0-15.0) 07/16/18 10:43 INR 1.02 (0.83-1.16) 07/16/18 10:43 - Physical Exam Constitutional: no apparent distress, appears nourished, chronically ill appearing Eyes: PERRL, anicteric sclera, EOMI Ears, Nose, Mouth, Throat: moist mucous membranes, ears appear normal, no oral mucosal ulcers Cardiovascular: No JVD, No tachycardia, No edema Respiratory: no respiratory distress, no rales or rhonchi, reduced air movement Gastrointestinal: No ascites, No guarding, No distension Skin: warm, normal color, No mottled Musculoskeletal: no joint effusions, No normal joint ROM, No asymmetric calves Neurologic: No AAOx3 Psychiatric: encephalopathic, other (nonverbal), No thought process linear ICD10 Worksheet Patient Problems: Problems Problem Status Onset Pneumonia Acute Sepsis Acute Palliative care encounter Acute Seizure disorder Acute Seizure Acute Urinary tract infection Acute
[2018-07-21] MEDS: SODIUM CL NASAL GEL 14.1 GM TUBE TP SCH (20:35)
[2018-07-22] MEDS: HYDROCORTISONE 100 MG/2 ML VIAL IVP SCH ×2 (05:01→15:08)
[2018-07-22] MEDS: CARBOXYMETHYLCELLULOSE 1% 0.4 ML DROPERETTE EACHEYE SCH ×3 (05:57→15:08)
[2018-07-22] MEDS ORDERED: CALCIUM GLUCONATE 50 ML IV ONE (07:07)
[2018-07-22] MEDS ORDERED: CALCIUM GLUCONATE 1 GM in D5W 50 ML IV ONE (07:30)
[2018-07-22] MEDS: POTASSIUM Cl (KCl) 50 ML IV SCH ×3 (08:30→11:16)
[2018-07-22 09:19] VITALS: BP 139/71
[2018-07-22] MEDS: LACOSAMIDE 50 MG TAB PO SCH (09:25)
[2018-07-22] MEDS: CHLORHEXIDINE GLUCONATE 15 ML UDL PO SCH ×2 (09:25→15:08)
[2018-07-22] MEDS: FAMOTIDINE 20 MG TAB PO SCH (09:25)
[2018-07-22] MEDS: ENOXAPARIN 40 MG/0.4 ML SYR SC SCH (09:25)
[2018-07-22] MEDS: CALCIUM CARB PO SCH (09:25)
[2018-07-22] MEDS: MAGNESIUM OXIDE 400 MG TAB PO SCH (09:25)
[2018-07-22] MEDS: FLUORIDE DT SCH ×2 (09:26→15:46)
[2018-07-22] MEDS: LEVOTHYROXINE 112 MCG TAB PO SCH (10:37)
--- NOTE | 2018-07-22 12:01 | ASMTLACE ---
LACE Length of stay for Answers: 7-13 days current admission Acuity / Level of Answers: Yes Care: Did the patient have an inpatient admission? Comorbidities - select Answers: Any tumor (including all that apply lymphoma or leukemia) Other Notes: HTN; blindness; seizure d/o # of Emergency department Answers: 3-4 visits in the last 6 months Score: 14 Date Signed: 07/22/2018 12:00 PM Electronically Signed By:Merline Lewis RN
--- NOTE | 2018-07-22 12:12 | ASMTCMCOM ---
CM Note CM Note Notes: Pt can go to longterm, [facility]. Still waiting to hear from [facility], as caregiver and family would prefer her to stay in [place], SHAMAR w/f. DC Plan: SNF Date Signed: 07/22/2018 12:11 PM Electronically Signed By:Merline Lewis RN
--- NOTE | 2018-07-22 13:38 | PDIAF ---
- Diagnosis Diagnosis: UTI Code Status: Do Not Resuscitate - Medication Management Discharge Medications: electronically signed and located in the Home Medication List. PICC Care - Routine: Yes - Orders Services needed: Registered Nurse, Physical Therapy, Occupational Therapy Isolation Type: None Diet Recommendation: no restrictions on diet Diet Texture: Dysphagia 1 - Pureed, Honey Thick Liquids, Meds Crushed in Puree - Follow Up Care Current Providers and Referrals: NONE *PRIMARY CARE P,. [Primary Care Provider] -
--- NOTE | 2018-07-22 14:34 | ASMTDCNOTE ---
Case Management Discharge Discharge Order Complete? Answers: Yes Patient to Obtain Answers: Other Notes: [facility] Medications Transportation Arranged Answers: [facility] will Pick (Date 07/22/2018 04:30 PM & Time) Case Management Transport Answers: Yes Form Complete Faxed Final Orders Answers: Yes Agency/Facility Transfer Answers: Yes Report Printed & Faxed to Receiving Agency Family Notified Answers: Yes Discharge Comments Notes: D/w CAR DRYER, final orders faxed. Mariah at [facility] , Adia at [facility], and pt's brother notified. Spoke with Leisa at [facility] about evening dose of abx, she does not think it will be an issue. Family and Adia at [facility] disappointed that pt will not be staying at hospital or in [place] but [facility] unable to meet pt's needs. Date Signed: 07/22/2018 02:33 PM Electronically Signed By:Merline Lewis RN
--- NOTE | 2018-07-22 15:32 | PDIAF ---
- Diagnosis Diagnosis: UTI Code Status: Do Not Resuscitate - Medication Management Hydrometeorologist Antibiotics: rocephin 1 gm IV daily Jail Antibiotic Stop Date: 07/25/18 Discharge Medications: electronically signed and located in the Home Medication List. PICC Care - Routine: Yes - Orders Services needed: Registered Nurse, Physical Therapy, Occupational Therapy Isolation Type: None Diet Recommendation: no restrictions on diet Diet Texture: Dysphagia 1 - Pureed, Honey Thick Liquids, Meds Crushed in Puree - Follow Up Care Current Providers and Referrals: NONE *PRIMARY CARE P,. [Primary Care Provider] -
--- NOTE | 2018-07-22 16:27 | GDS ---
DISCHARGE DIAGNOSES: 1. Septic shock due to Proteus urinary tract infection .. 2. Rash in the setting of sepsis. 3. Astroglioma status post ventriculoperitoneal shunt, chronic. 4. History of seizures. 5. Adrenal insufficiency. 6. Metabolic encephalopathy. 7. Acute respiratory failure due to sepsis. 8. Kidney stone. 9. Hyponatremia. 10. Electrolyte imbalance. CONSULTATIONS: Infectious Disease, Critical Care. STUDIES AND PROCEDURES DONE: 1. PICC line placement. 2. CT of the head. 3. Lumbar puncture. 4. Abdominal ultrasound. PHYSICAL EXAM: GENERAL: The patient is alert. VITAL SIGNS: Afebrile at 36.3, pulse is 53, respira tory rate 16, blood pressure 139/71. She is saturating 96% on room air. I have seen and evaluated t he patient on the day of discharge. HOSPITAL COURSE: The patient is a 43-year-old female with history of astroglioma, status post MID LEVEL NET DEVELOPER esdras nt as a child, left her with severe cognitive dysfunction. She is admitted, diagnosed with: 1. Septic shock due to Proteus UTI. She received pressors as well as supportive management. Critic al Care consult was completed. She was placed on IV Rocephin. Infectious Disease has followed the p atient during this hospitalization. Her septic shock has resolved. 2. Rash. This is secondary to sepsis and has resolved. 3. History of astroglioma status post MID LEVEL NET DEVELOPER shunt. This is stable per Neurosurgery. 4. History of seizures. Her home medication is continued. She has no seizure activity of note, dur ing this hospitalization. 5. Adrenal insufficiency. She was placed on stress dose steroids during this hospitalization. Thes e have been transitioned to her previously prescribed baseline dexamethasone dose at the time of disp osition. 6. Metabolic encephalopathy. This has resolved to the best of my knowledge. 7. Acute respiratory failure. She is currently on room air. 8. Kidney stone. This is likely related to the Proteus in the patient's urine. It has been recomme nded that no intervention be performed. 9. Hyponatremia. This is resolved with IV fluid hydration and resuscitation. 10. Electrolyte imbalance. These have been replaced. The patient has been also placed on increased dose of calcium. DISPOSITION: She will be discharged to a halfway facility for further treatment and manageme nt. She will require 3 more days of IV antibiotic therapy, IV Rocephin. She will return to [facility] where she normally resides after that. Antibiotic stop date is 07/25/2018. DISCHARGE MEDICATIONS: Please refer to EMR form. New medications include Rocephin 1 g IV daily. I have not discontinued any of her other previously prescribed home medications. FOLLOWUP: Followup will be with her primary care physician. I reviewed the patient's disposition wi th the case management coordinator. TIME SPENT WITH PATIENT: I spent greater than 35 minutes in the care, coordination, and management o f the patient's disposition. /[id number]/MODL
--- NOTE | 2018-07-22 16:57 | ASDISCHSUM ---
Discharge Information Plan Status:SNF Medically Cleared to Leave: Discharge Date:07/22/2018 04:48 PM CM D/C Disposition:Correction Facility ADT D/C Disposition:Correction Facility Projected Discharge Date:07/20/2018 11:00 AM Transportation at D/C:ALS/BLS Discharge Delay Reason: Follow-Up Date:07/20/2018 11:00 AM Discharge Slot: Final Diagnosis: Placement Information Referral Type:*Long-Term/SNF Referral ID:[id number] Provider Name:[facility] Address 1:[address] Address 2: City:[place] Selection Factors: State:[place] Patient Contact Information Contact Name:ROZEMILEE Relationship:Legal guardian Address:[address] [place] [address] [address] Work Phone: [facility] Phone: State/Zip Code:[place] [address] Email: Financial Information Financial Class:Medicare Primary Plan Desc:MEDICARE INPATIENT Primary Plan Number:[id number] Secondary Plan Desc:MEDICA[place] Secondary Plan Number:[id number] Assessment Information LACE LACE Length of stay for Answers: 7-13 days current admission Acuity / Level of Answers: Yes Care: Did the patient have an inpatient admission? Comorbidities - select Answers: Any tumor (including all that apply lymphoma or leukemia) Other Notes: HTN; blindness; seizure d/o # of Emergency department Answers: 3-4 visits in the last 6 months Score: 14 Date Signed: 07/22/2018 12:00 PM Electronically Signed By:Merline Lewis RN [facility] CM Progress Note CM Note CM Note Notes: Patient admitted w sepsis, likely urinary source. She has a hx of an astroglioma s/p FIBERGLASS BOAT BUILDER shunt as a child. She is legally blind. Patient lives at [facility] where she is fully cared for. Has electric wheelchair. Her legal guardian is Mariah Worrell [phone]; her primary caregiver at [facility] is Varsha [phone]; her brother Lasha [phone] and father Regan [phone] are also involved and supportive. I imagine that she will transfer back to [facility] with all services in place when she is medically stable. Case Management will follow. Date Signed: 07/17/2018 09:48 AM Electronically Signed By:Josephine Cross RN [facility] Progress Note CM Note Note Notes: SHAMAR spoke to ZION Cheney regarding d/c POC. Noni reports that pt currently has a triple lumen picc and providers would like to switch her to a single lumen picc. Pts guardian would need to provide consent. SHAMAR spoke to Varsha (P#: [phone], Cell P#: [phone]), [facility] [employer] [facility] [employer] resident care manager rn. Varsha provided CM w/ phone number and cell for pts guardian. The guardian's name is Mariah (P#: [phone] Cell P#: [phone]). SHAMAR left Mariah a phone number and requested a call back. Date Signed: 07/19/2018 02:47 PM Electronically Signed By:DEE Lewis [facility] SHAMAR Progress Note CM Note SHAMAR Note Notes: CM left a msg for pts guardinatalie Lemus and SHAMAR left a msg for Varsha at [facility] [employer]. CM sent referrals to [facility] and [facility]. Pt will require 2 weeks of iv rocephin. CM to follow. Plan: TBD Date Signed: 07/20/2018 03:08 PM Electronically Signed By:DEE Lewis [facility] SHAMAR Progress Note CM Note SHAMAR Note Notes: Spoke w/pt's father, he wanted to know why pt couldn't stay here while she gets her IV abx. SHAMAR explained that typically when pts are medically stable and only need IV abx they do it at home or as outpt but in her case, [facility] cannot do IV medications and pt is not candidate for outpt. Father expresses understanding but is not the guardian for decisions. Mendez from [facility] came and cannot take pt, her needs exceed their staffing availability. CM sent a referral to [facility] Plan: SNF Date Signed: 07/21/2018 12:09 PM Electronically Signed By:Merline Lewis RN [facility] SHAMAR Progress Note SHAMAR Note SHAMAR Note Notes: Pt can go to senior care, [facility] accepted. Still waiting to hear from [facility], as caregiver and family would prefer her to stay in [place], SHAMAR w/f. DC Plan: SNF Date Signed: 07/22/2018 12:11 PM Electronically Signed By:Merline Lewis RN Case Management Discharge Plan Note Case Management Discharge Discharge Order Complete? Answers: Yes Patient to Obtain Answers: Other Notes: [facility] Medications Transportation Arranged Answers: [facility] Stretcher Transport will Pick (Date 07/22/2018 04:30 PM & Time) Case Management Transport Answers: Yes Form Complete Faxed Final Orders Answers: Yes Agency/Facility Transfer Answers: Yes Report Printed & Faxed to Receiving Agency Family Notified Answers: Yes Discharge Comments Notes: D/w FIELD SUPERINTENDENT, final orders faxed. Mariah at [facility] , Adia at [facility], and pt's brother notified. Spoke with Leisa at [facility] about evening dose of abx, she does not think it will be an issue. Family and Adia at [facility] disappointed that pt will not be staying at hospital or in [place] but [facility] unable to meet pt's needs. Date Signed: 07/22/2018 02:33 PM Electronically Signed By:Merline Lewis RN Intervention Information
== END 2018-07-22 16:48 | DRG 871 ==
LOC: F3E 14:50 → OBSVTOIN 15:56 → F2N 19:31 → F3E 07-19 12:31
PROVIDERS: ADMIT Internal Medicine; ATTEND Internal Medicine
PROC: 009U3ZX Drainage of Spinal Canal, Percutaneous Approach, Diagnostic (ICD-10-PCS; principal; 2018-07-16)
PROC: 02H633Z Insertion of Infusion Device into Right Atrium, Percutaneous Approach (ICD-10-PCS; 2018-07-16)
PROC: 02HV33Z Insertion of Infusion Device into Superior Vena Cava, Percutaneous Approach (ICD-10-PCS; 2018-07-19)
DX: A41.89 Other specified sepsis (principal); R65.21 Severe sepsis with septic shock; G93.41 Metabolic encephalopathy; J96.00 Acute respiratory failure, unspecified whether with hypoxia or hypercapnia; N39.0 Urinary tract infection, site not specified; E27.40 Unspecified adrenocortical insufficiency; E87.1 Hypo-osmolality and hyponatremia; E86.9 Volume depletion, unspecified; B96.4 Proteus (mirabilis) (morganii) as the cause of diseases classified elsewhere; R21 Rash and other nonspecific skin eruption; N20.0 Calculus of kidney; H54.8 Legal blindness, as defined in USA; G40.909 Epilepsy, unspecified, not intractable, without status epilepticus; Z98.2 Presence of cerebrospinal fluid drainage device; Z85.841 Personal history of malignant neoplasm of brain; Z66 Do not resuscitate
CPT/HCPCS: 92526-GN; 92610-GN; 96374; C1751; J0610; J0696; J1170; J1630; J1642; J1650; J1720; J2185; J3480

== ENCOUNTER 2018-08-01 22:04 | Emergency (ER) | payer OTHER, MEDICAID ==
[2018-08-01] MEDS ORDERED: NS 1,000 ML IV ONE (22:45)
[2018-08-01] MEDS ORDERED: ONDANSETRON 4 MG/2 ML VIAL IVP ONE (22:45)
[2018-08-01 22:59] LABS: PLATELET COUNT 370 10^3/uL (150-400)
[2018-08-01] MEDS ORDERED: IOHEXOL 350mgI/ML (OMNIPAQUE) 150 ML BTL IV ONE (22:59)
--- NOTE | 2018-08-01 23:07 | EDPHY ---
H & P Stated Complaint: last BM was 07/29 and last time ate was yesterday Time Seen by Provider: 08/01/18 22:23 HPI/ROS: HPI The patient presents with decreased p.o. Intake for the last 2 days associated with constipation. The patient lives in a skilled nursing and cares provided by caregiver because of patient's history of brain tumor with shunt. She was admitted to the hospital on July 16 for a Proteus UTI causing sepsis. She was discharged back to her skilled nursing and had been doing okay, however over the last 2 days when food is put in her mouth she spits it out. She was given a dose of milk of magnesia at noon without any improvement in her symptoms. She takes thickened liquids and is not able to take any of these by mouth. She has not had any luis f vomiting. She normally has a bowel movement once every other day though has not had a bowel movement for several days now. She has not had a fever.. REVIEW OF SYSTEMS 10 systems were reviewed and negative with the exception of the elements mentioned in the history of present illness. PMHx: History of brain tumor status post shunt, frequent UTIs, most Shahida Ali Proteus UTI leading to sepsis Soc Hx: Resides at skilled nursing, requires a caregiver, wheelchair bound, nonverbal, requires help with feeding PHYSICAL General Appearance: Alert, no distress Eyes: Pupils equal and round no pallor or injection ENT, Mouth: Mucous membranes dry Respiratory: There are no retractions, lungs are clear to auscultation Cardiovascular: Regular rate and rhythm Gastrointestinal: Abdomen is soft and non-tender, no masses, bowel sounds normal Neurological: Alert, moves all extremities Skin: Warm and dry, no rashes Musculoskeletal: Neck is supple non tender Extremities: symmetrical, full range of motion Psychiatric: there is no agitation Source: Patient, Family, Old records Exam Limitations: Physical impairment - Personal History LMP (Females 10-55): Unknown Current Tetanus/Diphtheria Vaccine: No Current Tetanus Diphtheria and Acellular Pertussis (TDAP): No Tetanus Vaccine Date: 01/2008 - Medical/Surgical History Hx Asthma: No Hx Chronic Respiratory Disease: No Hx Diabetes: No Hx Cardiac Disease: No Hx Renal Disease: No Hx Cirrhosis: No Hx Alcoholism: No Hx HIV/AIDS: No Hx Splenectomy or Spleen Trauma: No Other PMH: TBI, BRAIN TUMOR,SEIZURE, SHUNT X 2, HYPOTHYROID, LACTOSE INTOL, PTSD , LEGALLY BLIND, FENG LEFT LEG, INCONTINENT, ASPIRATION PNEUMONIA, gen seizure disorder, adrenal insufficiency, depression, dysphagia - Social History Smoking Status: Never smoked Constitutional: Initial Vital Signs Temperature (C) 36.3 C 08/01/18 22:06 Heart Rate 87 08/01/18 22:06 Respiratory Rate 16 08/01/18 22:06 Blood Pressure 130/84 H 08/01/18 22:06 O2 Sat (%) 88 L 08/01/18 22:06 O2 Delivery Mode Room Air Allergies/Adverse Reactions: codeine [Codeine] Allergy (Intermediate, Verified 08/01/18 22:12) levofloxacin [From Levaquin] Allergy (Verified 08/01/18 22:12) milk [Milk] Allergy (Verified 08/01/18 22:12) morphine Allergy (Verified 08/01/18 22:12) Penicillins Allergy (Verified 08/01/18 22:12) vancomycin Allergy (Verified 08/01/18 22:12) Home Medications: Medication Instructions Recorded Chlorhexidine Gluconate [Peridex 15 ml PO TID 08/12/12 oral soln (*)] Levothyroxine [Synthroid 112 mcg 112 mcg PO DAILY06 08/12/12 (*)] Propylene Glycol/Peg 400 [SYSTANE 1 drop EACHEYE 5XD 08/12/12 0.3-0.4% EYE DROPS] Fluoride (Sodium) [Prevident 5000] 1 pratima DT TID 03/14/17 Dexamethasone 1.5 mg PO DAILY #30 tablet 03/20/17 Famotidine [Pepcid 20 MG (*)] 20 mg PO BID #60 tab 03/20/17 Magnesium Oxide [Magnesium Oxide 400 mg PO DAILY 07/23/17 400 mg (*)] Sodium Cl Nasal Gel [[place] Saline 1 pratima EACHNARE HS 07/23/17 Nasal Gel] Lacosamide [Vimpat 50 mg (*)] 100 mg PO BID 30 Days tab 07/27/17 Herbals/Supplements -Info Only 1 ea PO DAILY 08/29/17 Cholecalciferol Vit D3 [Vitamin D3 1,000 units PO DAILY 11/07/17 (*)] Calcium Carbonate [Oyster Shell 500 mg PO BID 07/16/18 Calcium 500 mg (*)] Acetaminophen [Tylenol Rectal] 650 mg CA Q4 PRN supp 07/22/18 cefTRIAXone 1 GM/DEXTROSE 1 gm IV Q24H #3 bag 07/22/18 [Rocephin 1 gm (Premix)] Medical Decision Making - Diagnostics Imaging Results: CT abdomen pelvis demonstrates cholelithiasis no cholecystitis, no constipation present, report provided by direct Radiology. 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 Intake. Here, her vital signs are normal, her abdominal exam is benign. Differential diagnosis includes constipation, bowel obstruction, gastroenteritis , recurrent UTI. Plan for IV fluids, basic labs, imaging. Patient received IV fluids. Labs were unremarkable. Imaging showed no constipation, rather gallstones. Patient does not have any abdominal tenderness and I doubt gallstones are contributing to her presentation. There was no signs of cholecystitis. She was observed and eventually was able to take fluids by mouth without difficulty. She does not require any laxatives given her CT scan does not show constipation. She will be discharged back to her skilled nursing with her caregiver. - Data Points Laboratory Results: Laboratory Results 08/01/18 22:49 08/01/18 22:49 08/01/18 08/01/18 08/01/18 23:45 22:49 22:49 WBC 8.28 10^3/uL 10^3/uL (3.80-9.50) RBC 5.52 10^6/uL H 10^6/uL (4.18-5.33) Hgb 16.6 g/dL H g/dL (12.6-16.3) Hct 52.0 % H % (38.0-47.0) MCV 94.2 fL fL (81.5-99.8) MCH 30.1 pg pg (27.9-34.1) MCHC 31.9 g/dL L g/dL (32.4-36.7) RDW 16.3 % H % (11.5-15.2) Plt Count 370 10^3/uL 10^3/uL (150-400) MPV 10.4 fL fL (8.7-11.7) Neut % (Auto) Not Reported Lymph % (Auto) Not Reported [place] % (Auto) Not Reported Eos % (Auto) Not Reported Baso % (Auto) Not Reported Nucleat RBC Rel Count Not Reported Absolute Neuts (auto) Not Reported Absolute Lymphs (auto) Not Reported Absolute Monos (auto) Not Reported Absolute Eos (auto) Not Reported Absolute Basos (auto) Not Reported Absolute Nucleated RBC Not Reported Immature Gran % Not Reported Seg Neutrophils % 89.0 % % Band Neutrophils % 0.0 % % Lymphocytes % 7.0 % % Monocytes % 3.0 % % Eosinophils % 1.0 % % Basophils % 0.0 % % Metamyelocytes % 0.0 % % Myelocytes % 0.0 % % Promyelocytes % 0.0 % % Blast Cells % 0.0 % % Immature Gran # Not Reported Absolute Seg Neuts 7.37 10^3/uL H 10^3/uL (1.70-6.50) Absolute Band Neuts 0.00 10^3/uL 10^3/uL (0.00-0.70) Absolute Lymphocytes 0.58 10^3/uL L 10^3/uL (1.00-3.00) Absolute Monocytes 0.25 10^3/uL L 10^3/uL (0.30-0.80) Absolute Eosinophils 0.08 10^3/uL 10^3/uL (0.03-0.40) Absolute Basophils 0.00 10^3/uL L 10^3/uL (0.02-0.10) Absolute Metamyelocyte 0.00 10^3/mL 10^3/mL (0.00-0.00) Absolute Myelocytes 0.00 10^3/mL 10^3/mL (0.00-0.00) Absolute Promyelocytes 0.00 10^3/uL 10^3/uL (0.00-0.00) Absolute Plasma Cells 0.00 10^3/uL 10^3/uL (0.00-0.00) Nucleated RBCs 0 /100 WBC /100 WBC (0-0) RBC/WBC/PLT Morphology NORMAL (NORMAL) Absolute Blast Cells 0.00 10^3/uL 10^3/uL (0.00-0.00) Plasma Cells % 0.0 % % Platelet Estimate ADEQUATE (ADEQ) Sodium 143 mEq/L mEq/L (135-145) Potassium 4.2 mEq/L mEq/L (3.5-5.2) Chloride 109 mEq/L mEq/L (97-110) Carbon Dioxide 30 mEq/l mEq/l (22-31) Anion Gap 4 mEq/L L mEq/L (6-14) BUN 27 mg/dL H mg/dL (7-23) Creatinine 0.6 mg/dL mg/dL (0.6-1.0) Estimated GFR > 60 Glucose 111 mg/dL H mg/dL (70-100) Calcium 9.6 mg/dL mg/dL (8.5-10.4) Total Bilirubin 0.5 mg/dL mg/dL (0.1-1.4) AST 38 IU/L IU/L (14-46) ALT 50 IU/L IU/L (9-52) Alkaline Phosphatase 112 IU/L IU/L (38-126) Total Protein 6.4 g/dL g/dL (6.3-8.2) Albumin 3.7 g/dL g/dL (3.5-5.0) Urine Color YELLOW Urine Appearance CLEAR Urine pH 6.0 (5.0-7.5) Ur Specific [place] 1.017 (1.002-1.030) Urine Protein NEGATIVE (NEGATIVE) Urine Ketones NEGATIVE (NEGATIVE) Urine Blood NEGATIVE (NEGATIVE) Urine Nitrate NEGATIVE (NEGATIVE) Urine Bilirubin NEGATIVE (NEGATIVE) Urine Urobilinogen NEGATIVE EU EU (0.2-1.0) Ur Leukocyte Esterase NEGATIVE (NEGATIVE) Urine Glucose NEGATIVE (NEGATIVE) Medications Given: Discontinued Medications Sodium Chloride (Ns) 1,000 mls @ 0 mls/hr IV EDNOW ONE; Wide Open PRN Reason: Protocol Stop: 08/01/18 22:46 Last Admin: 08/01/18 22:54 Dose: 1,000 mls Ondansetron HCl (Zofran) 4 mg IVP EDNOW ONE Stop: 08/01/18 22:46 Last Admin: 08/01/18 22:55 Dose: 4 mg Departure - Departure Disposition: Home, Routine, Self-Care Clinical Impression: Nausea, Poor fluid intake Condition: Good Instructions: Gallstones (ED) Additional Instructions: The testing today showed no constipation but did find gallstones in the gallbladder. Gallstones in the gallbladder cause pain after eating a meal which is fatty or greasy. I do not believe the gallstones are causing her symptoms today. Please make sure to maintain a bland diet until she is feeling better. If she has any ongoing symptoms she will need follow-up with the primary care doctor in 1-2 days. She should return to the ER if she is worse in any way. Referrals: NONE *PRIMARY CARE P,. [Primary Care Provider] - As per Instructions
[2018-08-02 01:16] VITALS: BP 107/79
== END 2018-08-02 01:49 | disposition home or self-care (01) ==
DX: R11.0 Nausea (principal); E86.9 Volume depletion, unspecified
CPT/HCPCS: 74177; 96361; 96374; 99285; J2405; Q9967

== ENCOUNTER 2018-08-17 09:16 | Inpatient (IN) | payer OTHER, MEDICAID ==
--- NOTE | 2018-08-17 09:36 | EDPHY ---
H & P Time Seen by Provider: 08/17/18 09:35 HPI/ROS: CHIEF COMPLAINT: Nausea and vomiting HISTORY OF PRESENT ILLNESS: Patient is a 43-year-old female with history of adrenal insufficiency brain tumor and cognitive disorder and no dysphagia and seizure disorder brought here by her caregiver from a snf after approximately 2-3 days of decreased oral intake and occasional spitting up of food and medication. She has had no fever, cough, runny nose, diarrhea. She has no history of bowel obstruction or abdominal surgeries. She was able to take her medications this morning but still has decreased oral intake. She has no sick exposures. REVIEW OF SYSTEMS: Constitutional: No fever, no chills. Eyes: No discharge. ENT: No sore throat. Cardiovascular: No chest pain, no palpitations. Respiratory: No cough, no shortness of breath. Gastrointestinal: No abdominal pain, + vomiting. Genitourinary: No hematuria. Musculoskeletal: No back pain. Skin: No rashes. Neurological: No headache. Smoking Status: Never smoked Physical Exam: General Appearance: no distress. ENT: normal dentition. No tonsillar exudate or swelling but posterior pharynx and tonsils are erythematous Eyes: Pupils equal and round no injection. Respiratory: Chest is nontender, lungs are clear to auscultation. Cardiac: regular rate and rhythm. No lower extremity edema Gastrointestinal: Abdomen is soft and nontender, no masses, bowel sounds normal. Musculoskeletal: Neck is supple and nontender. Skin: No rashes or lesions. Neuro: Cranial nerves grossly intact. Constitutional: Initial Vital Signs Temperature (C) 36.2 C 08/17/18 09:26 Heart Rate 111 H 08/17/18 09:26 Respiratory Rate 16 08/17/18 09:26 Blood Pressure 131/95 H 08/17/18 09:26 O2 Sat (%) 97 08/17/18 09:26 O2 Delivery Mode Room Air Allergies/Adverse Reactions: codeine [Codeine] Allergy (Intermediate, Verified 08/01/18 22:12) levofloxacin [From Levaquin] Allergy (Verified 08/01/18 22:12) milk [Milk] Allergy (Verified 08/01/18 22:12) morphine Allergy (Verified 08/01/18 22:12) Penicillins Allergy (Verified 08/01/18 22:12) vancomycin Allergy (Verified 08/01/18 22:12) Home Medications: Medication Instructions Recorded Chlorhexidine Gluconate [Peridex 15 ml PO TID 08/12/12 oral soln (*)] Levothyroxine [Synthroid 112 mcg 112 mcg PO DAILY06 08/12/12 (*)] Propylene Glycol/Peg 400 [SYSTANE 1 drop EACHEYE 5XD 08/12/12 0.3-0.4% EYE DROPS] Fluoride (Sodium) [Prevident 5000] 1 pratima DT TID 03/14/17 Dexamethasone 1.5 mg PO DAILY #30 tablet 03/20/17 Famotidine [Pepcid 20 MG (*)] 20 mg PO BID #60 tab 03/20/17 Magnesium Oxide [Magnesium Oxide 400 mg PO DAILY 07/23/17 400 mg (*)] Sodium Cl Nasal Gel [[place] Saline 1 pratima EACHNARE HS 07/23/17 Nasal Gel] Lacosamide [Vimpat 50 mg (*)] 100 mg PO BID 30 Days tab 07/27/17 Herbals/Supplements -Info Only 1 ea PO DAILY 08/29/17 Cholecalciferol Vit D3 [Vitamin D3 1,000 units PO DAILY 11/07/17 (*)] Calcium Carbonate [Oyster Shell 500 mg PO BID 07/16/18 Calcium 500 mg (*)] Medical Decision Making ED Course/Re-evaluation: 43-year-old female here with nausea and vomiting decreased oral intake for the last 3-4 days. She is found to be dehydrated with elevated sodium of 153. She was given IV fluids and remained hyponatremic. Additionally her TSH was quite low suggesting she is to too much levothyroxine. She does have adrenal insufficiency should be more admitted for further management. She is agreeable with this plan. I did discuss this with her medical power of cdl driver who agrees with admission. Additionally spent over 15 min on phone with her daughter answering all of her questions. - Data Points Laboratory Results: Laboratory Results 08/17/18 10:10 08/17/18 10:10 08/17/18 08/17/18 08/17/18 11:25 10:10 10:10 WBC RBC Hgb Hct MCV MCH MCHC RDW Plt Count MPV Neut % (Auto) Lymph % (Auto) [place] % (Auto) Eos % (Auto) Baso % (Auto) Nucleat RBC Rel Count Absolute Neuts (auto) Absolute Lymphs (auto) Absolute Monos (auto) Absolute Eos (auto) Absolute Basos (auto) Absolute Nucleated RBC Immature Gran % Immature Gran # Sodium 153 mEq/L H mEq/L (135-145) Potassium 4.3 mEq/L mEq/L (3.5-5.2) Chloride 121 mEq/L H mEq/L (97-110) Carbon Dioxide 28 mEq/l mEq/l (22-31) Anion Gap 4 mEq/L L mEq/L (6-14) BUN 32 mg/dL H mg/dL (7-23) Creatinine 0.8 mg/dL mg/dL (0.6-1.0) Estimated GFR > 60 Glucose 108 mg/dL H mg/dL (70-100) Calcium 9.7 mg/dL mg/dL (8.5-10.4) Total Bilirubin 0.5 mg/dL mg/dL (0.1-1.4) AST 59 IU/L H IU/L (14-46) ALT 81 IU/L H IU/L (9-52) Alkaline Phosphatase 161 IU/L H IU/L (38-126) Total Protein 6.1 g/dL L g/dL (6.3-8.2) Albumin 3.6 g/dL g/dL (3.5-5.0) TSH < 0.015 uIU/mL L uIU/mL (0.465-4.680) Urine Color YELLOW Urine Appearance CLEAR Urine pH 6.0 (5.0-7.5) Ur Specific [place] 1.019 (1.002-1.030) Urine Protein NEGATIVE (NEGATIVE) Urine Ketones 1+ H (NEGATIVE) Urine Blood NEGATIVE (NEGATIVE) Urine Nitrate NEGATIVE (NEGATIVE) Urine Bilirubin NEGATIVE (NEGATIVE) Urine Urobilinogen NEGATIVE EU EU (0.2-1.0) Ur Leukocyte Esterase NEGATIVE (NEGATIVE) Urine Glucose NEGATIVE (NEGATIVE) 08/17/18 10:10 WBC 9.00 10^3/uL 10^3/uL (3.80-9.50) RBC 5.64 10^6/uL H 10^6/uL (4.18-5.33) Hgb 17.3 g/dL H g/dL (12.6-16.3) Hct 55.2 % H % (38.0-47.0) MCV 97.9 fL fL (81.5-99.8) MCH 30.7 pg pg (27.9-34.1) MCHC 31.3 g/dL L g/dL (32.4-36.7) RDW 17.4 % H % (11.5-15.2) Plt Count 259 10^3/uL 10^3/uL (150-400) MPV 11.1 fL fL (8.7-11.7) Neut % (Auto) 86.0 % H % (39.3-74.2) Lymph % (Auto) 8.0 % L % (15.0-45.0) [place] % (Auto) 4.7 % % (4.5-13.0) Eos % (Auto) 0.0 % L % (0.6-7.6) Baso % (Auto) 0.4 % % (0.3-1.7) Nucleat RBC Rel Count 0.0 % % (0.0-0.2) Absolute Neuts (auto) 7.74 10^3/uL H 10^3/uL (1.70-6.50) Absolute Lymphs (auto) 0.72 10^3/uL L 10^3/uL (1.00-3.00) Absolute Monos (auto) 0.42 10^3/uL 10^3/uL (0.30-0.80) Absolute Eos (auto) 0.00 10^3/uL L 10^3/uL (0.03-0.40) Absolute Basos (auto) 0.04 10^3/uL 10^3/uL (0.02-0.10) Absolute Nucleated RBC 0.00 10^3/uL 10^3/uL (0-0.01) Immature Gran % 0.9 % % (0.0-1.1) Immature Gran # 0.08 10^3/uL 10^3/uL (0.00-0.10) Sodium Potassium Chloride Carbon Dioxide Anion Gap BUN Creatinine Estimated GFR Glucose Calcium Total Bilirubin AST ALT Alkaline Phosphatase Total Protein Albumin TSH Urine Color Urine Appearance Urine pH Ur Specific [place] Urine Protein Urine Ketones Urine Blood Urine Nitrate Urine Bilirubin Urine Urobilinogen Ur Leukocyte Esterase Urine Glucose Medications Given: Discontinued Medications Sodium Chloride (Ns) 1,000 mls @ 0 mls/hr IV EDNOW ONE; Wide Open PRN Reason: Protocol Stop: 08/17/18 09:47 Last Admin: 08/17/18 10:14 Dose: 1,000 mls Sodium Chloride (Ns) 500 mls @ 0 mls/hr IV EDNOW ONE; Wide Open PRN Reason: Protocol Stop: 08/17/18 11:17 Last Admin: 08/17/18 11:40 Dose: 500 mls Ondansetron HCl (Zofran Odt) 4 mg PO ONCE ONE Stop: 08/17/18 09:47 Last Admin: 08/17/18 10:37 Dose: Not Given Ondansetron HCl (Zofran) 4 mg IVP EDNOW ONE Stop: 08/17/18 10:37 Last Admin: 08/17/18 10:45 Dose: 4 mg Departure - Departure Disposition: [facility]
[2018-08-17] MEDS ORDERED: NS 1,000 ML IV ONE ×2 (09:46→13:57)
[2018-08-17] MEDS ORDERED: ONDANSETRON DISINTEGRATING 4 MG TAB PO ONE (09:46)
[2018-08-17 10:27] LABS: PLATELET COUNT 259 10^3/uL (150-400)
[2018-08-17] MEDS ORDERED: ONDANSETRON 4 MG/2 ML VIAL IVP ONE (10:36)
[2018-08-17] MEDS ORDERED: NS 500 ML IV ONE (11:16)
[2018-08-17] MEDS ORDERED: ONDANSETRON 4 MG/2 ML VIAL IVP PRN (13:44)
[2018-08-17] MEDS ORDERED: ONDANSETRON DISINTEGRATING 4 MG TAB PO PRN (13:44)
[2018-08-17] MEDS ORDERED: ACETAMINOPHEN 325 MG TAB PO PRN (13:44)
[2018-08-17] MEDS ORDERED: D5W 1/2 NS 1,000 ML IV SCH (13:45)
--- NOTE | 2018-08-17 14:36 | GHP ---
[f rep st] HISTORY AND PHYSICAL DATE OF ADMISSION: 08/17/2018 Ms. 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 She has remained cognitively impaired since. She present s to the hospital today with several days of poor p.o. intake, spitting out food. She has not had fever or chills. She was seen in our emergency department about 2-1/2 weeks ago with constipation and poor p.o. intake. She had a CT at that time of her abdomen showing a large gallsto ne as well as a horseshoe kidney. She has been having bowel movements about every 4 days, which is uncommon for her. Typically, at her baseline, she is able to relay her needs. When I see the patient, she is alert but does not particularly respond to me and is unable to answer questions. I have not taken care of thi s patient during previous hospitalizations. REVIEW OF SYSTEMS: Complete 10-point review of systems conducted and negative except as noted in the HPI. PAST MEDICAL HISTORY: 1. Astroglioma, status post HEARING AID REPAIR TECHNICIAN shunt. 2. Seizure disorder. 3. Hypertension. 4. Legally blind. 5. Cognitive dysfunction. 6. 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 7. Recent admission for Proteus sepsis. ALLERGIES: Penicillin, vancomycin, levofloxacin. HOME MEDICATIONS: Tylenol, calcium carbonate, chlorhexidine oral solution, vitamin D3, dexamethasone , famotidine, fluoride topical dental, lacosamide, levothyroxine 112, mag oxide, propylene glycol eye drops, nasal gel for her nose. SOCIAL HISTORY: Court appointed guardian. She is do not resuscitate. Father and brother visit her, but are not decision makers. She lives at the [facility]. FAMILY HISTORY: Father is healthy at the bedside. PHYSICAL EXAM: Presenting vitals today, blood pressure 131/95, pulse 111, typically in the 70s, savanna thing 16 times a minute, 97% on room air. GENERAL: No acute distress. HEENT: Mucous membranes are dry. NECK: Supple without lymphadenopathy or JVD. LUNGS: Clear to auscultation anterolaterally. HEART: S1, S2. Borderline tachycardic when I see her. ABDOMEN: Soft, nontender. There is no Mur phy sign. There is no rebound or guarding. EXTREMITIES: Lower extremities without edema. Muscle w asting. She does not walk. Her wheelchair is present at the bedside. NEUROLOGIC: The patient is a lert, but encephalopathic. LABORATORY DATA: Sodium is elevated at 153. This is new for her. Potassium 4.3, chloride 121, bica rb 28, BUN 32, creatinine 0.8. AST 59, ALT 81, alk phosphatase 161, bilirubin is 0.5. TSH is less t willis 0.015, which is chronic for her. White count 9, hematocrit 55, platelets 259,000. I have discussed the case with PONCHO Wei. ASSESSMENT/PLAN: A 43-year-old female with hyponatremia and concern for cholecystitis. 1. Hyponatremia: This is secondary to poor p.o. intake. This is a marker on her ability to defend p.o. intake. I think she is hypovolemic, so I am going to give her some normal saline now but will f ollow that with D5 half-normal at 100 an hour and follow it q.6h with a goal of having it about in th e mid to high 140s by tomorrow morning. I suspect this is an acute event. 2. Query cholecystitis. She has 1 known large gallstone and newly elevated LFTs. We will perform a right upper quadrant ultrasound. Adult protective service is her power of disability attorney. If there is ne ed for surgical intervention, this will be pursued. 3. History of seizure disorder. We will continue her medications. 4. Chronically low TSH. I suspect she has panhypopituitarism. I will check a T3 and T4, and if tho se are normal that sort of makes that diagnosis. 5. Adrenal insufficiency. Continue her medications. Hypernatremia is not driven by endocrine dysfu nction in this patient. DISPOSITION: Inpatient status. PROPHYLAXIS: SCDs. /[id number]/MODL
--- NOTE | 2018-08-17 16:34 | PDMN ---
Medical Necessity Medical necessity: [facility] General Admission: 43 yo w/ hx astroglioma s/p YARDING SUPERVISOR shunt as a child w/ cognitive impairment presents w/ several days poor PO intake and worsening encephalopathy. Further eval reveals hypernatremia w/ Na+ 153, elevated LFTs (new) w/ known large gallstone and tachy 111. Anticipate> 2MN for ongoing dx testing, monitoring and tx of the above. Meets IP criteria for CGGAC w/ hemodynamic instability and severe electrolyte imbalance w/ AMS. 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
[2018-08-17] MEDS: TEARS/DEXTRAN 70/HYPROMELLOSE 15 ML OPHT.BTL EACHEYE SCH ×2 (18:00→22:57)
[2018-08-17] MEDS: FAMOTIDINE 20 MG TAB PO SCH (22:56)
[2018-08-17] MEDS: CHLORHEXIDINE GLUCONATE 15 ML UDL PO SCH (22:56)
[2018-08-17] MEDS: FLUORIDE DT SCH (23:02)
[2018-08-17] MEDS: LACOSAMIDE 50 MG TAB PO SCH (23:02)
[2018-08-17] MEDS ORDERED: D5W 1/4 NS W/ 20 KCl/L 1,000 ML IV SCH (23:15)
[2018-08-18] MEDS ORDERED: LEVOTHYROXINE 112 MCG TAB PO SCH (06:00)
[2018-08-18 06:03] LABS: PLATELET COUNT 170 10^3/uL (150-400)
[2018-08-18] MEDS: TEARS/DEXTRAN 70/HYPROMELLOSE 15 ML OPHT.BTL EACHEYE SCH ×5 (06:24→23:08)
[2018-08-18] MEDS ORDERED: NS 500 ML IV ONE (07:36)
--- NOTE | 2018-08-18 09:09 | HOSPPROG ---
Hospitalist Progress Note Assessment/Plan: # hyperNa - suspect poor intake - may have been triggered by coronavirus - change to 1/2NS today (from 1/4NS) - check Q8 Na # coronavirus # panhypopituitary - cont decadron 15 daily - elevated T4 - will decrease LT4 from 112->100mcg # cognitive delay - lives at [facility] - has court appointed decision maker # seizure disorder - vimpat Subjective: Lying in bed, appears comfortable; does not appear to want me to examine her Objective: Vital Signs Temp Pulse Resp BP Pulse Ox 36.2 C 67 16 83/39 L 93 08/18/18 07:31 08/18/18 07:31 08/18/18 07:31 08/18/18 07:40 08/18/18 07:31 Microbiology 08/17/18 15:42 Respiratory Panel (PCR) - Final Nasal, Sinus - Swab Coronavirus 229E Detected Laboratory Results 08/18/18 05:15 08/18/18 05:15 08/17/18 08/18/18 08/19/18 05:59 05:59 05:59 Intake Total 2500 Output Total 250 Balance 2250 chart reviewed US reviewed - Physical Exam Constitutional: not in pain, chronically ill appearing Eyes: anicteric sclera Ears, Nose, Mouth, Throat: hearing normal Cardiovascular: No edema Respiratory: no respiratory distress Gastrointestinal: No distension Genitourinary: No ellington in urethra Skin: No rash Neurologic: No weakness ICD10 Worksheet Patient Problems: Problems Problem Status Onset Pneumonia Acute Sepsis Acute Palliative care encounter Acute Seizure disorder Acute Seizure Acute Urinary tract infection Acute
[2018-08-18] MEDS ORDERED: D5W 1/2 NS 1,000 ML IV SCH (09:15)
[2018-08-18] MEDS: FAMOTIDINE 20 MG TAB PO SCH ×2 (13:44→23:02)
[2018-08-18] MEDS: DEXAMETHASONE 1.5 MG TAB PO SCH (13:44)
[2018-08-18] MEDS: FLUORIDE DT SCH ×3 (13:44→23:30)
[2018-08-18] MEDS: CHOLECALCIFEROL VIT D3 1,000 UNITS TAB PO SCH (13:44)
[2018-08-18] MEDS: CHLORHEXIDINE GLUCONATE 15 ML UDL PO SCH ×3 (13:44→23:02)
[2018-08-18] MEDS: LACOSAMIDE 50 MG TAB PO SCH ×2 (13:45→23:02)
[2018-08-18] MEDS: MAGNESIUM OXIDE 400 MG TAB PO SCH (13:45)
--- NOTE | 2018-08-18 16:32 | ASMTCMCOM ---
CM Note CM Note Notes: Pt admitted to hospital for dehydration. She lives at [facility] and is cognitively impaired since childhood. She has a guardian. Her father and brother visit her. DC Plan: [facility] Date Signed: 08/18/2018 04:31 PM Electronically Signed By:Merline Lewis RN
[2018-08-19] MEDS ORDERED: D5W 1/4 NS W/ 20 KCl/L 1,000 ML IV SCH (05:00)
[2018-08-19] MEDS: LEVOTHYROXINE 50 MCG TAB PO SCH (05:03)
[2018-08-19] MEDS: TEARS/DEXTRAN 70/HYPROMELLOSE 15 ML OPHT.BTL EACHEYE SCH ×5 (05:03→21:31)
[2018-08-19 05:43] LABS: PLATELET COUNT 189 10^3/uL (150-400)
[2018-08-19] MEDS: MAGNESIUM OXIDE 400 MG TAB PO SCH (09:24)
[2018-08-19] MEDS: CHOLECALCIFEROL VIT D3 1,000 UNITS TAB PO SCH (09:24)
[2018-08-19] MEDS: DEXAMETHASONE 1.5 MG TAB PO SCH (09:24)
[2018-08-19] MEDS: FAMOTIDINE 20 MG TAB PO SCH ×2 (09:24→21:31)
[2018-08-19] MEDS: FLUORIDE DT SCH ×3 (09:25→23:32)
[2018-08-19] MEDS: LACOSAMIDE 50 MG TAB PO SCH ×2 (10:21→21:30)
[2018-08-19] MEDS: CHLORHEXIDINE GLUCONATE 15 ML UDL PO SCH ×3 (10:21→21:31)
--- NOTE | 2018-08-19 10:24 | GCON ---
[f rep st] CONSULTATION REFERRING PHYSICIAN: Mustapha Scott MD REASON FOR CONSULTATION: Gallstone. 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 She does have a seizure disorder. She is legally blind and has cognitive dysfunction. She also has adrenal insufficiency and hypertension. She has a coronavirus infection. She was admitted and found to have mildly elevated transaminases. Evaluation did show a gallstone on a CT at the end of July. Ultrasound attempted at this institution could not be performed because it was "gassed out" in the right upper quadrant. She does not have positive Uribe sign on admission. A HIDA scan was performed, which showed nonvisualization of the gallbladder. On followup, attempted an ultrasound and again was unsuccessful. She continues to have mild complaints of abdominal and body tenderness, but no Uribe sign to my exam at this point. White count has remained in the normal range. Her platelet count remains in normal range. Her alkaline phosphatase has remained in the normal range. Her ALT is in the mid 50s. Her AST is in the 34 to 39 range. Glucose is low at 57. Her lipase is normal. I have seen her last night in consultation and again this morning to complete the process. I do not find any signs of an acute abdomen. Her past medical history is well summarized in the chart, as are her medications and allergies. In spite of the fact that she had nonvisualization of her gallbladder, I think her gallstone is an innocent bystander and perhaps we can ascribe her minimally elevated transaminases to an alternate cause, such as her viral infection. I suggest we try a diet and see if she continues to improve. As long as she does, I think we can ignore the gallbladder as an interesting, but unrelated finding. Certainly if she worsens, then reevaluation will be carried out and consideration will be brought forward for possible cholecystectomy. /[id number]/MODL MTDD
--- NOTE | 2018-08-19 14:36 | HOSPPROG ---
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 - elevated T4 - will decrease LT4 from 112->100mcg # cognitive delay - lives [facility] - has court appointed decision maker # seizure disorder - vimpat Subjective: doing better; seen with her parents - limited information shared per her guardian's request Objective: Vital Signs Temp Pulse Resp BP Pulse Ox 36.2 C 79 14 97/61 L 94 08/19/18 11:36 08/19/18 11:36 08/19/18 11:36 08/19/18 11:36 08/19/18 11:36 Laboratory Results 08/19/18 05:28 08/19/18 05:28 08/18/18 08/19/18 08/20/18 05:59 05:59 05:59 Intake Total 2500 990 Output Total 250 850 Balance 2250 140 - Physical Exam Constitutional: no apparent distress, appears nourished Cardiovascular: regular rate and rhythym, no murmur, rub, or gallop Respiratory: no respiratory distress, no rales or rhonchi, clear to auscultation Gastrointestinal: normoactive bowel sounds, soft, non-tender abdomen, no palpable masses ICD10 Worksheet Patient Problems: Problems Problem Status Onset Pneumonia Acute Sepsis Acute Palliative care encounter Acute Seizure disorder Acute Seizure Acute Urinary tract infection Acute
--- NOTE | 2018-08-19 15:23 | ASMTCMCOM ---
CM Note CM Note Notes: Spoke w/caregiver Varsha at [facility] where pt resides. Per SAP PI DEVELOPER, pt is at baseline and can return to residence. Caregiver is concerned that pt is not able to stay adequately hydrated. She has lost 20lbs since last admission, wondering if there are other recommendations, such as a feeding tube or engaging Palliative. CM will discuss with MD. Caregiver may not be able to come tomorrow to evaluate but can come Thursday, will let CM know. DC Plan: [facility] Date Signed: 08/19/2018 03:23 PM Electronically Signed By:Merline Lewis RN
--- NOTE | 2018-08-19 15:57 | ASMTCMCOM ---
CM Note CM Note Notes: Spoke w/, discussed caregivers concerns, agrees that may warrant palliative consult. CM notified pt's guardian who agrees with plan, called and left message for caregiver, NASIM Plan: TBD Date Signed: 08/19/2018 03:56 PM Electronically Signed By:Merline Lewis RN
[2018-08-20] MEDS: LEVOTHYROXINE 50 MCG TAB PO SCH (06:07)
[2018-08-20] MEDS: TEARS/DEXTRAN 70/HYPROMELLOSE 15 ML OPHT.BTL EACHEYE SCH ×5 (06:07→20:31)
[2018-08-20] MEDS: DEXAMETHASONE 1.5 MG TAB PO SCH (09:11)
[2018-08-20] MEDS: CHLORHEXIDINE GLUCONATE 15 ML UDL PO SCH ×3 (09:12→20:30)
[2018-08-20] MEDS: FAMOTIDINE 20 MG TAB PO SCH ×2 (09:12→20:30)
[2018-08-20] MEDS: MAGNESIUM OXIDE 400 MG TAB PO SCH (09:12)
[2018-08-20] MEDS: LACOSAMIDE 50 MG TAB PO SCH ×2 (09:12→20:30)
[2018-08-20] MEDS: CHOLECALCIFEROL VIT D3 1,000 UNITS TAB PO SCH (09:12)
[2018-08-20] MEDS: FLUORIDE DT SCH ×3 (09:13→20:28)
--- NOTE | 2018-08-20 14:20 | HOSPPROG ---
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 Her decision maker has been very difficult to reach today. Palliative Care is attempting to discuss goals and get clarification on her desires. If they would like, Dr. Mcmahan is willing to perform a cholecystectomy tomorrow. Case management is also involved. Subjective: Patient ate about 75% of her breakfast; does not appear to have pain after she eats Objective: Vital Signs Temp Pulse Resp BP Pulse Ox 36.6 C 90 14 118/74 94 08/20/18 11:22 08/20/18 11:22 08/20/18 11:22 08/20/18 11:22 08/20/18 11:22 Laboratory Results 08/19/18 05:28 08/20/18 04:55 08/19/18 08/20/18 08/21/18 05:59 05:59 05:59 Intake Total 990 150 Output Total 850 1900 Balance 140 -1750 - Time Spent With Patient Time Spent with Patient: greater than 35 minutes Time Spent with Patient: Greater than 35 minutes spent on this patients care, greater than 50% of time spent counseling, educating, and coordinating care regarding the above mentioned plan. - Physical Exam Constitutional: no apparent distress, appears nourished, other (Lying in bed) ICD10 Worksheet Patient Problems: Problems Problem Status Onset Pneumonia Acute Sepsis Acute Palliative care encounter Acute Seizure disorder Acute Seizure Acute Urinary tract infection Acute
[2018-08-20] MEDS: NS 1,000 ML IV SCH (16:49)
--- NOTE | 2018-08-20 17:08 | ASMTCMCOM ---
CM Note CM Note Notes: The palliative team arranged for a consult with with Mariah (guardian), father, and brother for Thursday. In light of decisions needing to be made today, called guardian about whether or not to move forward with gallbladder surgery. She urged MD to call brother and father to discuss. As of now, surgery will wait until pt can get other medical issues resolved. MD suggests pt get updated swallow eval and transfer to SNF to continue hydration. CM will send a referral to [facility], where pt was recently. SHAMAR will notify [facility] Plan: SNF Date Signed: 08/20/2018 05:07 PM Electronically Signed By:Merline Lewis RN
[2018-08-21] MEDS: NS 1,000 ML IV SCH ×2 (04:34→15:27)
[2018-08-21] MEDS: LEVOTHYROXINE 50 MCG TAB PO SCH (05:22)
[2018-08-21] MEDS: TEARS/DEXTRAN 70/HYPROMELLOSE 15 ML OPHT.BTL EACHEYE SCH ×5 (05:22→21:05)
[2018-08-21] MEDS: FAMOTIDINE 20 MG TAB PO SCH ×2 (09:28→21:02)
[2018-08-21] MEDS: CHOLECALCIFEROL VIT D3 1,000 UNITS TAB PO SCH (09:28)
[2018-08-21] MEDS: MAGNESIUM OXIDE 400 MG TAB PO SCH (09:28)
[2018-08-21] MEDS: LACOSAMIDE 50 MG TAB PO SCH ×2 (09:28→21:02)
[2018-08-21] MEDS: CHLORHEXIDINE GLUCONATE 15 ML UDL PO SCH ×3 (09:28→21:01)
[2018-08-21] MEDS: DEXAMETHASONE 1.5 MG TAB PO SCH (09:28)
[2018-08-21] MEDS: FLUORIDE DT SCH ×3 (09:34→19:13)
--- NOTE | 2018-08-21 16:35 | HOSPPROG ---
Hospitalist Progress Note Assessment/Plan: DIAGNOSES: # hyperNa - suspect poor intake, improved by hydration - may have been triggered by coronavirus - have also considered cholecystitis # acute coronavirus infection # abnormal LFTs, 20# wt loss in last 1-2 months - nonvisualization of gallbladder on both ultrasound and HIDA scan with no prior surgery - given the objective findings, i think cholecystectomy is the best option - discussed with dr mcmahan who agrees # iatrogenic hyperthyroidism with undetectable TSH and elevated free T4; -unclear what role this has in any of her symptoms, but consider that it might potentially be related in some weight her weight loss # 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 Among things discussed was the possibility of feeding tube placement and the father has determined that they would not want a feeding tube placed at this time. To clarify I did review the range of possibilities including that the patient's symptoms all resolved as her baker virus and thyroid issues resolve, and that she starts eating normally again and regains her weight and maintains good nutrition but also the possibility that despite resolution of her infection, and her excessive thyroid replacement, she might have some other problem interfering with food intake including either her gallbladder or other issues. In that case if she continues to lose weight she would eventually become severely malnourished and probably not survive or at least be harmed in significant ways. He would not consider this possibility, and does not have an answer at this moment for whether he would want a feeding tube in that situation or not. He is looking for to palliative consultation 2 days from now on Thursday. SUBJECTIVE: At this point I am unable to get much information from the patient at all to do any symptom assessment, but the father's able to determine that she has a sore throat. Father is at the bedside at this time and has been attempting to feed the patient today and finding that she is not swallowing any food, allowing it to pool in her mouth. He has not noticed any coughing. (at this time at the bedside the patient opens her mouth for me and she indeed has a mild quite full of putting that he has been feeding her. She is unable to swallow at at this time though I am unable to determine precisely why. The father has cleared the putting out of her mouth with a spoon and washcloth at this time) OBJECTIVE Vitals reviewed: All stable without fever Sleeve Turner, my review: Exam: alert and responsive, not really effectively conversant; appears reasonably relaxed As I described the patient during my exam has a mouth full of food that she has been unable swallow. Even after with clear that food out I do not see any signs of pharyngitis or other throat abnormalities. She is not doing any throat clearing or coughing or other signs of aspirating during my visit. skin warm dry color ok resps not labored lungs clear BSs heart regular abd soft nondistended nontender, bowel sounds present limbs warm, no edema iv site ok Lab data: A bit less hyperchloremic on Chem panel, albumin down a bit lower today from yesterday Rest of chemistry panel stable Objective: Vital Signs Temp Pulse Resp BP Pulse Ox 36.3 C 69 14 117/73 96 08/21/18 16:00 08/21/18 16:00 08/21/18 16:00 08/21/18 16:00 08/21/18 16:00 Laboratory Results 08/19/18 05:28 08/21/18 05:21 08/20/18 08/21/18 08/22/18 06:59 06:59 06:59 Intake Total 150 150 236 Output Total 1900 50 Balance -1750 100 236 - Time Spent With Patient Time Spent with Patient: greater than 35 minutes Time Spent with Patient: Greater than 35 minutes spent on this patients care, greater than 50% of time spent counseling, educating, and coordinating care regarding the above mentioned plan. ICD10 Worksheet Patient Problems: Problems Problem Status Onset Palliative care encounter Acute Pneumonia Acute Seizure Acute Seizure disorder Acute Sepsis Acute Urinary tract infection Acute
--- NOTE | 2018-08-21 17:28 | ASMTCMCOM ---
CM Note CM Note Notes: Met with caregiver Varsha, who came to visit pt from [facility] where pt resides. She was upset and felt that she should be included in pt's care decisions. CM expressed that yesterday, decisions needed to be made for pt concerning gallbladder surgery and whether to move forward or not and that it took the better part of the day to get a hold of the guardian Mariah. We talked about clear guidelines for future decisions and communications to avoid this confusion. She will discuss with guardian. Notified Varsha that a Palliative consult has been arranged for Thursday but that she should confirm with Mariah. Varsha also requested that if it is not necessary, that pt should return to [facility]. Informed her that pt will need a f/u with an power wheelchair mechanic. DC Plan: [facility] vs SNF/ [facility] Date Signed: 08/21/2018 05:27 PM Electronically Signed By:Merline Lewis RN
[2018-08-22] MEDS: TEARS/DEXTRAN 70/HYPROMELLOSE 15 ML OPHT.BTL EACHEYE SCH ×5 (04:52→20:46)
[2018-08-22] MEDS: LEVOTHYROXINE 50 MCG TAB PO SCH (04:52)
[2018-08-22] MEDS: CHLORHEXIDINE GLUCONATE 15 ML UDL PO SCH ×3 (08:04→20:45)
[2018-08-22] MEDS: CHOLECALCIFEROL VIT D3 1,000 UNITS TAB PO SCH (08:05)
[2018-08-22] MEDS: MAGNESIUM OXIDE 400 MG TAB PO SCH (08:05)
[2018-08-22] MEDS: LACOSAMIDE 50 MG TAB PO SCH ×2 (08:05→20:45)
[2018-08-22] MEDS: FLUORIDE DT SCH ×3 (08:05→20:46)
[2018-08-22] MEDS: FAMOTIDINE 20 MG TAB PO SCH ×2 (08:05→20:45)
[2018-08-22] MEDS: DEXAMETHASONE 1.5 MG TAB PO SCH (08:05)
--- NOTE | 2018-08-22 14:54 | HOSPPROG ---
Hospitalist Progress Note Assessment/Plan: DIAGNOSES: # acute coronavirus infection # failure to thrive at home in part due to above and below issues # acute hyperNa - suspect poor intake, improved by hydration w saline # abnormal LFTs, 20# wt loss in last 1-2 months - diagnostic considerations include: esophageal disorder with poor intake/ retention of foods, cholecystitis, hyperthyroidsim, other causes possible - nonvisualization of gallbladder on both ultrasound and HIDA scan with no prior surgery # iatrogenic hyperthyroidism with undetectable TSH and elevated free T4; -unclear what role this has in any of her symptoms, but consider that it might potentially be related in some way to her weight loss # panhypopituitary # cognitive delay - lives at [facility] - does interfere with symptom assessment to some degree - has court appointed decision maker # seizure disorder, chronic stable - vimpat # goals of care: The patient's court appointed decision maker has at this point decided to allow the father and son to make decisions for the patient during this hospitalization which we are doing. PLANS: - continue hydration - continue efforts to feed her, nutritional supplements - will attempt to do a barium swallow over next couple days depending on sore throat symptoms - continue lower dose of thyroid replacement, will need repeat thyroid testing - continue her usual doses of other hormone replacement - continue vimpat - have disucssed cholecystectomy with pt's family but they do not want to have her go thru surgery at present - at this time the family does not want to use a feeding tube, but would reassess if pt has ongoing failure to nourish SUBJECTIVE: family not at bedside during my visit today, and patient does not speak with me so I cant assess symptoms directly she does however cooperate with exam (opens mouth for oral exam, pulls blanket down for exam, etc) Her nurse tells me that for dinner last florencia and breakfast today she ate 1/2 of each meal and swallowed without problems (mentions the patient seems to prefer to skip lunch), but also that after finishing each meal a moderated amount of the food swallowed is regurgitated. OBJECTIVE Vitals reviewed: All stable without fever Hospital Educator, my review: Exam: alert and responsive, not really effectively conversant; appears reasonably relaxed As I described the patient during my exam has a mouth full of food that she has been unable swallow. Even after with clear that food out I do not see any signs of pharyngitis or other throat abnormalities. She is not doing any throat clearing or coughing or other signs of aspirating during my visit. skin warm dry color ok resps not labored lungs clear BSs heart regular abd soft nondistended nontender, bowel sounds present limbs warm, no edema iv site ok Lab data: A bit less hyperchloremic on Chem panel, albumin down a bit lower today from yesterday Rest of chemistry panel stable Objective: Vital Signs Temp Pulse Resp BP Pulse Ox 35.9 C L 65 18 101/68 100 08/22/18 07:26 08/22/18 07:26 08/22/18 07:26 08/22/18 07:26 08/22/18 07:26 Laboratory Results 08/19/18 05:28 08/21/18 05:21 08/21/18 08/22/18 08/23/18 06:59 06:59 06:59 Intake Total 150 1547 200 Output Total 50 800 Balance 100 747 200 ICD10 Worksheet Patient Problems: Problems Problem Status Onset Palliative care encounter Acute Pneumonia Acute Seizure Acute Seizure disorder Acute Sepsis Acute Urinary tract infection Acute
[2018-08-22] MEDS: NS 1,000 ML IV SCH (16:05)
[2018-08-23] MEDS: LEVOTHYROXINE 50 MCG TAB PO SCH (05:27)
[2018-08-23] MEDS: TEARS/DEXTRAN 70/HYPROMELLOSE 15 ML OPHT.BTL EACHEYE SCH ×5 (05:27→21:55)
[2018-08-23] MEDS: FAMOTIDINE 20 MG TAB PO SCH ×2 (10:14→21:55)
[2018-08-23] MEDS: CHOLECALCIFEROL VIT D3 1,000 UNITS TAB PO SCH (10:14)
[2018-08-23] MEDS: LACOSAMIDE 50 MG TAB PO SCH ×2 (10:14→21:55)
[2018-08-23] MEDS: MAGNESIUM OXIDE 400 MG TAB PO SCH (10:14)
[2018-08-23] MEDS: DEXAMETHASONE 1.5 MG TAB PO SCH (10:14)
[2018-08-23] MEDS: CHLORHEXIDINE GLUCONATE 15 ML UDL PO SCH ×3 (10:21→21:55)
[2018-08-23] MEDS: NS 1,000 ML IV SCH ×2 (10:21→21:30)
[2018-08-23] MEDS: FLUORIDE DT SCH ×3 (10:22→21:56)
--- NOTE | 2018-08-23 17:51 | HOSPPROG ---
Hospitalist Progress Note Assessment/Plan: DIAGNOSES: # acute coronavirus infection # failure to thrive at home in part due to above and below issues # acute hyperNa - suspect poor intake, improved by hydration w saline # abnormal LFTs, 20# wt loss in last 1-2 months - diagnostic considerations include: esophageal disorder with poor intake/ retention of foods, cholecystitis, hyperthyroidsim, other causes possible - nonvisualization of gallbladder on both ultrasound and HIDA scan with no prior surgery is noted # iatrogenic hyperthyroidism with undetectable TSH and elevated free T4; -unclear what role this has in any of her symptoms, but consider that it might potentially be related in some way to her weight loss # panhypopituitary # cognitive delay - lives at [facility] - does interfere with symptom assessment to some degree - has court appointed decision maker # seizure disorder, chronic stable - vimpat # goals of care: The palliative care consult team did meet today with the patient's family, and goals of care were discussed. At this time the patient's family is wishing to avoid use of any feeding tubes or any surgeries. PLANS: - continue hydration - continue efforts to feed her, nutritional supplements - I will attempt again to talk with family with consideration of either a barium esophageal study or upper endoscopy to assess her swallowing if they are interested in that assessment - continue lower dose of thyroid replacement, repeat thyroid studies tomorrow - repeat sodium level tomorrow - continue her usual doses of other hormone replacement - continue vimpat SUBJECTIVE: Again during my 2 visits with the patient today family is not at the bedside. Also again she does not converse with me in so I am unable to assess symptoms directly from her. Today her nurse tells me that she has been eating again about half or more of each meal, not having any particular difficulty swallowing. Today the nurse has not noted any regurgitation per se. 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 Even after with clear that food out I do not see any signs of pharyngitis or other throat abnormalities. She is not doing any throat clearing or coughing or other signs of aspirating during my visit. skin warm dry color ok resps not labored lungs clear BSs heart regular abd soft nondistended nontender, bowel sounds present limbs warm, no edema iv site ok Lab data: A bit less hyperchloremic on Chem panel, albumin down a bit lower today from yesterday Rest of chemistry panel stable Objective: Vital Signs Temp Pulse Resp BP Pulse Ox 35.5 C L 58 L 16 111/61 96 08/23/18 16:00 08/23/18 16:00 08/23/18 16:00 08/23/18 16:00 08/23/18 16:00 Laboratory Results 08/19/18 05:28 08/21/18 05:21 08/22/18 08/23/18 08/24/18 06:59 06:59 06:59 Intake Total 1547 1401 Output Total 800 1400 Balance 747 1 ICD10 Worksheet Patient Problems: Problems Problem Status Onset Pneumonia Acute Sepsis Acute Palliative care encounter Acute Seizure disorder Acute Seizure Acute Urinary tract infection Acute
[2018-08-24] MEDS: TEARS/DEXTRAN 70/HYPROMELLOSE 15 ML OPHT.BTL EACHEYE SCH ×5 (05:26→22:03)
[2018-08-24] MEDS: LEVOTHYROXINE 50 MCG TAB PO SCH (05:26)
[2018-08-24] MEDS: NS 1,000 ML IV SCH ×2 (08:30→19:25)
[2018-08-24] MEDS: FLUORIDE DT SCH ×3 (08:32→22:04)
[2018-08-24] MEDS: DEXAMETHASONE 1.5 MG TAB PO SCH (08:32)
[2018-08-24] MEDS: LACOSAMIDE 50 MG TAB PO SCH ×2 (08:32→22:03)
[2018-08-24] MEDS: MAGNESIUM OXIDE 400 MG TAB PO SCH (08:38)
[2018-08-24] MEDS: CHOLECALCIFEROL VIT D3 1,000 UNITS TAB PO SCH (08:38)
[2018-08-24] MEDS: FAMOTIDINE 20 MG TAB PO SCH ×2 (10:40→22:03)
[2018-08-24] MEDS: CHLORHEXIDINE GLUCONATE 15 ML UDL PO SCH ×3 (10:40→22:03)
--- NOTE | 2018-08-24 14:07 | ASMTCMCOM ---
CM Note CM Note Notes: Made a Palliative referral to [facility] per Ramirez's request. Spoke with patient's brother to explain the patient does not qualify for SNF rehab currently. Will does not want her to return to [facility] at this time due to her medical needs which he thinks are too much for [facility] and will be a readmit to the hospital. Agreed to talk to Dr. Starks and see if he can visit with them before Will has to leave for work. Dr. Starks was able to speak with them and states the plan for now is to monitor the patient's food and fluid intake to see what patient is successful taking in. Dr. Starks will also call patient's soap chipper to discuss the families concerns. We will reassess when we have some results back. CM will follow. Date Signed: 08/24/2018 02:06 PM Electronically Signed By:Summer Darling LCSW
[2018-08-25] MEDS: TEARS/DEXTRAN 70/HYPROMELLOSE 15 ML OPHT.BTL EACHEYE SCH ×5 (05:40→20:17)
[2018-08-25] MEDS: LEVOTHYROXINE 50 MCG TAB PO SCH (05:41)
[2018-08-25] MEDS: NS 1,000 ML IV SCH ×2 (05:41→15:40)
[2018-08-25] MEDS: FAMOTIDINE 20 MG TAB PO SCH ×2 (09:45→20:14)
[2018-08-25] MEDS: LACOSAMIDE 50 MG TAB PO SCH ×2 (09:45→20:14)
[2018-08-25] MEDS: DEXAMETHASONE 1.5 MG TAB PO SCH (09:45)
[2018-08-25] MEDS: MAGNESIUM OXIDE 400 MG TAB PO SCH (09:45)
[2018-08-25] MEDS: CHOLECALCIFEROL VIT D3 1,000 UNITS TAB PO SCH (09:45)
[2018-08-25] MEDS: FLUORIDE DT SCH ×3 (10:08→19:46)
[2018-08-25] MEDS: CHLORHEXIDINE GLUCONATE 15 ML UDL PO SCH ×3 (10:08→20:16)
--- NOTE | 2018-08-25 15:35 | ASMTCMCOM ---
CM Note CM Note Notes: 08/25/2018 Case Management Note At RN request met w/pt father and brother Lasha [phone] to discuss discharge plan. Informed family that d/c plan would be determined by state guardian Mariah Levy in coordination with case management and MD. Mariah needs to be point of contact for staff regarding pt needs. Family should contact Mariah for information regarding pt. Mariah Levy can be reached at [phone]. [address] [facility] [address] [facility] [address] After hours emergency number [phone]. [facility] declined pt. Pt does not have needs that quailfy under rehab medicare benefits at this time. Left VM for Mariah Levy to call case management to update on d/c plan. Case Management d/c poc: Return to [facility] with caregiver support with the addition of [facility]. Case Management to follow. 08/24/2018 CM Note Made a Palliative referral to [facility] per Ramirez's request. Spoke with patient's brother to explain the patient does not qualify for SNF rehab currently. Will does not want her to return to [facility] at this time due to her medical needs which he thinks are too much for [facility] and will be a readmit to the hospital. Agreed to talk to Dr. Starks and see if he can visit with them before Will has to leave for work. Dr. Starks was able to speak with them and states the plan for now is to monitor the patient's food and fluid intake to see what patient is successful taking in. Dr. Starks will also call patient's professional bass fisherman to discuss the families concerns. We will reassess when we have some results back. CM will follow. Date Signed: 08/25/2018 03:34 PM Electronically Signed By:Gretchen Karimi RN
--- NOTE | 2018-08-25 18:28 | HOSPPROG ---
Hospitalist Progress Note Assessment/Plan: DIAGNOSES: # acute coronavirus infection # failure to thrive at home in part due to above and below issues # acute hyperNa - suspect poor intake, improved by hydration w saline # abnormal LFTs, 20# wt loss in last 1-2 months - diagnostic considerations include: esophageal disorder with poor intake/ retention of foods, cholecystitis, other causes possible - nonvisualization of gallbladder on both ultrasound and HIDA scan with no prior surgery is noted; cholecystectomy had been recommended but the patient's family did not want her to have surgery at this time; patient without pain or nausea presently and exam seems nontender but hard to interpret # iatrogenic hyperthyroidism? 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 Rosas in [place], review goals for her thyroid test results (TSH will always be undetectable due to hypopit) - continue lower dose of thyroid replacement, repeat thyroid studies tomorrow - repeat sodium level tomorrow - continue her usual doses of other hormone replacement - continue vimpat SUBJECTIVE: during my 2 visits with the patient today family is not at the bedside. Also again she does not converse with me in so I am unable to assess symptoms directly from her. Per nursing staff she has been eating well, no signs of regurgitation, pain or other concerns OBJECTIVE Vitals reviewed: All stable without fever Public Address Systems Mechanic, my review: Exam: alert and responsive, not really effectively conversant; appears reasonably relaxed As I described the patient during my exam has a mouth full of food that she has been unable swallow. Even after with clear that food out I do not see any signs of pharyngitis or other throat abnormalities. She is not doing any throat clearing or coughing or other signs of aspirating during my visit. skin warm dry color ok resps not labored lungs clear BSs heart regular abd soft nondistended nontender, bowel sounds present limbs warm, no edema iv site ok Lab data: A bit less hyperchloremic on Chem panel, albumin down a bit lower today from yesterday Rest of chemistry panel stable Objective: Vital Signs Temp Pulse Resp BP Pulse Ox 36.4 C 63 16 120/74 100 08/25/18 16:36 08/25/18 16:00 08/25/18 16:00 08/25/18 16:00 08/25/18 16:00 Laboratory Results 08/19/18 05:28 08/24/18 05:35 08/24/18 08/25/18 08/26/18 06:59 06:59 06:59 Intake Total 2100 1440 1603 Output Total 1750 Balance 350 1440 1603 ICD10 Worksheet Patient Problems: Problems Problem Status Onset Palliative care encounter Acute Pneumonia Acute Seizure Acute Seizure disorder Acute Sepsis Acute Urinary tract infection Acute
[2018-08-26] MEDS: TEARS/DEXTRAN 70/HYPROMELLOSE 15 ML OPHT.BTL EACHEYE SCH ×5 (05:14→23:37)
[2018-08-26] MEDS: NS 1,000 ML IV SCH (05:14)
[2018-08-26] MEDS: LEVOTHYROXINE 50 MCG TAB PO SCH (05:14)
[2018-08-26] MEDS: FLUORIDE DT SCH ×3 (07:36→21:07)
[2018-08-26] MEDS: LACOSAMIDE 50 MG TAB PO SCH ×2 (09:29→20:25)
[2018-08-26] MEDS: FAMOTIDINE 20 MG TAB PO SCH ×2 (09:29→20:25)
[2018-08-26] MEDS: DEXAMETHASONE 1.5 MG TAB PO SCH (09:29)
[2018-08-26] MEDS: CHOLECALCIFEROL VIT D3 1,000 UNITS TAB PO SCH (09:29)
[2018-08-26] MEDS: MAGNESIUM OXIDE 400 MG TAB PO SCH (09:29)
[2018-08-26] MEDS: CHLORHEXIDINE GLUCONATE 15 ML UDL PO SCH ×3 (09:29→20:39)
--- NOTE | 2018-08-26 16:17 | ASMTCMCOM ---
CM Note CM Note Notes: 08/26/2018 Case Management Note Phone call from Mariah Levy, State guardian to discuss d/c needs. Mariah can be reached at [phone] (cell). DO NOT SHARE THIS NUMBER. VM from caregiver at [facility]. Left VM, awaiting call back. Notified Mariah pt has been denied by SNF rehabs d/t lack of qualifications under Medicare. Mariah plans for pt to return to [facility] resuming services there at d/c. Informed Mariah of family concerns. Mariah requested family contact her directly. Mariah contacted [facility]. Alfie to meet pt at [facility] upon d/c. At RN request met w/brother Lasha. Informed Lasha that Mariah requested he contact her directly with questions and concerns regarding d/c plans. At Mariah's request informed Lasha that pt did not qualify for SNF rehab and pt will be returning to [facility] likely tomorrow. Provided Medicare.gov website information for Lasha. As a reminder to staff, all family concerns must be addressed by the State Appointed Guardian. Direct family to use their own phone number to contact Mariah Levy. Case Management d/c poc: return to [facility] with the addition of [facility]. Case Management to follow. Date Signed: 08/26/2018 04:16 PM Electronically Signed By:Gretchen Karimi RN
--- NOTE | 2018-08-26 17:33 | HOSPPROG ---
Hospitalist Progress Note Assessment/Plan: 43 yo f w panhypopit, coronavirus, possible chronic cholecystitis panhypopit: will resume home meds on dc ?chronic cholecystitis: family declined surgery lft's improved follow adrenal insuficiency: dex coronavirus: resolved dispo: need to sort out dc destination sounds as if family reluctant top send back to [facility], yet they are not final decision makers Subjective: imaging reviewed/interpreted Objective: Vital Signs Temp Pulse Resp BP Pulse Ox 36.1 C 67 16 119/48 L 98 08/26/18 15:55 08/26/18 15:55 08/26/18 15:55 08/26/18 15:55 08/26/18 15:55 Laboratory Results 08/19/18 05:28 08/24/18 05:35 08/25/18 08/26/18 08/27/18 05:59 05:59 05:59 Intake Total 1440 1603 218 Output Total 700 850 375 Balance 740 753 -157 - Physical Exam Constitutional: no apparent distress, appears nourished Eyes: PERRL, anicteric sclera Ears, Nose, Mouth, Throat: moist mucous membranes, hearing normal Cardiovascular: regular rate and rhythym Respiratory: no respiratory distress Gastrointestinal: normoactive bowel sounds Genitourinary: no bladder fullness, No ellington in urethra Skin: warm Musculoskeletal: full muscle strength ICD10 Worksheet Patient Problems: Problems Problem Status Onset Palliative care encounter Acute Pneumonia Acute Seizure Acute Seizure disorder Acute Sepsis Acute Urinary tract infection Acute
[2018-08-27] MEDS: TEARS/DEXTRAN 70/HYPROMELLOSE 15 ML OPHT.BTL EACHEYE SCH ×2 (05:50→10:18)
[2018-08-27 08:09] VITALS: BP 103/64
[2018-08-27] MEDS: LEVOTHYROXINE 50 MCG TAB PO SCH (08:09)
[2018-08-27] MEDS: CHLORHEXIDINE GLUCONATE 15 ML UDL PO SCH (09:03)
[2018-08-27] MEDS: DEXAMETHASONE 1.5 MG TAB PO SCH (10:17)
[2018-08-27] MEDS: CHOLECALCIFEROL VIT D3 1,000 UNITS TAB PO SCH (10:17)
[2018-08-27] MEDS: LACOSAMIDE 50 MG TAB PO SCH (10:17)
[2018-08-27] MEDS: FAMOTIDINE 20 MG TAB PO SCH (10:17)
[2018-08-27] MEDS: MAGNESIUM OXIDE 400 MG TAB PO SCH (10:17)
[2018-08-27] MEDS: FLUORIDE DT SCH (10:18)
--- NOTE | 2018-08-27 10:25 | HOSPPROG ---
Hospitalist Progress Note Assessment/Plan: 43 yo f w panhypopit, coronavirus, possible chronic cholecystitis panhypopit: will resume home meds on dc ?chronic cholecystitis: family declined surgery lft's improved follow adrenal insuficiency: dex coronavirus: resolved dispo: back to [facility] today > 30 minutes on dc Subjective: eating OK. [facility] prepared to have her back Objective: Vital Signs Temp Pulse Resp BP Pulse Ox 36.3 C 71 14 103/64 95 08/27/18 08:06 08/27/18 08:06 08/27/18 08:06 08/27/18 08:06 08/27/18 08:06 Laboratory Results 08/19/18 05:28 08/24/18 05:35 08/26/18 08/27/18 08/28/18 05:59 05:59 05:59 Intake Total 1603 638 Output Total 850 375 Balance 753 263 - Physical Exam Constitutional: no apparent distress, appears nourished Eyes: PERRL, anicteric sclera, EOMI Ears, Nose, Mouth, Throat: moist mucous membranes, hearing normal Cardiovascular: regular rate and rhythym, no murmur, rub, or gallop Respiratory: no respiratory distress, no rales or rhonchi Gastrointestinal: normoactive bowel sounds, soft, non-tender abdomen Genitourinary: no bladder fullness, No ellington in urethra Skin: warm, normal color Musculoskeletal: full muscle strength Neurologic: AAOx3 ICD10 Worksheet Patient Problems: Problems Problem Status Onset Palliative care encounter Acute Pneumonia Acute Seizure Acute Seizure disorder Acute Sepsis Acute Urinary tract infection Acute
--- NOTE | 2018-08-27 11:03 | GDS ---
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 4. Legally blind. 5. Nonvisualization of the gallbladder without overt evidence of acute cholecystitis. Please see admission history and physical by Dr. Jose L Hayward. The patient presented with a decrea sed level of responsiveness. She had slightly elevated LFTs and abdominal imaging showed a gallstone . There was a nonvisualization of the gallbladder on HIDA scan. She was seen by surgery, who felt t his was not acute cholecystitis. She was managed off antibiotics and did well. Someone checked her thyroid studies and altered her levothyroxine dose. Initially, she was found to have a slightly high free T4, regular T4, and normal T3 with subsequent decreasing of it. Her T3 was low and T4 was okay. I have taken the liberty of discharging her on her home dose of 112 mcg, not t he lower [address], she does not have of her thyroid function. She was slightly hyponatremic on presentation, which resolved with IV fluids. She was eating at the time of discharg e. Discharge status is back to . /[id number]/MODL
--- NOTE | 2018-08-27 12:17 | ASMTDCNOTE ---
Case Management Discharge Discharge Order Complete? Answers: Yes Patient to Obtain Answers: Other Notes: [facility] Medications Transportation Arranged Answers: Other Notes: [facility]eland to [facility] e transportation Transport will Pick (Date 08/27/2018 12:00 PM & Time) Faxed Final Orders Answers: Yes Notes: to [facility] Agency/Facility Transfer Answers: Yes Notes: to [facility] Report Printed & Faxed to [facility] Discharge Comments Notes: 08/27/2018 Case Management Note Pt discharging to [facility]. Faxed final orders via [employer] to [facility] [phone] (fax) [phone] (cell). RN to call report. [facility] transporting pt. Left VM for state guardian Mariah on cell and office phone alerting to d/c. Faxed final orders to Mraiah via [employer]. Discussed d/c with Mariah. Per Mariah meeting 2 weeks ago with him clerk, commercial real estate paralegal and family to discuss boundaries. Family has ignored agreements made with him clerk. Per Mariah, on next admission do not disclose any health information to family without contacting Mariah Levy first. Brother Lasha notified of discharge. Father and onsite at time of d/c. Faxed final orders to [facility]. Vida Judge visited father and onsite to discuss palliative process and educate on pt condition. Case Management d/c poc: [facility] with [facility]. Date Signed: 08/27/2018 12:17 PM Electronically Signed By:Gretchen Karimi RN
--- NOTE | 2018-08-27 12:19 | ASDISCHSUM ---
Discharge Information Plan Status:[facility] Med[facility] Cleared to Leave:08/26/2018 Discharge Date:08/27/2018 12:54 PM CM D/C Disposition:Other (Not listed) ADT D/C Disposition:OTHINST Projected Discharge Date:08/24/2018 11:00 AM Transportation at D/C:Wheelchair Van Discharge Delay Reason: Follow-Up Date:08/24/2018 11:00 AM Discharge Slot: Final Diagnosis: Placement Information Referral Type:*Fdc/SNF Referral ID:[id number] Provider Name: Address 1: Phone Number: Address 2: Fax Number: City: Selection Factors: State: Referral Type:Palliative Care Referral ID:[id number] Provider Name:[facility] Address 1:[address] [facility] Phone Number: Address 2: Fax Number: [facility]:[place] Selection Factors: State:[place] Patient Contact Information Contact Name:VARINDER Relationship:Legal guardian Address:[address] [place] [address] [address] City:[facility] Phone: State/Zip Code:[place] [address] Email: Financial Information Financial Class:Medicare Primary Plan Desc:MEDICARE INPATIENT Primary Plan Number:[id number] Secondary Plan Desc:MEDICAID [place] Secondary Plan Number:[id number] Assessment Information [facility] CM Progress Note CM Note CM Note Notes: Pt admitted to hospital for dehydration. She lives at [facility] and is cognitively impaired since childhood. She has a guardian. Her father and brother visit her. DC Plan: [facility] Date Signed: 08/18/2018 04:31 PM Electronically Signed By:Merline Lewis RN BC CM Progress Note CM Note CM Note Notes: Spoke w/caregiver Varsha at [facility] where pt resides. Per WORK TICKET DISTRIBUTOR, pt is at baseline and can return to residence. Caregiver is concerned that pt is not able to stay adequately hydrated. She has lost 20lbs since last admission, wondering if there are other recommendations, such as a feeding tube or engaging Palliative. CM will discuss with MD. Caregiver may not be able to come tomorrow to evaluate but can come Thursday, will let CM know. DC Plan: [facility] Date Signed: 08/19/2018 03:23 PM Electronically Signed By:Merline Lewis RN [facility] [employer] [employer] Progress Note CM Note CM Note Notes: Spoke w/MD, discussed caregivers concerns, agrees that may warrant palliative consult. CM notified pt's guardian who agrees with plan, called and left message for caregiver, Varsha. DC Plan: [facility] Date Signed: 08/19/2018 03:56 PM Electronically Signed By:Merline Lewis RN [facility] CM Progress Note CM Note CM Note Notes: The palliative team arranged for a consult with with Mariah (guardian), father, and brother for Thursday. In light of decisions needing to be made today, called guardian about whether or not to move forward with gallbladder surgery. She urged MD to call brother and father to discuss. As of now, surgery will wait until pt can get other medical issues resolved. MD suggests pt get updated swallow eval and transfer to SNF to continue hydration. CM will send a referral to [facility], where pt was recently. SHAMAR will notify Lory DC Plan: [facility] Date Signed: 08/20/2018 05:07 PM Electronically Signed By:Merline Lewis RN [facility] SHAMAR Progress Note CM Note SHAMAR Note Notes: Met with caregiver Varsha, who came to visit pt from [facility] where pt resides. She was upset and felt that she should be included in pt's care decisions. SHAMAR expressed that yesterday, decisions needed to be made for pt concerning gallbladder surgery and whether to move forward or not and that it took the better part of the day to get a hold of the guardian Mariah. We talked about clear guidelines for future decisions and communications to avoid this confusion. She will discuss with guardian. Notified Varsha that a Palliative consult has been arranged for Thursday but that she should confirm with Mariah. Varsha also requested that if it is not necessary, that pt should return to [facility]. Informed her that pt will need a f/u with an tile sprayer. DC Plan: [facility] vs [facility]/ [facility] Date Signed: 08/21/2018 05:27 PM Electronically Signed By:Merline Lewis RN [facility] SHAMAR Progress Note SHAMAR Note SHAMAR Note Notes: Made a Palliative referral to [facility] per Ramirez's request. Spoke with patient's brother to explain the patient does not qualify for SNF rehab currently. Will does not want her to return to [facility] at this time due to her medical needs which he thinks are too much for [facility] and will be a readmit to the hospital. Agreed to talk to Dr. Starks and see if he can visit with them before Will has to leave for work. Dr. Starks was able to speak with them and states the plan for now is to monitor the patient's food and fluid intake to see what patient is successful taking in. Dr. Starks will also call patient's tile sprayer to discuss the families concerns. We will reassess when we have some results back. CM will follow. Date Signed: 08/24/2018 02:06 PM Electronically Signed By:Summer Darling LCSW [facility] CM Progress Note CM Note CM Note Notes: 08/25/2018 Case Management Note At RN request met w/pt father and brother Lasha [phone] to discuss discharge plan. Informed family that d/c plan would be determined by state guardian Mariah Levy in coordination with case management and MD. Mariah needs to be point of contact for staff regarding pt needs. Family should contact Mariah for information regarding pt. Mariah Levy can be reached at [phone]. [address] [facility] [address] [place] [address] After hours emergency number [phone]. [facility] declined pt. Pt does not have needs that quailfy under rehab medicare benefits at this time. Left VM for Mariah Levy to call case management to update on d/c plan. Case Management d/c poc: Return to [facility] with caregiver support with the addition of [facility] outpatient. Case Management to follow. 08/24/2018 CM Note Made a Palliative referral to [facility] per Ramirez's request. Spoke with patient's brother to explain the patient does not qualify for SNF rehab currently. Will does not want her to return to [facility] at this time due to her medical needs which he thinks are too much for [facility] and will be a readmit to the hospital. Agreed to talk to Dr. Starks and see if he can visit with them before Will has to leave for work. Dr. Starks was able to speak with them and states the plan for now is to monitor the patient's food and fluid intake to see what patient is successful taking in. Dr. Starks will also call patient's tile sprayer to discuss the families concerns. We will reassess when we have some results back. CM will follow. Date Signed: 08/25/2018 03:34 PM Electronically Signed By:Gretchen Karimi RN [facility] SHAMAR Progress Note CM Note CM Note Notes: 08/26/2018 Case Management Note Phone call from Mariah Levy, State guardian to discuss d/c needs. Mariah can be reached at [phone] (cell). DO NOT SHARE THIS NUMBER. VM from caregiver at [facility]. Left VM, awaiting call back. Notified Mariah pt has been denied by SNF rehabs d/t lack of qualifications under Medicare. Mariah plans for pt to return to [facility] resuming services there at d/c. Informed Mariah of family concerns. Mariah requested family contact her directly. Mariah contacted [facility] Judge to meet pt at [facility] upon d/c. At RN request met w/brother Lasha. Informed Lasha that Mariah requested he contact her directly with questions and concerns regarding d/c plans. At Mariah's request informed Lasha that pt did not qualify for SNF rehab and pt will be returning to [facility] likely tomorrow. Provided Medicare.gov website information for Lasha. As a reminder to staff, all family concerns must be addressed by the State Appointed Guardian. Direct family to use their own phone number to contact Mariah Levy. Case Management d/c poc: return to [facility] with the addition of [facility]. Case Management to follow. Date Signed: 08/26/2018 04:16 PM Electronically Signed By:Gretchen Karimi RN Case Management Discharge Plan Note Case Management Discharge Discharge Order Complete? Answers: Yes Patient to Obtain Answers: Other Notes: [facility] Medications Transportation Arranged Answers: Other Notes: [facility] to [facility] e transportation Transport will Pick (Date 08/27/2018 12:00 PM & Time) Faxed Final Orders Answers: Yes Notes: to [facility] Agency/Facility Transfer Answers: Yes Notes: to [facility] Report Printed & Faxed to [facility] Discharge Comments Notes: 08/27/2018 Case Management Note Pt discharging to [facility]. Faxed final orders via [employer] to [facility] [phone] (fax) [phone] (cell). RN to call report. [facility] transporting pt. Left VM for state mao Lemus on cell and office phone alerting to d/c. Faxed final orders to [facility] via [facility]. Discussed d/c with Mariah. Per Mariah meeting 2 weeks ago with premix concrete batcher, real estate agent/broker and family to discuss boundaries. Family has ignored agreements made with premix concrete batcher. Per Mariah, on next admission do not disclose any health information to family without contacting Mariah Levy first. Brother Lasha notified of discharge. Father and onsite at time of d/c. Faxed final orders to [facility]. Vida from [facility] visited father and onsite to discuss palliative process and educate on pt condition. Case Management d/c poc: [facility] with [facility]. Date Signed: 08/27/2018 12:17 PM Electronically Signed By:Gretchen Karimi RN Intervention Information
== END 2018-08-27 12:54 | disposition other institution (70) | DRG 641 ==
LOC: F3E 14:51
PROVIDERS: ADMIT Internal Medicine; ATTEND Internal Medicine
DX: E87.0 Hyperosmolality and hypernatremia (principal); B97.29 Other coronavirus as the cause of diseases classified elsewhere; K80.10 Calculus of gallbladder with chronic cholecystitis without obstruction; G31.84 Mild cognitive impairment of uncertain or unknown etiology; E20.9 Hypoparathyroidism, unspecified; G40.909 Epilepsy, unspecified, not intractable, without status epilepticus; E27.40 Unspecified adrenocortical insufficiency; H54.8 Legal blindness, as defined in USA; Z85.841 Personal history of malignant neoplasm of brain; Z98.2 Presence of cerebrospinal fluid drainage device
CPT/HCPCS: 84481-90; 92526-GN; 92610-GN; 96374; A9537; J2405

== ENCOUNTER 2018-09-11 20:09 | Emergency (ER) | payer OTHER, MEDICAID ==
--- NOTE | 2018-09-11 21:49 | EDPHY ---
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 She has remained cognitively impaired since. Today she presents to the emergency department because she has had decreased oral intake. The staff was concerned that she may becoming dehydrated. She was slightly less active this morning. Patient is unable to give any history. The patient's care provider and father in the room. Both of them state that she seems to be at her baseline. They do not have concerns with the way she appears currently. They state that she has a very difficult IV stick and she often needs a PICC line. REVIEW OF SYSTEMS: Unable to obtain due the patient's cognitive impairment Past medical histor: includes gastro glioma, seizure disorder, hypertension, blindness, cognitive dysfunction, adrenal insufficiency, sepsis Smoking Status: Never smoked Physical Exam: 105/88, 90, 16, 98% on room air, 36.5 GENERAL: No acute distress, alert. HEENT: Normal pharynx, no signs of dehydration. NECK: Normal, supple. RESPIRATORY: Clear to auscultation bilaterally, no rales, rhonchi or wheezing. CVS: Regular rate and rhythm, no rubs, murmurs, or gallops. ABDOMEN: Soft, nontender, nondistended, no organomegaly. BACK: Normal to inspection, no CVA tenderness. SKIN: Normal color, no rash, warm, dry. No pallor. EXTREMITIES: Muscle wasting. Wheelchair-bound. No pedal edema, no calf tenderness, no Homans sign or cords, no joint swelling. NEURO/PSYCH: Alert but not able to answer questions. Constitutional: Initial Vital Signs Temperature (C) 36.5 C 09/11/18 20:23 Heart Rate 90 09/11/18 20:23 Respiratory Rate 16 09/11/18 20:23 Blood Pressure 105/88 H 09/11/18 20:23 O2 Sat (%) 98 09/11/18 20:23 O2 Delivery Mode Room Air Allergies/Adverse Reactions: codeine [Codeine] Allergy (Intermediate, Verified 09/11/18 20:22) levofloxacin [From Levaquin] Allergy (Verified 09/11/18 20:22) milk [Milk] Allergy (Verified 09/11/18 20:22) morphine Allergy (Verified 09/11/18 20:22) Penicillins Allergy (Verified 09/11/18 20:22) vancomycin Allergy (Verified 09/11/18 20:22) Home Medications: Medication Instructions Recorded Chlorhexidine Gluconate [Peridex 15 ml PO TID 08/12/12 oral soln (*)] Levothyroxine [Synthroid 112 mcg 112 mcg PO DAILY06 08/12/12 (*)] Propylene Glycol/Peg 400 [SYSTANE 1 drop EACHEYE 5XD 08/12/12 0.3-0.4% EYE DROPS] Fluoride (Sodium) [Prevident 5000] 1 pratima DT TID 03/14/17 Dexamethasone 1.5 mg PO DAILY #30 tablet 03/20/17 Famotidine [Pepcid 20 MG (*)] 20 mg PO BID #60 tab 03/20/17 Magnesium Oxide [Magnesium Oxide 400 mg PO DAILY 07/23/17 400 mg (*)] Sodium Cl Nasal Gel [[place] Saline 1 pratima EACHNARE HS 07/23/17 Nasal Gel] Lacosamide [Vimpat 50 mg (*)] 100 mg PO BID 30 Days tab 07/27/17 Herbals/Supplements -Info Only 1 ea PO DAILY 08/29/17 Cholecalciferol Vit D3 [Vitamin D3 1,000 units PO DAILY 11/07/17 (*)] Calcium Carbonate [[place] 500 mg PO BID 07/16/18 Calcium 500 mg (*)] Medical Decision Making ED Course/Re-evaluation: In the emergency department I discussed diagnostic options with the patient's care provider and father. At this time the states she appears at her baseline. Per report, she has a difficult IV stick and often requires a PICC line. Based on the patient's appearance and vital signs are not feel she needs to undergo PICC line placement at this time. I discussed this and they agree. Patient will be returned to her care facility. She will return if her symptoms persist or worsen. Differential Diagnosis: My differential includes but is not limited to dehydration, electrolyte abnormality, sugar abnormality, bacteremia, sepsis, urinary tract infection, pneumonia, bronchitis, encephalitis, meningitis Departure - Departure Disposition: Home, Routine, Self-Care Clinical Impression: Decreased oral intake Condition: Good Instructions: Dehydration (ED) Additional Instructions: Return with increasing lethargy, ongoing poor feeding, fever, rapid heart rate or any other concerns. Referrals: Naga Tan MD [Medical Doctor] - As per Instructions
[2018-09-11 22:57] VITALS: BP 130/87
== END 2018-09-11 22:57 | disposition home or self-care (01) ==
DX: R63.8 Other symptoms and signs concerning food and fluid intake (principal); M62.50 Muscle wasting and atrophy, not elsewhere classified, unspecified site; I10 Essential (primary) hypertension; G31.84 Mild cognitive impairment of uncertain or unknown etiology; H54.8 Legal blindness, as defined in USA; Z99.3 Dependence on wheelchair

== ENCOUNTER 2018-09-12 17:18 | Inpatient (IN) | payer OTHER, MEDICAID ==
--- NOTE | 2018-09-12 17:34 | EDPHY ---
HPI/HX/ROS/PE/MDM Narrative: CHIEF COMPLAINT: Failure to thrive HISTORY OF PRESENT ILLNESS: This patient is a 43-year-old female with cognitive impairment following astroglioma resection with WEB MERCHANDISER shunt as a child. She presents today with her caregiver for evaluation of lethargy and reduced PO intake. She was evaluated in this emergency department last night for similar symptoms, but appeared to be at baseline during this evaluation and returned to her care facility in good condition after consultation with her caregiver and her father. Today, her dye colorist dyer states she "has had maybe 3 oz of fluids" over the past two days and has not urinated since 9am this morning. He notes she complained of headache yesterday. Currently, she denies any head, chest, or abdominal pain. The patient is unable to give any further history. Her dye colorist dyer states she is generally more alert and vocal than she appears today. No reported fever. The patient does have history of recurrent UTIs and respiratory infections. No reported vomiting or diarrhea. No reported cough. HPI obtained primarily from patient's dye colorist dyer at bedside. REVIEW OF SYSTEMS: Unable to obtain due the patient's cognitive impairment, generally negative per dye colorist dyer at bedside. PAST MEDICAL HISTORY: Astroglioma, glioblastoma. Adrenal insufficiency. Dysphagia. Seizure disorder. Hypothyroid. Legally blind. Osteoporosis. Panhypopituitarism. Osteoporosis. History of orthopedic surgeries. History of recurrent UTIs and recurrent pneumonia. Daily medications: Vimpat. Famotidine. Synthroid. Dexamethasone. Mg, Ca, and vitamin D supplements. 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 Lives in assisted living. VITAL SIGNS: Reviewed by me initially. 119/74, heart rate 74, respiratory rate 18, O2 sat 96%. Please note temperature was not obtained at triage initially. GENERAL: Thin, female. No obvious respiratory distress. HEENT: Stigmata of old skull surgery. Atraumatic. Eyes: No icterus, no injection. Disconjugate gaze. Mouth: dry mucous membranes. No erythema or lesions. Neck: supple with no adenopathy. LUNGS: Clear to auscultation anteriorly, no wheezes, rhonchi or rales. CARDIAC: Regular rate and rhythm, no rubs, murmurs or gallops. ABDOMEN: Soft, no significant tenderness appreciated. Nondistended. Palpable liver edge. BACK: No CVA tenderness. EXTREMITIES: Contractures of upper extremities, though she is able to lift her arms when asked. No trauma. No edema of the lower extremities. NEURO: Reportedly at her baseline per her caregiver. Patient can follow simple commands and answer some simple questions with grunts. She is nonambulatory at baseline. SKIN: Warm and dry, no rash. PSYCHIATRIC: Normal mentation, no agitation. Portions of this note were transcribed by a director biomedical engineering. I personally performed a history, physical exam, medical decision making, and confirmed accuracy of information the transcribed note. ED Course: 43-year-old female with cognitive impairment presents with her dye colorist dyer who has concerns regarding increased lethargy and decreased PO intake. Plan for chest x-ray, labs including CBC, chemistries, liver, lipase, UA. Plan to administer 1L IV NS. Peripheral IV was established utilizing ultrasound guidance. Patient received a L of normal saline. Laboratory evaluation was largely unremarkable with the exception of a BUN of 30, creatinine is 0.5. Of note, another resident at the same care facility is positive for influenza A. Urinalysis as well as influenza swab was obtained. 20:33 Patient's temperature was taken rectally. Temp 34.6. Patient given warm fluids, placed under Michel hugger. Influenza A positive. Plan for additional labs including lactic acid. Lactic acid is 0.6. 22:18 Spoke with hospitalist service. Dr. Frederick accepts admission for influenza A, hypothermia, dehydration. On re-examination the patient remains hypothermic with repeat rectal temperature of 34.6 degrees. She was given Ativan to help control her agitation in order to allow the Michel hugger to be more effective. PLEASE NOTE: The patient is a sharif of the state and has a court-appointed medical decision maker. Medical decision should not be made by the family. MDM: Differential diagnoses for the patient's symptom complex was considered including but not limited to dehydration, electrolyte abnormalities, occult infection, influenza, pneumonia, urinary tract infection. - Data Points Imaging Results: Imaging Impressions Chest X-Ray 09/12/18 17:35 Impression: Nothing acute identified. Imaging: I viewed and interpreted images myself Laboratory Results: Laboratory Results 09/12/18 18:45 09/12/18 18:45 09/12/18 09/12/18 09/12/18 20:52 20:40 18:45 WBC RBC Hgb Hct MCV MCH MCHC RDW Plt Count MPV Neut % (Auto) Lymph % (Auto) [place] % (Auto) Eos % (Auto) Baso % (Auto) Nucleat RBC Rel Count Absolute Neuts (auto) Absolute Lymphs (auto) Absolute Monos (auto) Absolute Eos (auto) Absolute Basos (auto) Absolute Nucleated RBC Immature Gran % Immature Gran # RBC/WBC/PLT Morphology Platelet Estimate Sodium 143 mEq/L mEq/L (135-145) Potassium 4.0 mEq/L mEq/L (3.5-5.2) Chloride 109 mEq/L mEq/L (97-110) Carbon Dioxide 29 mEq/l mEq/l (22-31) Anion Gap 5 mEq/L L mEq/L (6-14) BUN 30 mg/dL H mg/dL (7-23) Creatinine 0.5 mg/dL L mg/dL (0.6-1.0) Estimated GFR > 60 Glucose 71 mg/dL mg/dL (70-100) Calcium 9.5 mg/dL mg/dL (8.5-10.4) Total Bilirubin 0.5 mg/dL mg/dL (0.1-1.4) Conjugated Bilirubin 0.4 mg/dL mg/dL (0.0-0.5) Unconjugated Bilirubin 0.1 mg/dL mg/dL (0.0-1.1) AST 30 IU/L IU/L (14-46) ALT 54 IU/L H IU/L (9-52) Alkaline Phosphatase 118 IU/L IU/L (38-126) Total Protein 5.7 g/dL L g/dL (6.3-8.2) Albumin 3.1 g/dL L g/dL (3.5-5.0) Lipase 52 IU/L IU/L (23-300) Urine Color YELLOW Urine Appearance CLEAR Urine pH 5.0 (5.0-7.5) Ur Specific [place] 1.017 (1.002-1.030) Urine Protein NEGATIVE (NEGATIVE) Urine Ketones 1+ H (NEGATIVE) Urine Blood NEGATIVE (NEGATIVE) Urine Nitrate NEGATIVE (NEGATIVE) Urine Bilirubin NEGATIVE (NEGATIVE) Urine Urobilinogen NEGATIVE EU EU (0.2-1.0) Ur Leukocyte Esterase NEGATIVE (NEGATIVE) Urine RBC 3-5 /hpf H /hpf (0-3) Urine WBC 1-3 /hpf /hpf (0-3) Ur Epithelial Cells TRACE /lpf /lpf (NONE-1+) Urine Bacteria 3+ /hpf H /hpf (NONE SEEN) Hyaline Casts 1-5 /lpf /lpf (0-1) Urine Mucus TRACE /lpf /lpf (NONE-1+) Urine Glucose NEGATIVE (NEGATIVE) Nasal Influenza A PCR FLU A DETECTED H (NEGATIVE) Nasal Influenza B PCR NEGATIVE FOR FLU B (NEGATIVE) 09/12/18 18:45 WBC 5.84 10^3/uL 10^3/uL (3.80-9.50) RBC 5.28 10^6/uL 10^6/uL (4.18-5.33) Hgb 15.9 g/dL g/dL (12.6-16.3) Hct 50.6 % H % (38.0-47.0) MCV 95.8 fL fL (81.5-99.8) MCH 30.1 pg pg (27.9-34.1) MCHC 31.4 g/dL L g/dL (32.4-36.7) RDW 15.9 % H % (11.5-15.2) Plt Count 214 10^3/uL 10^3/uL (150-400) MPV 10.7 fL fL (8.7-11.7) Neut % (Auto) 79.2 % H % (39.3-74.2) Lymph % (Auto) 8.7 % L % (15.0-45.0) Hendricks % (Auto) 10.3 % % (4.5-13.0) Eos % (Auto) 0.0 % L % (0.6-7.6) Baso % (Auto) 0.3 % % (0.3-1.7) Nucleat RBC Rel Count 0.0 % % (0.0-0.2) Absolute Neuts (auto) 4.63 10^3/uL 10^3/uL (1.70-6.50) Absolute Lymphs (auto) 0.51 10^3/uL L 10^3/uL (1.00-3.00) Absolute Monos (auto) 0.60 10^3/uL 10^3/uL (0.30-0.80) Absolute Eos (auto) 0.00 10^3/uL L 10^3/uL (0.03-0.40) Absolute Basos (auto) 0.02 10^3/uL 10^3/uL (0.02-0.10) Absolute Nucleated RBC 0.00 10^3/uL 10^3/uL (0-0.01) Immature Gran % 1.5 % H % (0.0-1.1) Immature Gran # 0.09 10^3/uL 10^3/uL (0.00-0.10) RBC/WBC/PLT Morphology TNP Platelet Estimate TNP Sodium Potassium Chloride Carbon Dioxide Anion Gap BUN Creatinine Estimated GFR Glucose Calcium Total Bilirubin Conjugated Bilirubin Unconjugated Bilirubin AST ALT Alkaline Phosphatase Total Protein Albumin Lipase Urine Color Urine Appearance Urine pH Ur Specific [place] Urine Protein Urine Ketones Urine Blood Urine Nitrate Urine Bilirubin Urine Urobilinogen Ur Leukocyte Esterase Urine RBC Urine WBC Ur Epithelial Cells Urine Bacteria Hyaline Casts Urine Mucus Urine Glucose Nasal Influenza A PCR Nasal Influenza B PCR Medications Given: Discontinued Medications Sodium Chloride (Ns) 1,000 mls @ 0 mls/hr IV ONCE ONE; Wide Open PRN Reason: Protocol Stop: 09/12/18 17:37 Last Admin: 09/12/18 18:53 Dose: 1,000 mls Sodium Chloride (Ns) 500 mls @ 1,000 mls/hr IV EDNOW ONE PRN Reason: Protocol Stop: 09/12/18 21:27 Last Admin: 09/12/18 21:04 Dose: 500 mls Lorazepam (Ativan Injection) 1 mg IVP EDNOW ONE Stop: 09/12/18 23:07 Last Admin: 09/12/18 23:11 Dose: 1 mg General Time Seen by Provider: 09/12/18 17:24 Initial Vital Signs: Initial Vital Signs Heart Rate 74 09/12/18 19:53 Respiratory Rate 18 09/12/18 19:53 Blood Pressure 119/74 09/12/18 19:53 O2 Sat (%) 96 09/12/18 19:53 O2 Delivery Mode Room Air Allergies/Adverse Reactions: codeine [Codeine] Allergy (Intermediate, Verified 09/12/18 22:55) levofloxacin [From Levaquin] Allergy (Verified 09/11/18 20:22) milk [Milk] Allergy (Verified 09/12/18 22:55) morphine Allergy (Verified 09/12/18 22:55) Penicillins Allergy (Verified 09/12/18 22:55) vancomycin Allergy (Verified 09/12/18 22:55) Home Medications: Medication Instructions Recorded Chlorhexidine Gluconate [Peridex 15 ml PO TIDMEAL 08/12/12 oral soln (*)] Levothyroxine [Synthroid 112 mcg 112 mcg PO DAILY06 08/12/12 (*)] Propylene Glycol/Peg 400 [SYSTANE 1 drop EACHEYE 5XD 08/12/12 0.3-0.4% EYE DROPS] Fluoride (Sodium) [Prevident 5000] 1 pratima DT TID 03/14/17 Famotidine [Pepcid 20 MG (*)] 20 mg PO BID #60 tab 03/20/17 Magnesium Oxide [Magnesium Oxide 400 mg PO DAILY 07/23/17 400 mg (*)] Sodium Cl Nasal Gel [[place] Saline 1 pratima EACHNARE HS 07/23/17 Nasal Gel] Lacosamide [Vimpat 50 mg (*)] 100 mg PO BID 30 Days tab 07/27/17 Herbals/Supplements -Info Only 1 ea PO TID 08/29/17 Cholecalciferol Vit D3 [Vitamin D3 1,000 units PO DAILY 11/07/17 (*)] Calcium Carbonate [Tums 500MG (*)] 500 mg PO BID 09/12/18 Clindamycin HCl [Clindamycin] 300 mg PO ONCE PRN 09/12/18 Cranberry Fruit Extract [Cran-Max] 1,000 mg PO DAILY 09/12/18 Dexamethasone 1.5 mg PO DAILY@1900 09/12/18 Ibuprofen [Motrin (*)] 200 mg PO Q6H PRN 09/12/18 Magnesium Hydroxide [Milk of 5 ml PO Q3D PRN 09/12/18 Magnesia] Departure - Departure Disposition: [facility] Clinical Impression: Influenza A, Dehydration Hypothermia Qualifiers: Encounter type: initial encounter Qualified Code(s): T68.XXXA - Hypothermia, initial encounter Condition: Fair Report Scribed for: Sue Payne Report Scribed by: Demetrice Daigle Date of Report: 09/12/18 Time of Report: 23:08
[2018-09-12] MEDS ORDERED: NS 1,000 ML IV ONE (17:36)
[2018-09-12 18:59] LABS: PLATELET COUNT 214 10^3/uL (150-400)
--- NOTE | 2018-09-12 19:17 | ASMTCMCOM ---
CM Note CM Note Notes: Reviewed chart. Pt presented to the Emergency Department with lethargy, reduced PO intake and FTT. Pt is accompanied by her caregiver Jaime Bowles from [facility]. History includes cognitive impairment secondary to an astroglioma resection with WAISTLINE JOINER shunt, glioblastoma, osteoarthritis, recurrent UTI's, legally blind, hypothyroid, adrenal insufficiency, dysphagia and seizure disorder. Asked to see pt and caregiver by ZION Mcpherson. Met with pt and caregiver, Jaime. Per Jaime, pt lives at [facility] and is a sharif of the [facility]. The pt has a legally appointed guardian named Mariah Bagley. Mariah is to be contacted for any and all medical decisions - (night), (day). Jaime reports in medical emergencies, the pt's family will often congregate at the hospital and pt's bedside. Per Jaime, they have had several instances where doctors have violated the pt's HIPPA rights by disclosing too much information to the family and by consulting family members at the bedside on medical decisions. Per Jaime, the family does not have any decision making or guardianship rights. ONLY MARIAH BAGLEY SHOULD BE CONTACTED AT THE NUMBERS PROVIDED ABOVE FOR DECISIONS REGARDING PT CARE It is unclear whether the pt will be admitted for further evaluation and treatment at this time. Update provided to ZION Mcpherson, Jimena Horn ARN and Fabiola PRIDE. Pt will likely discharge back to [facility] when medically stable. CM will continue to follow. Date Signed: 09/12/2018 07:13 PM Electronically Signed By:Christina Lewis RN
[2018-09-12] MEDS ORDERED: NS 500 ML IV ONE (20:58)
[2018-09-12] MEDS ORDERED: ONDANSETRON DISINTEGRATING 4 MG TAB PO PRN (23:03)
[2018-09-12] MEDS ORDERED: ONDANSETRON 4 MG/2 ML VIAL IVP PRN (23:03)
[2018-09-12] MEDS ORDERED: ACETAMINOPHEN 325 MG TAB PO PRN (23:03)
[2018-09-12] MEDS ORDERED: PROMETHAZINE HCL 25 MG/ML INJ IVP PRN (23:03)
[2018-09-12] MEDS ORDERED: LORazepam 2 MG/ML INJ ONE (23:03)
[2018-09-12] MEDS ORDERED: LORazepam 2 MG/ML INJ IVP ONE (23:06)
[2018-09-13] MEDS: D5W 1/2 NS 1,000 ML IV SCH ×2 (00:42→15:26)
--- NOTE | 2018-09-13 02:22 | PDGENHP ---
History and Physical - Chief Complaint Lethargy - History of Present Illness 43 yo F w/ hx of astroglioma, CLUTCH MECHANIC shunt, and seizure d/o presents with lethargy. She was brought in by her caregiver due to lethargy and decreased PO intake. She has been taking very little PO and has had poor energy. During my evaluation the patient is somnolent due to Ativan administration. In the ED her evaluation is notable for influenza A. She is also hypothermic. She is being admitted for rehydration, warming, and supportive care. Case discussed with ED physician Dr. Payne; records reviewed and summarized above. History Information - Allergies/Home Medication List Allergies/Adverse Reactions: codeine [Codeine] Allergy (Intermediate, Verified 09/12/18 22:55) levofloxacin [From Levaquin] Allergy (Verified 09/11/18 20:22) milk [Milk] Allergy (Verified 09/12/18 22:55) morphine Allergy (Verified 09/12/18 22:55) Penicillins Allergy (Verified 09/12/18 22:55) vancomycin Allergy (Verified 09/12/18 22:55) Home Medications: Chlorhexidine Gluconate [Peridex oral soln (*)] 15 ml PO TIDMEAL 08/12/12 [Last Taken 09/12/18 09:00] Levothyroxine [Synthroid 112 mcg (*)] 112 mcg PO DAILY06 08/12/12 [Last Taken 06:00] Propylene Glycol/Peg 400 [SYSTANE 0.3-0.4% EYE DROPS] 1 drop EACHEYE 5XD [Last Taken 09/12/18 09:00] Fluoride (Sodium) [Prevident 5000] 1 pratima DT TID 03/14/17 [Last Taken 09/12/18 08 :00] Magnesium Oxide [Magnesium Oxide 400 mg (*)] 400 mg PO DAILY 07/23/17 [Last Taken 09/12/18 08:00] Sodium Cl Nasal Gel [[place] Saline Nasal Gel] 1 pratima EACHNARE HS 07/23/17 [Last Taken 09/11/18 21:00] Herbals/Supplements -Info Only 1 ea PO TID 08/29/17 [Last Taken 09/12/18 08:00] Cholecalciferol Vit D3 [Vitamin D3 (*)] 1,000 units PO DAILY 11/07/17 [Last Taken 09/12/18 08:00] Calcium Carbonate [Tums 500MG (*)] 500 mg PO BID 09/12/18 [Last Taken 09/12/18 08:00] Clindamycin HCl [Clindamycin] 300 mg PO ONCE PRN 09/12/18 [Last Taken 09/08/18] Cranberry Fruit Extract [Cran-Max] 1,000 mg PO DAILY 09/12/18 [Last Taken 08:00] Dexamethasone 1.5 mg PO DAILY@1900 09/12/18 [Last Taken 09/11/18 19:00] Ibuprofen [Motrin (*)] 200 mg PO Q6H PRN 09/12/18 [Last Taken 09/08/18] Magnesium Hydroxide [Milk of Magnesia] 5 ml PO Q3D PRN 09/12/18 [Last Taken Unknown] I have personally reviewed and updated: family history, medical history - Past Medical History cancer (Astroglioma), seizures - Surgical History Additional surgical history: CLUTCH MECHANIC shunt - Family History Additional family history: Unable to obtain due to mental status - Social History Smoking Status: Never smoked Review of Systems Review of Systems: Unable to obtain due to mental status Physical Exam Physical Exam: Temp Pulse Resp BP Pulse Ox 34.8 C L 84 18 99/78 L 90 L 09/12/18 23:54 09/12/18 23:54 09/12/18 23:54 09/12/18 23:54 09/12/18 23:54 Constitutional: chronically ill appearing, other (Somnolent) Eyes: PERRL, anicteric sclera Ears, Nose, Mouth, Throat: ears appear normal, dry mucous membranes Cardiovascular: regular rate and rhythym, no murmur, rub, or gallop Respiratory: no respiratory distress, clear to auscultation Gastrointestinal: normoactive bowel sounds, soft, non-tender abdomen Skin: warm, normal color Musculoskeletal: no muscle tenderness, no joint effusions Neurologic: other (Somnolent) Psychiatric: encephalopathic, other (Non-verbal) Lab Data & Imaging Review 09/12/18 18:45 09/12/18 18:45 WBC 5.84 10^3/uL (3.80-9.50) 09/12/18 18:45 RBC 5.28 10^6/uL (4.18-5.33) 09/12/18 18:45 Hgb 15.9 g/dL (12.6-16.3) 09/12/18 18:45 Hct 50.6 % (38.0-47.0) H 09/12/18 18:45 MCV 95.8 fL (81.5-99.8) 09/12/18 18:45 MCH 30.1 pg (27.9-34.1) 09/12/18 18:45 MCHC 31.4 g/dL (32.4-36.7) L 09/12/18 18:45 RDW 15.9 % (11.5-15.2) H 09/12/18 18:45 Plt Count 214 10^3/uL (150-400) 09/12/18 18:45 MPV 10.7 fL (8.7-11.7) 09/12/18 18:45 Neut % (Auto) 79.2 % (39.3-74.2) H 09/12/18 18:45 Lymph % (Auto) 8.7 % (15.0-45.0) L 09/12/18 18:45 [place] % (Auto) 10.3 % (4.5-13.0) 09/12/18 18:45 Eos % (Auto) 0.0 % (0.6-7.6) L 09/12/18 18:45 Baso % (Auto) 0.3 % (0.3-1.7) 09/12/18 18:45 Nucleat RBC Rel Count 0.0 % (0.0-0.2) 09/12/18 18:45 Absolute Neuts (auto) 4.63 10^3/uL (1.70-6.50) 09/12/18 18:45 Absolute Lymphs (auto) 0.51 10^3/uL (1.00-3.00) L 09/12/18 18:45 Absolute Monos (auto) 0.60 10^3/uL (0.30-0.80) 09/12/18 18:45 Absolute Eos (auto) 0.00 10^3/uL (0.03-0.40) L 09/12/18 18:45 Absolute Basos (auto) 0.02 10^3/uL (0.02-0.10) 09/12/18 18:45 Absolute Nucleated RBC 0.00 10^3/uL (0-0.01) 09/12/18 18:45 Immature Gran % 1.5 % (0.0-1.1) H 09/12/18 18:45 Immature Gran # 0.09 10^3/uL (0.00-0.10) 09/12/18 18:45 RBC/WBC/PLT Morphology TNP 09/12/18 18:45 Platelet Estimate TNP 09/12/18 18:45 VBG Lactic Acid 0.6 mmol/L (0.7-2.1) L 09/12/18 22:05 Sodium 143 mEq/L (135-145) 09/12/18 18:45 Potassium 4.0 mEq/L (3.5-5.2) 09/12/18 18:45 Chloride 109 mEq/L (97-110) 09/12/18 18:45 Carbon Dioxide 29 mEq/l (22-31) 09/12/18 18:45 Anion Gap 5 mEq/L (6-14) L 09/12/18 18:45 BUN 30 mg/dL (7-23) H 09/12/18 18:45 Creatinine 0.5 mg/dL (0.6-1.0) L 09/12/18 18:45 Estimated GFR > 60 09/12/18 18:45 Glucose 71 mg/dL (70-100) 09/12/18 18:45 Calcium 9.5 mg/dL (8.5-10.4) 09/12/18 18:45 Total Bilirubin 0.5 mg/dL (0.1-1.4) 09/12/18 18:45 Conjugated Bilirubin 0.4 mg/dL (0.0-0.5) 09/12/18 18:45 Unconjugated Bilirubin 0.1 mg/dL (0.0-1.1) 09/12/18 18:45 AST 30 IU/L (14-46) 09/12/18 18:45 ALT 54 IU/L (9-52) H 09/12/18 18:45 Alkaline Phosphatase 118 IU/L (38-126) 09/12/18 18:45 Total Protein 5.7 g/dL (6.3-8.2) L 09/12/18 18:45 Albumin 3.1 g/dL (3.5-5.0) L 09/12/18 18:45 Lipase 52 IU/L (23-300) 09/12/18 18:45 Urine Color YELLOW 09/12/18 20:40 Urine Appearance CLEAR 09/12/18 20:40 Urine pH 5.0 (5.0-7.5) 09/12/18 20:40 Ur Specific [place] 1.017 (1.002-1.030) 09/12/18 20:40 Urine Protein NEGATIVE (NEGATIVE) 09/12/18 20:40 Urine Ketones 1+ (NEGATIVE) H 09/12/18 20:40 Urine Blood NEGATIVE (NEGATIVE) 09/12/18 20:40 Urine Nitrate NEGATIVE (NEGATIVE) 09/12/18 20:40 Urine Bilirubin NEGATIVE (NEGATIVE) 09/12/18 20:40 Urine Urobilinogen NEGATIVE EU (0.2-1.0) 09/12/18 20:40 Ur Leukocyte Esterase NEGATIVE (NEGATIVE) 09/12/18 20:40 Urine RBC 3-5 /hpf (0-3) H 09/12/18 20:40 Urine WBC 1-3 /hpf (0-3) 09/12/18 20:40 Ur Epithelial Cells TRACE /lpf (NONE-1+) 09/12/18 20:40 Urine Bacteria 3+ /hpf (NONE SEEN) H 09/12/18 20:40 Hyaline Casts 1-5 /lpf (0-1) 09/12/18 20:40 Urine Mucus TRACE /lpf (NONE-1+) 09/12/18 20:40 Urine Glucose NEGATIVE (NEGATIVE) 09/12/18 20:40 Nasal Influenza A PCR FLU A DETECTED (NEGATIVE) H 09/12/18 20:52 Nasal Influenza B PCR NEGATIVE FOR FLU B (NEGATIVE) 09/12/18 20:52 Imaging Review: Imaging Impressions Chest X-Ray 09/12/18 17:35 Impression: Nothing acute identified. Assessment & Plan Assessment: 43 yo F w/ hx of astroglioma, CLUTCH MECHANIC shunt, and seizure d/o presents with lethargy found to have influenza A. Plan: 1. Influenza A - Presents with lethargy, decreased PO intake, and hypothermia. - Continuous fluids - Tamiflu BID x5 days - Rewarming initiated with Michel Hugger 2. Hypothermia - 2/2 above 3. 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 S/p CLUTCH MECHANIC shunt. 4. Seizure d/o - Continue home medications pending reconciliation Diet - Regular, mIVF Code - Full Ppx - LMWH Dispo - Admit under observation status
[2018-09-13 04:24] LABS: PLATELET COUNT 160 10^3/uL (150-400)
[2018-09-13] MEDS ORDERED: PROTOCOL POTASSIUM 1 DOSE MISC PRN (08:18)
[2018-09-13] MEDS: ENOXAPARIN 40 MG/0.4 ML SYR SC SCH (08:34)
[2018-09-13] MEDS: POTASSIUM Cl (KCl) 100 ML IV SCH ×4 (09:07→12:10)
[2018-09-13] MEDS ORDERED: NS 1,000 ML IV ONE ×2 (09:22→11:59)
[2018-09-13] MEDS: OSELTAMIVIR PHOSPHATE 75 MG CAP PO SCH ×2 (12:15→17:59)
--- NOTE | 2018-09-13 12:51 | ASMTCMCOM ---
CM Note CM Note Notes: Patient admitted w lethargy and decreased PO intake. Positive Influenza A. She lives at [facility] where she is fully dependent for all cares. Her court-appointed guardian is Mariah Worrell [phone] (FYI: Mariah is out of town next week). She is currently open with [facility] (initiated at last admission), and I have sent them updates. Her brother and father are supportive and visit often; however, they cannot make any medical decisions. I anticipate that she will d/c back to [facility] w [facility]. Case Management will follow. Date Signed: 09/13/2018 12:48 PM Electronically Signed By:Josephine Cross RN
[2018-09-13] MEDS: SYSTANE EACHEYE SCH ×2 (14:52→21:13)
[2018-09-13] MEDS: EYE EACHEYE SCH ×2 (14:52→21:13)
--- NOTE | 2018-09-13 15:41 | HOSPPROG ---
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 Plan: 1. Influenza A - Presents with lethargy, decreased PO intake, and hypothermia. - Continuous fluids - Tamiflu BID x5 days when able to tolerate PO - Rewarming initiated with Michel Hugger, temperature improved this afternoon, will hold for now 2. Hypothermia - 2/2 above 3. Hypotension- BP 90/50 this AM, likely in setting of infection - S/p 2L IVF Bolus over the course of today will improvement - Continue IVF PRN - If febrile, other signs of sepsis, obtain blood cultures and start abx 4. 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 S/p EQUIPMENT SERVICE ENGINEER shunt. 5. Seizure d/o - Continue home medications when able to tolerate PO 6. Adrenal Insufficiency- Continue home medications when able to tolerate PO, if unable by the AM will convert to IV Diet - NPO, mIVF Code - Full Ppx - LMWH Dispo - Pending clinical course Subjective: Patient minimally responsive this AM Objective: Vital Signs Temp Pulse Resp BP Pulse Ox 36.4 C 93 18 97/66 L 98 09/13/18 12:00 09/13/18 12:00 09/13/18 12:00 09/13/18 12:00 09/13/18 12:00 Laboratory Results 09/13/18 03:05 09/13/18 03:05 09/12/18 09/13/18 09/14/18 05:59 05:59 05:59 Intake Total 2059 Balance 2059 - Physical Exam Constitutional: chronically ill appearing Eyes: PERRL Ears, Nose, Mouth, Throat: dry mucous membranes Cardiovascular: regular rate and rhythym Respiratory: no respiratory distress Gastrointestinal: soft, non-tender abdomen Skin: rash (LUE petechial rash ) Musculoskeletal: No full muscle strength Neurologic: No AAOx3 Psychiatric: No interacting appropriately ICD10 Worksheet Patient Problems: Problems Problem Status Onset Dehydration Acute Hypothermia Acute Influenza A Acute Palliative care encounter Acute Pneumonia Acute Seizure Acute Seizure disorder Acute Sepsis Acute Urinary tract infection Acute
--- NOTE | 2018-09-13 17:24 | PDMN ---
Medical Necessity Medical necessity: MCG MGSIC Systemic or Infectious Condition: 43 yo presents w / lethargy and decreased PO intake. Eval reveals +Influenza A. Pt is hypothermic. Initially OBS for workup/tx but requires additional MN for development of hypotension, hypoxemia requiring O2 and remains hypothermic after OBS care. Cont IVF and supportive care. Change to IP status 09/13/18 @ 1522 per MD order. Hx of astroglioma w/ CLINICAL EVALUATOR shunt and seizure d/o w/ cognitive and functional impairment.
[2018-09-13] MEDS: DEXAMETHASONE 1.5 MG TAB PO SCH (21:12)
[2018-09-13] MEDS: FAMOTIDINE 20 MG TAB PO SCH (21:13)
[2018-09-13] MEDS: LACOSAMIDE 50 MG TAB PO SCH (21:13)
[2018-09-13] MEDS: Propylene Glycol [Systane Balance] EACHEYE SCH (23:59)
[2018-09-14] MEDS: D5W 1/2 NS 1,000 ML IV SCH ×3 (01:06→21:48)
[2018-09-14] MEDS: LEVOTHYROXINE 112 MCG TAB PO SCH (02:06)
[2018-09-14 04:23] LABS: PLATELET COUNT 144 10^3/uL (150-400)
[2018-09-14] MEDS: Propylene Glycol [Systane Balance] EACHEYE SCH ×5 (05:38→21:50)
[2018-09-14] MEDS ORDERED: POTASSIUM Cl (KCl) 100 ML IV SCH (08:30)
[2018-09-14] MEDS: OSELTAMIVIR PHOSPHATE 75 MG CAP PO SCH ×2 (09:35→18:12)
[2018-09-14] MEDS: LACOSAMIDE 50 MG TAB PO SCH ×2 (09:45→21:49)
[2018-09-14] MEDS: FAMOTIDINE 20 MG TAB PO SCH ×2 (09:50→21:49)
[2018-09-14] MEDS ORDERED: POTASSIUM CL 10 MEQ TAB PO ONE (10:00)
[2018-09-14] MEDS: ENOXAPARIN 40 MG/0.4 ML SYR SC SCH (14:16)
--- NOTE | 2018-09-14 14:42 | HOSPPROG ---
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 Plan: 1. Influenza A - Presents with lethargy, decreased PO intake, and hypothermia. - Continuous fluids - Tamiflu BID x5 days 2. Hypothermia - 2/2 above, improved this AM, was reheating yesterday 3. Hypotension- BP 90/50 yesterday, in setting of infection - S/p 2L IVF Bolus over the course of today will improvement - Continue IVF PRN - If febrile, other signs of sepsis, obtain blood cultures and start abx 4. 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 S/p TUNGSTEN REFINER shunt. 5. Seizure d/o - Continue home medications when able to tolerate PO 6. Adrenal Insufficiency- Continue home medications Diet - mIVF Code - Full Ppx - LMWH Dispo - Pending clinical course Subjective: Patient more awake and alert this morning Objective: Vital Signs Temp Pulse Resp BP Pulse Ox 36.4 C 89 15 108/61 94 09/14/18 07:29 09/14/18 07:29 09/14/18 07:29 09/14/18 07:29 09/14/18 14:21 Laboratory Results 09/14/18 03:20 09/14/18 03:20 09/13/18 09/14/18 09/15/18 05:59 05:59 05:59 Intake Total 2900 Output Total 1000 Balance 1900 - Physical Exam Constitutional: chronically ill appearing Eyes: PERRL Ears, Nose, Mouth, Throat: dry mucous membranes Cardiovascular: regular rate and rhythym Respiratory: no respiratory distress, reduced air movement Gastrointestinal: soft, non-tender abdomen Skin: warm Neurologic: No AAOx3 Psychiatric: No interacting appropriately ICD10 Worksheet Patient Problems: Problems Problem Status Onset Dehydration Acute Hypothermia Acute Influenza A Acute Palliative care encounter Acute Pneumonia Acute Seizure Acute Seizure disorder Acute Sepsis Acute Urinary tract infection Acute
[2018-09-14] MEDS: DEXAMETHASONE 1.5 MG TAB PO SCH (18:12)
[2018-09-14] MEDS ORDERED: POTASSIUM CL 20 MEQ/15 ML UDCUP PO ONE (19:45)
[2018-09-15] MEDS: Propylene Glycol [Systane Balance] EACHEYE SCH ×5 (07:35→21:53)
[2018-09-15] MEDS: LEVOTHYROXINE 112 MCG TAB PO SCH (07:36)
[2018-09-15] MEDS: D5W 1/2 NS 1,000 ML IV SCH (08:13)
[2018-09-15] MEDS: LACOSAMIDE 50 MG TAB PO SCH ×2 (09:25→21:52)
[2018-09-15] MEDS: ENOXAPARIN 40 MG/0.4 ML SYR SC SCH (09:26)
[2018-09-15] MEDS: OSELTAMIVIR PHOSPHATE 75 MG CAP PO SCH ×2 (09:26→18:00)
[2018-09-15] MEDS: FAMOTIDINE 20 MG TAB PO SCH ×2 (09:26→21:52)
[2018-09-15] MEDS: DEXAMETHASONE 1.5 MG TAB PO SCH (18:50)
[2018-09-16] MEDS ORDERED: POTASSIUM CL 10 MEQ TAB PO ONE ×2 (00:36→09:51)
[2018-09-16] MEDS: D5W 1/2 NS 1,000 ML IV SCH (03:30)
[2018-09-16] MEDS: LEVOTHYROXINE 112 MCG TAB PO SCH (06:02)
[2018-09-16] MEDS: Propylene Glycol [Systane Balance] EACHEYE SCH ×2 (06:02→10:57)
[2018-09-16 08:47] VITALS: BP 121/74
[2018-09-16] MEDS ORDERED: DEXAMETHASONE 1.5 MG TAB PO ONE (09:16)
[2018-09-16] MEDS: ENOXAPARIN 40 MG/0.4 ML SYR SC SCH (09:37)
[2018-09-16] MEDS: FAMOTIDINE 20 MG TAB PO SCH (09:42)
[2018-09-16] MEDS: OSELTAMIVIR PHOSPHATE 75 MG CAP PO SCH (09:42)
[2018-09-16] MEDS: LACOSAMIDE 50 MG TAB PO SCH (09:42)
--- NOTE | 2018-09-16 09:47 | PDIAF ---
- Diagnosis Diagnosis: influenza Code Status: Do Not Resuscitate - Medication Management Nursing Home Antibiotics: 4 more doses tamiflu then stop Discharge Medications: electronically signed and located in the Home Medication List. - Orders Services needed: Home Care, Registered Nurse Home Care Face to Face: I certify that this patient was under my care and that I had the required [id number] encounter meeting the encounter requirements on the discharge day. My findings support the fact that the patient is homebound as defined in Home Care Face to Face Continued: CMS Chapter 7 Medicare Benefits Manual 30.1.1 , The condition of the patient is such that there exists a normal inability to leave home and consequently, leaving home would require a considerable and taxing effort. Isolation Type: Droplet Isolation Diet Texture: Dysphagia 1 - Pureed, Honey Thick Liquids, Meds Crushed in Puree Additional Instructions: Take double dose Decadron for 2 days then back to baseline dose - Follow Up Care Current Providers and Referrals: NONE *PRIMARY CARE P,. [Primary Care Provider] - As per Instructions
--- NOTE | 2018-09-16 10:36 | WOCRNPDOC ---
WOCRN Advanced Assessment Note - Skin Integrity Problem, Advanced Assess Generalized Perianal Incont Assoc Dermatitis Dressing Type: Open to Air Yarelis Wound Tissue: Blanching, Erythema Skin Integrity Problem Comment: Incontinence associated dermatits; mild. No pressure injury present. Patient with difuse erythema to gluteal cleft and perianal skin with diffuse edges. Satelitte lesions present indicating fungal involvement. Fungal barrier cream suggested and provided. Pt incontinent of bowel and bladder. ZION Raza in room for care.
[2018-09-16] MEDS ORDERED: CHLORHEXIDINE GLUCONATE 15 ML UDL PO SCH (12:00)
--- NOTE | 2018-09-16 13:29 | ASMTLACE ---
LACE Length of stay for Answers: 2 days current admission Acuity / Level of Answers: Yes Care: Did the patient have an inpatient admission? Comorbidities - select Answers: Any tumor (including all that apply lymphoma or leukemia) Other Notes: Cognitive impairment; Seizure disorder; Recurrent UTI s # of Emergency department Answers: 5-8 visits in the last 6 months Score: 12 Date Signed: 09/16/2018 01:29 PM Electronically Signed By:Gretchen Karimi RN
--- NOTE | 2018-09-16 13:36 | ASMTDCNOTE ---
Case Management Discharge Discharge Order Complete? Answers: Yes Patient to Obtain Answers: Other Notes: [facility] Medications Transportation Arranged Answers: Other Notes: transported by Adia aquino [facility] in pt wheelchair Transport will Pick (Date 09/16/2018 01:30 PM & Time) Faxed Final Orders Answers: Yes Notes: to Elida DONOVAN from [facility] and [facility] Palliative Agency/Facility Transfer Answers: Yes Notes: to Elida RN at [facility] Report Printed & Faxed to [facility] and [facility] Receiving Agency Palliative Family Notified Answers: Yes Notes: notified father only of d/c. No other information provided Discharge Comments Notes: 09/16/2018 Case Management Note Faxed final orders to Elida DONOVAN at [facility]. . RN called report. Faxed final orders to [facility]. SHAMAR sat in on conference with Varsha Rodarte order entry representative [phone], [facility] Palliative team and Ramirez from [facility] Palliative Team to discuss PEG tube consideration. advertising sales manager at [facility] requested meeting with [facility] Guardian, [facility] Staff and family to discuss pt care goals after last discharge at [facility]. Per Varsha pt to see MAR THOMPSON for consult. Please see palliative note in chart for more details. Varsha conveyed there is a family meeting scheduled to inform family of new boundaries and expectations for information sharing at the direction of Kimberly Levy [facility] mao. Family continues to attempt seek information and direct care. Phone call with Kimberly this morning. Kimberly in agreement with d/c to Skye killian with [facility] to follow. Kimberly reiterated that no information is to be given to family. Varsha to transport. Case Management d/c: Skye Killian with [facility] to follow. Date Signed: 09/16/2018 01:35 PM Electronically Signed By:Gretchen Karimi, RN
--- NOTE | 2018-09-16 13:38 | ASDISCHSUM ---
Discharge Information Plan Status:Long-Term Medically Cleared to Leave:09/16/2018 Discharge Date:09/16/2018 CM D/C Disposition:Home Health Service ADT D/C Disposition:Home, Routine, Self-Care Projected Discharge Date:09/14/2018 11:00 AM Transportation at D/C:Wheelchair Van Discharge Delay Reason: Follow-Up Date:09/14/2018 11:00 AM Discharge Slot: Final Diagnosis: Placement Information Referral Type:Palliative Care Referral ID:[id number] Provider Name:[facility] Address 1:[address] Phone Number: Address 2: Fax Number: City:[place] Selection Factors: State:[place] Patient Contact Information Contact Name:VARINDER Relationship:Legal guardian Address:[address] [place] [address] [address] City:[facility] Phone: State/Zip Code:[place] [address] Email: Financial Information Financial Class:Medicare Primary Plan Desc:MEDICARE INPATIENT Primary Plan Number:[id number] Secondary Plan Desc:MED[place] Secondary Plan Number:[id number] Assessment Information [facility] CM Progress Note CM Note CM Note Notes: Reviewed chart. Pt presented to the Emergency Department with lethargy, reduced PO intake and FTT. Pt is accompanied by her caregiver Jaime Dempseychelsea from [facility]. History includes cognitive impairment secondary to an astroglioma resection with RUBBER PROCESS HAND shunt, glioblastoma, osteoarthritis, recurrent UTI's, legally blind, hypothyroid, adrenal insufficiency, dysphagia and seizure disorder. Asked to see pt and caregiver by ZION Mcpherson. Met with pt and caregiver, Jaime. Per Jaime, pt lives at [facility] and is a sharif of the [facility]. The pt has a legally appointed guardian named Mariah Bagley. Mariah is to be contacted for any and all medical decisions - (night), (day). Jaime reports in medical emergencies, the pt's family will often congregate at the hospital and pt's bedside. Per Jaime, they have had several instances where doctors have violated the pt's HIPPA rights by disclosing too much information to the family and by consulting family members at the bedside on medical decisions. Per Jaime, the family does not have any decision making or guardianship rights. ONLY MARIAH BAGLEY SHOULD BE CONTACTED AT THE NUMBERS PROVIDED ABOVE FOR DECISIONS REGARDING PT CARE It is unclear whether the pt will be admitted for further evaluation and treatment at this time. Update provided to ZION Mcpherson, Dr. Payne, BIGG Hess and Fabiola PRIDE. Pt will likely discharge back to [facility] when medically stable. CM will continue to follow. Date Signed: 09/12/2018 07:13 PM Electronically Signed By:Christina Lewis RN LACE LACE Length of stay for Answers: 2 days current admission Acuity / Level of Answers: Yes Care: Did the patient have an inpatient admission? Comorbidities - select Answers: Any tumor (including all that apply lymphoma or leukemia) Other Notes: Cognitive impairment; Seizure disorder; Recurrent UTI s # of Emergency department Answers: 5-8 visits in the last 6 months Score: 12 Date Signed: 09/16/2018 01:29 PM Electronically Signed By:Gretchen Karimi RN [facility] CM Progress Note CM Note CM Note Notes: Patient admitted w lethargy and decreased PO intake. Positive Influenza A. She lives at [facility] where she is fully dependent for all cares. Her court-appointed guardian is Mariah Worrell [phone] (FYI: Mariah is out of town next week). She is currently open with [facility] (initiated at last admission), and I have sent them updates. Her brother and father are supportive and visit often; however, they cannot make any medical decisions. I anticipate that she will d/c back to [facility] w [facility]. Case Management will follow. Date Signed: 09/13/2018 12:48 PM Electronically Signed By:Josephine Cross RN Case Management Discharge Plan Note Case Management Discharge Discharge Order Complete? Answers: Yes Patient to Obtain Answers: Other Notes: [facility] Medications Transportation Arranged Answers: Other Notes: transported by Adia aquino [facility] in pt wheelchair Transport will Pick (Date 09/16/2018 01:30 PM & Time) Faxed Final Orders Answers: Yes Notes: to Elida DONOVAN from [facility] and [facility] Palliative Agency/Facility Transfer Answers: Yes Notes: to Elida DONOVAN at [facility] Report Printed & Faxed to [facility] Agency Palliative Family Notified Answers: Yes Notes: notified father only of d/c. No other information provided Discharge Comments Notes: 09/16/2018 Case Management Note Faxed final orders to Elida DONOVAN at [facility]. . RN called report. Faxed final orders to [facility]. SHAMAR sat in on conference with Varsha Cheung [place] sales representative aircraft [phone], [facility] Palliative team and Ramirez from [facility] Palliative Team to discuss PEG tube consideration. stable manager at [facility] requested meeting with State Guardian, [facility] Staff and family to discuss pt care goals after last discharge at [facility]. Per Varsha pt to see MAR THOMPSON for consult. Please see palliative note in chart for more details. Varsha conveyed there is a family meeting scheduled to inform family of new boundaries and expectations for information sharing at the direction of Kimberly Bagley, state guardian. Family continues to attempt seek information and direct care. Phone call with Kimberly this morning. Kimberly in agreement with d/c to [facility] with [facility] to follow. Kimberly reiterated that no information is to be given to family. Varsha to transport. Case Management d/c: [facility] with [facility] to follow. Date Signed: 09/16/2018 01:35 PM Electronically Signed By:Gretchen Karimi RN Intervention Information Intervention Type:*Incorrect Registration Date of Service:09/13/2018 11:01 AM Patient Type:Inpatient Staff Member:Annelise Vegas Hours: Discipline: Severity: Comment: Intervention Type:SANTAMARIA-Not Delivered Date of Service:09/13/2018 11:58 AM Patient Type:Observation Staff Member:Tere Benitez Hours: Discipline: Severity: Comment:Unable to sign Medicare Observation Paty brannon.
[2018-09-16] MEDS ORDERED: CALCIUM CARBONATE 500 MG CHEWABLE TAB PO SCH (21:00)
--- NOTE | 2018-09-17 02:58 | GDS ---
[f rep st] DISCHARGE SUMMARY DISCHARGE DIAGNOSES: 1. Influenza A. 2. Astroglioma, status post resection, with severe cognitive and functional impairment. 3. Status post ventriculoperitoneal shunt. 4. Seizure disorder. 5. Adrenal insufficiency. HISTORY: The patient is a 43-year-old female who lives at [facility]. She is severely debilitate d at baseline. She presented with lethargy and decreased oral intake with poor energy. She tested p ositive for influenza A. she was hypothermic. She had some low blood pressures. She was admitted t o [facility]. She received Tamiflu. She slowly improved. At the time of discharge, she has good saturations on room air and is tolerating an oral diet. DISCHARGE INSTRUCTIONS: 1. Please see computerized record for full detailed list. New medications: Tamiflu 75 mg p.o. b.i. d., 4 more tablets. 2. Take a double dose of Decadron for 2 more days during the acute phase of illness for chronic adre nal insufficiency and then resume baseline dose. ADDITIONAL DISCHARGE INSTRUCTIONS: Return to [facility] where she gets full 26/01 care administere d. Greater than 30 minutes of time was spent arranging this discharge. Patient seen and examined by me on the day of discharge. /[id number]/MODL
[2018-09-17] MEDS ORDERED: MAGNESIUM OXIDE 400 MG TAB PO SCH (09:00)
== END 2018-09-16 13:35 | DRG 194 ==
LOC: EDUNIT# → INTOOBSV 21:57 → F2W 09-13 00:14 → OBSVTOIN 09-13 15:22
PROVIDERS: ADMIT Internal Medicine; ATTEND Internal Medicine
DX: J10.1 Influenza due to other identified influenza virus with other respiratory manifestations (principal); C71.9 Malignant neoplasm of brain, unspecified; R42 Dizziness and giddiness; Z98.2 Presence of cerebrospinal fluid drainage device; G40.909 Epilepsy, unspecified, not intractable, without status epilepticus; E27.40 Unspecified adrenocortical insufficiency; R13.10 Dysphagia, unspecified; I95.9 Hypotension, unspecified; E86.0 Dehydration; E03.9 Hypothyroidism, unspecified; M81.8 Other osteoporosis without current pathological fracture; R68.0 Hypothermia, not associated with low environmental temperature; R39.81 Functional urinary incontinence; R15.9 Full incontinence of feces; H54.8 Legal blindness, as defined in USA; Z87.440 Personal history of urinary (tract) infections; Z79.52 Long term (current) use of systemic steroids; Z51.5 Encounter for palliative care
CPT/HCPCS: 92610-GN; 96374; G0378; J1650; J2060; J3480

== ENCOUNTER 2018-09-17 15:47 | Inpatient (IN) | payer OTHER, MEDICAID ==
[2018-09-17] MEDS ORDERED: NS 1,400 ML IV ONE (16:55)
[2018-09-17 16:58] LABS: PLATELET COUNT 189 10^3/uL (150-400)
--- NOTE | 2018-09-17 17:03 | EDPHY ---
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 She was recently admitted for influenza a. She was discharged yesterday to [facility]. The she was to continue taking Tamiflu as well as double doses of her Decadron. Today a home health nurse visited and found the patient had coarse breath sounds. The staff also notes that the patient seemed too sleepy to eat. They brought her back to the ER. Here triage her sats were 81% on room air. She typically wears oxygen 2 L at night only. They have not noticed a fever. Severity: Moderate Modifying factors: Seem to be worsening REVIEW OF SYSTEMS: Constitutional: See HPI EENTM: See HPI Respiratory: See HPI Cardiac: denies: chest pain, irregular heart rate, lightheadedness, palpitations Gastrointestinal/Abdominal: denies: abdominal pain, diarrhea, nausea, vomiting, blood streaked stools Genitourinary: denies: dysuria, frequency, hematuria, pain Musculoskeletal: denies: joint pain, muscle pain Skin: denies: lesions, rash, jaundice, bruising Neurological: More sleepy than usual, Hematologic/Lymphatic: denies: blood clots, easy bleeding, easy bruising Immunologic/allergic: denies: HIV/AIDS, transplant 10 systems reviewed and negative except as noted EXAM: GENERAL: Lying in bed, groans in response to questioning HEAD: Atraumatic, normocephalic. EYES: Pupils equal round and reactive to light, conjunctiva are normal. ENT: TMs normal, nares patent, oropharynx clear without exudates. Moist mucous membranes. NECK: Normal range of motion LUNGS: Bilateral coarse breath sounds HEART: Regular rate and rhythm without murmurs, rubs or gallops. ABDOMEN: Soft, nontender, normoactive bowel sounds. No guarding, no rebound. No masses appreciated. BACK: No CVA tenderness, no spinal tenderness, step-offs or deformities EXTREMITIES: Baseline movement, no pitting or edema. No clubbing or cyanosis. NEUROLOGICAL: Normal facial movement Decreased speech, better in a baseline. Baseline movement in all extremities, normal sensation, normal reflexes PSYCH: Not cooperative SKIN: Warm, dry, normal turgor, no visible rashes or lesions. Source: Patient, RN/MD, Old records Exam Limitations: Clinical condition - Personal History LMP (Females 10-55): Unknown Current Tetanus/Diphtheria Vaccine: Yes Tetanus Vaccine Date: 01/2008 - Medical/Surgical History Hx Asthma: No Hx Chronic Respiratory Disease: No Hx Diabetes: No Hx Cardiac Disease: No Hx Renal Disease: No Hx Cirrhosis: No Hx Alcoholism: No Hx HIV/AIDS: No Hx Splenectomy or Spleen Trauma: No Other PMH: TBI, BRAIN TUMOR,SEIZURE, SHUNT X 2, HYPOTHYROID, LACTOSE INTOL, PTSD , LEGALLY BLIND, FENG LEFT LEG, INCONTINENT, ASPIRATION PNEUMONIA, gen seizure, adrenal insufficiency, depression, dysphagia - Social History Smoking Status: Never smoked Constitutional: Initial Vital Signs Heart Rate 82 09/17/18 16:04 Respiratory Rate 18 09/17/18 16:04 Blood Pressure 136/76 H 09/17/18 16:04 O2 Sat (%) 81 L 09/17/18 16:04 O2 Delivery Mode Nasal Cannula O2 (L/minute) 3 Allergies/Adverse Reactions: codeine [Codeine] Allergy (Intermediate, Verified 09/17/18 16:06) levofloxacin [From Levaquin] Allergy (Verified 09/17/18 16:06) milk [Milk] Allergy (Verified 09/17/18 16:06) morphine Allergy (Verified 09/17/18 16:06) Penicillins Allergy (Verified 09/17/18 16:06) vancomycin Allergy (Verified 09/17/18 16:06) Home Medications: Medication Instructions Recorded Chlorhexidine Gluconate [Peridex 15 ml PO TIDMEAL 08/12/12 oral soln (*)] Levothyroxine [Synthroid 112 mcg 112 mcg PO DAILY06 08/12/12 (*)] Fluoride (Sodium) [Prevident 5000] 1 pratima DT TID 03/14/17 Famotidine [Pepcid 20 MG (*)] 20 mg PO BID #60 tab 03/20/17 Magnesium Oxide [Magnesium Oxide 400 mg PO DAILY 07/23/17 400 mg (*)] Sodium Cl Nasal Gel [[place] Saline 1 pratima [place]ARE HS 07/23/17 Nasal Gel] Lacosamide [Vimpat 50 mg (*)] 100 mg PO BID 30 Days tab 07/27/17 Herbals/Supplements -Info Only 1 ea PO TID 08/29/17 Cholecalciferol Vit D3 [Vitamin D3 1,000 units PO DAILY 11/07/17 (*)] Calcium Carbonate [Tums 500MG (*)] 500 mg PO BID 09/12/18 Clindamycin HCl [Clindamycin] 300 mg PO ONCE PRN 09/12/18 Cranberry Fruit Extract [Cran-Max] 1,000 mg PO DAILY 09/12/18 Dexamethasone 1.5 mg PO DAILY@1900 09/12/18 Ibuprofen [Motrin (*)] 200 mg PO Q6H PRN 09/12/18 Magnesium Hydroxide [Milk of 5 ml PO Q3D PRN 09/12/18 Magnesia] Propylene Glycol [Systane Balance] 1 drop EACHEYE 5XD 09/13/18 Oseltamivir Phosphate [Tamiflu 75 75 mg PO BIDMEAL #4 cap 09/16/18 mg (*)] Medical Decision Making - Diagnostics Imaging: Discussed imaging studies w/ roundhouse worker Radiologist ED Course/Re-evaluation: Patient meets criteria for severe sepsis. She has been given IV fluid bolus. CT chest is pending. Clinically suspect hospital-acquired pneumonia. Will give cefepime. She has a penicillin allergy listed. We are trying to call decision maker is and head nurse to see if they no at her reaction is been. Spoke with Dr. Hayward who will admit and request cefepime at this time. Also Flagyl. Patient appears to have urinary tract infection as well. This should be covered by the antibiotics given. Differential Diagnosis: Partial list of the Differential diagnosis considered include but were not limited to; sepsis, pneumonia, influenza and although unlikely based on the history and physical exam, I also considered pneumothorax, acute coronary disease. Critical Care Time: Critical care time spent by me, Dr. Carreno exclusive with this patient was[] minutes, exclusive of the PA time exclusive of procedures. The organ system that was at risk was[] and I gave [the IV EF, antibiotics, pressors, placed chest tube, placed a central line, the emergently transfused the patient, consulted Neurosurgery] to prevent worsening of the patient's condition - Data Points Laboratory Results: Laboratory Results 09/17/18 16:45 09/17/18 16:45 Microbiology Results: MICROBIOLOGY 09/17/18 16:45 Nasal, Sinus - Swab Respiratory Panel (PCR) - Final Influenza Virus Type A 2009 H1 Medications Given: Albuterol/Ipratropium (Duoneb) 3 ml IH Q6HRS [facility] Stop: 03/17/19 11:59 Last Admin: 09/18/18 12:23 Dose: 3 ml Chlorhexidine Gluconate (Peridex) 15 ml PO TIDMEAL [facility] Stop: 03/17/19 07:59 Last Admin: 09/18/18 11:48 Dose: Not Given Dexamethasone (Decadron) 1.5 mg PO DAILY@1900 [facility] Stop: 03/16/19 22:14 Last Admin: 09/18/18 01:26 Dose: Not Given Enoxaparin Sodium (Lovenox) 40 mg SC DAILY [facility] Stop: 03/17/19 08:59 Last Admin: 09/18/18 09:26 Dose: 40 mg Famotidine (Pepcid) 20 mg PO BID [facility] Stop: 03/17/19 08:59 Last Admin: 09/18/18 11:22 Dose: Not Given Guaifenesin (Mucinex) 600 mg PO BID [facility] Stop: 03/16/19 21:59 Last Admin: 09/18/18 11:22 Dose: Not Given Cefepime HCl 2 gm/ Sodium (Chloride) 100 mls @ 200 mls/hr IV Q12H [facility] PRN Reason: Protocol Stop: 10/18/18 05:59 Last Admin: 09/18/18 05:28 Dose: 100 mls Metronidazole/Sodium Chloride (Flagyl 500 Mg (Premix)) 100 mls @ 100 mls/hr IV Q8HRS [facility] PRN Reason: Protocol Stop: 10/17/18 21:59 Last Admin: 09/18/18 13:20 Dose: 100 mls Dextrose/Sodium Chloride (D5w 1/2 Ns) 1,000 mls @ 100 mls/hr IV CONT [facility] Stop: 03/17/19 09:29 Last Admin: 09/18/18 09:26 Dose: 1,000 mls Lacosamide (Vimpat) 100 mg PO BID [facility] Stop: 03/17/19 08:59 Last Admin: 09/18/18 10:57 Dose: 100 mg Levothyroxine Sodium (Synthroid) 112 mcg PO DAILY06 [facility] Stop: 03/17/19 05:59 Last Admin: 09/18/18 06:20 Dose: 112 mcg Magnesium Oxide (Magnesium Oxide) 400 mg PO DAILY [facility] Stop: 03/17/19 08:59 Last Admin: 09/18/18 11:22 Dose: Not Given Miscellaneous Medication (Cranberry Fruit Extract [Cran-Max]) 1,000 mg PO DAILY [facility] Stop: 03/17/19 08:59 Last Admin: 09/18/18 09:32 Dose: Not Given Miscellaneous Medication (Fluoride (Sodium) [Prevident 5000]) 1 pratima DT TID [facility] Stop: 03/16/19 21:59 Last Admin: 09/18/18 13:14 Dose: Not Given Miscellaneous Medication (Propylene Glycol [Systane Balance]) 1 drop EACHEYE 5XD [facility] Stop: 03/16/19 21:59 Last Admin: 09/18/18 13:14 Dose: Not Given Discontinued Medications Acetylcysteine (Acetylcysteine 10% Ih/Po) 2 ml IH Q6HRS [facility] Stop: 03/17/19 00:00 Last Admin: 09/18/18 04:22 Dose: 2 ml Albuterol (Proventil Neb) 3 ml IH QID [facility] Stop: 03/17/19 21:39 Last Admin: 09/18/18 04:23 Dose: 3 ml Sodium Chloride (Ns) 1,400 mls @ 233.3333 mls/hr 30 ml/kg infuse over 6 hr ( 1400 ml) IV EDNOW ONE PRN Reason: Protocol Stop: 09/17/18 22:54 Last Admin: 09/17/18 17:02 Dose: 1,400 mls Cefepime HCl 2 gm/ Sodium (Chloride) 100 mls @ 200 mls/hr IV EDNOW [facility] PRN Reason: Protocol Stop: 10/17/18 21:59 Last Admin: 09/17/18 18:50 Dose: 100 mls Metronidazole/Sodium Chloride (Flagyl 500 Mg (Premix)) 100 mls @ 100 mls/hr IV EDNOW ONE PRN Reason: Protocol Stop: 09/17/18 18:52 Last Admin: 09/17/18 19:45 Dose: 100 mls Sodium Chloride (Ns) 1,000 mls @ 125 mls/hr IV CONT [facility] Stop: 03/16/19 21:59 Last Admin: 09/17/18 23:07 Dose: 1,000 mls Oseltamivir Phosphate (Tamiflu) 75 mg PO BIDMEAL [facility] Stop: 09/18/18 08:01 Last Admin: 09/18/18 11:23 Dose: Not Given Oseltamivir Phosphate (Tamiflu) 75 mg PO ONCE ONE Stop: 09/18/18 11:01 Last Admin: 09/18/18 10:57 Dose: 75 mg Point of Care Test Results: Chemistry 09/17/18 17:00 POC Sodium 152 mEq/L H mEq/L (135-145) POC Potassium 3.6 mEq/L mEq/L (3.3-5.0) POC Chloride 108 mEq/L mEq/L (97-110) POC Total CO2 28 mEq/L mEq/L (22-31) POC BUN 10 mg/dL mg/dL (7-23) POC Creatinine 0.6 mg/dL mg/dL (0.6-1.0) POC Glucose 87 mg/dL mg/dL (70-100) ISTAT H&H 09/17/18 17:00 POC Hgb 18.4 gm/dL H gm/dL (12.6-16.3) POC Hct 54 % H % (38-47) Departure - Departure Disposition: [facility] Inpatient Acute Clinical Impression: Influenza A Urinary tract infection Qualifiers: Urinary tract infection type: site unspecified Hematuria presence: without hematuria Qualified Code(s): N39.0 - Urinary tract infection, site not specified Condition: Critical
[2018-09-17] MEDS ORDERED: IOPAMIDOL (ISOVUE-300) 100 ML BTL ONE (17:17)
[2018-09-17] MEDS ORDERED: ALTEPLASE 2 MG VIAL IVP PRN (18:06)
[2018-09-17 20:32] LABS: INR 0.97 (0.83-1.16); PROTIME(PATIENT) 12.5 SEC (12.0-15.0)
[2018-09-17] MEDS ORDERED: ONDANSETRON 4 MG/2 ML VIAL IVP PRN (21:49)
[2018-09-17] MEDS ORDERED: ACETAMINOPHEN 325 MG TAB PO PRN (21:49)
[2018-09-17] MEDS ORDERED: ONDANSETRON DISINTEGRATING 4 MG TAB PO PRN (21:49)
[2018-09-17] MEDS ORDERED: NS 1,000 ML IV SCH (22:00)
[2018-09-17] MEDS ORDERED: CEFEPIME HCL 2 GM in NS 100 ML IV SCH (22:00)
--- NOTE | 2018-09-17 22:41 | GHP ---
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 She lives in [facility]. At [facility], she is able to state her needs. She was discharged from the hospital yesterday. She was br ought in with lethargy, and had influenza A, as well as hypothermia. She was here from the [facility] the , discharged yesterday after some Tamiflu and supportive care. She returns today. Careg raad are concerned about coarse breath sounds and hypoxemia. She was discharged on room air. When I see the patient, she is not able to speak. She is alert but not participating in conversation . Per her caregiver, it sounds like she is awake, which has been an improvement for her. She was ac tually admitted earlier in August with dehydration and hyponatremia. CT in the emergency department revealed mucous plugging and bronchitis, as well as subacute rib fract ures. There are indistinct bibasilar opacities, consistent with pneumonia and/or atelectasis. REVIEW OF SYSTEMS: Complete 10-point review of systems conducted, and negative except as noted in th e HPI. PAST MEDICAL HISTORY: Astroglioma, status post LOOM FIXER shunt; cognitive impairment; seizures. SOCIAL HISTORY: Lifelong nonsmoker. No alcohol. Lives in [facility]. FAMILY HISTORY: Her father and sister are active in her care, but they are not the decision-makers. It is unclear what events led to this arrangement. ALLERGIES: Codeine, levofloxacin, morphine, penicillin, vancomycin. HOME MEDICATIONS: Calcium carbonate, vitamin D3, clindamycin, p.r.n. ibuprofen, milk of magnesia, so dium nasal gel, chlorhexidine, cranberry, dexamethasone, famotidine, fluoride, lacosamide, levothyrox ine, mag oxide. PHYSICAL EXAM: VITAL SIGNS: Temp 34.6, blood pressure 125/88, pulse 94, breathing 20 times a minute , 93% on 3 L. GENERAL: She looks similar to when I have seen her in the past, but she has always be en sick. She is alert, but not conversant. ENT: Mucous membranes are dry. NECK: Supple without l ymphadenopathy or JVD. LUNGS: Rhonchorous sounds bilaterally without clear area of focal decreased infiltrate. HEART: S1 and S2. Borderline tachycardic. ABDOMEN: Soft, nontender, nondistended. L OWER EXTREMITIES: Without edema. Calves are nontender. SKIN: Without rash. NEUROLOGIC: Nonfocal . LABS: White count 7.6, hematocrit 53 (which is high for her), platelets are 189,000. INR is normal. Venous lactate is 2.7, down from 2.8, it was 0.6 on the 10th. Sodium 144, potassium 4.0, chloride 113, bicarb 24; BUN 11, creatinine 0.6. UA shows 50-180 white cells. Nasal influenza shows flu A, t hat is from the 10th. Urine culture from the 10th grew out citrobacter. Chest CT is as in the HPI. I discussed the case with Dr. Isidro Carreno. ASSESSMENT/PLAN: A complex 43-year-old female here with possible pneumonia. 1. Pneumonia. I think it is reasonable to treat this as healthcare-associated pneumonia with cefepi me and Flagyl. I do not think she needs vancomycin. 2. Influenza. We will continue her Tamiflu. 3. Acute hypoxemic respiratory failure, probably secondary to mucous plugging. I have written her f or N-acetylcysteine (Mucomyst) nebs, Mucinex, as well as p.r.n. albuterol. Respiratory Therapy shoul d be consulted to try perhaps a vest. I do not think she can participate with the Acapella device. She may be a candidate for a bronch, but there is no consent for an invasive procedure at this time. 4. Plan of care: The patient is a full code. 5. Seizure disorder. Continue lacosamide. 6. Hyponatremia. This is seen on the [id number] sample, but not her lab sample. We will follow. 7. Pyuria. It is possibly consistent with urinary tract infection. She grew out citrobacter during her last hospitalization. Continue cefepime and metronidazole. 8. Disposition: Inpatient. /[id number]/MODL
[2018-09-17] MEDS ORDERED: ALBUTEROL 3 ML DEYVIAL ONE (22:46)
[2018-09-17] MEDS: ALBUTEROL 3 ML DEYVIAL IH SCH (22:55)
[2018-09-17] MEDS: ACETYLCYSTEINE 10% IH/PO 4 ML VIAL IH SCH (23:01)
[2018-09-17] MEDS: FLUORIDE DT SCH (23:58)
[2018-09-18] MEDS: guaiFENesin 600 MG TAB.ER PO SCH ×4 (01:25→21:51)
[2018-09-18] MEDS: DEXAMETHASONE 1.5 MG TAB PO SCH ×2 (01:26→19:20)
[2018-09-18] MEDS: OSELTAMIVIR PHOSPHATE 75 MG CAP PO SCH ×2 (01:53→11:23)
[2018-09-18] MEDS: Propylene Glycol [Systane Balance] EACHEYE SCH ×6 (01:53→22:10)
[2018-09-18] MEDS ORDERED: ALBUTEROL 3 ML DEYVIAL ONE (04:16)
[2018-09-18] MEDS: ACETYLCYSTEINE 10% IH/PO 4 ML VIAL IH SCH (04:22)
[2018-09-18] MEDS: ALBUTEROL 3 ML DEYVIAL IH SCH (04:23)
[2018-09-18] MEDS: CEFEPIME HCL 2 GM in NS 100 ML IV SCH ×2 (05:28→18:33)
[2018-09-18 05:58] LABS: PLATELET COUNT 158 10^3/uL (150-400)
[2018-09-18] MEDS: LEVOTHYROXINE 112 MCG TAB PO SCH (06:20)
--- NOTE | 2018-09-18 08:10 | PDMN ---
Medical Necessity Medical necessity: Pt meets IP criteria per MD & MCG [id number]; est los >2 mn for eval/tx of pneumonia, influenza, acute hypoxemic respiratory failure & possible UTI; admit for further monitoring, PICC placement, IV abx, IVFs & respiratory supportive care w/possible bronch; hx astroglioma resection w/significant cognitive impairment, seizures; per H&P & order 09/17/18
[2018-09-18] MEDS ORDERED: MAGNESIUM HYDROXIDE 30 ML UDCUP PO PRN (09:19)
[2018-09-18] MEDS ORDERED: BISACODYL 10 MG SUPP PR PRN (09:19)
[2018-09-18] MEDS ORDERED: LACTULOSE 20 GM/30 ML UDCUP PO PRN (09:19)
[2018-09-18] MEDS ORDERED: POLYETHYLENE GLYCOL 3350 17 GM PKT PO PRN (09:19)
[2018-09-18] MEDS: ENOXAPARIN 40 MG/0.4 ML SYR SC SCH (09:26)
[2018-09-18] MEDS: D5W 1/2 NS 1,000 ML IV SCH ×2 (09:26→20:59)
[2018-09-18] MEDS: FLUORIDE DT SCH ×3 (09:31→22:09)
[2018-09-18] MEDS: CHLORHEXIDINE GLUCONATE 15 ML UDL PO SCH ×3 (09:31→17:00)
[2018-09-18] MEDS: CRANBERRY FRUIT EXTRACT PO SCH (09:32)
[2018-09-18] MEDS: LACOSAMIDE 50 MG TAB PO SCH ×3 (10:57→21:53)
[2018-09-18] MEDS ORDERED: OSELTAMIVIR PHOSPHATE 75 MG CAP PO ONE (11:00)
[2018-09-18] MEDS: FAMOTIDINE 20 MG TAB PO SCH ×3 (11:22→21:51)
[2018-09-18] MEDS: MAGNESIUM OXIDE 400 MG TAB PO SCH (11:22)
--- NOTE | 2018-09-18 11:36 | HOSPPROG ---
Hospitalist Progress Note Assessment/Plan: 43 yo F w/ hx of astroglioma, PARATRANSIT OPERATOR shunt, and seizure d/o, recently admitted for influenza A, now re-admitted with HCA pneumonia Plan: 1. Influenza A and subsequent HCA pneumonia -cefepime/flagyl day #2 -finished Tamiflu BID x5 days 2. Hypothermia -kpad ordered 3. Hypotension - Continue IVF -concerning for sepsis, RN to monitor status closely and alert if vitals change/ worsen 4. 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 S/p PARATRANSIT OPERATOR shunt. 5. Seizure d/o - Continue home medications 6. Adrenal Insufficiency- Continue home medications 7. Hypernatremia -IVF -watch closely 8. Concern re aspiration -speech swallow eval pending -NPO for now Code - DNR DVT prophy- lovenox Dispo - has a court assigned guardian through [employer], lives at [facility], has palliative care already involved at home, CM to set up care planning to discuss goals of care, feeding tube (javad if found to be aspirating on exam today ) Subjective: Father in room. Able to awaken for him. Revwd care/concerns with him , and RN. Objective: Vital Signs Temp Pulse Resp BP Pulse Ox 96.1 F L 89 16 106/57 L 91 L 09/18/18 08:00 09/18/18 08:00 09/18/18 08:00 09/18/18 08:00 09/18/18 08:00 Laboratory Results 09/18/18 05:30 09/18/18 05:30 09/16/18 09/17/18 09/18/18 11:59 11:59 11:59 Intake Total 1600 Output Total 500 Balance 1100 PT 12.5 SEC (12.0-15.0) 09/17/18 20:05 INR 0.97 (0.83-1.16) 09/17/18 20:05 - Time Spent With Patient Time Spent with Patient: greater than 35 minutes (total floor time) Time Spent with Patient: Greater than 35 minutes spent on this patients care, greater than 50% of time spent counseling, educating, and coordinating care regarding the above mentioned plan. - Physical Exam Constitutional: chronically ill appearing, other (thin) Ears, Nose, Mouth, Throat: poor dentition Cardiovascular: tachycardia, No edema Respiratory: no respiratory distress, reduced air movement, rhonchi Gastrointestinal: normoactive bowel sounds, No distension Psychiatric: other (non verbal (not at her baseline per father)) ICD10 Worksheet Patient Problems: Problems Problem Status Onset Influenza A Acute Pneumonia Acute Urinary tract infection Acute Dehydration Acute Hypothermia Acute Palliative care encounter Acute Seizure Acute Seizure disorder Acute Sepsis Acute
[2018-09-18] MEDS: IPRATROPIUM/ALBUTEROL 3 ML DEYVIAL IH SCH ×3 (12:23→22:39)
--- NOTE | 2018-09-18 13:32 | ASMTCMCOM ---
CM Note CM Note Notes: Pt admitted for pnuemonia and flu. Pt resides at [facility], she has a guardian from [facility]. Father and brother may visit but do not make decisions and should contact guardian for information. To contact guardian, on weekends or holidays call [phone], choose option 2, state "this is not a referral" and that we need a decision maker in a guardianship case and specify timing. (urgent or end of day) Otherwise M-F for guardian, contact Mariah at [phone]/ [phone] Caregiver at [facility]: Adia (bobby)[phone] or Dorina [phone] [facility]: Stacey [phone]. Dc needs unclear, CM w/f. Pt has been to [facility] and [facility] in the past. DC Plan: TBD Date Signed: 09/18/2018 01:31 PM Electronically Signed By:Merline Lewis RN
--- NOTE | 2018-09-18 16:33 | ASMTCMCOM ---
CM Note CM Note Notes: Update: feels there should be a palliative consult, SHAMAR called Stacey at [facility] to connect with [facility] CM on Thursday to organize a meeting w/ Alfie, pt's guardian, caregiver ([employer]). Please see previous notes for all phone numbers and contacts. Date Signed: 09/18/2018 04:33 PM Electronically Signed By:Merline Lewis RN
[2018-09-18] MEDS: SENNOSIDES/DOCUSATE SODIUM TAB PO SCH (21:53)
[2018-09-19] MEDS: IPRATROPIUM/ALBUTEROL 3 ML DEYVIAL IH SCH ×4 (05:10→23:10)
[2018-09-19] MEDS: CEFEPIME HCL 2 GM in NS 100 ML IV SCH ×2 (05:23→18:33)
[2018-09-19 05:42] LABS: PLATELET COUNT 168 10^3/uL (150-400)
[2018-09-19] MEDS: LEVOTHYROXINE 112 MCG TAB PO SCH (06:32)
[2018-09-19] MEDS: Propylene Glycol [Systane Balance] EACHEYE SCH ×5 (06:32→19:40)
[2018-09-19] MEDS ORDERED: POTASSIUM CL 20 MEQ TAB PO ONE (06:48)
[2018-09-19] MEDS: POTASSIUM Cl (KCl) 100 ML IV SCH ×4 (07:46→12:41)
[2018-09-19] MEDS: CHLORHEXIDINE GLUCONATE 15 ML UDL PO SCH ×3 (07:47→17:39)
[2018-09-19] MEDS: CRANBERRY FRUIT EXTRACT PO SCH (07:47)
[2018-09-19] MEDS: FLUORIDE DT SCH (07:47)
[2018-09-19] MEDS ORDERED: NS 500 ML IV ONE (08:57)
[2018-09-19] MEDS ORDERED: MBX SOLN 30 ML BOTTLE PO PRN (08:58)
[2018-09-19] MEDS ORDERED: ORAL BALANCE GEL TUBE PO PRN (08:58)
[2018-09-19] MEDS: guaiFENesin 600 MG TAB.ER PO SCH ×2 (10:01→19:39)
[2018-09-19] MEDS: MAGNESIUM OXIDE 400 MG TAB PO SCH (10:02)
[2018-09-19] MEDS: SENNOSIDES/DOCUSATE SODIUM TAB PO SCH ×2 (10:02→19:40)
[2018-09-19] MEDS: ENOXAPARIN 40 MG/0.4 ML SYR SC SCH (10:15)
[2018-09-19] MEDS: LACOSAMIDE 100 MG in NS 50 ML IV SCH ×2 (10:18→21:30)
[2018-09-19] MEDS: FAMOTIDINE 20 MG/NACL 50 ML IV SCH ×2 (11:18→21:07)
[2018-09-19] MEDS ORDERED: DEXAMETHASONE 4 MG/ML VIAL IVP ONE (11:30)
--- NOTE | 2018-09-19 12:45 | ASMTCMCOM ---
CM Note CM Note Notes: Hospitalist feels pt will benefit from another palliative meeting between Alfie, pt's guardian, pt's family and [employer]. Referral and note sent to Alfie. Pt's guardian is on vacation so not sure how the meeting will proceed. Ethics may need to be involved as well. Date Signed: 09/19/2018 12:45 PM Electronically Signed By:KIMANI Donnelly
[2018-09-19] MEDS: D5W 1/2 NS W/ 20 KCl/L 1,000 ML IV SCH ×2 (13:07→21:07)
[2018-09-19] MEDS: DEXAMETHASONE 4 MG/ML VIAL IVP SCH (18:33)
[2018-09-19] MEDS ORDERED: PROTOCOL POTASSIUM 1 DOSE MISC PRN (23:17)
[2018-09-19] MEDS ORDERED: PROTOCOL MAGNESIUM 1 DOSE IV PRN (23:17)
[2018-09-19] MEDS ORDERED: LEVALBUTEROL 1.25 MG/3 ML DEYVIAL IH PRN (23:23)
[2018-09-19] MEDS ORDERED: PROTOCOL CALCIUM 1 DOSE IV PRN (23:30)
[2018-09-19] MEDS ORDERED: PROTOCOL K PHOSPHATE 1 DOSE IV PRN (23:30)
--- NOTE | 2018-09-19 23:41 | HOSPPROG ---
Hospitalist Progress Note Assessment/Plan: 43 yo F w/ hx of astroglioma, PROVIDER NETWORK MGR shunt, and seizure d/o, recently admitted for influenza A, now re-admitted with HCA pneumonia Plan: 1. Influenza A and subsequent HCA pneumonia -cefepime/flagyl day #3 -finished Tamiflu BID x5 days -nebs and O2 (decreased O2 today) 2. Hypothermia, resolved 3. Hypotension, stable - Continue IVF -blood cultures NTD 4. 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 S/p PROVIDER NETWORK MGR shunt. 5. Seizure d/o -not taking po meds -pharm to transfer to IV 6. Adrenal Insufficiency -not taking PO meds -IV dosing given 7. Hypernatremia, improving -IVF -watch closely 8. Concern re aspiration -speech swallow eval noted from yesterday -changed diet per recommendations but not taking much PO 9. Anemia -hgb 17 at admit to 12 today -no evidence of loss, suspect from IVF -recheck in AM for stability 10. Hypothyroid on replacement -TSH undetectable, and has been at previous admissions -unable to log in to [employer], and only sees neurology at [facility] oupt per review -hold med for now 11. very poor dentition -nursing mouth care as able 12. hypokalemia -replace IV and add to IVF -extra dose steroids today, consider stress dosing if BP, electrolyte abnl persist 13. Tachycardia -from infection vs thyroid meds vs nebs 14. Rib fractures noted on CT scan, B -suspect from coughing/poor nutritional status -no other concerns/indications -review at care conference/CM aware/[facility] aware Code - DNR DVT prophy- lovenox Dispo - has a court assigned guardian through [employer], lives at [facility] has palliative care already involved at home, CM to set up care planning to discuss goals of care, feeding tube Subjective: More alert intermittently per RTs, RNs. Father in room. Objective: Vital Signs Temp Pulse Resp BP Pulse Ox 98.6 F 105 H 18 99/64 L 97 09/19/18 19:50 09/19/18 23:12 09/19/18 23:12 09/19/18 19:50 09/19/18 23:12 Laboratory Results 09/19/18 05:32 09/19/18 05:32 09/18/18 09/19/18 09/20/18 11:59 11:59 11:59 Intake Total 1600 0 1900 Output Total 500 1400 1500 Balance 1100 -1400 400 PT 12.5 SEC (12.0-15.0) 09/17/18 20:05 INR 0.97 (0.83-1.16) 09/17/18 20:05 - Time Spent With Patient Time Spent with Patient: greater than 35 minutes (total floor time) Time Spent with Patient: Greater than 35 minutes spent on this patients care, greater than 50% of time spent counseling, educating, and coordinating care regarding the above mentioned plan. - Physical Exam Constitutional: chronically ill appearing Ears, Nose, Mouth, Throat: moist mucous membranes, poor dentition Cardiovascular: tachycardia Respiratory: no respiratory distress, reduced air movement (with occ exp wheezes ) Gastrointestinal: normoactive bowel sounds Psychiatric: other (non verbal, awakens ) ICD10 Worksheet Patient Problems: Problems Problem Status Onset Influenza A Acute Pneumonia Acute Urinary tract infection Acute Dehydration Acute Hypothermia Acute Palliative care encounter Acute Seizure Acute Seizure disorder Acute Sepsis Acute
[2018-09-20] MEDS: Propylene Glycol [Systane Balance] EACHEYE SCH ×5 (04:01→19:47)
[2018-09-20] MEDS: CEFEPIME HCL 2 GM in NS 100 ML IV SCH ×2 (05:00→18:01)
[2018-09-20 05:14] LABS: PLATELET COUNT 198 10^3/uL (150-400)
[2018-09-20] MEDS ORDERED: CALCIUM GLUCONATE 50 ML IV ONE (07:15)
[2018-09-20] MEDS ORDERED: CALCIUM GLUCONATE 1 GM in D5W 50 ML IV ONE (08:00)
[2018-09-20] MEDS: FAMOTIDINE 20 MG/NACL 50 ML IV SCH ×2 (08:01→20:18)
[2018-09-20] MEDS: CHLORHEXIDINE GLUCONATE 15 ML UDL PO SCH ×3 (08:03→17:26)
[2018-09-20] MEDS: ENOXAPARIN 40 MG/0.4 ML SYR SC SCH (08:03)
[2018-09-20] MEDS: MAGNESIUM OXIDE 400 MG TAB PO SCH (08:04)
[2018-09-20] MEDS: guaiFENesin 600 MG TAB.ER PO SCH ×2 (08:04→19:47)
[2018-09-20] MEDS: SENNOSIDES/DOCUSATE SODIUM TAB PO SCH ×2 (08:04→19:47)
[2018-09-20] MEDS: POTASSIUM Cl (KCl) 100 ML IV SCH ×2 (08:30→10:49)
[2018-09-20] MEDS: LACOSAMIDE 100 MG in NS 50 ML IV SCH ×2 (10:25→22:27)
[2018-09-20] MEDS ORDERED: K PHOS 20 MMOL in D5W 250 ML IV ONE (12:00)
--- NOTE | 2018-09-20 12:11 | HOSPPROG ---
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 Influenza A and subsequent HCA pneumonia cefepime/flagyl day 4/5 finished Tamiflu BID x5 days nebs and O2 (decreased O2 today) 2. Hypothermia, resolved 3. Hypotension, stable Continue IVF blood cultures NTD 4. 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 S/p NETWORK RELAY TESTER shunt. 5. Seizure d/o -not taking po meds -pharm to transfer to IV 6. Adrenal Insufficiency -not taking PO meds -IV dosing given 7. Hypernatremia, improving -IVF -watch closely 8. Concern re aspiration speech swallow eval noted from yesterday changed diet per recommendations but not taking much PO has declined feeding tube in the past and this is not in her best interest as will not prevent aspiration of mouth contents 9. Anemia hgb 17 at admit to 12 today no evidence of loss, suspect from IVF now stable at 12 10. Hypothyroid on replacement TSH undetectable as she has panhypopituitarism continue meds as is ultimately needs outpt thyroid function eval 11. very poor dentition nursing mouth care as able 12. hypokalemia replace IV and add to IVF extra dose steroids today, consider stress dosing if BP, electrolyte abnl persist 13. Tachycardia from infection vs thyroid meds vs nebs 14. Rib fractures noted on CT scan, B suspect from coughing/poor nutritional status no other concerns/indications review at care conference/CM aware/[facility] aware Code - DNR DVT prophy- lovenox Dispo - has a court assigned guardian through [employer] [place], lives at [facility] has palliative care already involved at home, CM to set up care planning to discuss goals of care, feeding tube she seems to have some significant decline over last few months w multiple admissions need to speak w court appointed guardian Subjective: per nursing, not eating, not alert. didnt gag w deep suction Objective: Vital Signs Temp Pulse Resp BP Pulse Ox 36.6 C 88 20 115/63 98 09/20/18 11:55 09/20/18 11:55 09/20/18 11:55 09/20/18 11:55 09/20/18 11:55 Laboratory Results 09/20/18 05:00 09/20/18 05:00 09/19/18 09/20/18 09/21/18 05:59 05:59 05:59 Intake Total 0 1900 Output Total 1400 2000 Balance -1400 -100 PT 12.5 SEC (12.0-15.0) 09/17/18 20:05 INR 0.97 (0.83-1.16) 09/17/18 20:05 ICD10 Worksheet Patient Problems: Problems Problem Status Onset Influenza A Acute Pneumonia Acute Urinary tract infection Acute Dehydration Acute Hypothermia Acute Palliative care encounter Acute Seizure Acute Seizure disorder Acute Sepsis Acute
--- NOTE | 2018-09-20 15:03 | ASMTCMCOM ---
CM Note CM Note Notes: Meeting was held today with hospitalist, [facility] and bottomer operator to discuss patient. Ethics consult was also placed per CM management due to unresponsiveness of pt's state appointed guardian, Mariah Worrell and frequency of admissions. CM also spoke with staff member at [facility] who stated that pt's care team had met (apparently without [facility]) to reevaluate pt's MOST form which clearly states pt is not to receive nutrition via tube feed. Per staff member at [facility], guardian does want PEG tube placed, as pt is refusing to eat, aspirating and has protein calorie malnutrition. However, [facility] does not have an updated MOST form. CM attempted to contact guardian who is on leave until Sep 28. Octavia Robles is guardian in Mariah's stead. Octavia was connected with hospitalist wanted a conversation with pt's decision maker as pt is likely hospice appropriate. In the short term, referrals have been sent to SNFs, orders for therapies placed today. Hang reports she has only 14 full pay SNF days left for Medicare and 80 co-pay days left, so pt may prefer medicaid facility. CM to follow. D/C Plan: SNF v [facility] with Hospice. Date Signed: 09/20/2018 03:02 PM Electronically Signed By:Rachelle Mejias
[2018-09-20] MEDS: DEXAMETHASONE 4 MG/ML VIAL IVP SCH (18:05)
[2018-09-21] MEDS: Propylene Glycol [Systane Balance] EACHEYE SCH ×5 (05:18→20:19)
[2018-09-21] MEDS: CEFEPIME HCL 2 GM in NS 100 ML IV SCH (05:25)
[2018-09-21 05:58] LABS: PLATELET COUNT 165 10^3/uL (150-400)
[2018-09-21] MEDS: CHLORHEXIDINE GLUCONATE 15 ML UDL PO SCH ×3 (09:12→17:30)
[2018-09-21] MEDS: guaiFENesin 600 MG TAB.ER PO SCH ×2 (09:30→20:16)
[2018-09-21] MEDS: MAGNESIUM OXIDE 400 MG TAB PO SCH (09:33)
[2018-09-21] MEDS: SENNOSIDES/DOCUSATE SODIUM TAB PO SCH ×2 (09:33→20:19)
[2018-09-21] MEDS: FAMOTIDINE 20 MG/NACL 50 ML IV SCH ×2 (09:35→20:16)
[2018-09-21] MEDS: ENOXAPARIN 40 MG/0.4 ML SYR SC SCH (09:35)
[2018-09-21] MEDS: LACOSAMIDE 100 MG in NS 50 ML IV SCH ×2 (10:51→20:46)
[2018-09-21] MEDS: D5W 1/2 NS W/ 20 KCl/L 1,000 ML IV SCH (14:17)
--- NOTE | 2018-09-21 15:12 | HOSPPROG ---
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 Influenza A and subsequent HCA pneumonia cefepime/flagyl day 11/07- dc AM 09/22 finished Tamiflu BID x5 days nebs and O2 (decreased O2 today) 2. Hypothermia, resolved 3. Hypotension, stable Continue IVF blood cultures NTD 4. 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 S/p STEWARD DISHWASHER shunt. 5. Seizure d/o not taking po meds now IV 6. Adrenal Insufficiency not taking PO meds IV dosing given 7. Hypernatremia, improving -IVF -watch closely 8. Concern re aspiration speech swallow eval noted from yesterday changed diet per recommendations but not taking much PO has declined feeding tube in the past and this is not in her best interest as will not prevent aspiration of mouth contents 9. Anemia hgb 17 at admit to 12 today no evidence of loss, suspect from IVF now stable at 12 10. Hypothyroid on replacement TSH undetectable as she has panhypopituitarism continue meds as is ultimately needs outpt thyroid function eval 11. very poor dentition nursing mouth care as able 12. hypokalemia replace IV and add to IVF extra dose steroids today, consider stress dosing if BP, electrolyte abnl persist 13. Tachycardia from infection vs thyroid meds vs nebs 14. Rib fractures noted on CT scan, B suspect from coughing/poor nutritional status no other concerns/indications review at care conference/CM aware/[facility] aware Code - DNR DVT prophy- lovenox Dispo - has a court assigned guardian through [employer] [place], lives at [facility] has palliative care already involved at home, CM to set up care planning to discuss goals of care, feeding tube she seems to have some significant decline over last few months w multiple admissions need to speak w court appointed guardian I have called them today, awaiting response Subjective: minimally responsive. stable vitals Objective: Vital Signs Temp Pulse Resp BP Pulse Ox 36.3 C 74 20 90/50 L 91 L 09/21/18 11:57 09/21/18 11:57 09/21/18 11:57 09/21/18 11:57 09/21/18 11:57 Laboratory Results 09/21/18 05:24 09/21/18 05:24 09/20/18 09/21/18 09/22/18 05:59 05:59 05:59 Intake Total 1900 Output Total 1999 400 Balance -100 -400 PT 12.5 SEC (12.0-15.0) 09/17/18 20:05 INR 0.97 (0.83-1.16) 09/17/18 20:05 - Physical Exam Constitutional: no apparent distress, No appears nourished Eyes: PERRL, anicteric sclera Ears, Nose, Mouth, Throat: hearing normal, No moist mucous membranes Cardiovascular: regular rate and rhythym, no murmur, rub, or gallop, No tachycardia Respiratory: no respiratory distress, No no rales or rhonchi Gastrointestinal: normoactive bowel sounds, soft, non-tender abdomen Genitourinary: no bladder fullness, No ellington in urethra Skin: warm, normal color Musculoskeletal: No full muscle strength Neurologic: No AAOx3 ICD10 Worksheet Patient Problems: Problems Problem Status Onset Influenza A Acute Pneumonia Acute Urinary tract infection Acute Dehydration Acute Hypothermia Acute Palliative care encounter Acute Seizure Acute Seizure disorder Acute Sepsis Acute
--- NOTE | 2018-09-21 16:58 | ASMTCMCOM ---
CM Note CM Note Notes: CM initiated "care team" meeting, supported by hospitalist. Invitees include Adia from [facility], [facility] and pt's guardian Mariah's precipitator supervisor Octavia from [facility] who declined to attend however spoke with hospitalist on the phone. Inclusion or not of family was left up to Octavia. Meeting set for Thursday at 12:30 here on [address] to determines plan of care in pt's best interest. Ethics has also been consulted. CM to follow. Referrals have been sent to various SNFs with LTC options. D/C Plan: hospice v SNF Date Signed: 09/21/2018 04:58 PM Electronically Signed By:Rachelle Mejias
[2018-09-21] MEDS: DEXAMETHASONE 4 MG/ML VIAL IVP SCH (18:29)
[2018-09-21] MEDS ORDERED: NS 500 ML IV ONE (23:16)
[2018-09-22] MEDS: Propylene Glycol [Systane Balance] EACHEYE SCH ×5 (05:05→22:13)
[2018-09-22] MEDS: D5W 1/2 NS W/ 20 KCl/L 1,000 ML IV SCH ×2 (05:47→19:14)
[2018-09-22] MEDS: CHLORHEXIDINE GLUCONATE 15 ML UDL PO SCH ×3 (07:37→17:28)
[2018-09-22] MEDS: guaiFENesin 600 MG TAB.ER PO SCH ×2 (08:38→22:13)
[2018-09-22] MEDS: SENNOSIDES/DOCUSATE SODIUM TAB PO SCH ×2 (08:38→22:13)
[2018-09-22] MEDS: MAGNESIUM OXIDE 400 MG TAB PO SCH (08:38)
[2018-09-22] MEDS: LACOSAMIDE 100 MG in NS 50 ML IV SCH ×2 (08:51→22:09)
[2018-09-22] MEDS: ENOXAPARIN 40 MG/0.4 ML SYR SC SCH (08:52)
[2018-09-22] MEDS: FAMOTIDINE 20 MG/NACL 50 ML IV SCH ×2 (09:22→22:09)
--- NOTE | 2018-09-22 14:23 | HOSPPROG ---
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 Influenza A and subsequent HCA pneumonia cefepime/flagyl day 11/07- dc AM 09/22 finished Tamiflu BID x5 days nebs and O2 (decreased O2 today) 2. Hypothermia, resolved 3. Hypotension, stable Continue IVF blood cultures NTD 4. 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 S/p PIPE BENDER shunt. 5. Seizure d/o not taking po meds now IV 6. Adrenal Insufficiency not taking PO meds IV dosing given 7. Hypernatremia, improving -IVF -watch closely 8. Concern re aspiration speech swallow eval noted from yesterday changed diet per recommendations but not taking much PO has declined feeding tube in the past and this is not in her best interest as will not prevent aspiration of mouth contents 9. Anemia hgb 17 at admit to 12 today no evidence of loss, suspect from IVF now stable at 12 10. Hypothyroid on replacement TSH undetectable as she has panhypopituitarism continue meds as is ultimately needs outpt thyroid function eval 11. very poor dentition nursing mouth care as able 12. hypokalemia replace IV and add to IVF extra dose steroids today, consider stress dosing if BP, electrolyte abnl persist 13. Tachycardia from infection vs thyroid meds vs nebs 14. Rib fractures noted on CT scan, B suspect from coughing/poor nutritional status no other concerns/indications review at care conference/CM aware/[facility] aware Code - DNR DVT prophy- lovenox Dispo - has a court assigned guardian through [employer] [place], lives at [facility] has palliative care already involved at home, family meeting today. she has declined over last two years in that less interactive, more so since august sepsis admission. I have taken care of her during each of these admissions, and she has been at best minimally responsive. Father states she said "i love you" today. i belive she is declining and dont recommend artificial nutrition/hydration. brother feels the opposite, as does father, although less clearly so. [facility] staff conflicted, guardian ( fausto) out of town until next week Subjective: 75 minute family meeting. opened eyes to voice Objective: Vital Signs Temp Pulse Resp BP Pulse Ox 36.9 C 74 20 99/62 L 98 09/22/18 11:05 09/22/18 11:05 09/22/18 11:05 09/22/18 11:05 09/22/18 11:05 Laboratory Results 09/21/18 05:24 09/21/18 05:24 09/21/18 09/22/18 09/23/18 05:59 05:59 05:59 Intake Total 2496 Output Total 400 700 200 Balance -400 1796 -200 PT 12.5 SEC (12.0-15.0) 09/17/18 20:05 INR 0.97 (0.83-1.16) 09/17/18 20:05 - Physical Exam Constitutional: no apparent distress Eyes: PERRL, anicteric sclera Ears, Nose, Mouth, Throat: moist mucous membranes, hearing normal Cardiovascular: regular rate and rhythym, no murmur, rub, or gallop Respiratory: no respiratory distress, no rales or rhonchi Gastrointestinal: normoactive bowel sounds, soft, non-tender abdomen Genitourinary: no bladder fullness Skin: warm Musculoskeletal: No full muscle strength Neurologic: No AAOx3 ICD10 Worksheet Patient Problems: Problems Problem Status Onset Influenza A Acute Pneumonia Acute Urinary tract infection Acute Dehydration Acute Hypothermia Acute Palliative care encounter Acute Seizure Acute Seizure disorder Acute Sepsis Acute
--- NOTE | 2018-09-22 15:36 | ASMTCMCOM ---
CM Note CM Note Notes: Conference w/ [facility], concrete pipe plant supervisor - Christina, Varsha from [facility], Vida from [facility], Ramirez from [employer], Lasha Rush Sr, Jr, Renene and this CMer. A conclusion was not made to have PEG vs no PEG and hospice. A decision will hopefully be made by this Thursday. CM to follow. Plan: TBD Date Signed: 09/22/2018 03:36 PM Electronically Signed By:DEE Lewis
[2018-09-22] MEDS: DEXAMETHASONE 4 MG/ML VIAL IVP SCH (18:15)
[2018-09-23] MEDS: Propylene Glycol [Systane Balance] EACHEYE SCH ×5 (06:06→23:29)
[2018-09-23] MEDS: D5W 1/2 NS W/ 20 KCl/L 1,000 ML IV SCH (09:06)
[2018-09-23] MEDS: FAMOTIDINE 20 MG/NACL 50 ML IV SCH ×2 (09:17→21:39)
[2018-09-23] MEDS: CHLORHEXIDINE GLUCONATE 15 ML UDL PO SCH ×3 (09:18→18:10)
[2018-09-23] MEDS: ENOXAPARIN 40 MG/0.4 ML SYR SC SCH (09:18)
[2018-09-23] MEDS: LACOSAMIDE 100 MG in NS 50 ML IV SCH ×3 (10:06→22:46)
[2018-09-23] MEDS: MAGNESIUM OXIDE 400 MG TAB PO SCH (10:10)
[2018-09-23] MEDS: guaiFENesin 600 MG TAB.ER PO SCH ×2 (10:10→21:42)
[2018-09-23] MEDS: SENNOSIDES/DOCUSATE SODIUM TAB PO SCH ×2 (10:11→21:42)
--- NOTE | 2018-09-23 16:24 | HOSPPROG ---
Hospitalist Progress Note Assessment/Plan: 3 yo F w/ hx of astroglioma, VAMP MARKER shunt, and seizure d/o, recently admitted for influenza A, now re-admitted with HCA pneumonia Plan: 1. Influenza A and subsequent HCA pneumonia cefepime/flagyl day 11/07- dc AM 09/22 finished Tamiflu BID x5 days nebs and O2 (decreased O2 today) 2. Hypothermia, resolved 3. Hypotension, stable Continue IVF blood cultures NTD 4. 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 S/p VAMP MARKER shunt. 5. Seizure d/o not taking po meds now IV 6. Adrenal Insufficiency not taking PO meds IV dosing given 7. Hypernatremia, improving -IVF -watch closely 8. Concern re aspiration speech swallow eval noted from yesterday changed diet per recommendations but not taking much PO has declined feeding tube in the past and this is not in her best interest as will not prevent aspiration of mouth contents 9. Anemia hgb 17 at admit to 12 today no evidence of loss, suspect from IVF now stable at 12 10. Hypothyroid on replacement TSH undetectable as she has panhypopituitarism continue meds as is ultimately needs outpt thyroid function eval 11. very poor dentition nursing mouth care as able 12. hypokalemia replace IV and add to IVF extra dose steroids today, consider stress dosing if BP, electrolyte abnl persist 13. Tachycardia from infection vs thyroid meds vs nebs 14. Rib fractures noted on CT scan, B suspect from coughing/poor nutritional status no other concerns/indications review at care conference/CM aware/[facility] aware Code - DNR DVT prophy- lovenox Dispo - has a court assigned guardian through [employer] [place], lives at [facility] has palliative care already involved at home, family meeting today. she has declined over last two years in that less interactive, more so since august sepsis admission. I have taken care of her during each of these admissions, and she has been at best minimally responsive. Father states she said "i love you" today. i believe she is declining and dont recommend artificial nutrition/hydration. brother feels the opposite, as does father, although less clearly so. [facility] staff conflicted, guardian ( fausto) out of town until next week Subjective: eyes open, doesnt interact with me Objective: Vital Signs Temp Pulse Resp BP Pulse Ox 36.2 C 66 20 140/76 H 96 09/23/18 11:48 09/23/18 11:48 09/23/18 11:48 09/23/18 11:48 09/23/18 11:48 Laboratory Results 09/21/18 05:24 09/21/18 05:24 09/22/18 09/23/18 09/24/18 05:59 05:59 05:59 Intake Total 2496 2155 Output Total 700 1250 Balance 1796 905 PT 12.5 SEC (12.0-15.0) 09/17/18 20:05 INR 0.97 (0.83-1.16) 09/17/18 20:05 - Physical Exam Constitutional: no apparent distress Eyes: PERRL, anicteric sclera Ears, Nose, Mouth, Throat: moist mucous membranes, hearing normal Cardiovascular: regular rate and rhythym, no murmur, rub, or gallop Respiratory: no respiratory distress, no rales or rhonchi Gastrointestinal: normoactive bowel sounds, soft, non-tender abdomen Genitourinary: no bladder fullness, No ellington in urethra Skin: warm, normal color Musculoskeletal: full muscle strength Neurologic: No AAOx3 Psychiatric: interacting appropriately ICD10 Worksheet Patient Problems: Problems Problem Status Onset Influenza A Acute Pneumonia Acute Urinary tract infection Acute Dehydration Acute Hypothermia Acute Palliative care encounter Acute Seizure Acute Seizure disorder Acute Sepsis Acute
--- NOTE | 2018-09-23 17:18 | ASMTCMCOM ---
CM Note CM Note Notes: CM scheduled a conference for tomorrow at 12:30PM to discuss peg vs hospice. CM notified Vida at [facility], Elida Rush at [facility] and [facility]. SHAMAR spoke to ZION Rodriguez about this case. Date Signed: 09/23/2018 05:18 PM Electronically Signed By:DEE Lewis
[2018-09-23] MEDS: DEXAMETHASONE 4 MG/ML VIAL IVP SCH (18:09)
[2018-09-24] MEDS: D5W 1/2 NS W/ 20 KCl/L 1,000 ML IV SCH ×2 (00:05→15:58)
[2018-09-24] MEDS: Propylene Glycol [Systane Balance] EACHEYE SCH ×5 (06:44→22:23)
[2018-09-24] MEDS: CHLORHEXIDINE GLUCONATE 15 ML UDL PO SCH ×3 (09:32→18:07)
[2018-09-24] MEDS: ENOXAPARIN 40 MG/0.4 ML SYR SC SCH (09:33)
[2018-09-24] MEDS: FAMOTIDINE 20 MG/NACL 50 ML IV SCH ×2 (09:34→21:49)
[2018-09-24] MEDS: LACOSAMIDE 100 MG in NS 50 ML IV SCH ×2 (10:32→22:45)
[2018-09-24] MEDS: MAGNESIUM OXIDE 400 MG TAB PO SCH (10:53)
[2018-09-24] MEDS: SENNOSIDES/DOCUSATE SODIUM TAB PO SCH ×2 (10:53→22:23)
[2018-09-24] MEDS: guaiFENesin 600 MG TAB.ER PO SCH ×2 (10:53→22:22)
--- NOTE | 2018-09-24 13:10 | HOSPPROG ---
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 Influenza A and subsequent HCA pneumonia cefepime/flagyl day 11/07- dc AM 09/22 finished Tamiflu BID x5 days nebs and O2 (decreased O2 today) 2. Hypothermia, resolved 3. Hypotension, stable Continue IVF blood cultures NTD 4. 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 S/p GUEST SERVICES DIRECTOR shunt. 5. Seizure d/o not taking po meds now IV 6. Adrenal Insufficiency not taking PO meds IV dosing given 7. Hypernatremia, improving -IVF -watch closely 8. Concern re aspiration speech swallow eval noted from yesterday changed diet per recommendations but not taking much PO has declined feeding tube in the past and this is not in her best interest as will not prevent aspiration of mouth contents 9. Anemia hgb 17 at admit to 12 today no evidence of loss, suspect from IVF now stable at 12 10. Hypothyroid on replacement TSH undetectable as she has panhypopituitarism continue meds as is ultimately needs outpt thyroid function eval 11. very poor dentition nursing mouth care as able 12. hypokalemia replace IV and add to IVF extra dose steroids today, consider stress dosing if BP, electrolyte abnl persist 13. Tachycardia from infection vs thyroid meds vs nebs 14. Rib fractures noted on CT scan, B suspect from coughing/poor nutritional status no other concerns/indications review at care conference/CM aware/[facility] aware Code - DNR DVT prophy- lovenox Dispo - has a court assigned guardian through [employer] [place], lives at [facility] has palliative care already involved at home, family meeting today. they wish for G tube. awaiting decision of guardian who was not at family meeting will proceed w this plan IF court appointed guardian approves Subjective: 60 minute family meeting. [facility] personnel and family wish for G tube. I believe this is not in nikhil's interest Objective: Vital Signs Temp Pulse Resp BP Pulse Ox 36.0 C 53 L 16 116/70 94 09/24/18 07:10 09/24/18 10:45 09/24/18 07:10 09/24/18 07:10 09/24/18 10:47 Laboratory Results 09/21/18 05:24 09/21/18 05:24 09/23/18 09/24/18 09/25/18 05:59 05:59 05:59 Intake Total 2155 839 Output Total 1250 1100 Balance 905 -261 PT 12.5 SEC (12.0-15.0) 09/17/18 20:05 INR 0.97 (0.83-1.16) 09/17/18 20:05 - Physical Exam Constitutional: other (far more alert today) Eyes: PERRL, anicteric sclera Ears, Nose, Mouth, Throat: moist mucous membranes, hearing normal Cardiovascular: regular rate and rhythym, no murmur, rub, or gallop Respiratory: no respiratory distress, no rales or rhonchi Gastrointestinal: normoactive bowel sounds, soft, non-tender abdomen Genitourinary: no bladder fullness, No ellington in urethra Skin: warm, normal color Musculoskeletal: No full muscle strength Neurologic: No AAOx3 Psychiatric: No interacting appropriately ICD10 Worksheet Patient Problems: Problems Problem Status Onset Influenza A Acute Pneumonia Acute Urinary tract infection Acute Dehydration Acute Hypothermia Acute Palliative care encounter Acute Seizure Acute Seizure disorder Acute Sepsis Acute
--- NOTE | 2018-09-24 16:33 | ASMTCMCOM ---
CM Note CM Note Notes: Conference today w/ pts father Will Sr, Will on the phone, Will Sr's Yaneth alex- virtual office assistant of [facility] (P#:[phone]), Varsha and Elida at [facility], Cisco Rush from [facility], Vida from [facility] and this CM. [facility] and the family would like pt to have a g tube. CM was unable to get Renene on the phone during the conference. CM left a msg for Octavia (P#: [phone]) for a call back to discuss that family and [facility] would like pt to have a g tube placement. It was discussed that it would be inappropriate for pt to go to a SNF. Yaneth will be the character impersonator for Skye once a decision is made by Octavia. Helder Omalley (P#: [phone]), Vida from [facility], and [facility] palliative team would like to be kept in the loop as well. CM to follow. Plan: TBD Date Signed: 09/24/2018 04:32 PM Electronically Signed By:DEE Lewis
[2018-09-24] MEDS: DEXAMETHASONE 4 MG/ML VIAL IVP SCH (18:06)
[2018-09-25] MEDS: Propylene Glycol [Systane Balance] EACHEYE SCH ×5 (04:26→21:12)
[2018-09-25] MEDS: D5W 1/2 NS W/ 20 KCl/L 1,000 ML IV SCH (06:23)
[2018-09-25] MEDS: FAMOTIDINE 20 MG/NACL 50 ML IV SCH ×2 (07:48→21:05)
[2018-09-25] MEDS: ENOXAPARIN 40 MG/0.4 ML SYR SC SCH (07:50)
[2018-09-25] MEDS: guaiFENesin 600 MG TAB.ER PO SCH ×2 (08:05→21:11)
[2018-09-25] MEDS: MAGNESIUM OXIDE 400 MG TAB PO SCH (10:19)
[2018-09-25] MEDS: CHLORHEXIDINE GLUCONATE 15 ML UDL PO SCH ×3 (10:23→18:26)
[2018-09-25] MEDS: SENNOSIDES/DOCUSATE SODIUM TAB PO SCH ×2 (10:27→21:11)
[2018-09-25] MEDS: LACOSAMIDE 100 MG in NS 50 ML IV SCH ×2 (10:40→21:29)
--- NOTE | 2018-09-25 15:47 | HOSPPROG ---
Hospitalist Progress Note Assessment/Plan: Subjective Follow-up on influenza a. No acute events overnight. Patient does respond back locally to me but not entirely conversant. Discussion regarding G-tube placement noted from yesterday. Objective Vital signs as detailed below Physical Exam General-awake with eyes open, she does respond locally to simple questions Heart-regular rate and rhythm no murmurs Lungs-coarse sounds noted throughout, no significant wheezing appreciated, respiratory effort appears normal Abdomen-soft nontender nondistended normal bowel sounds -no Starks catheter in place Extremities-trace pitting edema Skin-no concerning skin rashes Labs as detailed below Assessment and plan Influenza a-patient has completed course of Tamiflu and antibiotics for potential for secondary bacteria. Her lung exam is quite course today so I recommend further evaluation with chest imaging. Consider scheduled nebulizers. Low blood pressures-improved. Monitor closely as holding IV fluids overnight. Hypernatremia-resolved on most recent check at 1:42 a.m.. Reassess again in the morning. Hypokalemia-improved on most recent check of 4.3. Reassess again tomorrow morning. Anemia-mildly low with a hemoglobin 11. Recheck again in the morning. Rib fracture-patient does not appear to be in pain from rib fracture. History of Astra glioma-underlying neurologic disability. Seizure disorder-continue current antiseizure medications. Hypothyroidism-levothyroxine placed on hold. Adrenal insufficiency- history of. DVT prophylaxis-Lovenox. Disposition-patient is do not attempt resuscitation code status. Await further discussions on G-tube placement with caretakers and her legal guardian. Objective: Vital Signs Temp Pulse Resp BP Pulse Ox 35.9 C L 68 16 98/64 L 95 09/25/18 07:33 09/25/18 07:33 09/25/18 07:33 09/25/18 07:33 09/25/18 07:33 Laboratory Results 09/21/18 05:24 09/21/18 05:24 09/24/18 09/25/18 09/26/18 05:59 05:59 05:59 Intake Total 839 2002 Output Total 1100 1550 Balance -261 453 PT 12.5 SEC (12.0-15.0) 09/17/18 20:05 INR 0.97 (0.83-1.16) 09/17/18 20:05 ICD10 Worksheet Patient Problems: Problems Problem Status Onset Influenza A Acute Pneumonia Acute Urinary tract infection Acute Dehydration Acute Hypothermia Acute Palliative care encounter Acute Seizure Acute Seizure disorder Acute Sepsis Acute
[2018-09-25] MEDS: DEXAMETHASONE 4 MG/ML VIAL IVP SCH (18:36)
[2018-09-26 05:26] LABS: PLATELET COUNT 280 10^3/uL (150-400)
[2018-09-26] MEDS: Propylene Glycol [Systane Balance] EACHEYE SCH ×5 (05:52→21:08)
[2018-09-26] MEDS: ENOXAPARIN 40 MG/0.4 ML SYR SC SCH (08:19)
[2018-09-26] MEDS: FAMOTIDINE 20 MG/NACL 50 ML IV SCH ×2 (08:20→21:06)
[2018-09-26] MEDS: guaiFENesin 600 MG TAB.ER PO SCH ×2 (09:12→21:08)
[2018-09-26] MEDS: MAGNESIUM OXIDE 400 MG TAB PO SCH (09:13)
[2018-09-26] MEDS: SENNOSIDES/DOCUSATE SODIUM TAB PO SCH ×2 (09:13→21:08)
[2018-09-26] MEDS: LACOSAMIDE 100 MG in NS 50 ML IV SCH ×2 (09:16→21:28)
[2018-09-26] MEDS: CHLORHEXIDINE GLUCONATE 15 ML UDL PO SCH ×3 (09:16→19:37)
--- NOTE | 2018-09-26 16:55 | HOSPPROG ---
Hospitalist Progress Note Assessment/Plan: Subjective Follow-up on influenza a. No acute events overnight. Case reviewed with her nurse today. Also reviewed with case management. We are awaiting her legal guardian to return from out of town to discuss G-tube placement. Family is in favor of placement. Case also reviewed with pharmacy and there may be a possibility of running out of IV Vimpat. Objective Vital signs as detailed below Physical Exam General-awake with eyes open, she does respond locally to simple questions Heart-regular rate and rhythm no murmurs Lungs-coarse sounds noted throughout, no significant wheezing appreciated, respiratory effort appears normal, stable as compared to yesterday's exam Abdomen-soft nontender nondistended normal bowel sounds -no Starks catheter in place Extremities-trace pitting edema Skin-no concerning skin rashes Labs as detailed below Assessment and plan Influenza a-patient has completed course of Tamiflu and antibiotics for potential for secondary bacteria. Her lung exam is quite course today so I recommend further evaluation with chest imaging. Will try in twice daily Flovent nebulizer to see if this improves coarseness noted on exam. Low blood pressures-improved. Monitor closely as holding IV fluids overnight. Hypernatremia-resolved. Hypokalemia-resolved. Anemia-resolved. With hemoglobin at 12 today. Rib fracture-patient does not appear to be in pain from rib fracture. History of Astra glioma-underlying neurologic disability. Seizure disorder-continue current antiseizure medications. Hypothyroidism-levothyroxine placed on hold. Adrenal insufficiency- history of. Dexamethasone. DVT prophylaxis-Lovenox. Disposition-patient is do not attempt resuscitation code status. Await further discussions on G-tube placement with caretakers and her legal guardian. Objective: Vital Signs Temp Pulse Resp BP Pulse Ox 36.2 C 63 16 105/63 94 09/26/18 15:46 09/26/18 15:46 09/26/18 15:46 09/26/18 15:46 09/26/18 15:46 Laboratory Results 09/26/18 05:10 09/26/18 05:10 09/25/18 09/26/18 09/27/18 05:59 05:59 05:59 Intake Total 2003 Output Total 1333 347 8515 Balance 453 -700 -1100 PT 12.5 SEC (12.0-15.0) 09/17/18 20:05 INR 0.97 (0.83-1.16) 09/17/18 20:05 ICD10 Worksheet Patient Problems: Problems Problem Status Onset Influenza A Acute Pneumonia Acute Urinary tract infection Acute Dehydration Acute Hypothermia Acute Palliative care encounter Acute Seizure Acute Seizure disorder Acute Sepsis Acute
[2018-09-26] MEDS: DEXAMETHASONE 4 MG/ML VIAL IVP SCH (18:42)
[2018-09-26] MEDS: BUDESONIDE 0.5 MG/2 ML AMPUL.NEB IH SCH (21:52)
[2018-09-27] MEDS: Propylene Glycol [Systane Balance] EACHEYE SCH ×5 (07:48→20:30)
[2018-09-27] MEDS: LACOSAMIDE 100 MG in NS 50 ML IV SCH ×2 (08:59→21:28)
[2018-09-27] MEDS: CHLORHEXIDINE GLUCONATE 15 ML UDL PO SCH ×3 (08:59→18:48)
[2018-09-27] MEDS: BUDESONIDE 0.5 MG/2 ML AMPUL.NEB IH SCH ×2 (09:00→21:39)
[2018-09-27] MEDS: IPRATROPIUM/ALBUTEROL 3 ML DEYVIAL IH PRN (09:00)
[2018-09-27] MEDS: ENOXAPARIN 40 MG/0.4 ML SYR SC SCH (09:07)
[2018-09-27] MEDS: FAMOTIDINE 20 MG/NACL 50 ML IV SCH ×2 (09:07→20:28)
[2018-09-27] MEDS: guaiFENesin 600 MG TAB.ER PO SCH (11:03)
[2018-09-27] MEDS: MAGNESIUM OXIDE 400 MG TAB PO SCH (11:03)
[2018-09-27] MEDS: SENNOSIDES/DOCUSATE SODIUM TAB PO SCH ×2 (11:04→20:29)
[2018-09-27] MEDS: POTASSIUM Cl (KCl) 20 MEQ in D5W LR 1,000 ML IV SCH (12:06)
--- NOTE | 2018-09-27 15:46 | WOCRNPDOC ---
WOCRN Advanced Assessment Note - Skin Integrity Problem, Advanced Assess Buttock Dermatitis Dressing Type: Open to Air Skin Integrity Problem Comment: Erythema on buttocks and coccyx. All blanching. Mild incontinent associated dermatitis and peeling dry skin with fungal involvement. Satellite lesions present throughout. Cleaned with dimethicone wipes and antifungal barrier cream applied. HARLEY Wolfe and ZION Sarkar in room for care. Wound care will sign off.
--- NOTE | 2018-09-27 15:52 | ASMTCMCOM ---
CM Note CM Note Notes: Spoke with hospitalist and with Adia from [facility] today. Pt's guardian Mariah Worrell ([phone]; [phone]) from [facility] will be back in the office tomorrow. As Mariah's supervisor contingents Octavia was absent for previous two family meetings last week, it is felt that Mariah should make decision on whether to place G-Tube, and hospitalist did not feel pt's safety warranted an earlier decision. Most current MOST form declines artificial nutrition via G-Tube. Adia Maddox at [facility] informed, and CM will need to follow up with Mariah tomorrow. CM to follow. D/C Plan: TBD Date Signed: 09/27/2018 03:52 PM Electronically Signed By:Rachelle Mejias
--- NOTE | 2018-09-27 16:48 | HOSPPROG ---
Hospitalist Progress Note Assessment/Plan: Subjective Follow-up on influenza a. No acute events overnight. Patient's father was present at the bedside today. We discussed that we are waiting for the patient' s guardian to return to town in order to obtain consent to proceed with G-tube placement. Objective Vital signs as detailed below Physical Exam General-awake with eyes open, she does respond locally to simple questions Heart-regular rate and rhythm no murmurs Lungs-coarse sounds noted throughout, no significant wheezing appreciated, respiratory effort appears normal, I think slightly better coarseness as compared to yesterday's exam Abdomen-soft nontender nondistended normal bowel sounds -no Starks catheter in place Extremities-trace pitting edema Skin-no concerning skin rashes Labs as detailed below Assessment and plan Influenza a-patient has completed course of Tamiflu and antibiotics for potential for secondary bacteria. Continue with Pulmicort nebulizer twice a day to see if this will help with bronchitis symptoms. Low blood pressures-systolics in the 90s noted today. IV fluids have been resumed. Hypernatremia-resolved. Hypokalemia-resolved. Anemia-resolved. With hemoglobin at 12 . Rib fracture-patient does not appear to be in pain from rib fracture. History of Astroglioma-underlying neurologic disability. Seizure disorder-continue current antiseizure medications. Hypothyroidism-levothyroxine placed on hold. Adrenal insufficiency- history of. Dexamethasone. DVT prophylaxis-Lovenox. Disposition-patient is do not attempt resuscitation code status. Await further discussions on G-tube placement with caretakers and her legal guardian. Objective: Vital Signs Temp Pulse Resp BP Pulse Ox 35.9 C L 56 L 16 105/52 L 99 09/27/18 15:29 09/27/18 15:29 09/27/18 15:29 09/27/18 15:29 09/27/18 15:29 Laboratory Results 09/26/18 05:10 09/26/18 05:10 09/26/18 09/27/18 09/28/18 05:59 05:59 05:59 Intake Total 480 Output Total 700 1400 Balance -700 -1400 480 PT 12.5 SEC (12.0-15.0) 09/17/18 20:05 INR 0.97 (0.83-1.16) 09/17/18 20:05 ICD10 Worksheet Patient Problems: Problems Problem Status Onset Influenza A Acute Pneumonia Acute Urinary tract infection Acute Dehydration Acute Hypothermia Acute Palliative care encounter Acute Seizure Acute Seizure disorder Acute Sepsis Acute
[2018-09-27] MEDS: DEXAMETHASONE 4 MG/ML VIAL IVP SCH (20:28)
[2018-09-28] MEDS: POTASSIUM Cl (KCl) 20 MEQ in D5W LR 1,000 ML IV SCH ×2 (01:35→16:56)
[2018-09-28] MEDS: Propylene Glycol [Systane Balance] EACHEYE SCH ×5 (05:45→22:06)
[2018-09-28] MEDS: CHLORHEXIDINE GLUCONATE 15 ML UDL PO SCH ×3 (08:13→18:13)
[2018-09-28] MEDS: FAMOTIDINE 20 MG/NACL 50 ML IV SCH ×2 (08:13→22:03)
[2018-09-28] MEDS: SENNOSIDES/DOCUSATE SODIUM TAB PO SCH ×2 (08:16→22:03)
[2018-09-28] MEDS: ENOXAPARIN 40 MG/0.4 ML SYR SC SCH (08:17)
[2018-09-28] MEDS: MAGNESIUM OXIDE 400 MG TAB PO SCH (08:17)
[2018-09-28] MEDS: IPRATROPIUM/ALBUTEROL 3 ML DEYVIAL IH PRN (09:19)
[2018-09-28] MEDS: BUDESONIDE 0.5 MG/2 ML AMPUL.NEB IH SCH ×2 (09:19→22:41)
[2018-09-28] MEDS: LACOSAMIDE 100 MG in NS 50 ML IV SCH ×2 (11:11→22:22)
--- NOTE | 2018-09-28 16:27 | ASMTCMCOM ---
CM Note CM Note Notes: Physician met today with Kimberly Levy of [facility] who is pt's guardian and with Kimberly Dudley's sort supervisor to discuss pt's prognosis and care. Kimberly eventually submitted adjusted MOST form that now allows for G-tube placement which is now in the chart. Kimberly also verbally consented hospitalist to move forward with Gtube placement. Pt will likely [facility] back to [facility] as that is where she is most comfortable and CM should arrange for layered support. [employer] notified to asses for LTC Medicaid eligibility as pt would benefit from HCBS, though Kimberly states pt is already receiving residential services through a "Medicaid waiver" program and would not be eligible for both. Pt would also benefit from HHC PT/OT and perhaps RN care. PT/OT eval orders will need to be placed tomorrow. [facility] will also need to be contacted for formula orders when ready. Pt is already current with [facility]. Updates sent to them. CM to follow. D/C Plan: [facility] formula infusion and [facility] Date Signed: 09/28/2018 04:27 PM Electronically Signed By:Rachelle Mejias
--- NOTE | 2018-09-28 17:42 | HOSPPROG ---
Hospitalist Progress Note Assessment/Plan: Subjective Follow-up on influenza a. No acute events overnight. Patient's father was present at the bedside yesterday. I was able to talk with Mariah who is the patient's legal guardian today. We reviewed and summarized the issue of G-tube placement. They were planning on meeting with their supervisor data processing before making formal decision. We did here later in the afternoon that they did give approval for G-tube placement and wanted to proceed. I talked with Dr. Mccauley and he will provide formal consultation and tentatively plan on G- tube placement tomorrow. A new MOST form was completed with the adjustment in the desire for feeding tube and tube feeds. Objective Vital signs as detailed below Physical Exam General-awake with eyes open, she does respond locally to simple questions Heart-regular rate and rhythm no murmurs Lungs-less course as compared to days prior Abdomen-soft nontender nondistended normal bowel sounds -no Starks catheter in place Extremities-trace pitting edema Skin-no concerning skin rashes Labs as detailed below Assessment and plan Influenza a-patient has completed course of Tamiflu and antibiotics for potential for secondary bacteria. Continue with Pulmicort nebulizer twice a day but likely could stop in the coming days if continued improvement on lung exam. Nutrition-dietary consult placed in anticipation of G-tube placement in initiating tube feeds. Medications will also need to be adjusted from IV to oral once successful place of G-tube. Low blood pressures-systolics in the 90s noted. IV fluids have been resumed. Hypernatremia-resolved. Hypokalemia-resolved. Anemia-resolved. With hemoglobin at 12 . History of Astroglioma-underlying neurologic disability. Seizure disorder-continue current antiseizure medications. Hypothyroidism-levothyroxine placed on hold. Adrenal insufficiency- history of. Dexamethasone. DVT prophylaxis-Lovenox. Disposition-patient is do not attempt resuscitation code status. Patient a resident of [facility] prior to admission. Objective: Vital Signs Temp Pulse Resp BP Pulse Ox 36.1 C 93 16 83/53 L 100 09/28/18 16:48 09/28/18 16:48 09/28/18 16:48 09/28/18 16:48 09/28/18 16:48 Laboratory Results 09/26/18 05:10 09/26/18 05:10 09/27/18 09/28/1819 05:59 05:59 05:59 Intake Total 2210 Output Total 1400 1300 Balance -1400 910 PT 12.5 SEC (12.0-15.0) 09/17/18 20:05 INR 0.97 (0.83-1.16) 09/17/18 20:05 ICD10 Worksheet Patient Problems: Problems Problem Status Onset Influenza A Acute Pneumonia Acute Urinary tract infection Acute Dehydration Acute Hypothermia Acute Palliative care encounter Acute Seizure Acute Seizure disorder Acute Sepsis Acute
--- NOTE | 2018-09-28 17:59 | GCON ---
[f rep st] CONSULTATION REFERRING PHYSICIAN: Dominguez Lantigua MD REASON FOR CONSULTATION: Feeding difficulties/dysphagia. HISTORY OF PRESENT ILLNESS: The patient is a 43-year-old female who is status post craniotomy and resection of glioma as a young child with significant cognitive impairment. She has had a downturn in the last 2 weeks, presented to [facility] on 09/17/2018, with lethargy, hypothermia, and influenza A. She was treated with Tamiflu and supportive care. She was eating with assistance prior to admission, but has been unable to successfully maintain her caloric intake and has had depressed mental status. I was asked to see the patient for consideration of PEG tube placement. PRESENT MEDICATIONS: Albuterol, DuoNeb q.6 hours, alteplase recombinant 2 mg IV p.r.n. Dulcolax suppository daily, budesonide neb twice daily, chlorhexidine gluconate 15 mg p.o. t.i.d. with meals, dexamethasone 1.5 mg IV daily, Lovenox 40 mg subcu daily, famotidine 20 mg IV q.12, lacosamide 100 mg p.o. b.i.d., lactulose 20 g p.o. t.i.d. p.r.n. constipation, magnesium oxide 400 mg p.o. daily. ALLERGIES: She is allergic to codeine, levothyroxine, milk, morphine, penicillins, and vancomycin. 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 PAST SURGICAL HISTORY: As noted in past medical history. SOCIAL HISTORY: Nonsmoker, nondrinker of alcohol. [facility] FAMILY HISTORY: Father and sister are active in patient's care. No family history of peptic ulcer. REVIEW OF SYSTEMS: Unobtainable comprehensive review of systems due to the patient's cognitive dysfunction this and unresponsiveness on my examination today. PHYSICAL EXAMINATION: VITAL SIGNS: Temperature is 36.1, pulse 93 regular, blood pressure 83/53, respiratory rate 16, O2 saturation 100% on room air. GENERAL: Slight built female lying in bed in position, nonresponsive to questioning. Moves all 4 extremities to touch. INTEGUMENT: Clear. HEENT: Head atraumatic, normocephalic. Pupils equal, round, reactive to light. EOMs intact. Sclerae nonicteric. Mucous membranes moist. Dentition poor. NECK: Supple. Trachea midline. LYMPHATIC: No cervical or axillary adenopathy palpated. PULMONARY: Lungs clear to percussion, auscultation. CARDIOVASCULAR : Regular rhythm rate. Normal S1, S2 without murmur. Peripheral pulses are strong bilaterally. GASTROINTESTINAL: Abdomen protuberant. Positive bowel sounds. No liver, spleen tip palpable. No scars noted. No masses. EXTREMITIES: flexion contracture deformity of all four limbs. NEURO: Patient was obtunded. Moved all 4 extremities. LABORATORY: White count 6.19, hemoglobin 12.8, hematocrit 39.6, platelets 280, 000. Pro time 12.5, INR 0.97, PTT 26.3 on 09/17/2018. Electrolytes normal. BUN 6, creatinine 0.4, glucose 79. IMPRESSION: 43-year-old cognitively disabled female with feeding difficulties and recent influenza A pulmonary infection with need for chronic enteral feedings. RECOMMENDATION: Will discuss with family, but tentatively will proceed with PEG tube placement tomorrow. We will do this with propofol anesthesia and probable endotracheal intubation due to patient's decreased mental status and protection of airway. The patient has at increased risk of complication due to her underlying neurologic condition. /[id number]/MODL MTDD
[2018-09-28] MEDS: DEXAMETHASONE 4 MG/ML VIAL IVP SCH (18:44)
[2018-09-29] MEDS: Propylene Glycol [Systane Balance] EACHEYE SCH ×5 (05:26→20:56)
[2018-09-29] MEDS: POTASSIUM Cl (KCl) 20 MEQ in D5W LR 1,000 ML IV SCH (07:23)
[2018-09-29] MEDS: FAMOTIDINE 20 MG/NACL 50 ML IV SCH ×2 (08:08→20:21)
[2018-09-29] MEDS: CHLORHEXIDINE GLUCONATE 15 ML UDL PO SCH ×3 (08:14→17:50)
[2018-09-29] MEDS: BUDESONIDE 0.5 MG/2 ML AMPUL.NEB IH SCH ×2 (08:58→21:18)
[2018-09-29] MEDS: LACOSAMIDE 100 MG in NS 50 ML IV SCH (09:40)
[2018-09-29] MEDS: MAGNESIUM OXIDE 400 MG TAB PO SCH (09:45)
[2018-09-29] MEDS: SENNOSIDES/DOCUSATE SODIUM TAB PO SCH ×2 (09:45→20:21)
--- NOTE | 2018-09-29 11:16 | HOSPPROG ---
Hospitalist Progress Note Assessment/Plan: Influenza a-patient has completed course of Tamiflu and antibiotics for potential for secondary bacteria. Continue with Pulmicort nebulizer BID Nutrition-plan for G tube today. Dietary consult placed in anticipation of tube being placed. Low blood pressures-systolics in the 90s noted. IV fluids have been resumed. Hypernatremia-resolved. Will repeat in am, as no check since 09/26 Hypokalemia-resolved.repeat in am. Anemia-resolved. With hemoglobin at 12 . History of Astroglioma-underlying neurologic disability. Seizure disorder-continue current antiseizure medications. Hypothyroidism-levothyroxine placed on hold. Adrenal insufficiency- history of. Dexamethasone. DVT prophylaxis-Lovenox.Hold for Gtube today. Fluids- D5W with [facility]- Replete on last check Nutrition- Gtube today Cor- DNR Dispo- inpatient for Gtube placement today, then possible DC in 1-2 days Subjective: appears comfortable. Objective: Vital Signs Temp Pulse Resp BP Pulse Ox 36.1 C 80 12 100/58 L 97 09/29/18 07:14 09/29/18 09:01 09/29/18 09:01 09/29/18 07:14 09/29/18 09:01 Laboratory Results 09/26/18 05:10 09/26/18 05:10 09/28/18 09/29/18 09/30/18 05:59 05:59 05:59 Intake Total 2210 884 Output Total 1300 1500 Balance 910 -616 PT 12.5 SEC (12.0-15.0) 09/17/18 20:05 INR 0.97 (0.83-1.16) 09/17/18 20:05 - Physical Exam Constitutional: no apparent distress Eyes: PERRL Ears, Nose, Mouth, Throat: moist mucous membranes Cardiovascular: regular rate and rhythym Respiratory: no respiratory distress Gastrointestinal: normoactive bowel sounds Genitourinary: no bladder fullness Skin: warm Musculoskeletal: generalized weakness Neurologic: other (unable to respond) Psychiatric: not anxious Lymph, Heme, Immunologic: no cervical LAD ICD10 Worksheet Patient Problems: Problems Problem Status Onset Influenza A Acute Pneumonia Acute Urinary tract infection Acute Dehydration Acute Hypothermia Acute Palliative care encounter Acute Seizure Acute Seizure disorder Acute Sepsis Acute
--- NOTE | 2018-09-29 12:19 | PDANEPAE ---
ANE History of Present Illness placement of PEG tube ANE Past Medical History - Cardiovascular History Hx Hypertension: No Hx Arrhythmias: No Hx Chest Pain: No Hx Coronary Artery / Peripheral Vascular Disease: No Hx CHF / Valvular Disease: No Hx Palpitations: No - Pulmonary History Hx COPD: No Hx Asthma/Reactive Airway Disease: No Hx Recent Upper Respiratory Infection: Yes Hx Oxygen in Use at Home: Yes O2 in Use at Home (L/minute): 2 l/min at night Hx Sleep Apnea: No Sleep Apnea Screening Result - Last Documented: Negative - Endocrine History Hx Diabetes: No Hypothyroid: Yes Obesity: yes Endocrine History Comment: hx of adrenal insufficiency - Neurological & Psychiatric Hx Hx Neurological and Psychiatric Disorders: Yes Neurological / Psychiatric History Comment: hx of astroglyoma, s/p vp biology shunt, cognitive impairment, seizures. - Chronic Pain History Chronic Pain: No - Surgical History Prior Surgeries: s/p vp biology shunt placement ANE Review of Systems Review of Systems: - Exercise capacity METS (RN): 2 METS ANE Patient History - Allergies Allergies/Adverse Reactions: codeine [Codeine] Allergy (Intermediate, Verified 09/17/18 16:06) levofloxacin [From Levaquin] Allergy (Verified 09/17/18 16:06) milk [Milk] Allergy (Verified 09/17/18 16:06) morphine Allergy (Verified 09/17/18 16:06) Penicillins Allergy (Verified 09/17/18 16:06) vancomycin Allergy (Verified 09/17/18 16:06) - Home Medications Home Medications: Chlorhexidine Gluconate [Peridex oral soln (*)] 15 ml PO TIDMEAL 08/12/12 [Last Taken 09/17/18] Levothyroxine [Synthroid 112 mcg (*)] 112 mcg PO DAILY06 08/12/12 [Last Taken ] Fluoride (Sodium) [Prevident 5000] 1 pratima DT TID 03/14/17 [Last Taken 09/17/18] Magnesium Oxide [Magnesium Oxide 400 mg (*)] 400 mg PO DAILY 07/23/17 [Last Taken 09/17/18] Sodium Cl Nasal Gel [[place] Saline Nasal Gel] 1 pratima EACHNARE HS 07/23/17 [Last Taken 09/16/18] Herbals/Supplements -Info Only 1 ea PO TID 08/29/17 [Last Taken 09/17/18] Cholecalciferol Vit D3 [Vitamin D3 (*)] 1,000 units PO DAILY 11/07/17 [Last Taken 09/17/18] Calcium Carbonate [Tums 500MG (*)] 500 mg PO BID 09/12/18 [Last Taken 09/17/18] Clindamycin HCl [Clindamycin] 300 mg PO ONCE PRN 09/12/18 [Last Taken 09/08/18] Cranberry Fruit Extract [Cran-Max] 1,000 mg PO DAILY 09/12/18 [Last Taken ] Dexamethasone 1.5 mg PO DAILY@1900 09/12/18 [Last Taken 09/16/18] Ibuprofen [Motrin (*)] 200 mg PO Q6H PRN 09/12/18 [Last Taken 09/08/18] Magnesium Hydroxide [Milk of Magnesia] 5 ml PO Q3D PRN 09/12/18 [Last Taken ] Propylene Glycol [Systane Balance] 1 drop EACHEYE 5XD 09/13/18 [Last Taken 09/17] - NPO status NPO Since - Liquids (Date): 09/29/18 NPO Since - Liquids (Time): 03:00 NPO Since - Solids (Date): 09/29/18 NPO Since - Solids (Time): 03:00 - Anes Hx Anes Hx: no prior problems - Smoking Hx Smoking Status: Never smoked - Alcohol Use Alcohol Use: None ANE Labs/Vital Signs - Labs Result Diagrams: 09/26/18 05:10 09/26/18 05:10 - Vital Signs Blood Pressure: 100/58 Heart Rate: 80 Respiratory Rate: 12 O2 Sat (%): 97 Height: 152.4 cm Weight: 46.351 kg ANE Physical Exam - Airway Neck exam: decreased ROM Mallampati Score: Class 2 Mouth exam: poor dentition - Pulmonary Pulmonary: clear to auscultation - Cardiovascular Cardiovascular: regular rate and rhythym - ASA Status ASA Status: III ANE Anesthesia Plan Anesthesia Plan: GA with mask (discussed with patient's father.)
[2018-09-29] MEDS ORDERED: PROPOFOL 200 MG/20 ML VIAL ONE (12:35)
[2018-09-29] MEDS ORDERED: BACITRACIN ZINC 0.5 OZ OINTTUBE TP ONE (13:13)
[2018-09-29] MEDS ORDERED: NALOXONE HCL 0.4 MG/ML INJ IVP PRN (13:18)
[2018-09-29] MEDS ORDERED: fentaNYL 100 MCG/2 ML INJ IVP PRN (13:18)
--- NOTE | 2018-09-29 13:27 | GIREPORT ---
[facility] - Endoscopy Department Patient Name: Quita Krsihnan Procedure Date: 09/29/2018 12:03 PM Patient Type: Inpatient Attending MD/ ER Physician: Jhon Mccauley MD Procedure: Upper GI endoscopy Indications: Dysphagia, Feeding difficulties. Providers: Jhon Mccauley MD Medicines: General Anesthesia, Ancef 1000 mg IV Complications: No immediate complications. Description of Procedure: After obtaining informed consent, the endoscope was passed under direct vision. Throughout the procedure, the patient's blood pressure, pulse, and oxygen saturations were monitored continuously. The Endoscope was intro duced through the mouth, and advanced to the second part of duodenum. The [facility] er GI endoscopy was accomplished without difficulty. The patient tolerated th e procedure well. Findings: The examined esophagus was normal. The entire examined stomach was normal. Placement of an externally lisa vable PEG with no T-fasteners was successfully completed. The external bumper was at the 4.0 cm marking on the tube. The examined duodenum was normal. Estimated Blood Loss: Estimated blood loss: none. Post Op Diagnosis: - Normal esophagus. - Normal stomach. - Normal examined duodenum. - An externally removable PEG placement was successfully completed. - No specimens collected. Recommendation: - [facility]. - NPO indefinitely. Tube feedings per kit planner. Attending Participation: I personally performed the entire procedure. Jhon Mccauley MD Jhon Mccauley MD 09/29/2018 1:25:55 PM This report has been signed electronicallyJhno Mccauley MD Number of Addenda: 0 Note Initiated On: 09/29/2018 12:03 PM [email or web address]
--- NOTE | 2018-09-29 14:04 | POSTANESTH ---
Post Anesthetic Evaluation Cardiovascular Status: Normal, Stable Respiratory Status: Similar to Pre-op Cond. Level of Consciousness/Mental Status: Other, See Comment (Pt. remains poorly responsive, appears comfortable.) Pain Control: Adequate, Prn Tx Ordered Nausea/Vomiting Control: Adequate, Prn Tx Ordered Complications Possibly Related to Anesthesia: None Noted
--- NOTE | 2018-09-29 15:05 | ASMTCMCOM ---
CM Note CM Note Notes: CM met with Estuardo DONOVAN and patients father to discuss the plan for Quita to undergo G-tube placement today. Estuardo will be faxing the consent for surgery form to Mariah, Guardian with [facility] when the consent is completed by Dr. Mccauley. Patient is scheduled for surgery for PEG placement this afternoon. CM will follow, plan continues to be discharge back to [facility] with Home Health. CM call to Varsha, Caregiver at [facility], , to discuss preferred Home Care agencies. She shared they have experience with [facility] in the past and also have a instrument checker, Dorina, and asked we contact Dorina when Quita discharges to give report. CM sent referral to [facility] via [employer]. CM to follow. D/C Plan: Return to [facility] with Home Health(pending Family), [facility] formula infusion, and [facility]. Date Signed: 09/29/2018 03:04 PM Electronically Signed By:Evelia Villagran
--- NOTE | 2018-09-29 15:36 | ASMTCMCOM ---
CM Note CM Note Notes: CM recieved call from Navin with [facility], they can accept patient. Catherine can be contacted at [phone] if needed. CM received call from Lisa with [facility] requesting HAND PASTER consult report, CM sent via freshbag. CM to follow. D/C Plan: [facility] to [facility] with [facility] formula infusion, [facility], [facility]. Date Signed: 09/29/2018 03:36 PM Electronically Signed By:Evelia Villagran
[2018-09-29] MEDS ORDERED: ACETAMINOPHEN 325 MG TAB TUBE PRN (17:00)
[2018-09-29] MEDS: BACITRACIN ZINC 0.5 OZ OINTTUBE TP SCH ×2 (17:50→22:18)
[2018-09-29] MEDS: DEXAMETHASONE 4 MG/ML VIAL IVP SCH (20:20)
[2018-09-29] MEDS: LACOSAMIDE 50 MG TAB TUBE SCH (20:46)
[2018-09-30 04:25] LABS: PLATELET COUNT 283 10^3/uL (150-400)
[2018-09-30] MEDS: Propylene Glycol [Systane Balance] EACHEYE SCH ×5 (05:00→21:37)
[2018-09-30] MEDS: POTASSIUM Cl (KCl) 20 MEQ in D5W LR 1,000 ML IV SCH (06:28)
[2018-09-30] MEDS: FAMOTIDINE 20 MG/NACL 50 ML IV SCH ×2 (09:03→21:22)
[2018-09-30] MEDS: SENNOSIDES/DOCUSATE SODIUM TAB PO SCH ×2 (09:14→21:22)
[2018-09-30] MEDS: CHLORHEXIDINE GLUCONATE 15 ML UDL PO SCH ×3 (09:14→18:17)
[2018-09-30] MEDS: LACOSAMIDE 50 MG TAB TUBE SCH ×2 (09:14→21:22)
[2018-09-30] MEDS: MAGNESIUM OXIDE 400 MG TAB PO SCH (09:14)
[2018-09-30] MEDS: BUDESONIDE 0.5 MG/2 ML AMPUL.NEB IH SCH ×2 (09:32→21:27)
--- NOTE | 2018-09-30 09:46 | WOCRNPDOC ---
WOCRN Advanced Assessment Note - Skin Integrity Problem, Advanced Assess Buttock Dermatitis Dressing Type: Open to Air Yarelis Wound Tissue: Blanching, Erythema Skin Integrity Problem Comment: Buttock erythema/dermatitis is much improved since assessment on Thursday. Less satellite lesions and erythema is duller. Peeling skin noted, but no open areas at this time and all areas are blanching. Continue plan of care. Wound care will follow up next week.
[2018-09-30] MEDS: ENOXAPARIN 40 MG/0.4 ML SYR SC SCH (10:15)
[2018-09-30] MEDS: BACITRACIN ZINC 0.5 OZ OINTTUBE TP SCH ×3 (10:16→21:37)
--- NOTE | 2018-09-30 12:26 | ASMTCMCOM ---
CM Note CM Note Notes: CM presented to patient room. Patient's father, Varsha- Caregiver, Joan Carbone-El RN, were present. We discussed discharge, the patient will not discharge today in order to transition feeds from continuous to bolus. Joan states the facility needs to ensure staff with [facility] is properly trained/aware of how to care for the patients needs. They will connect with [facility], who will come out once a day to help feeds and assess surgical site/assist with training. Joan asks for discharge on Thursday though she states she knows Quita will be discharged when clinically ready. CM call to [facility], spoke with Catherine to inform they the patient will not be discharging today and to expect contact from Joan to collaborate on care at the home. Varsha shared the breakdown of the [facility] hospital: [facility] is the larger organization, [facility] is one of the residence groups and [facility] is the location Quita is living at. Report will need to be called to [employer] [phone] at discharge. Ramirez with Palliative stopped by to ask for CM to update on discharge, CM sent Volte to share patient is not discharging today. CM faxed PCS form to [facility] already, they will keep form on hold until patient is ready to discharge. CM to follow. D/C Plan: Return to [facility] ([facility]) with [facility], [facility], and [facility]. Date Signed: 09/30/2018 12:26 PM Electronically Signed By:Evelia Villagran
--- NOTE | 2018-09-30 13:39 | HOSPPROG ---
Hospitalist Progress Note Assessment/Plan: Influenza a-patient has completed course of Tamiflu and antibiotics for potential for secondary bacteria. Continue with Pulmicort nebulizer BID Nutrition-G tube placed yesterday. started tube feeds already, she is nearly at goal rate of 35cc/hr and if tolerates this we can transition over to bolus feeds. Low blood pressures-seems to have normalized. no evidence of sepsis or infection currently. buff cap fluids as she is getting tube feeds now with water. Hypernatremia-resolved. normalized to 141 today. monitor Hypokalemia-BMP today with K of 4.5 Anemia-resolved. With hemoglobin at 12 . History of Astroglioma-underlying neurologic disability. Seizure disorder-continue current antiseizure medications. Hypothyroidism-levothyroxine placed on hold. Adrenal insufficiency- history of. Dexamethasone. DVT prophylaxis-Lovenox.Resume now that tube placed. Fluids- buff cap Lytes- Replete on last check Nutrition- tube feeds with goal of 35cc/hr Cor- DNR Dispo- possible dc if tolerating tube feeds tomorrow. Subjective: unresponsive. appears comfortable. Objective: Vital Signs Temp Pulse Resp BP Pulse Ox 36.3 C 65 16 113/67 98 09/30/18 12:00 09/30/18 12:00 09/30/18 12:00 09/30/18 12:00 09/30/18 12:00 Laboratory Results 09/30/18 04:14 09/30/18 04:14 09/29/18 09/30/18 10/01/18 05:59 05:59 05:59 Intake Total 884 1896 Output Total 1500 101 600 Balance -616 1795 -600 PT 12.5 SEC (12.0-15.0) 09/17/18 20:05 INR 0.97 (0.83-1.16) 09/17/18 20:05 - Physical Exam Constitutional: appears nourished Eyes: PERRL Ears, Nose, Mouth, Throat: moist mucous membranes Cardiovascular: regular rate and rhythym Respiratory: no respiratory distress Gastrointestinal: soft, non-tender abdomen, other (Gtube site looks clean, no erythema. no leakage) Genitourinary: ellington in urethra Skin: warm, normal color Musculoskeletal: generalized weakness Neurologic: other (minimally responsive for me. ) Psychiatric: not anxious Lymph, Heme, Immunologic: no cervical LAD ICD10 Worksheet Patient Problems: Problems Problem Status Onset Influenza A Acute Pneumonia Acute Urinary tract infection Acute Dehydration Acute Hypothermia Acute Palliative care encounter Acute Seizure Acute Seizure disorder Acute Sepsis Acute
--- NOTE | 2018-09-30 17:21 | ASMTCMCOM ---
CM Note CM Note Notes: CM call to patient's guardian Mariah Worrell, , to update on discharge plan. CM shared the plan is to discharge back to [facility] with [facility], [facility], and [facility]. CM shared the conversation held with Varsha and Joan with [facility] around the need for them to ensure staff is trained and able to care for Quita when she returns home. She asked when discharge would be, CM shared it could be as soon as tomorrow but we will see how Quita is clinically, the goal is to transition from continuous to bolus feed. Mariah states she agrees with discharge plan and can be reached on her cellphone [phone] if needed though she is not as accessible on the weekends. Mariah stated she received a very nice phone call from Quita's father saying he appreciates all the care Quita has received and that 'he expects a miracle' and recognizes it was not an easy or popular decision. Mariah stated she is not expecting a call to update next steps over the weekend and agrees with the plan. CM to follow. D/C Plan: [facility], [facility], and [facility]. Date Signed: 09/30/2018 05:20 PM Electronically Signed By:Evelia Villagran
--- NOTE | 2018-09-30 18:01 | SOAPPROG ---
SOAP Progress Note Assessment/Plan: Assessment: 1. Dysphagia without change. 2. Feeding difficulties; tolerating continuous TF. G-T site looks good. Plan: 1. TF per Hospitalist. 2. May re-feed patient orally when felt safe. 3. I will sign off today, call me for further GI issues. Jhon Mccauley MD 09/30/18 17:58 Subjective: CC: Dysphagia. Interval HPI: Patient more alert. Tolerating continuous volume TF. Objective: Vital Signs Temp Pulse Resp BP Pulse Ox 36.3 C 64 16 98/62 L 97 09/30/18 16:00 09/30/18 16:00 09/30/18 16:00 09/30/18 16:00 09/30/18 16:00 Laboratory Results 09/30/18 04:14 09/30/18 04:14 09/29/18 09/30/18 10/01/18 05:59 05:59 05:59 Intake Total 884 1896 Output Total 1500 101 600 Balance -616 1795 -600 PT 12.5 SEC (12.0-15.0) 09/17/18 20:05 INR 0.97 (0.83-1.16) 09/17/18 20:05 Physical Exam - Physical Exam General Appearance: no apparent distress Respiratory: lungs clear, normal breath sounds Cardiac/Chest: regular rate, rhythm Abdomen: normal bowel sounds, non-tender, soft, other (G-tube skin site clean, functioning well.) Skin: normal color, warm/dry ICD10 Worksheet Patient Problems: Problems Problem Status Onset Influenza A Acute Pneumonia Acute Urinary tract infection Acute Dehydration Acute Hypothermia Acute Palliative care encounter Acute Seizure Acute Seizure disorder Acute Sepsis Acute
[2018-09-30] MEDS: DEXAMETHASONE 4 MG/ML VIAL IVP SCH (18:18)
[2018-10-01] MEDS: Propylene Glycol [Systane Balance] EACHEYE SCH ×3 (06:07→13:37)
[2018-10-01] MEDS: CHLORHEXIDINE GLUCONATE 15 ML UDL PO SCH ×2 (08:40→13:36)
[2018-10-01] MEDS: SENNOSIDES/DOCUSATE SODIUM TAB PO SCH (08:40)
[2018-10-01] MEDS: MAGNESIUM OXIDE 400 MG TAB PO SCH (08:40)
[2018-10-01] MEDS: ENOXAPARIN 40 MG/0.4 ML SYR SC SCH (08:41)
[2018-10-01] MEDS: FAMOTIDINE 20 MG/NACL 50 ML IV SCH (08:41)
[2018-10-01] MEDS: LACOSAMIDE 50 MG TAB TUBE SCH (08:41)
[2018-10-01] MEDS: BACITRACIN ZINC 0.5 OZ OINTTUBE TP SCH (08:42)
[2018-10-01] MEDS: BUDESONIDE 0.5 MG/2 ML AMPUL.NEB IH SCH (09:57)
--- NOTE | 2018-10-01 11:45 | HOSPPROG ---
Hospitalist Progress Note Assessment/Plan: Influenza a-patient has completed course of Tamiflu and antibiotics for potential for secondary bacteria. Continue with Pulmicort nebulizer BID Nutrition-G tube placed yesterday. started tube feeds already, she is nearly at goal rate of 35cc/hr and if tolerates this we can transition over to bolus feeds. Patient will need tube feeds for life. start bolus feeds today per dietary recommendations. Low blood pressures-seems to have normalized. no evidence of sepsis or infection currently. buff cap fluids as she is getting tube feeds now with water. Hypernatremia-resolved. normalized to 141 today. monitor Hypokalemia-BMP today with K of 4.5 Anemia-resolved. With hemoglobin at 12 . History of Astroglioma-underlying neurologic disability. Seizure disorder-continue current antiseizure medications. Hypothyroidism-levothyroxine placed on hold. Adrenal insufficiency- history of. Dexamethasone. DVT prophylaxis-Lovenox.Resume now that tube placed. Fluids- buff cap Lytes- Replete on last check Nutrition- tube feeds with goal of 35cc/hr Cor- DNR Dispo- possible dc if tolerating tube feeds tomorrow. Subjective: appears comfortable. Objective: Vital Signs Temp Pulse Resp BP Pulse Ox 36.7 C 72 17 87/48 L 94 10/01/18 07:48 10/01/18 10:00 10/01/18 10:00 10/01/18 07:48 10/01/18 10:00 Laboratory Results 09/30/18 04:14 10/01/18 04:34 09/30/18 10/01/18 10/02/18 05:59 05:59 05:59 Intake Total 1896 1192 Output Total 101 1700 Balance 1795 -508 PT 12.5 SEC (12.0-15.0) 09/17/18 20:05 INR 0.97 (0.83-1.16) 09/17/18 20:05 - Physical Exam Constitutional: no apparent distress Eyes: PERRL Ears, Nose, Mouth, Throat: moist mucous membranes Cardiovascular: regular rate and rhythym Respiratory: no respiratory distress Gastrointestinal: normoactive bowel sounds Genitourinary: no bladder fullness Skin: warm Musculoskeletal: generalized weakness Neurologic: weakness Psychiatric: encephalopathic Lymph, Heme, Immunologic: no cervical LAD ICD10 Worksheet Patient Problems: Problems Problem Status Onset Influenza A Acute Pneumonia Acute Urinary tract infection Acute Dehydration Acute Hypothermia Acute Palliative care encounter Acute Seizure Acute Seizure disorder Acute Sepsis Acute
[2018-10-01 12:10] VITALS: BP 90/50
--- NOTE | 2018-10-01 13:22 | PDIAF ---
- Diagnosis Code Status: Do Not Resuscitate - Medication Management Discharge Medications: electronically signed and located in the Home Medication List. - Orders Services needed: Registered Nurse Isolation Type: None Diet Recommendation: other Diet Texture: None Additional Instructions: Tube feed instructions. all medications now to be given through G tube. NPO indefinitely per GI. 2) Give 120 ml or 1/2 carton Jevity 1.5 ~ 4pm and 8pm (first 2 feedings) 3) Goal: Give 240 ml (or 1 carton) Jevity 1.5 4 times/ day (~8am, 12pm, 4pm, 8pm) This will meet estimated needs with 1410 kcals, 61 gm Pro, (30 kcals, 1.3 gm Pro/kg) EN and flushes of 90 ml water before and after feedings will provide 1420 ml free water (31 ml/kg), Watch for signs of GI intolerance (see order), if evident and moderately severe , hold EN and alert MD - Labs/Radiology Other Lab Name, Date and Time: follow up TSH, restart home synthroid. - Follow Up Care Current Providers and Referrals: NONE *PRIMARY CARE P,. [Primary Care Provider] - As per Instructions
--- NOTE | 2018-10-01 16:00 | ASMTDCNOTE ---
Case Management Discharge Discharge Order Complete? Answers: Yes Patient to Obtain Answers: Other Notes: [facility] Medications Transportation Arranged Answers: [facility] Stretcher Transport will Pick (Date 10/01/2018 03:30 PM & Time) Case Management Transport Answers: Yes Form Complete Faxed Final Orders Answers: Yes Agency/Facility Transfer Answers: Yes Report Printed & Faxed to Receiving Agency Family Notified Answers: Yes Discharge Comments Notes: D/w MD, final orders faxed to [facility] and their pharmacy, [facility], Nida, and [facility]. Lisa from [facility] went to [facility] to do a teaching on the tube bolus feeds spoke with [facility] and they have received all medications and dc orders. did write hardscript for nebulizer machine that was given to [facility] transport, rx for Lovenox, Albuterol and Budesonide called into [facility] pharmacy per Christina's request. She states they have a neb maching they can use until [facility] can fill the prescription. Date Signed: 10/01/2018 04:00 PM Electronically Signed By:Merline Lewis RN
--- NOTE | 2018-10-01 16:38 | PDDCSUM ---
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 She lives in [facility]. She was just discharged prior to this admission after being treated for influenza a. She was discharged and then brought back the very next day as the caregivers were concerned about coarse breath sounds and hypoxemia. A CT scan in the emergency room revealed mucous plugging and bronchitis as well as some subacute rib fractures. She was started on antibiotics for healthcare associated pneumonia and continued on Tamiflu for her influenza a. She completed a course of antibiotics for this. There was concern that she was aspirating. The family and ultimately her legal guardian wanted a G-tube placed.ultimately a G-tube was placed and all of her medications were transitioned over to G-tube. She was started on tube feeds which she seemed to tolerate well. She was discharged back to [facility] in good condition, no longer with an oxygen requirement with stable labs, to resume all of her home medications. Disposition Back to [facility] I spent over 30 min on the discharge of this patient
--- NOTE | 2018-10-02 14:39 | ASDISCHSUM ---
Discharge Information Plan Status:Home with Home Health Medically Cleared to Leave: Discharge Date:10/01/2018 03:51 PM CM D/C Disposition:Home Health Service ADT D/C Disposition:Rehab Director Of Testing Care Projected Discharge Date:09/21/2018 11:00 AM Transportation at D/C:ALS/BLS Discharge Delay Reason: Follow-Up Date:09/21/2018 11:00 AM Discharge Slot: Final Diagnosis: Placement Information Referral Type:Palliative Care Referral ID:[id number] Provider Name:[facility] Address 1:[address] Phone Number: Address 2: Fax Number: City:[place] Selection Factors: State[place] Referral Type:*Usp/SNF Referral ID:[id number] Provider Name: Address 1: Phone Number: Address 2: Fax Number: City: Selection Factors: State: Referral Type:*Home Health Care Services Referral ID:[id number] Provider Name:[facility] Address 1:[address] Address 2: City:[place] Selection Factors: [place] Referral Type:Home Infusion Referral ID:[id number] Provider Name:[facility] Address 1:[address] Address 2: City:[place] Selection Factors: State:[place] Patient Contact Information Contact Name:VARINDER Relationship:Legal guardian Address:[address] [place] [address] [address] City:[facility] Phone: State/Zip Code:[place] [address] Email: Financial Information Financial Class:Medicare Primary Plan Desc:MEDICARE INPATIENT Primary Plan Number:[id number] Secondary Plan Desc:MED[place] Secondary Plan Number:[id number] Assessment Information [facility] CM Progress Note CM Note CM Note Notes: Pt admitted for pnuemonia and flu. Pt resides [facility], she has a guardian from [facility]. Father and brother may visit but do not make decisions and should contact guardian for information. To contact guardian, on weekends or holidays call [phone], choose option 2, state "this is not a referral" and that we need a decision maker in a guardianship case and specify timing. (urgent or end of day) Otherwise M-F for guardian, contact Mariah at [phone]/ [phone] Caregiver at [facility]: Adia newell)[phone] or Dorina [phone] [facility] Palliative: Stacey [phone]. Dc needs unclear, SHAMAR w/f. Pt has been to [facility] and [facility] in the past. DC Plan: TBD Date Signed: 09/18/2018 01:31 PM Electronically Signed By:Merline Lewis RN [facility] CM Progress Note CM Note CM Note Notes: Update: feels there should be a palliative consult, SHAMAR called Stacey at [facility] to connect with [facility] SHAMAR on Thursday to organize a meeting w/ Alfie pt's guardian, caregiver (Skye Garcia). Please see previous notes for all phone numbers and contacts. Date Signed: 09/18/2018 04:33 PM Electronically Signed By:Merline Lewis RN [facility] CM Progress Note CM Note CM Note Notes: Hospitalist feels pt will benefit from another palliative meeting between Alfie, pt's guardian, pt's family and [facility]. Referral and note sent to [facility]. Pt's guardian is on vacation so not sure how the meeting will proceed. Ethics may need to be involved as well. Date Signed: 09/19/2018 12:45 PM Electronically Signed By:KIMANI Donnelly [facility] Progress Note CM Note CM Note Notes: Meeting was held today with hospitalist, [facility] and screen printer to discuss patient. Ethics consult was also placed per management due to unresponsiveness of pt's state appointed guardian, Mariah Worrell and frequency of admissions. CM also spoke with staff member at [facility] who stated that pt's care team had met (apparently without [facility]) to reevaluate pt's MOST form which clearly states pt is not to receive nutrition via tube feed. Per staff member at [facility], guardian does want PEG tube placed, as pt is refusing to eat, aspirating and has protein calorie malnutrition. However, [facility] does not have an updated MOST form. CM attempted to contact guardian who is on leave until Sep 28. Octavia Robles is guardian in Mariah's stead. Octavia was connected with hospitalist wanted a conversation with pt's decision maker as pt is likely hospice appropriate. In the short term, referrals have been sent to SNFs, orders for therapies placed today. Hang reports she has only 14 full pay SNF days left for Medicare and 80 co-pay days left, so pt may prefer medicaid facility. CM to follow. D/C Plan: SNF v [facility] with Hospice. Date Signed: 09/20/2018 03:02 PM Electronically Signed By:Rachelle Mejias [facility] Progress Note CM Note CM Note Notes: CM initiated "care team" meeting, supported by hospitalist. Invitees include Adia from [employer], Vida from [facility], Ramirez [facility] Director Of Outside Sales and pt's guardian Mariah's supervisor shipfitters Octavia from [facility] who declined to attend however spoke with hospitalist on the phone. Inclusion or not of family was left up to Octavia. Meeting set for Thursday at 12:30 here on [address] to determines plan of care in pt's best interest. Ethics has also been consulted. CM to follow. Referrals have been sent to various SNFs with LTC options. D/C Plan: hospice v SNF Date Signed: 09/21/2018 04:58 PM Electronically Signed By:Rachelle Mejias [facility] Progress Note CM Note CM Note Notes: Conference w/ Skye Copeland, elementary educator - Christina, Varsha from [facility], [facility] benavidez from Director Of Outside Sales Services, Dr. Hayward, Lasha Colby Jr, Octavia and this CMer. A conclusion was not made to have PEG vs no PEG and hospice. A decision will hopefully be made by this Thursday. CM to follow. Plan: TBD Date Signed: 09/22/2018 03:36 PM Electronically Signed By:DEE Lewis [facility] Progress Note CM Note CM Note Notes: CM scheduled a conference for tomorrow at 12:30PM to discuss peg vs hospice. CM notified Vida at [facility], Elida Rush at [facility] and Octavia. CM spoke to ZION Rodriguez about this case. Date Signed: 09/23/2018 05:18 PM Electronically Signed By:DEE Lewis [facility] Progress Note CM Note CM Note Notes: Conference today w/ pts father Will , Helder Hagen on the phone, Will 's Yaneth alex- assistant professor of theater of [facility] (P#:[phone]), Marco at [facility], Cisco Rush from [facility], Vida from [facility] and this CM. Skye and the family would like pt to have a g tube. CM was unable to get Octavia on the phone during the conference. CM left a msg for Octavia (P#: [phone]) for a call back to discuss that family and [facility] would like pt to have a g tube placement. It was discussed that it would be inappropriate for pt to go to a SNF. Yaneth will be the relief salesperson for [facility] once a decision is made by Octavia. Helder Omalley (P#: [phone]), Vida from [facility], and [facility] palliative team would like to be kept in the loop as well. CM to follow. Plan: TBD Date Signed: 09/24/2018 04:32 PM Electronically Signed By:DEE Lewis [facility] CM Progress Note CM Note CM Note Notes: Spoke with hospitalist and with Adia from [facility] today. Pt's guardian Mariah Worrell ([phone]; [phone]) from [facility] will be back in the office tomorrow. As Mariah's supervisor shipfitters Octavia was absent for previous two family meetings last week, it is felt that Mariah should make decision on whether to place G-Tube, and hospitalist did not feel pt's safety warranted an earlier decision. Most current MOST form declines artificial nutrition via G-Tube. Adia Maddox at [facility] informed, and CM will need to follow up with Mariah tomorrow. CM to follow. D/C Plan: TBD Date Signed: 09/27/2018 03:52 PM Electronically Signed By:Rachelle Mejias [facility] CM Progress Note CM Note CM Note Notes: Physician met today with Kimberly Levy of [facility] who is pt's guardian and with Kimberly Dudley's supervisor shipfitters to discuss pt's prognosis and care. Kimberly eventually submitted adjusted MOST form that now allows for G-tube placement which is now in the chart. Kimberly also verbally consented hospitalist to move forward with Gtube placement. Pt will likely discharge back to [facility] as that is where she is most comfortable and CM should arrange for layered support. [employer] notified to asses for LTC Medicaid eligibility as pt would benefit from HCBS, though Kimberly states pt is already receiving residential services through a "Medicaid waiver" program and would not be eligible for both. Pt would also benefit from C PT/OT and perhaps RN care. PT/OT eval orders will need to be placed tomorrow. [facility] will also need to be contacted for formula orders when ready. Pt is already current with [facility]. Updates sent to them. CM to follow. D/C Plan: [facility] with HHC and [facility] formula infusion and [facility] Date Signed: 09/28/2018 04:27 PM Electronically Signed By:Rachelle Mejias [facility] Progress Note CM Note CM Note Notes: SHAMAR met with Estuardo DONOVAN and patients father to discuss the plan for Quita to undergo G-tube placement today. Estuardo will be faxing the consent for surgery form to Xena Lemus with [facility] when the consent is completed by Dr. Mccauley. Patient is scheduled for surgery for PEG placement this afternoon. CM will follow, plan continues to be discharge back to [facility] with Home Health. SHAMAR call to Varsha, Caregiver at [facility], , to discuss preferred Home Care agencies. She shared they have experience with [facility] in the past and also have a senior revenue accountant, Dorina, and asked we contact Dorina when Quita discharges to give report. CM sent referral to [facility] via [employer]. CM to follow. D/C Plan: Return to [facility] with Home Health(pending Family), [facility] formula infusion, and [facility]. Date Signed: 09/29/2018 03:04 PM Electronically Signed By:Evelia Villagran [facility] CM Progress Note CM Note CM Note Notes: CM recieved call from Navin with [facility], they can accept patient. Catherine can be contacted at [phone] if needed. CM received call from Lisa with [facility] requesting STORE RECEIVER consult report, CM sent via [employer]. CM to follow. D/C Plan: Return to [facility] with [facility] formula infusion, [facility], [facility]. Date Signed: 09/29/2018 03:36 PM Electronically Signed By:Evelia Villagran [facility] CM Progress Note CM Note CM Note Notes: CM presented to patient room. Patient's father, Varsha- Caregiver, Joan Carbone-El RN, were present. We discussed discharge, the patient will not discharge today in order to transition feeds from continuous to bolus. Joan states the facility needs to ensure staff with [facility] is properly trained/aware of how to care for the patients needs. They will connect with [facility], who will come out once a day to help feeds and assess surgical site/assist with training. Joan asks for discharge on Thursday though she states she knows Quita will be discharged when clinically ready. CM call to [facility], spoke with Catherine to inform they the patient will not be discharging today and to expect contact from Joan to collaborate on care at the home. Varsha shared the breakdown of the [facility]: [facility] [facility] is the larger organization, [facility] is one of the residence groups and [facility] is the location Quita is living at. Report will need to be called to Dorina travel registered nurse nicu [phone] at discharge. Ramirez with Palliative stopped by to ask for CM to update on discharge, CM sent Madonna to share patient is not discharging today. CM faxed PCS form to [facility] already, they will keep form on hold until patient is ready to discharge. CM to follow. D/C Plan: Return to [facility] ([facility]) with [facility], [facility]fusion, and [facility]. Date Signed: 09/30/2018 12:26 PM Electronically Signed By:Evelia Villagran [facility] Progress Note CM Note CM Note Notes: CM call to patient's guardian Mariah Worrell, , to update on discharge plan. CM shared the plan is to discharge back to Skye's [facility] with [facility], [facility] for Formula feed, and [facility]. SHAMAR shared the conversation held with Sarah with [facility] around the need for them to ensure staff is trained and able to care for uQita when she returns home. She asked when discharge would be, CM shared it could be as soon as tomorrow but we will see how Quita is clinically, the goal is to transition from continuous to bolus feed. Mariah states she agrees with discharge plan and can be reached on her cellphone [phone] if needed though she is not as accessible on the weekends. Mariah stated she received a very nice phone call from Quita's father saying he appreciates all the care Quita has received and that 'he expects a miracle' and recognizes it was not an easy or popular decision. Mariah stated she is not expecting a call to update next steps over the weekend and agrees with the plan. CM to follow. D/C Plan: [facility] with [facility], [facility] for Formula feed, and [facility]. Date Signed: 09/30/2018 05:20 PM Electronically Signed By:Evelia Villagran Case Management Discharge Plan Note Case Management Discharge Discharge Order Complete? Answers: Yes Patient to Obtain Answers: Other Notes: [facility] Medications Transportation Arranged Answers: [facility] Stretcher Transport will Pick (Date 10/01/2018 03:30 PM & Time) Case Management Transport Answers: Yes Form Complete Faxed Final Orders Answers: Yes Agency/Facility Transfer Answers: Yes Report Printed & Faxed to Receiving Agency Family Notified Answers: Yes Discharge Comments Notes: D/w MD, final orders faxed to [facility] and their pharmacy, [facility] , [facility], and [facility]. Lisa from [facility] went to [facility] to do a teaching on the tube bolus feeds MD spoke with [facility] and they have received all medications and dc orders. did write hardscript for nebulizer machine that was given to [facility], rx for Lovenox, Albuterol and Budesonide called into [facility] pharmacy per Christina's request. She states they have a neb maching they can use until [facility] can fill the prescription. Date Signed: 10/01/2018 04:00 PM Electronically Signed By:Merline Lewis RN Intervention Information Intervention Type:*Incorrect Registration Date of Service:09/17/2018 07:58 AM Patient Type:Observation Staff Member:ZION Hayward Courtney Hours: Discipline: Severity: Comment:
== END 2018-10-01 15:51 | disposition hospice, home (50) | DRG 194 ==
LOC: F3E 21:50 → OBSVTOIN 21:56
PROVIDERS: ADMIT Internal Medicine; ATTEND Internal Medicine
PROC: 0T9B70Z Drainage of Bladder with Drainage Device, Via Natural or Artificial Opening (ICD-10-PCS; 2018-09-17)
PROC: 02HV33Z Insertion of Infusion Device into Superior Vena Cava, Percutaneous Approach (ICD-10-PCS; 2018-09-20)
PROC: 0DH68UZ Insertion of Feeding Device into Stomach, Via Natural or Artificial Opening Endoscopic (ICD-10-PCS; principal; 2018-09-29 11:00)
DX: J10.08 Influenza due to other identified influenza virus with other specified pneumonia (principal); E87.1 Hypo-osmolality and hyponatremia; E27.40 Unspecified adrenocortical insufficiency; S22.43XA Multiple fractures of ribs, bilateral, initial encounter for closed fracture; X50.0XXA Overexertion from strenuous movement or load, initial encounter; T68.XXXA Hypothermia, initial encounter; I95.9 Hypotension, unspecified; G40.909 Epilepsy, unspecified, not intractable, without status epilepticus; D64.9 Anemia, unspecified; E03.9 Hypothyroidism, unspecified; E87.6 Hypokalemia; J40 Bronchitis, not specified as acute or chronic; F09 Unspecified mental disorder due to known physiological condition; Z98.2 Presence of cerebrospinal fluid drainage device; Z85.841 Personal history of malignant neoplasm of brain; Z66 Do not resuscitate
CPT/HCPCS: 82435-PO; 82565-PO; 82947-PO; 84132-PO; 84295-PO; 84480-90; 84520-PO; 85014-ER; 92610-GN; 96365; B4087; C1751; J0610; J0690; J0692; J1100; J1650; J2704; J2997; J3480; J7613; J7626; Q9967

== ENCOUNTER 2018-10-03 06:51 | Emergency (ER) | payer OTHER, MEDICAID ==
--- NOTE | 2018-10-03 07:24 | EDPHY ---
H & P Time Seen by Provider: 10/03/18 07:04 HPI/ROS: CHIEF COMPLAINT: Peg tube replacement Limitations: Nonverbal HISTORY OF PRESENT ILLNESS: 43-year-old female with glioblastoma in childhood and severe cognitive impairment presents for PEG tube replacement. She accidentally pulled the PEG tube out a few days ago. She presents by EMS for PEG tube replacement. Per NH staff, no vomiting, change in behavior or fever. REVIEW OF SYSTEMS: Unable to determine - Personal History Tetanus Vaccine Date: 01/2008 - Medical/Surgical History Hx Asthma: No Hx Chronic Respiratory Disease: No Hx Diabetes: No Hx Cardiac Disease: No Hx Renal Disease: No Hx Cirrhosis: No Hx Alcoholism: No Hx HIV/AIDS: No Hx Splenectomy or Spleen Trauma: No Other PMH: TBI, BRAIN TUMOR,SEIZURE, SHUNT X 2, HYPOTHYROID, LACTOSE INTOL, PTSD , LEGALLY BLIND, FENG LEFT LEG, INCONTINENT, ASPIRATION PNEUMONIA, gen seizure, adrenal insufficiency, depression, dysphagia - Social History Smoking Status: Never smoked - Physical Exam Exam: General Appearance: Alert Eyes: Pupils equal and round ENT, Mouth: Mucous membranes moist Neck: Normal inspection Respiratory: Lungs are clear to auscultation anteriorly Cardiovascular: Regular rate and rhythm Gastrointestinal: Abdomen is soft, no apparent tenderness, tube site is clean and dry, no erythema or drainage Neurological: Alert, pulling at blankets with both arms, extremity contractures Skin: Warm and dry Constitutional: Initial Vital Signs Heart Rate 102 H 10/03/18 08:00 O2 Sat (%) 98 10/03/18 08:00 O2 Delivery Mode Room Air Allergies/Adverse Reactions: codeine [Codeine] Allergy (Intermediate, Verified 10/03/18 06:53) levofloxacin [From Levaquin] Allergy (Verified 10/03/18 06:53) milk [Milk] Allergy (Verified 10/03/18 06:53) morphine Allergy (Verified 10/03/18 06:53) Penicillins Allergy (Verified 10/03/18 06:53) vancomycin Allergy (Verified 10/03/18 06:53) Home Medications: Medication Instructions Recorded Chlorhexidine Gluconate [Peridex 15 ml PO TIDMEAL 08/12/12 oral soln (*)] Levothyroxine [Synthroid 112 mcg 112 mcg PO DAILY06 08/12/12 (*)] Fluoride (Sodium) [Prevident 5000] 1 pratima DT TID 03/14/17 Famotidine [Pepcid 20 MG (*)] 20 mg PO BID #60 tab 03/20/17 Magnesium Oxide [Magnesium Oxide 400 mg PO DAILY 07/23/17 400 mg (*)] Sodium Cl Nasal Gel [Alexander Saline 1 pratima EACHNARE HS 07/23/17 Nasal Gel] Herbals/Supplements -Info Only 1 ea PO TID 08/29/17 Cholecalciferol Vit D3 [Vitamin D3 1,000 units PO DAILY 11/07/17 (*)] Dexamethasone 1.5 mg PO DAILY@1900 09/12/18 Magnesium Hydroxide [Milk of 5 ml PO Q3D PRN 09/12/18 Magnesia] Propylene Glycol [Systane Balance] 1 drop EACHEYE 5XD 09/13/18 Bacitracin Zinc [Bacitracin 1 pratima TP TID oint 10/01/18 Ointment Tube] Budesonide [Budesonide 0.5MG/2Ml 0.5 mg IH BID 30 Days #60 ampul.neb 10/01/18 Neb (*)] Enoxaparin [Lovenox 40 MG (*)] 40 mg SQ DAILY 30 Days #30 syr 10/01/18 Ipratropium/Albuterol [Duoneb (*)] 3 ml IH Q6HRS PRN 30 Days #30 10/01/18 deyvial Lacosamide [Vimpat 50 mg (*)] 100 mg TUBE BID tab 10/01/18 Sennosides/Docusate Sodium 1 - 2 tab PO BID tab 10/01/18 [Senokot-S] Medical Decision Making - Diagnostics Imaging Results: Imaging Impressions Abdomen X-Ray 10/03/18 07:16 Impression: Malpositioned PEG tube, as above. Results discussed with Dr. Comfort William. Feeding Tube Manipulation 10/03/18 08:21 IMPRESSION: 1. Uneventful image guided replacement of a gastrostomy tube as described. ED Course/Re-evaluation: I attempted to replace the PEG tube. The tract is well established and the PEG to a appeared to be placed correctly. The balloon was inflated. KUB after placement obtained reveals that the PEG tube is not in the correct positioning. PEG tube removed. Consulted Dr. Santana, will replace PEG tub under flouro. PEG tube replaced, pt d/c'd back to NH. Departure - Departure Disposition: Home, Routine, Self-Care Clinical Impression: Peg tube replacement Condition: Good Instructions: How to Use and Care for Your PEG Tube (ED) Referrals: Patient,NotPresent [Unknown] - As per Instructions
[2018-10-03] MEDS ORDERED: LIDOCAINE 2% JELLY 20 ML (UROJECT) ONE (09:52)
[2018-10-03 12:26] VITALS: BP 118/86
--- NOTE | 2018-10-03 18:25 | ASMTCMCOM ---
CM Note CM Note Notes: Pt presented to the ED via EMS from her halfway after she accidentally pulled out her PEG tube. The ED RN contacted Joan, accounting software specialist ([phone]) at [facility] and also spoke with pt's caregiver at the halfway, Martin ([phone]). Per ED RN, pt needed to have her PEG tube replaced via IR and she notified the IR department re: the need for obtaining pt's legal guardian's consent. CM was not involved at this time. After the pt's PEG tube was successfully replaced, CM was then requested to assist w/getting pt back home. This CM reviewed various past CM Reports from recent admissions and called and spoke w/Joan. Joan states she is not aware if the halfway contacted/notified the pt's legally appointed guardian, Kimberly Worrell, but that it was okay if she was not contacted/notified because they were simply following protocol to send the pt to the ED. This CM called Kimberly at the listed #'s: [phone], , but was unable to get through. CM attempted to contact Martin to see if she had contacted Kimberly but there was no answer; CM left a voicemail around 11am but never heard back. Pt's father, Regan Krishnan, arrived to the ED around 1145 and asked the ED RN for the name of the doctor that replaced the pt's PEG tube. The ED RN informed him that per pt's chart she is not allowed to provide any medical treatment details to him or other listed family members and that he needs to ask Kimberly for any detailed information. Regan then asked to speak to a CM. This CM went and spoke to Regan at bedside and reiterated that we are not allowed to provide him any of the medical treatment details that he is requesting. Regan asked again later in the conversation but was once again reminded that we are not allowed to give him any info. CM provided empathetic listening and reassurance that the pt will get back home safely. CM arranged for a stretcher transport via [facility] to get pt back home. PCS completed and copy provided to EMS; original to be scanned into pt's chart. CM called Joan again and updated her on pt's status and transport arranged. Joan states she will reach out and update [facility] and pt's other outpatient providers ([facility], [facility], etc). Kimberly called CM back around 1600 and CM updated her on pt's ED visit etc. Kimberly states she is okay with [facility] ED going forward with replacing the PEG tube via IR due to it being medically necessary. Kimberly appreciative of the earlier call(s) and update. CM available for further assistance if needed. Date Signed: 10/03/2018 06:24 PM Electronically Signed By:Denisse Fang RN
== END 2018-10-03 12:00 | disposition home or self-care (01) ==
LOC: EDUNIT#
PROC: 0DH67UZ Insertion of Feeding Device into Stomach, Via Natural or Artificial Opening (ICD-10-PCS; principal; 2018-10-03)
DX: K94.23 Gastrostomy malfunction (principal)
CPT/HCPCS: 49450; 74018; 76000; 99284; C1769

== ENCOUNTER 2018-10-04 16:50 | Emergency (ER) | payer OTHER, MEDICAID ==
--- NOTE | 2018-10-04 17:11 | EDPHY ---
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 She had a PEG tube placed about a week ago. She pulled it out yesterday it was replaced here in the emergency department. X-ray confirmed placement. Ever since then however it has been leaking after feeds. Caregiver thinks that the tube is smaller than the 1 that was pulled out. Otherwise the patient and caregiver have not verbalized any complaint. Severity: Moderate Modifying factors: None REVIEW OF SYSTEMS: Per caregiver Constitutional: denies: chills, fever, recent illness, recent injury EENTM: denies: nose congestion Respiratory: denies: cough, shortness of breath Cardiac: denies: chest pain, irregular heart rate, lightheadedness Gastrointestinal/Abdominal: denies: abdominal pain, diarrhea, nausea, vomiting, blood streaked stools Genitourinary: denies: dysuria, frequency, hematuria, pain Musculoskeletal: denies: joint pain, muscle pain Skin: denies: lesions, rash, jaundice, bruising Neurological: Baseline Hematologic/Lymphatic: denies: blood clots, easy bleeding, easy bruising Immunologic/allergic: denies: HIV/AIDS, transplant 10 systems reviewed and negative except as noted EXAM: GENERAL: Severely debilitated female at baseline HEAD: The wearing helmet EYES: Pupils equal round and reactive to light ENT: oropharynx clear Moist mucous membranes. NECK: Normal inspection LUNGS: No wheezes rales or rhonchi. HEART: Regular rate and rhythm without murmurs, rubs or gallops. ABDOMEN: Soft, nontender, EXTREMITIES: Contractures, baseline NEUROLOGICAL: Nonverbal, resists movement of extremities. Alert PSYCH: Unable to assess SKIN: Warm, dry, Source: Patient Exam Limitations: No limitations - Personal History Tetanus Vaccine Date: 01/2008 - Medical/Surgical History Hx Asthma: No Hx Chronic Respiratory Disease: No Hx Diabetes: No Hx Cardiac Disease: No Hx Renal Disease: No Hx Cirrhosis: No Hx Alcoholism: No Hx HIV/AIDS: No Hx Splenectomy or Spleen Trauma: No Other PMH: TBI, BRAIN TUMOR,SEIZURE, SHUNT X 2, HYPOTHYROID, LACTOSE INTOL, PTSD , LEGALLY BLIND, FENG LEFT LEG, INCONTINENT, ASPIRATION PNEUMONIA, gen seizure, adrenal insufficiency, depression, dysphagia - Family History Significant Family History: No pertinent family hx - Social History Smoking Status: Never smoked Alcohol Use: None Constitutional: Initial Vital Signs Heart Rate 80 10/04/18 16:57 Respiratory Rate 16 10/04/18 16:57 Blood Pressure 83/65 L 10/04/18 16:57 O2 Sat (%) 93 10/04/18 16:57 O2 Delivery Mode Room Air Allergies/Adverse Reactions: codeine [Codeine] Allergy (Intermediate, Verified 10/04/18 16:57) levofloxacin [From Levaquin] Allergy (Verified 10/04/18 16:57) milk [Milk] Allergy (Verified 10/04/18 16:57) morphine Allergy (Verified 10/04/18 16:57) Penicillins Allergy (Verified 10/04/18 16:57) vancomycin Allergy (Verified 10/04/18 16:57) Home Medications: Medication Instructions Recorded Chlorhexidine Gluconate [Peridex 15 ml PO TIDMEAL 08/12/12 oral soln (*)] Levothyroxine [Synthroid 112 mcg 112 mcg PO DAILY06 08/12/12 (*)] Fluoride (Sodium) [Prevident 5000] 1 pratima DT TID 03/14/17 Famotidine [Pepcid 20 MG (*)] 20 mg PO BID #60 tab 03/20/17 Magnesium Oxide [Magnesium Oxide 400 mg PO DAILY 07/23/17 400 mg (*)] Sodium Cl Nasal Gel [[place] Saline 1 pratima EACHNARE HS 07/23/17 Nasal Gel] Herbals/Supplements -Info Only 1 ea PO TID 08/29/17 Cholecalciferol Vit D3 [Vitamin D3 1,000 units PO DAILY 11/07/17 (*)] Dexamethasone 1.5 mg PO DAILY@1900 09/12/18 Magnesium Hydroxide [Milk of 5 ml PO Q3D PRN 09/12/18 Magnesia] Propylene Glycol [Systane Balance] 1 drop EACHEYE 5XD 09/13/18 Bacitracin Zinc [Bacitracin 1 pratima TP TID oint 10/01/18 Ointment Tube] Budesonide [Budesonide 0.5MG/2Ml 0.5 mg IH BID 30 Days #60 ampul.neb 10/01/18 Neb (*)] Enoxaparin [Lovenox 40 MG (*)] 40 mg SQ DAILY 30 Days #30 syr 10/01/18 Ipratropium/Albuterol [Duoneb (*)] 3 ml IH Q6HRS PRN 30 Days #30 10/01/18 deyvial Lacosamide [Vimpat 50 mg (*)] 100 mg TUBE BID tab 10/01/18 Sennosides/Docusate Sodium 1 - 2 tab PO BID tab 10/01/18 [Senokot-S] Medical Decision Making - Diagnostics Imaging Results: Imaging Impressions Abdomen X-Ray 10/04/18 17:23 Impression: 1. Patency and good position of gastrostomy tube with opacification of the stomach after injection. Procedures: The patient's G-tube site was cleaned with chlorhexidine. I then placed a wire guide through the food port. I then deflated the balloon and removed the patient's G-tube. I then reinserted a larger 24 [place]ese G-tube over the line. It passed easily. Food easily aspirated from the port. Balloon inflated and ramos in place. ED Course/Re-evaluation: 5:20 p.m. I replaced the patient's G-tube over a wire. This was replaced easily. I upgraded from a size 20 to a size 24 M[place]ese. It does not appear to be leaking. Easily able to aspirate gastric contents. Caregivers requesting x- ray for confirmation. 6:15 p.m. x-rays were done with contrast. G-tube appears to be in place. Caregiver is here to take the patient home. Differential Diagnosis: Partial list of the Differential diagnosis considered include but were not limited to; the G-tube malfunction and although unlikely based on the history and physical exam, I also considered infection, foreign body, false tract. Departure - Departure Disposition: Home, Routine, Self-Care Clinical Impression: Malfunction of percutaneous endoscopic gastrostomy (PEG) tube Condition: Fair Instructions: How to Use and Care for Your PEG Tube (ED) Referrals: Vernell Yeh, [employer] [Primary Care Provider] - As per Instructions
[2018-10-04 17:36] VITALS: BP 139/83
== END 2018-10-04 18:28 | disposition home or self-care (01) ==
PROC: 0DP63UZ Removal of Feeding Device from Stomach, Percutaneous Approach (ICD-10-PCS; principal; 2018-10-04)
PROC: 0DH63UZ Insertion of Feeding Device into Stomach, Percutaneous Approach (ICD-10-PCS; principal; 2018-10-04)
DX: K94.23 Gastrostomy malfunction (principal); Z85.841 Personal history of malignant neoplasm of brain

== ENCOUNTER 2018-10-05 17:14 | Emergency (ER) | payer OTHER, MEDICAID ==
--- NOTE | 2018-10-05 18:07 | EDPHY ---
H & P Stated Complaint: trouble with g tube Time Seen by Provider: 10/05/18 17:55 HPI/ROS: CHIEF COMPLAINT: G-tube leaking HISTORY OF PRESENT ILLNESS: The patient is a 43-year-old female who has a history of glioblastoma as a child as well as traumatic brain injury with residual blindness and severe cognitive impairment and extremity contractures. She had a PEG tube placed a week ago percutaneously. She pulled it out 2 days ago and came here and had a replaced with a 20 Wall[place]ian. She was seen here yesterday by me because it was leaking. I replaced this with a 24 [place]ian over a wire. They returned today because there is still a small amount of leaking around the tube however it is significantly less than before. No erythema. No fever. No vomiting or diarrhea. Tube feeds are passing without difficulty. Severity: Moderate Modifying factors: None REVIEW OF SYSTEMS: Per caregiver Constitutional: denies: chills, fever, recent illness, recent injury EENTM: denies: nose congestion Respiratory: denies: cough, shortness of breath Cardiac: denies: irregular heart rate, lightheadedness, palpitations Gastrointestinal/Abdominal: denies: abdominal pain, diarrhea, nausea, vomiting, blood streaked stools Genitourinary: denies: dysuria, frequency, hematuria, pain Musculoskeletal: denies: joint pain, muscle pain Skin: denies: lesions, rash, jaundice, bruising Neurological: Baseline Hematologic/Lymphatic: denies: blood clots, easy bleeding, easy bruising Immunologic/allergic: denies: HIV/AIDS, transplant 10 systems reviewed and negative except as noted EXAM: GENERAL: Severely debilitated female a baseline HEAD: Wearing helmet. EYES: Pupils equal round and reactive to light, ENT: nares patent, oropharynx clear without exudates. Moist mucous membranes. NECK: Normal range of motion, supple without lymphadenopathy or JVD. LUNGS: Breath sounds clear to auscultation bilaterally and equal. No wheezes rales or rhonchi. HEART: Regular rate and rhythm without murmurs, rubs or gallops. ABDOMEN: G-tube in place, no significant erythema, minimal amount of leaking Soft, nontender, normoactive bowel sounds. No guarding, no rebound. No masses appreciated. EXTREMITIES: Chronic contractures NEUROLOGICAL: Baseline, nonverbal PSYCH: Unable to determine SKIN: Warm, dry, normal turgor, no visible rashes or lesions. Source: Patient Exam Limitations: Clinical condition - Personal History Current Tetanus/Diphtheria Vaccine: Unsure Current Tetanus Diphtheria and Acellular Pertussis (TDAP): Unsure Tetanus Vaccine Date: 01/2008 - Medical/Surgical History Hx Asthma: No Hx Chronic Respiratory Disease: No Hx Diabetes: No Hx Cardiac Disease: No Hx Renal Disease: No Hx Cirrhosis: No Hx Alcoholism: No Hx HIV/AIDS: No Hx Splenectomy or Spleen Trauma: No Other PMH: TBI, BRAIN TUMOR,SEIZURE, SHUNT X 2, HYPOTHYROID, LACTOSE INTOL, PTSD , LEGALLY BLIND, FENG LEFT LEG, INCONTINENT, ASPIRATION PNEUMONIA, gen seizure, adrenal insufficiency, depression, dysphagia - Family History Significant Family History: No pertinent family hx - Social History Smoking Status: Never smoked Alcohol Use: None Constitutional: Initial Vital Signs Temperature (C) 36.8 C 10/05/18 17:17 Heart Rate 92 10/05/18 17:17 Respiratory Rate 18 10/05/18 17:17 Blood Pressure 91/74 L 10/05/18 17:17 O2 Sat (%) 93 10/05/18 17:17 O2 Delivery Mode Room Air Allergies/Adverse Reactions: codeine [Codeine] Allergy (Intermediate, Verified 10/05/18 17:20) levofloxacin [From Levaquin] Allergy (Verified 10/05/18 17:20) milk [Milk] Allergy (Verified 10/05/18 17:20) morphine Allergy (Verified 10/05/18 17:20) Penicillins Allergy (Verified 10/05/18 17:20) vancomycin Allergy (Verified 10/05/18 17:20) Home Medications: Medication Instructions Recorded Chlorhexidine Gluconate [Peridex 15 ml PO TIDMEAL 08/12/12 oral soln (*)] Levothyroxine [Synthroid 112 mcg 112 mcg PO DAILY06 08/12/12 (*)] Fluoride (Sodium) [Prevident 5000] 1 pratima DT TID 03/14/17 Famotidine [Pepcid 20 MG (*)] 20 mg PO BID #60 tab 03/20/17 Magnesium Oxide [Magnesium Oxide 400 mg PO DAILY 07/23/17 400 mg (*)] Sodium Cl Nasal Gel [[place] Saline 1 pratima EACHNARE HS 07/23/17 Nasal Gel] Herbals/Supplements -Info Only 1 ea PO TID 08/29/17 Cholecalciferol Vit D3 [Vitamin D3 1,000 units PO DAILY 11/07/17 (*)] Dexamethasone 1.5 mg PO DAILY@1900 09/12/18 Magnesium Hydroxide [Milk of 5 ml PO Q3D PRN 09/12/18 Magnesia] Propylene Glycol [Systane Balance] 1 drop EACHEYE 5XD 09/13/18 Bacitracin Zinc [Bacitracin 1 pratima TP TID oint 10/01/18 Ointment Tube] Budesonide [Budesonide 0.5MG/2Ml 0.5 mg IH BID 30 Days #60 ampul.neb 10/01/18 Neb (*)] Enoxaparin [Lovenox 40 MG (*)] 40 mg SQ DAILY 30 Days #30 syr 10/01/18 Ipratropium/Albuterol [Duoneb (*)] 3 ml IH Q6HRS PRN 30 Days #30 10/01/18 deyvial Lacosamide [Vimpat 50 mg (*)] 100 mg TUBE BID tab 10/01/18 Sennosides/Docusate Sodium 1 - 2 tab PO BID tab 10/01/18 [Senokot-S] Medical Decision Making - Diagnostics Imaging Results: Imaging Impressions Abdomen X-Ray 10/05/18 19:47 Impression: The injected G-tube demonstrates contrast going into the stomach. Imaging: Discussed imaging studies w/ call center director Radiologist ED Course/Re-evaluation: 7:50 p.m. we cannot find a larger G tube in the hospital. I spoke with Dr. Peña over the phone. He states that he would not replace the G-tube voluntarily even if it is leaking. He states that they will just have to use it as is for month or 2 while it stabilizes. He recommends that we obtain a 2nd x-ray to ensure that is still in place today. The x-ray yesterday showed good placement. It does easily aspirate gastric contents. I also was able to tightening the collar down a little bit and now there is is no visible leaking. Dr. Peña states that follow-up in the clinic is appropriate he would not advise any further changes at this time. I had discussions about this with the caregivers at the bedside as well as the primary caregiver over the phone. They understand and are in agreement with this plan. Differential Diagnosis: Partial list of the Differential diagnosis considered include but were not limited to; G-tube malfunction, and although unlikely based on the history and physical exam, I also considered infection, bleeding, ulceration. Departure - Departure Disposition: Home, Routine, Self-Care Clinical Impression: Gastrostomy tube in place Condition: Fair Instructions: Tube Feeding (DC) Referrals: Vernell Yeh NP [Primary Care Provider] - As per Instructions Jhon Mccauley MD [Medical Doctor] - As per Instructions
[2018-10-05 21:17] VITALS: BP 118/71
== END 2018-10-05 21:17 | disposition home or self-care (01) ==
PROC: 0DP63UZ Removal of Feeding Device from Stomach, Percutaneous Approach (ICD-10-PCS; principal; 2018-10-05)
PROC: 0DH63UZ Insertion of Feeding Device into Stomach, Percutaneous Approach (ICD-10-PCS; principal; 2018-10-05)
DX: K94.23 Gastrostomy malfunction (principal); H54.8 Legal blindness, as defined in USA; E03.9 Hypothyroidism, unspecified; Z85.841 Personal history of malignant neoplasm of brain

== ENCOUNTER 2018-10-25 17:03 | Emergency (ER) | payer OTHER, MEDICAID ==
[2018-10-25 17:18] VITALS: BP 116/76
--- NOTE | 2018-10-25 17:29 | EDPHY ---
H & P Stated Complaint: pulling at g tube almost out Time Seen by Provider: 10/25/18 17:21 HPI/ROS: Chief Complaint: Requested evaluation of G-tube HPI: The patient has a history of a chronic G-tube placed secondary to underlying chronic neurologic disease. Nursing staff were concerned that it may have pulled out after they noted the bolster was pulled away from the skin. The patient's G-tube is still through the abdomen. It is continuing to aspirate normal gastric contents. The patient has had no fever vomiting or complaints of acute pain. REVIEW OF SYSTEMS: Neuro: no headache, numbness, weakness Musculoskeletal: as above Skin: no abrasion or lacerations Source: [facility] records - Personal History LMP (Females 10-55): Over 28 Days Ago Current Tetanus Diphtheria and Acellular Pertussis (TDAP): Yes Tetanus Vaccine Date: 01/2008 - Medical/Surgical History Hx Asthma: No Hx Chronic Respiratory Disease: No Hx Diabetes: No Hx Cardiac Disease: No Hx Renal Disease: No Hx Cirrhosis: No Hx Alcoholism: No Hx HIV/AIDS: No Hx Splenectomy or Spleen Trauma: No Other PMH: TBI, BRAIN TUMOR,SEIZURE, SHUNT X 2, HYPOTHYROID, LACTOSE INTOL, PTSD , LEGALLY BLIND, FENG LEFT LEG, INCONTINENT, ASPIRATION PNEUMONIA, gen seizure, adrenal insufficiency, depression, dysphagia - Social History Smoking Status: Never smoked - Physical Exam Exam: General Appearance: Wheelchair-bound, no acute distress, thin female Eyes: Pupils equal and round no pallor or injection ENT, Mouth: Mucous membranes moist Respiratory: There are no retractions, lungs are clear to auscultation Cardiovascular: Regular rate and rhythm Gastrointestinal: Abdomen is soft and nontender, no masses, bowel sounds normal , G-tube is noted to be normally positioned on the anterior abdominal wall with the bolster translated anteriorly approximately 5 cm Neurological: Chronic contractures Skin: Warm and dry, no rashes Constitutional: Initial Vital Signs Temperature (C) 36.3 C 10/25/18 17:16 Heart Rate 86 10/25/18 17:16 Respiratory Rate 17 10/25/18 17:16 Blood Pressure 116/76 10/25/18 17:16 O2 Sat (%) 94 10/25/18 17:16 O2 Delivery Mode Room Air Allergies/Adverse Reactions: codeine [Codeine] Allergy (Intermediate, Verified 10/25/18 17:15) levofloxacin [From Levaquin] Allergy (Verified 10/25/18 17:15) milk [Milk] Allergy (Verified 10/25/18 17:15) morphine Allergy (Verified 10/25/18 17:15) Penicillins Allergy (Verified 10/25/18 17:15) vancomycin Allergy (Verified 10/25/18 17:15) Home Medications: Medication Instructions Recorded Chlorhexidine Gluconate [Peridex 15 ml PO TIDMEAL 08/12/12 oral soln (*)] Levothyroxine [Synthroid 112 mcg 112 mcg PO DAILY06 08/12/12 (*)] Fluoride (Sodium) [Prevident 5000] 1 pratima DT TID 03/14/17 Famotidine [Pepcid 20 MG (*)] 20 mg PO BID #60 tab 03/20/17 Magnesium Oxide [Magnesium Oxide 400 mg PO DAILY 07/23/17 400 mg (*)] Sodium Cl Nasal Gel [[place] Saline 1 pratima EACHNARE HS 07/23/17 Nasal Gel] Herbals/Supplements -Info Only 1 ea PO TID 08/29/17 Cholecalciferol Vit D3 [Vitamin D3 1,000 units PO DAILY 11/07/17 (*)] Dexamethasone 1.5 mg PO DAILY@1900 09/12/18 Magnesium Hydroxide [Milk of 5 ml PO Q3D PRN 09/12/18 Magnesia] Propylene Glycol [Systane Balance] 1 drop EACHEYE 5XD 09/13/18 Bacitracin Zinc [Bacitracin 1 pratima TP TID oint 10/01/18 Ointment Tube] Budesonide [Budesonide 0.5MG/2Ml 0.5 mg IH BID 30 Days #60 ampul.neb 10/01/18 Neb (*)] Enoxaparin [Lovenox 40 MG (*)] 40 mg SQ DAILY 30 Days #30 syr 10/01/18 Ipratropium/Albuterol [Duoneb (*)] 3 ml IH Q6HRS PRN 30 Days #30 10/01/18 deyvial Lacosamide [Vimpat 50 mg (*)] 100 mg TUBE BID tab 10/01/18 Sennosides/Docusate Sodium 1 - 2 tab PO BID tab 10/01/18 [Senokot-S] Medical Decision Making ED Course/Re-evaluation: I readjusted the bolster. Gastric contents or aspirated. The patient is discharged home from the emergency department without evidence of tube dislodgement or complication. Departure - Departure Disposition: Home, Routine, Self-Care Clinical Impression: Attention to gastrostomy tube Condition: Good Instructions: Percutaneous Endoscopic Gastrostomy Insertion (DC) Additional Instructions: 1. Return to the ED for any concerns regarding the G-tube including dislodgement or malfunction. Referrals: Vernell Yeh [employer] [Primary Care Provider] - As per Instructions
== END 2018-10-25 17:29 | disposition home or self-care (01) ==
DX: Z43.1 Encounter for attention to gastrostomy (principal)

== ENCOUNTER 2018-12-13 17:53 | Emergency (ER) | payer OTHER, MEDICAID | END 2018-12-13 19:49 | disposition home or self-care (01) ==

== ENCOUNTER 2018-12-30 18:57 | Emergency (ER) | payer OTHER, MEDICAID | END 2018-12-30 21:39 | disposition home or self-care (01) ==